=== PATIENT | female | born 1985 | race Caucasian/White ===

== ENCOUNTER 2023-07-17 12:28 | Outpatient (OUT) | payer OTHER, SELFPAY ==
--- NOTE | 2023-07-17 12:33 | US_ITS ---
The [address] [address] Patient Name: VISHAL NELSON MRN: [id number] date: 1985 Sex: F Assigned Patient Location: US Current Patient Location: Accession/Order Number: [id number] Exam Date: 07/17/2023 12:33 Report Date: 07/17/2023 15:57 At the request of: AMPARO CROWLEY Procedure: US OB transvaginal EXAMINATION: US OB transvaginal HISTORY: MISSED MENSES COMPARISON: No relevant comparison available. FINDINGS: GESTATIONAL SAC: Present and normal appearing. YOLK SAC: Present and normal appearing. POLE: Present and normal appearing. CARDIAC: Present. UTERUS: Normal size and appearance. OVARIES: Right: Normal. Left: Normal. CERVIX: 4.4 cm in length and closed. CUL-DE-SAC: Normal. OTHER: None. AGE BY LMP: 10 weeks 6 days KATEY BY LMP: 02/06/2024 AGE BY US CRL: 11 weeks 1 day KATEY BY US CRL: 02/04/2024 US/US OB transvaginal IMPRESSION: 1. Single live intrauterine . Electronically authenticated by: JARAD BISHOP Date: 07/17/2023 15:57
== END 2023-07-17 12:29 | disposition home or self-care (01) ==
LOC: US 12:29
PROVIDERS: Visit Provider Obstetrics & Gynecology
DX: Z34.91 Encounter for supervision of normal pregnancy, unspecified, first trimester (principal); N92.6 Irregular menstruation, unspecified
CPT/HCPCS: 76817

== ENCOUNTER 2023-07-22 11:26 | Outpatient (OUT) | payer OTHER, SELFPAY ==
[2023-07-22 12:13] LABS: Basophils Percent Auto 0.4 % (0.2-2.0); Eosinophils Absolute Auto 0.1 10^3/uL (0.0-0.7); Eosinophils Percent Auto 0.6 % (0.9-7.0); Hematocrit 36.3 % (36.0-48.0); Hemoglobin 12.2 g/dL (12.0-16.0); Immature Granulocytes Abs Auto 0.05 10^3/uL (0.00-0.03); Immature Granulocytes Pct Auto 0.5 % (0.0-0.5); Lymphocytes Absolute Auto 1.7 10^3/uL (1.2-3.8); Lymphocytes Percent Auto 15.9 % (20.5-60.0); Mean Corpuscular HGB Conc 33.6 g/dL (29.9-35.2); Mean Corpuscular Hemoglobin 30.9 pg (26.7-34.0); Mean Corpuscular Volume 91.9 fL (81.0-99.0); Monocytes Absolute Auto 0.5 10^3/uL (0.3-0.8); Monocytes Percent Auto 4.9 % (1.7-12.0); Neutrophils Percent Auto 77.7 % (43.0-75.0); Platelet Count 245 10^3/uL (150-450); Red Blood Count 3.95 10^6/uL (4.20-5.40); Red Cell Distribution Width 12.5 % (11.0-15.0); White Blood Count 10.4 10^3/uL (4.0-11.0)
[2023-07-22 12:14] LABS: Estimated Average Glucose 103 mg/dL; Glycohemoglobin A1C 5.2 % (4.5-6.2)
[2023-07-22 12:57] LABS: Thyroid Stimulating Hormone 1.005 uIU/mL (0.358-3.740)
[2023-07-23 06:09] LABS: HBsAg Screen Negative (Negative); HCV Ab Non Reactive (Non Reactive); HIV Ab/p24 Ag Screen Non Reactive (Non Reactive)
[2023-07-23 08:12] LABS: Rubella Antibodies, IgG 2.84 index (Immune >0.99)
[2023-07-23 12:09] LABS: Rapid Plasma Reagin, Quant Non Reactive titer (NonRea<1:1)
== END 2023-07-22 11:27 | disposition home or self-care (01) ==
PROVIDERS: Visit Provider Obstetrics & Gynecology
DX: Z34.80 Encounter for supervision of other normal pregnancy, unspecified trimester (principal); N92.6 Irregular menstruation, unspecified
CPT/HCPCS: 36415; 83036; 84443; 85025; 86592; 86762; 86803; 86850; 86900; 86901; 87086; 87340; 87389

== ENCOUNTER 2023-09-11 20:26 | Outpatient (REF) | payer OTHER, SELFPAY ==
[2023-09-17 11:09] LABS: Age Gdln ACOG Testing Note (.); HPV Aptima Negative (Negative); IGP, Aptima HPV, rfx 16/18,45 Note (.)
== END 2023-09-11 20:27 | disposition home or self-care (01) ==
LOC: LAB 20:26
PROVIDERS: Visit Provider Physician Assistant
DX: Z01.419 Encounter for gynecological examination (general) (routine) without abnormal findings (principal); R30.0 Dysuria
CPT/HCPCS: 87086; 87150; 87186; 87624; G0145

== ENCOUNTER 2023-11-17 07:47 | Outpatient (OUT) | payer OTHER, SELFPAY ==
--- OUTSIDE RECORDS SUMMARY | 2023-11-17 07:48 | XMS_ITS | CCD ---
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 Role Phone PHYSICIAN, DEFAULT Unavailable Unavailable PHYSICIAN, DEFAULT Unavailable Unavailable HOUSE, DR FLYNN Attending Unavailable HOUSE, DR FLYNN Consulting Unavailable HOUSE, DR FLYNN Admitting Unavailable REQUEST, DR GARCIA LISTED Primary Care Unavaila MAGDALENA Ruiz Attending Unavailable MAGDALENA WISDOM Attending Unavailable Allergies Allergy Classification Reported Allergen(s) Allergy Type Date of Onset Reaction(s) Facility (1 source) Nitrofurantoin Drug Allergy 7 [facility] Repository Results Test Name Value Interpretation Reference Range Facil ity CBC AUTO DIFFon 10-02-2022 BASO # 0.0 103/ul Normal 0.0-0.1 [facility] Comment on above: Performed By: #### C BC #### [facility] [address] [address] [address] Musa Chacon Basophils/100 WBC (Bld) 0.9 % Normal 0.2-2.0 [facility] Comment on above: Performed By: #### C BC #### [facility] [address] [address] [address] Musa Chacon EO # 0.1 103/ul Normal 0.0-0.7 [facility] Comment on above: Performed By: #### C BC #### [facility] [address] [address] [address] Musa Chacon Eosinophils/100 WBC (Bld) 1.8 % Normal 0.9-7.0 [facility] Comment on above: Performed By: #### C BC #### [facility] [address] [address] [address] Musa Chacon Erythrocyte distribution width (RBC) [Ratio] 12.8 % Normal 11.0-15.0 [facility] Comment on above: Performed By: #### C BC #### [facility] [address] [place] [address] Dr. Musa Chacon Hematocrit (Bld) [Volume fraction] 39.4 % Normal 36.0-48.0 [facility] Comment on above: Performed By: #### C BC #### [facility] [address] [place] [address] Dr. Musa Chacon Hemoglobin (Bld) [Mass/Vol] 13.5 g/dL Normal 12.0-16.0 [facility] Comment on above: Performed By: #### C BC #### [facility] [address] [place] [address] Dr. Musa Chacon IG # 0.01 10e3/ul Normal 0.00-0.03 [facility] Comment on above: Performed By: #### C BC #### [facility] [address] [place] [address] Dr. Musa Chacon IG % 0.2 % Normal 0.0-0.5 [facility] Comment on above: Performed By: #### C BC #### [facility] [address] [place] [address] Dr. Musa Chacon LYMPH # 1.4 103/ul Normal 1.2-3.8 [facility] Comment on above: Performed By: #### C BC #### [facility] [address] [place] [address] Dr. Musa Chacon Lymphocytes/100 WBC (Bld) 32.0 % Normal 20.5-60.0 [facility] Comment on above: Performed By: #### C BC #### [facility] [address] [place] [address] Dr. Musa Chacon MANUAL DIFF REQ NO Normal [facility] Comment on above: Performed By: #### C BC #### [facility] [address] [place] [address] Dr. Musa Chacon MCH (RBC) [Entitic mass] 30.1 pg Normal 26.7-34.0 [facility] Comment on above: Performed By: #### C BC #### [facility] [address] [address] [address] Musa Chacon MCHC (RBC) [Mass/Vol] 34.3 g/dL Normal 29.9-35.2 [facility] Comment on above: Performed By: #### C BC #### [facility] [address] [address] [address] Musa Chacon MCV (RBC) [Entitic vol] 87.8 fL Normal 81.0-99.0 [facility] Comment on above: Performed By: #### C BC #### [facility] [address] [address] [address] Musa Chacon MONO # 0.4 103/ul Normal 0.3-0.8 [facility] Comment on above: Performed By: #### C BC #### [facility] [address] [place] [address] Dr. Musa Chacon Monocytes/100 WBC (Bld) 8.0 % Normal 1.7-12.0 [facility] Comment on above: Performed By: #### C BC #### [facility] [address] [place] [address] Dr. Musa Chacon NEUT # 2.6 103/ul Normal 1.4-6.5 [facility] Comment on above: Performed By: #### C BC #### [facility] [address] [place] [address] Dr. Musa Chacon Neutrophils/100 WBC (Bld) 57.1 % Normal 43.0-75.0 [facility] Comment on above: Performed By: #### C BC #### [facility] [address] [place] [address] Dr. Musa Chacon Platelet mean volume (Bld) [Entitic vol] 10.2 fL Normal 9.5-13.5 [facility] Comment on above: Performed By: #### C BC #### [facility] [address] [place] [address] Dr. Musa Chacon PLT 223 103/ul Normal 150-450 [facility] Comment on above: Performed By: #### C BC #### [facility] [address] [place] [address] Dr. Musa Chacon RBC 4.49 106/ul Normal 4.20-5.40 [facility] Comment on above: Performed By: #### C BC #### [facility] [address] [place] [address] Dr. Musa Chacon WBC 4.5 103/ul Normal 4.0-11.0 [facility] Comment on above: Performed By: #### C BC #### [facility] [address] [place] [address] Dr. Musa Chacon PROF 14(COMP METB)on 022 Albumin [Mass/Vol] 4.1 g/dL Normal 3.4-5.0 [facility] Comment on above: Performed By: #### T 4, CMP, TSH #### [facility] [address] [place] [address] Dr. Musa Chacon Albumin/Globulin [Mass ratio] 1.5 {ratio} Normal [facility] Comment on above: Performed By: #### T 4, CMP, TSH #### [facility] [address] [place] [address] Dr. Musa Chacon ALP [Catalytic activity/Vol] 51 U/L Normal 46-116 [facility] Comment on above: Performed By: #### T 4, CMP, TSH #### [facility] [address] [place] [address] Dr. Musa Chacon ALT [Catalytic activity/Vol] 17 U/L Normal 14-59 [facility] Comment on above: Performed By: #### T 4, CMP, TSH #### [facility] [address] [place] [address] Dr. Musa Chacon Anion gap [Moles/Vol] 11.8 mmol/L Normal [facility] Comment on above: Performed By: #### T 4, CMP, TSH #### [facility] [address] [place] [address] Dr. Musa Chacon AST [Catalytic activity/Vol] 14 U/L Critically low 15-37 [facility] Comment on above: Performed By: #### T 4, CMP, TSH #### [facility] [address] [address] [address] Musa Chacon Bilirubin [Mass/Vol] 0.8 mg/dL Normal 0.2-1.0 [facility] Comment on above: Performed By: #### T 4, CMP, TSH #### [facility] [address] [address] [address] Musa Chacon Calcium [Mass/Vol] 8.9 mg/dL Normal 8.5-10.1 [facility] Comment on above: Performed By: #### T 4, CMP, TSH #### [facility] [address] [place] [address] Dr. Musa Chacon Chloride [Moles/Vol] 105 mmol/L Normal 98-107 [facility] Comment on above: Performed By: #### T 4, CMP, TSH #### [facility] [address] [place] [address] Dr. Musa Chacon CO2 [Moles/Vol] 27.4 mmol/L Normal 21.0-32.0 [facility] Comment on above: Performed By: #### T 4, CMP, TSH #### [facility] [address] [place] [address] Dr. Musa Chacon Creatinine [Mass/Vol] 0.78 mg/dL Normal 0.55-1.02 [facility] Comment on above: Performed By: #### T 4, CMP, TSH #### [facility] [address] [place] [address] Dr. Musa Chacon EGFR-AF MAURITIAN >60 Normal >=60 [facility] Comment on above: Performed By: #### T 4, CMP, TSH #### [facility] [address] [place] [address] Dr. Musa Chacon EGFR-NON AF MAURITIAN >60 Normal >=60 [facility] Comment on above: Performed By: #### T 4, CMP, TSH #### [facility] [address] [place] [address] Dr. Musa Chacon Globulin (S) [Mass/Vol] 2.8 g/dL Normal [facility] Comment on above: Performed By: #### T 4, CMP, TSH #### [facility] [address] [place] [address] Dr. Musa Chacon Glucose [Mass/Vol] 96 mg/dL Normal 74-106 [facility] Comment on above: Performed By: #### T 4, CMP, TSH #### [facility] [address] [place] [address] Dr. Musa Chacon Potassium [Moles/Vol] 4.2 mmol/L Normal 3.5-5.1 [facility] Comment on above: Performed By: #### T 4, CMP, TSH #### [facility] [address] [place] [address] Dr. Musa Chacon Protein [Mass/Vol] 6.9 g/dL Normal 6.4-8.2 [facility] Comment on above: Performed By: #### T 4, CMP, TSH #### [facility] [address] [place] [address] Dr. Musa Chacon Sodium [Moles/Vol] 140 mmol/L Normal 136-145 [facility] Comment on above: Performed By: #### T 4, CMP, TSH #### [facility] [address] [place] [address] Dr. Musa Chacon Urea nitrogen [Mass/Vol] 10.0 mg/dL Normal 7.0-18.0 [facility] Comment on above: Performed By: #### T 4, CMP, TSH #### [facility] [address] [place] [address] Dr. Musa Chacon Urea nitrogen/Creatinine [Mass ratio] 12.8 mg/mg Normal [facility] Comment on above: Performed By: #### T 4, CMP, TSH #### [facility] [address] [place] [address] Dr. Musa Chacon T4on 10-02-2022 T4 [Mass/Vol] 6.30 ug/dL Normal 4.80-13.90 [facility] Comment on above: Performed By: #### T 4, CMP, TSH #### [facility] [address] [place] [address] Dr. Musa Chacon TSHon 10-02-2022 TSH 1.653 uIU/mL Normal 0.358-3.[address] [facility] Comment on above: Performed By: #### T 4, CMP, TSH #### [facility] [id number] Musa Chacon Coding Summary.on 10-12-2020 Coding Summary. 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 However, the narrative phrase printed from the coding software may appear abbreviated, or result in slightly different terminology. Coded By: Christine Dash CphT Date Saved: 10/12/2020 10:12 am Normal [facility] SARS-CoV-2, NAAon 10-06-2020 SARS CORONAVIRUS 2 RNA:PRTHR:PT:RESPIR ATORY:ORD:PROBE.AMP .TAR Detected Abnormal Not Detected [facility] Comment on above: Result Comment: This nucleic acid amplification test was developed and its performance characteristics determined by [employer]. Nucleic acid amplification tests include PCR and TMA. This test has not been FDA cleared or approved. This test has been authorized by FDA under an Emergency Use Authorization (EUA). This test is only authorized for the duration of time the declaration that circumstances exist justifying the authorization of the emergency use of in vitro diagnostic tests for detection of SARS-CoV-2 virus and/or diagnosis of COVID-19 infection under section 564(b)(1) of the Act, 21 U.S.C. 360bbb-3(b) (1), unless the authorization is terminated or revoked sooner. When diagnostic testing is negative, the possibility of a false negative result should be considered in the context of a patient's recent exposures and the presence of clinical signs and symptoms consistent with COVID-19. An individual without symptoms of COVID-19 and who is not shedding SARS-CoV-2 virus would expect to have a negative (not detected) result in this assay. Performed at: [facility] [address] [facility], [place] [id number] [facility] Magda Clark Performed By: #### S ARS-CoV-2, LE #### [facility] [address] [place] [address] Physician Orderon 10-02-2020 Physician Order [id number] #[id number] Normal [facility] Encounters Encounter Date Encounter Type Care Provider Facility Start: 11-05-2023 End: 11-05-2023 ambulatory MAGDALENA ARTIS Not Available Start: 10-08-2023 End: 10-08-2023 ambulatory MAGDALENA WISDOM Not Available Start: 10-05-2022 Encounter for genera l adult medical examination without abnormal findings DR GEE HERNANDEZ [facility] Start: 10-02-2022 End: 10-03-[address] GEE HERNANDEZ Facility:[facility] Start: 10-02-2022 End: 10-03-2022 Encounter for general adult medical examination without abnormal findings DR GEE HERNANDEZ Facility:[facility] Start: 05-21-2017 End: 05-22-2017 Ambulatory DEFAULT PHYSICIAN Facility:[facility] Payers Date Payer Category Payer Unknown [id number] 1985 Unknown [id number] 1985 Unknown [id number] 1985 Unknown [id number] 1958 Unknown [id number] Unknown Summary Purpose Family History No Family History Records FoundNo Family History Records FoundNo Family History Records FoundNo Family History Records Found Advance Directives No Advanced Directives Records FoundNo Advanced Directives Records FoundNo Advanced Directives Records FoundNo Advanced Directives Records Found Additional Source Comments INFORMATION SOURCE (unrecogn ized section and content) DATE CREATED AUTHOR 04/29/2018 [facility] DATE CREATED AUTHOR AUTHOR'S ORGANIZ ATION 10/13/2020 [facility] DATE CREATED AUTHOR AUTHOR'S ORGANIZ ATION 10/05/2022 [facility] DATE CREATED AUTHOR AUTHOR'S ORGANIZ ATION 11/06/2023 [facility] FOR RECORDS PERTAINING TO PATIENTS WHO ARE OR HAVE BEEN ENROLLED IN A CHEMICAL DEPENDENCY/SUBSTANCEABUSE PROGRAM, SOME INFORMATION MAY BE OMITTED. This clinical summary was aggregated from multiple sources. Caution should be exercised in using it in the provision of clinical care. This summary normalizes information from multiple sources, and as a consequence, information in this document may materially change the coding, format and clinical context of patient data. In addition, data may be omitted in some cases. CLINICAL DECISIONS SHOULD BE BASED ON THE PRIMARY CLINICAL RECORDS. [facility] [employer] provides no warranty or guarantee of the accuracy or completeness of information in this document.
[2023-11-17 08:59] LABS: Basophils Absolute Auto 0.1 10^3/uL (0.0-0.1); Basophils Percent Auto 0.5 % (0.2-2.0); Eosinophils Absolute Auto 0.1 10^3/uL (0.0-0.7); Eosinophils Percent Auto 0.6 % (0.9-7.0); Hematocrit 30.6 % (36.0-48.0); Hemoglobin 10.4 g/dL (12.0-16.0); Immature Granulocytes Abs Auto 0.11 10^3/uL (0.00-0.03); Lymphocytes Absolute Auto 1.3 10^3/uL (1.2-3.8); Lymphocytes Percent Auto 11.5 % (20.5-60.0); Mean Corpuscular Hemoglobin 31.5 pg (26.7-34.0); Mean Corpuscular Volume 92.7 fL (81.0-99.0); Mean Platelet Volume 9.4 fL (9.5-13.5); Monocytes Absolute Auto 0.5 10^3/uL (0.3-0.8); Monocytes Percent Auto 4.8 % (1.7-12.0); Neutrophils Percent Auto 81.6 % (43.0-75.0); Platelet Count 266 10^3/uL (150-450); Red Cell Distribution Width 12.8 % (11.0-15.0); White Blood Count 11.1 10^3/uL (4.0-11.0)
[2023-11-17 09:06] LABS: Glucose 1 Hour 115 mg/dL
== END 2023-11-17 07:48 | disposition home or self-care (01) ==
LOC: LAB 07:47
PROVIDERS: Visit Provider Obstetrics & Gynecology
DX: Z34.92 Encounter for supervision of normal pregnancy, unspecified, second trimester (principal)
CPT/HCPCS: 36415; 82950; 85025

== ENCOUNTER 2023-11-25 13:47 | Outpatient (OUT) | payer OTHER, SELFPAY ==
--- NOTE | 2023-11-25 13:49 | US_ITS ---
[address] [address] Patient Name: VISHAL NELSON MRN: [id number] date: 1985 Sex: F Assigned Patient Location: US Current Patient Location: Accession/Order Number: [id number] Exam Date: 11/25/2023 13:50 Report Date: 11/25/2023 14:30 At the request of: AMPARO CROWLEY Procedure: US OB growth EXAMINATION: US OB growth HISTORY: ANTEPARTUM PLACENTA CIRCUMVALLATA COMPARISON: No relevant comparison available. FINDINGS: Heart Rate: 157.0 bpm Amniotic Fluid Volume: 11.0 cm Number: 1.0 Position: Cephalic presentation, longitudinal lie Amniotic fluid volume: 11 cm Maximum Vertical Pocket: 3.9 cm cm 3.0 cm cm 1.8 cm cm 2.3 cm cm BIOMETRY: BPD: 7.5 cm cm; 30 weeks 0 days; , 50% HC: 27.7 cmcm; 30 weeks 2 days , 35% AC: 26.4 cm cm; 30 weeks 4 days, 73% FL: 5.7 cm cm; 30 weeks 0 days; 46.9 % % EFW: 1545.4 grams, 3 lbs. 6 oz., 64% FL/AC: 21.7 FL/BPD: 76.6 HC/AC: 1.1 GESTATIONAL AGE: Age by EDC: 29 weeks 4 days KATEY by EDC: 02/06/2024 Age by US: 30 weeks 2 days KATEY by US: 02/01/2024 US/US OB growth IMPRESSION: Normal interval growth Electronically authenticated by: SOPHIA GONZALEZ Date: 11/25/2023 14:30
--- OUTSIDE RECORDS SUMMARY | 2023-11-25 13:54 | XMS_ITS | CCD ---
Author Name Unknown Address [address] [place] [address] Organization [facility] Care Team Providers Care Container Coordinator Name Role Phone PHYSICIAN, DEFAULT Unavailable Unavailable PHYSICIAN, DEFAULT Unavailable Unavailable HOUSE, DR FLYNN Attending Unavailable HOUSE, DR FLYNN Consulting Unavailable HOUSE, DR FLYNN Admitting Unavailable REQUEST, DR GARCIA LISTED Primary Care Unavaila MAGDALENA Ruiz Attending Unavailable MAGDALENA WISDOM Attending Unavailable Allergies Allergy Classification Reported Allergen(s) Allergy Type Date of Onset Reaction(s) Facility (1 source) Nitrofurantoin Drug Allergy 7 [facility] Repository Results Test Name Value Interpretation Reference Range Facil ity CBC AUTO DIFFon 10-02-2022 BASO # 0.0 103/ul Normal 0.0-0.1 [facility] Comment on above: Performed By: #### C BC #### [facility] [address] [address] [address] Musa Chacon Basophils/100 WBC (Bld) 0.9 % Normal 0.2-2.0 [facility] Comment on above: Performed By: #### C BC #### [facility] [address] [address] [address] Musa Chacon EO # 0.1 103/ul Normal 0.0-0.7 [facility] Comment on above: Performed By: #### C BC #### [facility] [address] [address] [address] Musa Chacon Eosinophils/100 WBC (Bld) 1.8 % Normal 0.9-7.0 [facility] Comment on above: Performed By: #### C BC #### [facility] [address] [address] [address] Musa Chacon Erythrocyte distribution width (RBC) [Ratio] 12.8 % Normal 11.0-15.0 [facility] Comment on above: Performed By: #### C BC #### [facility] [address] [place] [address] Dr. Musa Chacon Hematocrit (Bld) [Volume fraction] 39.4 % Normal 36.0-48.0 [facility] Comment on above: Performed By: #### C BC #### [facility] [address] [place] [address] Dr. Musa Chacon Hemoglobin (Bld) [Mass/Vol] 13.5 g/dL Normal 12.0-16.0 [facility] Comment on above: Performed By: #### C BC #### [facility] [address] [place] [address] Dr. Musa Chacon IG # 0.01 10e3/ul Normal 0.00-0.03 [facility] Comment on above: Performed By: #### C BC #### [facility] [address] [place] [address] Dr. Musa Chacon IG % 0.2 % Normal 0.0-0.5 [facility] Comment on above: Performed By: #### C BC #### [facility] [address] [place] [address] Dr. Musa Chacon LYMPH # 1.4 103/ul Normal 1.2-3.8 [facility] Comment on above: Performed By: #### C BC #### [facility] [address] [place] [address] Dr. Musa Chacon Lymphocytes/100 WBC (Bld) 32.0 % Normal 20.5-60.0 [facility] Comment on above: Performed By: #### C BC #### [facility] [address] [place] [address] Dr. Musa Chacon MANUAL DIFF REQ NO Normal [facility] Comment on above: Performed By: #### C BC #### [facility] [address] [place] [address] Dr. Musa Chacon MCH (RBC) [Entitic mass] 30.1 pg Normal 26.7-34.0 [facility] Comment on above: Performed By: #### C BC #### [facility] [address] [address] [address] Musa Chacon MCHC (RBC) [Mass/Vol] 34.3 g/dL Normal 29.9-35.2 [facility] Comment on above: Performed By: #### C BC #### [facility] [address] [address] [address] Musa Chacon MCV (RBC) [Entitic vol] 87.8 fL Normal 81.0-99.0 [facility] Comment on above: Performed By: #### C BC #### [facility] [address] [address] [address] Musa Chacon MONO # 0.4 103/ul Normal 0.3-0.8 [facility] Comment on above: Performed By: #### C BC #### [facility] [address] [place] [address] Dr. Musa Chacon Monocytes/100 WBC (Bld) 8.0 % Normal 1.7-12.0 [facility] Comment on above: Performed By: #### C BC #### [facility] [address] [place] [address] Dr. Musa Chacon NEUT # 2.6 103/ul Normal 1.4-6.5 [facility] Comment on above: Performed By: #### C BC #### [facility] [address] [place] [address] Dr. Musa Chacon Neutrophils/100 WBC (Bld) 57.1 % Normal 43.0-75.0 [facility] Comment on above: Performed By: #### C BC #### [facility] [address] [place] [address] Dr. Musa Chacon Platelet mean volume (Bld) [Entitic vol] 10.2 fL Normal 9.5-13.5 [facility] Comment on above: Performed By: #### C BC #### [facility] [address] [place] [address] Dr. Musa Chacon PLT 223 103/ul Normal 150-450 [facility] Comment on above: Performed By: #### C BC #### [facility] [address] [place] [address] Dr. Musa Chacon RBC 4.49 106/ul Normal 4.20-5.40 [facility] Comment on above: Performed By: #### C BC #### [facility] [address] [place] [address] Dr. Musa Chacon WBC 4.5 103/ul Normal 4.0-11.0 [facility] Comment on above: Performed By: #### C BC #### [facility] [address] [place] [address] Dr. Musa Chacon PROF 14(COMP METB)on 022 Albumin [Mass/Vol] 4.1 g/dL Normal 3.4-5.0 [facility] Comment on above: Performed By: #### T 4, CMP, TSH #### [facility] [address] [place] [address] Dr. Musa Chacon Albumin/Globulin [Mass ratio] 1.5 {ratio} Normal [facility] Comment on above: Performed By: #### T 4, CMP, TSH #### [facility] [address] [place] [address] Dr. Musa Chacon ALP [Catalytic activity/Vol] 51 U/L Normal 46-116 [facility] Comment on above: Performed By: #### T 4, CMP, TSH #### [facility] [address] [place] [address] Dr. Musa Chacon ALT [Catalytic activity/Vol] 17 U/L Normal 14-59 [facility] Comment on above: Performed By: #### T 4, CMP, TSH #### [facility] [address] [place] [address] Dr. Musa Chacon Anion gap [Moles/Vol] 11.8 mmol/L Normal [facility] Comment on above: Performed By: #### T 4, CMP, TSH #### [facility] [address] [place] [address] Dr. Musa Chacon AST [Catalytic activity/Vol] 14 U/L Critically low 15-37 [facility] Comment on above: Performed By: #### T 4, CMP, TSH #### [facility] [address] [address] [address] Musa Chacon Bilirubin [Mass/Vol] 0.8 mg/dL Normal 0.2-1.0 [facility] Comment on above: Performed By: #### T 4, CMP, TSH #### [facility] [address] [address] [address] Musa Chacon Calcium [Mass/Vol] 8.9 mg/dL Normal 8.5-10.1 [facility] Comment on above: Performed By: #### T 4, CMP, TSH #### [facility] [address] [place] [address] Dr. Musa Chacon Chloride [Moles/Vol] 105 mmol/L Normal 98-107 [facility] Comment on above: Performed By: #### T 4, CMP, TSH #### [facility] [address] [place] [address] Dr. Musa Chacon CO2 [Moles/Vol] 27.4 mmol/L Normal 21.0-32.0 [facility] Comment on above: Performed By: #### T 4, CMP, TSH #### [facility] [address] [place] [address] Dr. Musa Chacon Creatinine [Mass/Vol] 0.78 mg/dL Normal 0.55-1.02 [facility] Comment on above: Performed By: #### T 4, CMP, TSH #### [facility] [address] [place] [address] Dr. Musa Chacon EGFR-AF DUTCH >60 Normal >=60 [facility] Comment on above: Performed By: #### T 4, CMP, TSH #### [facility] [address] [place] [address] Dr. Musa Chacon EGFR-NON AF DUTCH >60 Normal >=60 [facility] Comment on above: Performed By: #### T 4, CMP, TSH #### [facility] [address] [place] [address] Dr. Musa Chacon Globulin (S) [Mass/Vol] 2.8 g/dL Normal [facility] Comment on above: Performed By: #### T 4, CMP, TSH #### [facility] [address] [place] [address] Dr. Musa Chacon Glucose [Mass/Vol] 96 mg/dL Normal 74-106 [facility] Comment on above: Performed By: #### T 4, CMP, TSH #### [facility] [address] [place] [address] Dr. Musa Chacon Potassium [Moles/Vol] 4.2 mmol/L Normal 3.5-5.1 [facility] Comment on above: Performed By: #### T 4, CMP, TSH #### [facility] [address] [place] [address] Dr. Musa Chacon Protein [Mass/Vol] 6.9 g/dL Normal 6.4-8.2 [facility] Comment on above: Performed By: #### T 4, CMP, TSH #### [facility] [address] [place] [address] Dr. Musa Chacon Sodium [Moles/Vol] 140 mmol/L Normal 136-145 [facility] Comment on above: Performed By: #### T 4, CMP, TSH #### [facility] [address] [place] [address] Dr. Musa Chacon Urea nitrogen [Mass/Vol] 10.0 mg/dL Normal 7.0-18.0 [facility] Comment on above: Performed By: #### T 4, CMP, TSH #### [facility] [address] [place] [address] Dr. Musa Chacon Urea nitrogen/Creatinine [Mass ratio] 12.8 mg/mg Normal [facility] Comment on above: Performed By: #### T 4, CMP, TSH #### [facility] [address] [place] [address] Dr. Musa Chacon T4on 10-02-2022 T4 [Mass/Vol] 6.30 ug/dL Normal 4.80-13.90 [facility] Comment on above: Performed By: #### T 4, CMP, TSH #### [facility] [address] [place] [address] Dr. Musa Chacon TSHon 10-02-2022 TSH 1.653 uIU/mL Normal 0.358-3.740 [facility] Comment on above: Performed By: #### T 4, CMP, TSH #### [facility] [id number] Musa Chacon Coding Summary.on 10-12-2020 Coding Summary. 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 Nucleic acid amplification tests include PCR and [...] this assay. Performed at: [facility] [address] [facility], [place] [id number] [facility] Magda Clark Performed By: #### S ARS-CoV-2, LE #### [facility] [address] [place] [address] Physician Orderon 10-02-2020 Physician Order [id number] Normal [facility] Encounters Encounter Date Encounter Type Care Provider Facility Start: 11-05-2023 End: 11-05-2023 ambulatory MAGDALENA ARTIS Not Available Start: 10-08-2023 End: 10-08-2023 ambulatory MAGDALENA WISDOM Not Available Start: 10-05-2022 Encounter for genera l adult medical examination without abnormal findings DR GEE HERNANDEZ [facility] Start: 10-02-2022 End: 10-03-[address] GEE HERNANDEZ Facility:[facility] Start: 10-02-2022 End: 10-03-2022 Encounter for general adult medical examination without abnormal findings DR GEE HERNANDEZ Facility:[facility] Start: 05-21-2017 End: 05-22-2017 Ambulatory DEFAULT PHYSICIAN Facility:[facility] Payers Date Payer Category Payer Unknown [id number] 1985 Unknown [id number] [id number] 1985 Unknown [id number] 1986 Unknown [id number] 1959 Unknown [id number] Unknown Summary Purpose Family History No Family History Records FoundNo Family History Records FoundNo Family History Records FoundNo Family History Records Found Advance Directives No Advanced Directives Records FoundNo Advanced Directives Records FoundNo Advanced Directives Records FoundNo Advanced Directives Records Found Additional Source Comments INFORMATION SOURCE (unrecogn ized section and content) DATE CREATED AUTHOR 04/29/2018 [facility] DATE CREATED AUTHOR AUTHOR'S ORGANIZ ATION 10/13/2020 [facility] DATE CREATED AUTHOR AUTHOR'S ORGANIZ ATION 10/05/2022 [facility] DATE CREATED AUTHOR AUTHOR'S ORGANIZ ATION 11/06/[address] [facility] FOR RECORDS PERTAINING TO PATIENTS WHO [...] BE BASED ON THE PRIMARY CLINICAL RECORDS. [facility] [employer] provides no warranty or guarantee of the accuracy or completeness of information in this document.
== END 2023-11-25 13:48 | disposition home or self-care (01) ==
LOC: US 13:47
PROVIDERS: Visit Provider Obstetrics & Gynecology
DX: O43.113 Circumvallate placenta, third trimester (principal); Z3A.29 29 weeks gestation of pregnancy
CPT/HCPCS: 76816

== ENCOUNTER 2023-12-24 07:48 | Outpatient (OUT) | payer OTHER, SELFPAY ==
--- OUTSIDE RECORDS SUMMARY | 2023-12-24 07:51 | XMS_ITS | CCD ---
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 Telephone Name Role Phone PHYSICIAN, DEFAULT Unavailable Unavailable PHYSICIAN, DEFAULT Unavailable Unavailable HOUSE, DR FLYNN Attending Unavailable HOUSE, DR FLYNN Consulting Unavailable HOUSE, DR FLYNN Admitting Unavailable REQUEST, DR GARCIA LISTED Primary Care Unavaila PATI Ruiz Attending Unavailable AMPARO CARBONE Attending Unavailable PATI WISDOM Attending Unavailable PATI WISDOM Attending Unavailable Unavailable Primary Care Provider Unavailabl e Allergies Allergy Classification Reported Allergen(s) Allergy Type Date of Onset Reaction(s) Facility (1 source) Nitrofurantoin Drug Allergy 7 [facility] (2 sources) Ciprofloxacin Drug Allergy 3 GI intolerance [facility] (2 sources) Nitrofurantoin Drug Allergy 3 GI intolerance [facility] Medications Current Medications Medication Drug Class(es) Dates Sig (Normalized) Sig (Original) polysaccharide iron complex 391 mg oral capsule (2 sources) Start: 11-19-2023 End: 06-16-2024 take 1 capsule by mouth in the morning iron polysaccharides (ProFe) 391.3 (180 Fe) MG capsule Indications: Low hemoglobin Take 1 capsule (391.3 mg) by mouth in the morning. 30 capsule 6 11/19/2023 06/16/2024 Active MV-Min-Fe Fum-FA-DHA ( 1 PO) (2 sources) MV-Min- Fe Fum-FA-DHA ( 1 PO) Take 1 each by mouth in the morning. 0 Active valACYclovir 500 mg oral tablet (2 sources) Herpesvirus Nucleoside Analog DNA Polymerase Inhibitor, Herpes Simplex Virus Nucleoside Analog DNA Polymerase Inhibitor, Herpes Zoster Virus Nucleoside Analog DNA Polymerase Inhibitor Start: 12-10-2023 End: 06-07-2024 take 1 tablet by mouth in the morning valACYclovir (Valtrex) 500 MG tablet Indications: Third trimester Take 1 tablet (500 mg) by mouth in the morning. 30 tablet 5 12/10/2023 06/07/2024 Active Problems Problem Classification Problem Date Documented Da te Episodic/Chronic Other complications of (2 sources) Multigravida of advanced maternal age; Translations: [Supervision of elderly multigravida, third trimester] 12-10-2023 Episodic Other and delivery including normal (2 sources) Third trimester ; Translations: [Encounter for supervision of normal , unspecified, third trimester] 12-05-2023 Episodic Results Test Name Value Interpretation Reference Range Facil ity Urinalysis macro (dipstick) panel (U)on 12-10-2023 Bilirubin, UA Negative Negative - 4(70) +++ mg/dL [facility] Blood, UA Positive Negative - 50 Andrea/mcL [facility] Clarity, UA Clear [facility] re Color, UA Yellow [facility] e Glucose, UA Negative Negative - 2000(110) ++++ mg/dL [facility] Interpretation and review of laboratory results Abnormal [facility] Ketones, UA Negative Negative - 160(16) ++++ mg/dL [facility] Leukocytes, UA Negative Negative - 500+++ Toan/mcL [facility] Nitrite, UA Negative Negative - Positive [facility] pH, UA 5.5 5 - [address] [facility] e Protein, UA Negative Negative - 2000(20) ++++ mg/dL [facility] Spec Grav, UA 1.020 1 - 1.03 [facility] Urobilinogen, UA 1.0 0.2 - 12 mg/[facility] CBC AUTO DIFFon 10-02-2022 BASO # 0.0 103/ul Normal 0.0-0.1 [facility] Comment on above: Performed By: #### C BC #### [facility] [address] [address] [address] Musa Chacon Basophils/100 WBC (Bld) 0.9 % Normal 0.2-2.0 [facility] Comment on above: Performed By: #### C BC #### [facility] [address] [address] [address] Musa Chacon EO # 0.1 103/ul Normal 0.0-0.7 [facility] Comment on above: Performed By: #### C BC #### [facility] [address] [place] [address] Dr. Musa Chacon Eosinophils/100 WBC (Bld) 1.8 % Normal 0.9-7.0 [facility] Comment on above: Performed By: #### C BC #### [facility] [address] [place] [address] Dr. Musa Chacon Erythrocyte distribution width (RBC) [Ratio] 12.8 % Normal 11.0-15.0 [facility] Comment on above: Performed By: #### C BC #### [facility] [address] [place] [address] Dr. Musa Chacon Hematocrit (Bld) [Volume fraction] 39.4 % Normal 36.0-48.0 [facility] Comment on above: Performed By: #### C BC #### [facility] [address] [place] [address] Dr. Musa Chacon Hemoglobin (Bld) [Mass/Vol] 13.5 g/dL Normal 12.0-16.0 [facility] Comment on above: Performed By: #### C BC #### [facility] [address] [place] [address] Dr. Musa Chacon IG # 0.01 10e3/ul Normal 0.00-0.03 [facility] Comment on above: Performed By: #### C BC #### [facility] [address] [place] [address] Dr. Musa Chacon IG % 0.2 % Normal 0.0-0.5 [facility] Comment on above: Performed By: #### C BC #### [facility] [address] [place] [address] Dr. Musa Chacon LYMPH # 1.4 103/ul Normal 1.2-3.8 [facility] Comment on above: Performed By: #### C BC #### [facility] [address] [place] [address] Dr. Musa Chacon Lymphocytes/100 WBC (Bld) 32.0 % Normal 20.5-60.0 [facility] Comment on above: Performed By: #### C BC #### [facility] [address] [place] [address] Dr. Musa Chacon MANUAL DIFF REQ NO Normal [facility] Comment on above: Performed By: #### C BC #### [facility] [address] [place] [address] Dr. Musa Chacon MCH (RBC) [Entitic mass] 30.1 pg Normal 26.7-34.0 [facility] Comment on above: Performed By: #### C BC #### [facility] [address] [place] [address] Dr. Musa Chacon MCHC (RBC) [Mass/Vol] 34.3 g/dL Normal 29.9-35.2 [facility] Comment on above: Performed By: #### C BC #### [facility] [address] [place] [address] Dr. Musa Chacon MCV (RBC) [Entitic vol] 87.8 fL Normal 81.0-99.0 [facility] Comment on above: Performed By: #### C BC #### [facility] [address] [place] [address] Dr. Musa Chacon MONO # 0.4 103/ul Normal 0.3-0.8 [facility] Comment on above: Performed By: #### C BC #### [facility] [address] [place] [address] Dr. Musa Chacon Monocytes/100 WBC (Bld) 8.0 % Normal 1.7-12.0 [facility] Comment on above: Performed By: #### C BC #### [facility] [address] [place] [address] Dr. Musa Chacon NEUT # 2.6 103/ul Normal 1.4-6.5 [facility] Comment on above: Performed By: #### C BC #### [facility] [address] [place] [address] Dr. Musa Chacon Neutrophils/100 WBC (Bld) 57.1 % Normal 43.0-75.0 [facility] Comment on above: Performed By: #### C BC #### [facility] [address] [address] [address] Musa Chacon Platelet mean volume (Bld) [Entitic vol] 10.2 fL Normal 9.5-13.5 [facility] Comment on above: Performed By: #### C BC #### [facility] [address] [address] [address] Musa Chacon PLT 223 103/ul Normal 150-450 [facility] Comment on above: Performed By: #### C BC #### [facility] [address] [place] [address] Dr. Musa Chacon RBC 4.49 106/ul Normal 4.20-5.40 [facility] Comment on above: Performed By: #### C BC #### [facility] [address] [place] [address] Dr. Musa Chacon WBC 4.5 103/ul Normal 4.0-11.0 [facility] Comment on above: Performed By: #### C BC #### [facility] [address] [place] [address] Dr. Musa Chacon PROF 14(COMP METB)on 022 Albumin [Mass/Vol] 4.1 g/dL Normal 3.4-5.0 [facility] Comment on above: Performed By: #### T 4, CMP, TSH #### [facility] [address] [place] [address] Dr. Musa Chacon Albumin/Globulin [Mass ratio] 1.5 {ratio} Normal [facility] Comment on above: Performed By: #### T 4, CMP, TSH #### [facility] [address] [place] [address] Dr. Musa Chacon ALP [Catalytic activity/Vol] 51 U/L Normal 46-116 [facility] Comment on above: Performed By: #### T 4, CMP, TSH #### [facility] [address] [place] [address] Dr. Musa Chacon ALT [Catalytic activity/Vol] 17 U/L Normal 14-59 [facility] Comment on above: Performed By: #### T 4, CMP, TSH #### [facility] [address] [address] [address] Musa Chacon Anion gap [Moles/Vol] 11.8 mmol/L Normal [facility] Comment on above: Performed By: #### T 4, CMP, TSH #### [facility] [address] [place] [address] Dr. Musa Chacon AST [Catalytic activity/Vol] 14 U/L Critically low 15-37 [facility] Comment on above: Performed By: #### T 4, CMP, TSH #### [facility] [address] [place] [address] Dr. Musa Chacon Bilirubin [Mass/Vol] 0.8 mg/dL Normal 0.2-1.0 [facility] Comment on above: Performed By: #### T 4, CMP, TSH #### [facility] [address] [place] [address] Dr. Musa Chacon Calcium [Mass/Vol] 8.9 mg/dL Normal 8.5-10.1 [facility] Comment on above: Performed By: #### T 4, CMP, TSH #### [facility] [address] [place] [address] Dr. Musa Chacon Chloride [Moles/Vol] 105 mmol/L Normal 98-107 [facility] Comment on above: Performed By: #### T 4, CMP, TSH #### [facility] [address] [place] [address] Dr. Musa Chacon CO2 [Moles/Vol] 27.4 mmol/L Normal 21.0-32.0 [facility] Comment on above: Performed By: #### T 4, CMP, TSH #### [facility] [address] [place] [address] Dr. Musa Chacon Creatinine [Mass/Vol] 0.78 mg/dL Normal 0.55-1.02 [facility] Comment on above: Performed By: #### T 4, CMP, TSH #### [facility] [address] [place] [address] Dr. Musa Chacon EGFR-AF WELSH >60 Normal >=60 [facility] Comment on above: Performed By: #### T 4, CMP, TSH #### [facility] [address] [place] [address] Dr. Musa Chacon EGFR-NON AF WELSH >60 Normal >=60 [facility] Comment on above: Performed By: #### T 4, CMP, TSH #### [facility] [address] [place] [address] Dr. Musa Chacon Globulin (S) [Mass/Vol] 2.8 g/dL Normal [facility] Comment on above: Performed By: #### T 4, CMP, TSH #### [facility] [address] [place] [address] Dr. Musa Chacon Glucose [Mass/Vol] 96 mg/dL Normal 74-106 [facility] Comment on above: Performed By: #### T 4, CMP, TSH #### [facility] [address] [place] [address] Dr. Musa Chacon Potassium [Moles/Vol] 4.2 mmol/L Normal 3.5-5.1 [facility] Comment on above: Performed By: #### T 4, CMP, TSH #### [facility] [address] [place] [address] Dr. Musa Chacon Protein [Mass/Vol] 6.9 g/dL Normal 6.4-8.2 [facility] Comment on above: Performed By: #### T 4, CMP, TSH #### [facility] [address] [place] [address] Dr. Musa Chacon Sodium [Moles/Vol] 140 mmol/L Normal 136-145 [facility] Comment on above: Performed By: #### T 4, CMP, TSH #### [facility] [address] [place] [address] Dr. Musa Chacon Urea nitrogen [Mass/Vol] 10.0 mg/dL Normal 7.0-18.0 [facility] Comment on above: Performed By: #### T 4, CMP, TSH #### [facility] [address] [place] [address] Dr. Musa Chacon Urea nitrogen/Creatinine [Mass ratio] 12.8 mg/mg Normal [facility] Comment on above: Performed By: #### T 4, CMP, TSH #### [facility] [address] [place] [address] Dr. Musa Chacon T4on 10-02-2022 T4 [Mass/Vol] 6.30 ug/dL Normal 4.80-13.90 [facility] Comment on above: Performed By: #### T 4, CMP, TSH #### [facility] [address] [place] [address] Dr. Musa Chacon TSHon 10-02-2022 TSH 1.653 uIU/mL Normal 0.358-3.740 [facility] Comment on above: Performed By: #### T 4, CMP, TSH #### [facility] [address] [place] [address] Dr. Musa Chacon Coding Summary.on 10-12-2020 Coding Summary. 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 Nucleic acid amplification tests include PCR and [...] detected) result in this assay. Performed at: [facility] [address] [facility], [place] [id number] [facility] Magda Clark Performed By: #### S ARS-CoV-2, LE #### [facility] [address] [place] [address] Physician Orderon 10-02-2020 Physician Order [id number] Normal [facility] Vital Signs Date Time Vital Sign Value Performing Clinician Faci lity 12-10-2023 16:18-0500 Body weight 70.31 kg Pati FRANCO Work Phone: [facility] 12-10-2023 16:18-0500 Diastolic blood pressure 64 mm[Hg] Pati FRANCO Work Phone: [facility] 12-10-2023 16:18-0500 Systolic blood pressure 108 mm[Hg] Pati FRANCO Work Phone: [facility] Healthcare Encounters Encounter Date Encounter Type Care Provider Facility Start: 12-10-2023 End: 12-10-2023 ambulatory PATI WISDOM Not Available Start: 12-10-2023 End: 12-10-2023 flow sheet Pati FRANCO Work Phone: [facility] Comment on above: Third trimester preg mandeep; Multigravida of advanced maternal age in third trimester Start: 11-25-2023 End: 11-25-2023 ambulatory AMPARO KEO Not Available Start: 11-05-2023 End: 11-05-2023 ambulatory PATI WISDOM Not Available Start: 10-08-2023 End: 10-08-2023 ambulatory PATI WISDOM Not Available Start: 10-05-2022 Encounter for genera l adult medical examination without abnormal findings DR GEE HERNANDEZ [facility] Start: 10-02-2022 End: 10-03-[address] GEE HERNANDEZ Facility:[facility] Start: 10-02-2022 End: 10-03-2022 Encounter for general adult medical examination without abnormal findings DR GEE HERNANDEZ Facility:[facility] Start: 05-21-2017 End: 05-22-2017 Ambulatory DEFAULT PHYSICIAN Facility:[facility] Procedures Date Procedure Procedure Detail Performing Clinician Start: 12-10-2023 Urnls dip stick/tabl et rgnt non-auto w/o micrscp Pati Wisdom PA Work Phone: Plan of Treatment Date Care Activity Detail Author Start: 12-24-2023 End: 12-24-2023 Patient encounter procedure 12/24/2023 1:40 PM EST Routine [facility] [address] [place] [place] [id number] Amparo Carbone, DO [address] [place], [place] [id number] [facility] Start: 12-24-2023 End: 12-24-2023 Professional / ancillary services management 12/24/2023 1:00 PM EST Ancillary Procedure [facility] [address] [place] [id number] [facility] Start: 12-10-2023 End: 12-10-2024 Nonstress test nonstress test Procedures Routine Multigravida of advanced maternal age in third trimester Expected: 12/10/2023 (Approximate), Expires: 12/10/2024 [facility] Work Phone: Comment on above: Expected: 12/10/2023 (Approximate), Expires: 12/10/2024 Start: 12-10-2023 End: 12-10-2024 US biophysical profile wo non stress testing US biophysical profile wo non stress testing Imaging Routine Multigravida of advanced maternal age in third trimester Expected: 12/10/2023 (Approximate), Expires: 12/10/2024 [facility] Comment on above: Expected: 12/10/2023 (Approximate), Expires: 12/10/2024 Payers Date Payer Category Payer Unknown 2022 Unknown [id number] 1985 Unknown [id number] [id number] [id number] 1985 Unknown [id number] [id number] [id number] 1985 Unknown [id number] [id number] [id number] 1985 Unknown [id number] 1985 Unknown [id number] 1959 Unknown [id number] Social History Date Type Detail Facility Tobacco smoking stat [facility] Tobacco smoking consumption unknown [facility] Start: 05-16-2023 [facility] Start: 1985 Sex Assigned At Female [facility] Start: 06-23-2023 Gender identity Identifies as female gender (finding) [facility] Start: 06-23-2023 Sexual orientation Heterosexual (fin ding) [facility] History of Present illness Narrative 12-10-2023 SALVADOR Fernandes - 12/10/2023 3:50 PM EST Note Date & Type Note Facility 12-10-2023 History of Presen t illness Narrative Reason for Appointment: Patient ID: Noni Nelson is a 38 y.o. female who presents for Routine Visit Patient presents today for Return OB appointment. Current Medications: has a current medication list which includes the following prescription(s): iron polysaccharides, mv-min-fe fum-fa-dha, and valacyclovir. Medical History: Active Ambulatory Problems Diagnosis Date Noted No Active Ambulatory Problems Resolved Ambulatory Problems Diagnosis Date Noted No Resolved Ambulatory Problems No Additional Past Medical History Family History Problem Relation Name Age of Onset Diabetes Mother Thyroid disease Mother Rheum arthritis Father Diabetes Sister Diabetes Mother's Sister Diabetes Maternal Grandmother Cancer Paternal Grandmother Cancer Paternal Grandfather Social History Tobacco Use Smoking status: Not on file Smokeless tobacco: Not on file Substance Use Topics Alcohol use: Not on file Drug use: Not on file Past Surgical History: Procedure Laterality Date DILATION AND CURETTAGE OF UTERUS 2004 OVARIAN CYST REMOVAL Allergies Allergen Reactions Ciprofloxacin GI intolerance Nitrofurantoin GI intolerance Other Reaction(s): Nausea & vomiting Review of Systems: Review of Systems Constitutional: Negative. HENT: Negative. Eyes: Negative. Respiratory: Negative. Cardiovascular: Negative. Gastrointestinal: Negative. Genitourinary: Negative. Musculoskeletal: Negative. Skin: Negative. Neurological: Negative. All other systems reviewed and are negative. Hematological: Negative. Endocrine: Negative. Allergic/Immunologic: Negative. Objective Physical Exam Constitutional: Appearance: Normal appearance. She is normal weight. HENT: Head: Normocephalic. Cardiovascular: Rate and Rhythm: Normal rate. Pulses: Normal pulses. Pulmonary: Effort: Pulmonary effort is normal. Breath sounds: Normal breath sounds. Abdominal: Palpations: Abdomen is soft. Musculoskeletal: General: Normal range of motion. Neurological: General: No focal deficit present. Mental Status: She is alert and oriented to person, place, and time. Psychiatric: Mood and Affect: Mood normal. Behavior: Behavior normal. Thought Content: Thought content normal. Judgment: Judgment normal. Vitals and nursing note reviewed. Vitals: There is no height or weight on file to calculate BMI. BP: 108/64 Patient's last menstrual period was 05/02/2023. Assessment/Plan Encounter Diagnoses Name Primary? Third trimester Multigravida of advanced maternal age in third trimester Patient presents today for a routine obstetrics appointment. Patient is currently 31w5d with a Estimated Date of Delivery: 02/06/24. Patient presents today for a routine obstetrics appointment. Patient is currently 31w5d . Patient states she is doing well but has complaints of being tired due to current . Patient has verbalizes frequent movement. labor precautions was discussed/given and patient was instructed to perform kick counts three times a day. Valtrex sent in to pharmacy to start preventative treatment Follow Up: Patient is to return to office in 2 week for routine OB appointment. Documented by SALVADOR Fernandes on behalf of: SALVADOR Fernandes documented in this encounter [facility] Evaluation note Note Date & Type Note Facility Evaluation note Diagnosis Third trimester state, incidental Multigravida of advanced maternal age in third trimester documented in this encounter [facility] Summary Purpose Family History No Family History Records FoundNo Family History Records FoundNo Family History Records FoundNo Family History Records Found Advance Directives No Advanced Directives Records FoundNo Advanced Directives Records FoundNo Advanced Directives Records FoundNo Advanced Directives Records Found Additional Source Comments INFORMATION SOURCE (unrecogn ized section and content) DATE CREATED AUTHOR 04/29/2018 [facility] DATE CREATED AUTHOR AUTHOR'S ORGANIZ ATION 10/13/2020 [facility] DATE CREATED AUTHOR AUTHOR'S ORGANIZ ATION 10/05/2022 [facility] DATE CREATED AUTHOR AUTHOR'S ORGANIZ ATION 12/11/2023 [facility] EPIC Reason for Visit (unrecogniz ed section and content) Reason Comments Routine Visit FOR RECORDS PERTAINING TO PATIENTS WHO ARE [...] BE BASED ON THE PRIMARY CLINICAL RECORDS. [employer] provides no warranty or guarantee of the accuracy or completeness of information in this document.
--- NOTE | 2023-12-24 19:09 | US_ITS ---
[address] [address] Patient Name: VISHAL NELSON MRN: [id number] date: 1985 Sex: F Assigned Patient Location: [facility] Current Patient Location: Accession/Order Number: [id number] Exam Date: 12/24/2023 19:16 Report Date: 12/25/2023 07:16 At the request of: AMPARO CROWLEY Procedure: US OB BPP w non-stress EXAMINATION: US OB BPP w non-stress HISTORY: MULTIGRAVIDA OF ADVANCED MATERNAL AGE O09.523 COMPARISON: Ultrasound OB growth 12/24/2023 TECHNIQUE: Ultrasound biophysical profile was performed in the radiology department. BREATHING MOVEMENTS: 2.0 GROSS BODY MOVEMENTS: 2.0 TONE: 2.0 QUALITATIVE AMNIOTIC FLUID VOLUME: 2.0 PRESENTATION: CEPHALIC HEART RATE: 139.9 bpm bpm. AMNIOTIC FLUID VOLUME: 13.4 cm GESTATIONAL AGE: 33 weeks 5 days CONCLUSION: Total biophysical profile score 8.0. Electronically authenticated by: JARAD BISHOP Date: 12/25/2023 07:16
[2023-12-24 19:40] VITALS: TEMP 35.8
[2023-12-24 19:41] VITALS: BP 101/64; PULSE 71
== END 2023-12-24 20:15 | disposition home or self-care (01) ==
LOC: US 12:48 → FBC 19:05
PROVIDERS: Visit Provider Obstetrics & Gynecology
DX: O43.113 Circumvallate placenta, third trimester (principal); Z3A.33 33 weeks gestation of pregnancy; O09.523 Supervision of elderly multigravida, third trimester
CPT/HCPCS: 76816; 76818

== ENCOUNTER 2023-12-24 13:03 | Outpatient (OUT) | payer OTHER, SELFPAY ==
--- NOTE | 2023-12-24 13:06 | US_ITS ---
[address] [address] Patient Name: VISHAL NELSON MRN: [id number] date: 1985 Sex: F Assigned Patient Location: [facility] Current Patient Location: [facility] Accession/Order Number: [id number] Exam Date: 12/24/2023 13:08 Report Date: 12/24/2023 14:30 At the request of: AMPARO CROWLEY Procedure: US OB growth EXAMINATION: US OB growth HISTORY: ANTEPARTUM PLACENTA CIRCUMVALLATA COMPARISON: Ultrasound OB growth 11/25/2023 FINDINGS: Heart Rate: 129.0 bpm Number: 1.0 Position: CEPHALIC Amniotic Fluid Volume: 13.0 cm Maximum Vertical Pocket: 5.0 cm BIOMETRY: BPD: 8.3 cm cm; 33 weeks 2 days; 33% HC: 30.0 cmcm; 33 weeks 2 days ; 9% AC: 28.3 cm cm; 32 weeks 3 days; 17% FL: 6.3 cm cm; 32 weeks 4 days; 14% EFW: 2007.7 grams; 15% FL/AC: 22.2 FL/BPD: 76.1 HC/AC: 1.1 GESTATIONAL AGE: Age by EDC: 33 weeks 5 days KATEY by EDC: 02/06/2024 Age by US: 32 weeks 6 days KATEY by US: 02/12/2024 US/US OB growth IMPRESSION: 1. Single live intrauterine with growth detailed above. Electronically authenticated by: JARAD BISHOP Date: 12/24/2023 14:30
--- OUTSIDE RECORDS SUMMARY | 2023-12-24 13:24 | XMS_ITS | CCD ---
Author Name Unknown Address [address] [place] [address] Organization [facility] Care Team Providers [employer] Material Name Role Phone PHYSICIAN, DEFAULT Unavailable Unavailable [...] (1 source) Nitrofurantoin Drug Allergy 7 [facility] (2 sources) Ciprofloxacin Drug Allergy [...] UA Negative Negative - 4(70) +++ mg/dL [facility] Blood, UA Positive Negative - 50 Andrea/mcL [facility] Clarity, UA Clear [facility] re Color, UA Yellow [facility] e Glucose, UA Negative Negative - 2000(110) ++++ mg/dL [facility] Interpretation and review of laboratory results Abnormal [facility] Ketones, UA Negative Negative - 160(16) ++++ mg/dL [facility] Leukocytes, UA Negative Negative - 500+++ Toan/mcL [facility] Nitrite, UA Negative Negative - Positive [facility] pH, UA 5.5 5 - 9 [facility] e Protein, UA Negative Negative - 2000(20) ++++ mg/dL [facility] Spec Grav, UA 1.020 1 - 1.03 [facility] Urobilinogen, UA 1.0 0.2 - 12 mg/dL [facility] CBC AUTO DIFFon 10-02-2022 BASO # 0.0 103/ul Normal 0.0-0.1 [facility] Comment on above: Performed By: #### C BC #### [facility] [address] [address] [address] Musa Chacon Basophils/100 WBC (Bld) 0.9 % Normal 0.2-2.0 [facility] Comment on above: Performed By: #### C BC #### [facility] [address] [address] [address] Musa Chacon EO # 0.1 103/ul Normal 0.0-0.7 [facility] Comment on above: Performed By: #### C BC #### [facility] [address] [place] [address] Dr. Musa Chacon Eosinophils/100 WBC (Bld) 1.8 % Normal 0.9-7.0 [facility] Comment on above: Performed By: #### C BC #### [facility] [address] [place] [address] Dr. Musa Chacon Erythrocyte distribution width (RBC) [Ratio] 12.8 % Normal 11.0-15.0 [facility] Comment on above: Performed By: #### C BC #### [facility] [address] [place] [address] Dr. Musa Chacon Hematocrit (Bld) [Volume fraction] 39.4 % Normal 36.0-48.0 [facility] Comment on above: Performed By: #### C BC #### [facility] [address] [place] [address] Dr. Musa Chacon Hemoglobin (Bld) [Mass/Vol] 13.5 g/dL Normal 12.0-16.0 [facility] Comment on above: Performed By: #### C BC #### [facility] [address] [place] [address] Dr. Musa Chacon IG # 0.01 10e3/ul Normal 0.00-0.03 [facility] Comment on above: Performed By: #### C BC #### [facility] [address] [place] [address] Dr. Musa Chacon IG % 0.2 % Normal 0.0-0.5 [facility] Comment on above: Performed By: #### C BC #### [facility] [address] [place] [address] Dr. Musa Chacon LYMPH # 1.4 103/ul Normal 1.2-3.8 [facility] Comment on above: Performed By: #### C BC #### [facility] [address] [place] [address] Dr. Musa Chacon Lymphocytes/100 WBC (Bld) 32.0 % Normal 20.5-60.0 [facility] Comment on above: Performed By: #### C BC #### [facility] [address] [place] [address] Dr. Musa Chacon MANUAL DIFF REQ NO Normal [facility] Comment on above: Performed By: #### C BC #### [facility] [address] [place] [address] Dr. Musa Chacon MCH (RBC) [Entitic mass] 30.1 pg Normal 26.7-34.0 [facility] Comment on above: Performed By: #### C BC #### [facility] [address] [place] [address] Dr. Musa Chacon MCHC (RBC) [Mass/Vol] 34.3 g/dL Normal 29.9-35.2 [facility] Comment on above: Performed By: #### C BC #### [facility] [address] [place] [address] Dr. Musa Chacon MCV (RBC) [Entitic vol] 87.8 fL Normal 81.0-99.0 [facility] Comment on above: Performed By: #### C BC #### [facility] [address] [place] [address] Dr. Musa Chacon MONO # 0.4 103/ul Normal 0.3-0.8 [facility] Comment on above: Performed By: #### C BC #### [facility] [address] [place] [address] Dr. Musa Chacon Monocytes/100 WBC (Bld) 8.0 % Normal 1.7-12.0 [facility] Comment on above: Performed By: #### C BC #### [facility] [address] [place] [address] Dr. Musa Chacon NEUT # 2.6 103/ul Normal 1.4-6.5 [facility] Comment on above: Performed By: #### C BC #### [facility] [address] [place] [address] Dr. Musa Chacon Neutrophils/100 WBC (Bld) 57.1 % Normal 43.0-75.0 [facility] Comment on above: Performed By: #### C BC #### [facility] [address] [address] [address] Musa Chacon Platelet mean volume (Bld) [Entitic vol] 10.2 fL Normal 9.5-13.5 [facility] Comment on above: Performed By: #### C BC #### [facility] [address] [address] [address] Musa Chacon PLT 223 103/ul Normal 150-450 [facility] Comment on above: Performed By: #### C BC #### [facility] [address] [place] [address] Dr. Musa Chacon RBC 4.49 106/ul Normal 4.20-5.40 [facility] Comment on above: Performed By: #### C BC #### [facility] [address] [place] [address] Dr. Musa Chacon WBC 4.5 103/ul Normal 4.0-11.0 [facility] Comment on above: Performed By: #### C BC #### [facility] [address] [place] [address] Dr. Musa Chacon PROF 14(COMP METB)on 022 Albumin [Mass/Vol] 4.1 g/dL Normal 3.4-5.0 [facility] Comment on above: Performed By: #### T 4, CMP, TSH #### [facility] [address] [place] [address] Dr. Musa Chacon Albumin/Globulin [Mass ratio] 1.5 {ratio} Normal [facility] Comment on above: Performed By: #### T 4, CMP, TSH #### [facility] [address] [place] [address] Dr. Musa Chacon ALP [Catalytic activity/Vol] 51 U/L Normal 46-116 [facility] Comment on above: Performed By: #### T 4, CMP, TSH #### [facility] [address] [place] [address] Dr. Musa Chacon ALT [Catalytic activity/Vol] 17 U/L Normal 14-59 [facility] Comment on above: Performed By: #### T 4, CMP, TSH #### [facility] [address] [address] [address] Musa Chacon Anion gap [Moles/Vol] 11.8 mmol/L Normal [facility] Comment on above: Performed By: #### T 4, CMP, TSH #### [facility] [address] [place] [address] Dr. Musa Chacon AST [Catalytic activity/Vol] 14 U/L Critically low 15-37 [facility] Comment on above: Performed By: #### T 4, CMP, TSH #### [facility] [address] [place] [address] Dr. Musa Chacon Bilirubin [Mass/Vol] 0.8 mg/dL Normal 0.2-1.0 [facility] Comment on above: Performed By: #### T 4, CMP, TSH #### [facility] [address] [place] [address] Dr. Musa Chacon Calcium [Mass/Vol] 8.9 mg/dL Normal 8.5-10.1 [facility] Comment on above: Performed By: #### T 4, CMP, TSH #### [facility] [address] [place] [address] Dr. Musa Chacon Chloride [Moles/Vol] 105 mmol/L Normal 98-107 [facility] Comment on above: Performed By: #### T 4, CMP, TSH #### [facility] [address] [place] [address] Dr. Musa Chacon CO2 [Moles/Vol] 27.4 mmol/L Normal 21.0-32.0 [facility] Comment on above: Performed By: #### T 4, CMP, TSH #### [facility] [address] [place] [address] Dr. Musa Chacon Creatinine [Mass/Vol] 0.78 mg/dL Normal 0.55-1.02 [facility] Comment on above: Performed By: #### T 4, CMP, TSH #### [facility] [address] [place] [address] Dr. Musa Chacon EGFR-AF [place] >60 Normal >=60 [facility] Comment on above: Performed By: #### T 4, CMP, TSH #### [facility] [address] [place] [address] Dr. Musa Chacon EGFR-NON AF [place] >60 Normal >=60 [facility] Comment on above: Performed By: #### T 4, CMP, TSH #### [facility] [address] [place] [address] Dr. Musa Chacon Globulin (S) [Mass/Vol] 2.8 g/dL Normal [facility] Comment on above: Performed By: #### T 4, CMP, TSH #### [facility] [address] [place] [address] Dr. Musa Chacon Glucose [Mass/Vol] 96 mg/dL Normal 74-106 [facility] Comment on above: Performed By: #### T 4, CMP, TSH #### [facility] [address] [place] [address] Dr. Musa Chacon Potassium [Moles/Vol] 4.2 mmol/L Normal 3.5-5.1 [facility] Comment on above: Performed By: #### T 4, CMP, TSH #### [facility] [address] [place] [address] Dr. Musa Chacon Protein [Mass/Vol] 6.9 g/dL Normal 6.4-8.2 [facility] Comment on above: Performed By: #### T 4, CMP, TSH #### [facility] [address] [place] [address] Dr. Musa Chacon Sodium [Moles/Vol] 140 mmol/L Normal 136-145 [facility] Comment on above: Performed By: #### T 4, CMP, TSH #### [facility] [address] [place] [address] Dr. Musa Chacon Urea nitrogen [Mass/Vol] 10.0 mg/dL Normal 7.0-18.0 [facility] Comment on above: Performed By: #### T 4, CMP, TSH #### [facility] [address] [place] [address] Dr. Musa Chacon Urea nitrogen/Creatinine [Mass ratio] 12.8 mg/mg Normal [facility] Comment on above: Performed By: #### T 4, CMP, TSH #### [facility] [address] [place] [address] Dr. Musa Chacon T4on 10-02-2022 T4 [Mass/Vol] 6.30 ug/dL Normal 4.80-13.90 [facility] Comment on above: Performed By: #### T 4, CMP, TSH #### [facility] [address] [place] [address] Dr. Musa Chacon TSHon 10-02-2022 TSH 1.653 uIU/mL Normal 0.358-3.740 [facility] Comment on above: Performed By: #### T 4, CMP, TSH #### [facility] [address] [place] [address] Dr. Musa Chacon Coding Summary.on 10-12-2020 Coding Summary. 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 Nucleic acid amplification tests include PCR and [...] detected) result in this assay. Performed at: [facility] [address] [facility], [place] [id number] [facility] Magda Clark Performed By: #### S ARS-CoV-2, LE #### [facility] [address] [place] [address] Physician Orderon 10-02-2020 Physician Order [id number]:127 Normal [facility] Vital Signs Date Time Vital Sign Value Performing Clinician Faci lity 12-10-2023 16:18-0500 Body weight 70.31 kg Pati FRANCO Work Phone: [facility] 12-10-2023 16:18-0500 Diastolic blood pressure 64 mm[Hg] Pati FRANCO Work Phone: [facility] 12-10-2023 16:18-0500 Systolic blood pressure 108 mm[Hg] Pati FRANCO Work Phone: [facility] Encounters Encounter Date Encounter Type Care Provider Facility Start: 12-10-2023 End: 12-10-2023 ambulatory PATI WISDOM Not Available Start: 12-10-2023 End: 12-10-2023 flow sheet Pati FRANCO Work Phone: [facility] Comment on above: Third trimester preg mandeep; Multigravida of advanced maternal age in third trimester Start: 11-25-2023 End: 11-25-2023 ambulatory AMPARO KEO Not Available Start: 11-05-2023 End: 11-05-2023 ambulatory PATI WISDOM Not Available Start: 10-08-2023 End: 10-08-2023 ambulatory PATI WISDOM Not Available Start: 10-05-2022 Encounter for genera l adult medical examination without abnormal findings DR GEE HERNANDEZ [facility] Start: 10-02-2022 End: 10-03-[address] GEE HERNANDEZ Facility:[facility] Start: 10-02-2022 End: 10-03-2022 Encounter for general adult medical examination without abnormal findings DR GEE HERNANDEZ Facility:[facility] Start: 05-21-2017 End: 05-22-2017 Ambulatory DEFAULT PHYSICIAN Facility:[facility] Procedures Date Procedure Procedure Detail Performing Clinician Start: 12-10-2023 Urnls dip stick/tabl et rgnt non-auto w/o micrscp Pati Wisdom PA Work Phone: Plan of Treatment Date Care Activity Detail Author Start: 12-24-2023 End: 12-24-2023 Patient encounter procedure 12/24/2023 1:40 PM EST Routine [facility] [address] [facility] [place] [id number] Amparo Carbone, DO [address] [place], [place] [id number] [facility] Start: 12-24-2023 End: 12-24-2023 Professional / ancillary services management 12/24/2023 1:00 PM EST Ancillary Procedure [facility] [address] [place] [phone] [facility] Start: 12-10-2023 End: 12-10-2024 [...] third trimester Expected: 12/10/2023 (Approximate), Expires: 12/10/2024 [facility] Comment on above: Expected: 12/10/2023 (Approximate), Expires: 12/10/2024 Payers Date Payer Category Payer Unknown 2022 Unknown [id number] 1985 Unknown [id number] [id number] [id number] 1985 Unknown [id number] [id number] [id number] 1985 Unknown [id number] 2.16.84 [id number] 1986 Unknown [id number] 1986 Unknown [id number] 1959 Unknown [id number] Social History Date Type Detail Facility Tobacco smoking stat [facility] Tobacco smoking consumption unknown [facility] Start: 05-16-2023 [facility] Start: 1985 Sex Assigned At Female [facility] Start: 06-23-2023 Gender identity Identifies as female gender (finding) [facility] Start: 06-23-2023 Sexual orientation Heterosexual (fin ding) [facility] History of Present illness Narrative 12-10-2023 [...] section and content) DATE CREATED AUTHOR 04/29/2018 [facility] DATE CREATED AUTHOR AUTHOR'S ORGANIZ ATION 10/13/2020 [facility] DATE CREATED AUTHOR AUTHOR'S ORGANIZ ATION 10/05/2022 [facility] DATE CREATED AUTHOR AUTHOR'S ORGANIZ ATION 12/11/2023 [facility] EPIC Reason for Visit (unrecogniz ed [...] BE BASED ON THE PRIMARY CLINICAL RECORDS. [employer] provides no warranty or guarantee of the accuracy or completeness of information in this document.
== END 2023-12-24 13:04 | disposition home or self-care (01) ==
LOC: NOMS 13:03
PROVIDERS: Visit Provider Obstetrics & Gynecology
DX: O43.113 Circumvallate placenta, third trimester (principal); Z3A.33 33 weeks gestation of pregnancy
CPT/HCPCS: 76816

== ENCOUNTER 2023-12-27 07:19 | Outpatient (OUT) | payer OTHER, SELFPAY ==
--- OUTSIDE RECORDS SUMMARY | 2023-12-27 07:22 | XMS_ITS | CCD ---
Author Name Unknown Address [address] [place] [address] Organization [facility] Care Team Providers Care Coal Washer Name Role Phone PHYSICIAN, DEFAULT Unavailable Unavailable PHYSICIAN, DEFAULT Unavailable Unavailable HOUSE, DR FLYNN Attending Unavailable HOUSE, DR FLYNN Consulting Unavailable HOUSE, DR FLYNN Admitting Unavailable REQUEST, DR GARCAI LISTED Primary Care Unavaila PATI Ruiz Attending Unavailable AMPARO CARBONE Attending Unavailable PATI WISDOM Attending Unavailable PATI WISDOM Attending Unavailable Unavailable Primary Care Provider Unavailabl e Allergies Allergy Classification Reported Allergen(s) Allergy Type Date of Onset Reaction(s) Facility (1 source) Nitrofurantoin Drug Allergy 7 [facility] Repository (2 sources) Ciprofloxacin Drug Allergy [...] UA Negative Negative - 4(70) +++ mg/dL [facility] Blood, UA Positive Negative - 50 Andrea/mcL [facility] Clarity, UA Clear [facility] re Color, UA Yellow [facility] Glucose, UA Negative Negative - 2000(110) ++++ mg/dL [facility] Interpretation and review of laboratory results Abnormal [facility] Ketones, UA Negative Negative - 160(16) ++++ mg/dL [facility] Leukocytes, UA Negative Negative - 500+++ Toan/mcL [facility] Nitrite, UA Negative Negative - Positive [facility] pH, UA 5.5 5 - 9 [facility] e Protein, UA Negative Negative - 2000(20) ++++ mg/dL [facility] Spec Grav, UA 1.020 1 - 1.03 [facility] Urobilinogen, UA 1.0 0.2 - 12 mg/[facility] CBC AUTO DIFFon 10-02-2022 BASO # 0.0 103/ul Normal 0.0-0.1 [facility] Comment on above: Performed By: #### C BC #### [facility] [address] [address] [address] Musa Chacon Basophils/100 WBC (Bld) 0.9 % Normal 0.2-2.0 [facility] Comment on above: Performed By: #### C BC #### [facility] [address] [address] [address] Musa Chacon EO # 0.1 103/ul Normal 0.0-0.7 [facility] Comment on above: Performed By: #### C BC #### [facility] [address] [place] [address] Dr. Musa Chacon Eosinophils/100 WBC (Bld) 1.8 % Normal 0.9-7.0 [facility] Comment on above: Performed By: #### C BC #### [facility] [address] [place] [address] Dr. Musa Chacon Erythrocyte distribution width (RBC) [Ratio] 12.8 % Normal 11.0-15.0 [facility] Comment on above: Performed By: #### C BC #### [facility] [address] [place] [address] Dr. Musa Chacon Hematocrit (Bld) [Volume fraction] 39.4 % Normal 36.0-48.0 [facility] Comment on above: Performed By: #### C BC #### [facility] [address] [place] [address] Dr. Musa Chacon Hemoglobin (Bld) [Mass/Vol] 13.5 g/dL Normal 12.0-16.0 [facility] Comment on above: Performed By: #### C BC #### [facility] [address] [place] [address] Dr. Musa Chacon IG # 0.01 10e3/ul Normal 0.00-0.03 [facility] Comment on above: Performed By: #### C BC #### [facility] [address] [place] [address] Dr. Musa Chacon IG % 0.2 % Normal 0.0-0.5 [facility] Comment on above: Performed By: #### C BC #### [facility] [address] [place] [address] Dr. Musa Chacon LYMPH # 1.4 103/ul Normal 1.2-3.8 [facility] Comment on above: Performed By: #### C BC #### [facility] [address] [place] [address] Dr. Musa Chacon Lymphocytes/100 WBC (Bld) 32.0 % Normal 20.5-60.0 [facility] Comment on above: Performed By: #### C BC #### [facility] [address] [place] [address] Dr. Musa Chacon MANUAL DIFF REQ NO Normal [facility] Comment on above: Performed By: #### C BC #### [facility] [address] [place] [address] Dr. Musa Chacon MCH (RBC) [Entitic mass] 30.1 pg Normal 26.7-34.0 [facility] Comment on above: Performed By: #### C BC #### [facility] [address] [place] [address] Dr. Musa Chacon MCHC (RBC) [Mass/Vol] 34.3 g/dL Normal 29.9-35.2 [facility] Comment on above: Performed By: #### C BC #### [facility] [address] [place] [address] Dr. Musa Chacon MCV (RBC) [Entitic vol] 87.8 fL Normal 81.0-99.0 [facility] Comment on above: Performed By: #### C BC #### [facility] [address] [place] [address] Dr. Musa Chacon MONO # 0.4 103/ul Normal 0.3-0.8 [facility] Comment on above: Performed By: #### C BC #### [facility] [address] [place] [address] Dr. Musa Chacon Monocytes/100 WBC (Bld) 8.0 % Normal 1.7-12.0 [facility] Comment on above: Performed By: #### C BC #### [facility] [address] [place] [address] Dr. Musa Chacon NEUT # 2.6 103/ul Normal 1.4-6.5 [facility] Comment on above: Performed By: #### C BC #### [facility] [address] [place] [address] Dr. Musa Chacon Neutrophils/100 WBC (Bld) 57.1 % Normal 43.0-75.0 [facility] Comment on above: Performed By: #### C BC #### [facility] [address] [address] [address] Musa Chacon Platelet mean volume (Bld) [Entitic vol] 10.2 fL Normal 9.5-13.5 [facility] Comment on above: Performed By: #### C BC #### [facility] [address] [address] [address] Musa Chacon PLT 223 103/ul Normal 150-450 [facility] Comment on above: Performed By: #### C BC #### [facility] [address] [place] [address] Dr. Musa Chacon RBC 4.49 106/ul Normal 4.20-5.40 [facility] Comment on above: Performed By: #### C BC #### [facility] [address] [place] [address] Dr. Musa Chacon WBC 4.5 103/ul Normal 4.0-11.0 [facility] Comment on above: Performed By: #### C BC #### [facility] [address] [place] [address] Dr. Musa Chacon PROF 14(COMP METB)on 022 Albumin [Mass/Vol] 4.1 g/dL Normal 3.4-5.0 [facility] Comment on above: Performed By: #### T 4, CMP, TSH #### [facility] [address] [place] [address] Dr. Musa Chacon Albumin/Globulin [Mass ratio] 1.5 {ratio} Normal [facility] Comment on above: Performed By: #### T 4, CMP, TSH #### [facility] [address] [place] [address] Dr. Musa Chacon ALP [Catalytic activity/Vol] 51 U/L Normal 46-116 [facility] Comment on above: Performed By: #### T 4, CMP, TSH #### [facility] [address] [place] [address] Dr. Musa Chacon ALT [Catalytic activity/Vol] 17 U/L Normal 14-59 [facility] Comment on above: Performed By: #### T 4, CMP, TSH #### [facility] [address] [address] [address] Musa Chacon Anion gap [Moles/Vol] 11.8 mmol/L Normal [facility] Comment on above: Performed By: #### T 4, CMP, TSH #### [facility] [address] [place] [address] Dr. Musa Chacon AST [Catalytic activity/Vol] 14 U/L Critically low 15-37 [facility] Comment on above: Performed By: #### T 4, CMP, TSH #### [facility] [address] [place] [address] Dr. Musa Chacon Bilirubin [Mass/Vol] 0.8 mg/dL Normal 0.2-1.0 [facility] Comment on above: Performed By: #### T 4, CMP, TSH #### [facility] [address] [place] [address] Dr. Musa Chacon Calcium [Mass/Vol] 8.9 mg/dL Normal 8.5-10.1 [facility] Comment on above: Performed By: #### T 4, CMP, TSH #### [facility] [address] [place] [address] Dr. Musa Chacon Chloride [Moles/Vol] 105 mmol/L Normal 98-107 [facility] Comment on above: Performed By: #### T 4, CMP, TSH #### [facility] [address] [place] [address] Dr. Musa Chacon CO2 [Moles/Vol] 27.4 mmol/L Normal 21.0-32.0 [facility] Comment on above: Performed By: #### T 4, CMP, TSH #### [facility] [address] [place] [address] Dr. Musa Chacon Creatinine [Mass/Vol] 0.78 mg/dL Normal 0.55-1.02 [facility] Comment on above: Performed By: #### T 4, CMP, TSH #### [facility] [address] [place] [address] Dr. Musa Chacon EGFR-AF IRISH >60 Normal >=[address] [facility] Comment on above: Performed By: #### T 4, CMP, TSH #### [facility] [address] [place] [address] Dr. Musa Chacon EGFR-NON AF IRISH >60 Normal >=60 [facility] Comment on above: Performed By: #### T 4, CMP, TSH #### [facility] [address] [place] [address] Dr. Musa Chacon Globulin (S) [Mass/Vol] 2.8 g/dL Normal [facility] Comment on above: Performed By: #### T 4, CMP, TSH #### [facility] [address] [place] [address] Dr. Musa Chacon Glucose [Mass/Vol] 96 mg/dL Normal 74-106 [facility] Comment on above: Performed By: #### T 4, CMP, TSH #### [facility] [address] [place] [address] Dr. Musa Chacon Potassium [Moles/Vol] 4.2 mmol/L Normal 3.5-5.1 [facility] Comment on above: Performed By: #### T 4, CMP, TSH #### [facility] [address] [place] [address] Dr. Musa Chacon Protein [Mass/Vol] 6.9 g/dL Normal 6.4-8.2 [facility] Comment on above: Performed By: #### T 4, CMP, TSH #### [facility] [address] [place] [address] Dr. Musa Chacon Sodium [Moles/Vol] 140 mmol/L Normal 136-145 [facility] Comment on above: Performed By: #### T 4, CMP, TSH #### [facility] [address] [place] [address] Dr. Musa Chacon Urea nitrogen [Mass/Vol] 10.0 mg/dL Normal 7.0-18.0 [facility] Comment on above: Performed By: #### T 4, CMP, TSH #### [facility] [address] [place] [address] Dr. Musa Chacon Urea nitrogen/Creatinine [Mass ratio] 12.8 mg/mg Normal [facility] Comment on above: Performed By: #### T 4, CMP, TSH #### [facility] [address] [place] [address] Dr. Musa Chacon T4on 10-02-2022 T4 [Mass/Vol] 6.30 ug/dL Normal 4.80-13.[address] [facility] Comment on above: Performed By: #### T 4, CMP, TSH #### [facility] [address] [place] [address] Dr. Musa Chacon TSHon 10-02-2022 TSH 1.653 uIU/mL Normal 0.358-3.[address] [facility] Comment on above: Performed By: #### T 4, CMP, TSH #### [facility] [address] [place] [address] Dr. Musa Chacon Coding Summary.on 10-12-2020 Coding Summary. 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 Nucleic acid amplification tests include PCR and [...] detected) result in this assay. Performed at: [employer] [facility] [address] [facility] [place], [place] [id number] [facility] Magda Clark Performed By: #### S ARS-CoV-2, LE #### [facility] [address] [place] [address] Physician Orderon 10-02-2020 Physician Order [id number]:[id number] Normal [facility] Vital Signs Date Time Vital Sign Value Performing Clinician Faci lity 12-10-2023 16:18-0500 Body weight 70.31 kg Pati FRANCO Work Phone: [facility] 12-10-2023 16:18-0500 Diastolic blood pressure 64 mm[Hg] Pati FRANCO Work Phone: [facility] 12-10-2023 16:18-0500 Systolic blood pressure 108 mm[Hg] Pati FRANCO Work Phone: [facility] Encounters Encounter Date Encounter Type Care Provider Facility Start: 12-10-2023 End: 12-10-2023 ambulatory PATI WISDOM Not Available Start: 12-10-2023 End: 12-10-2023 flow sheet Pati FRANCO Work Phone: [facility] Comment on above: Third trimester preg mandeep; Multigravida of advanced maternal age in third trimester Start: 11-25-2023 End: 11-25-2023 ambulatory AMPARO KEO Not Available Start: 11-05-2023 End: 11-05-2023 ambulatory PATI WISDOM Not Available Start: 10-08-2023 End: 10-08-2023 ambulatory PATI WISDOM Not Available Start: 10-05-2022 Encounter for genera l adult medical examination without abnormal findings DR GEE HERNANDEZ [facility] Start: 10-02-2022 End: 10-03-[address] GEE HERNANDEZ Facility:[facility] Start: 10-02-2022 End: 10-03-2022 Encounter for general adult medical examination without abnormal findings DR GEE HERNANDEZ Facility:[facility] Start: 05-21-2017 End: 05-22-2017 Ambulatory DEFAULT PHYSICIAN Facility:[facility] Procedures Date Procedure Procedure Detail Performing Clinician Start: 12-10-2023 Urnls dip stick/tabl et rgnt non-auto w/o micrscp Pati Wisdom PA Work Phone: Plan of Treatment Date Care Activity Detail Author Start: 12-24-2023 End: 12-24-2023 Patient encounter procedure 12/24/2023 1:40 PM EST Routine [facility] [address] [facility] [place] [id number] Amparo Carbone, DO [address] [place], [place] [id number] [facility] Start: 12-24-2023 End: 12-24-2023 Professional / ancillary services management 12/24/2023 1:00 PM EST Ancillary Procedure [facility] [address] [place] [id number] [facility] Start: 12-10-2023 End: 12-10-2024 [...] third trimester Expected: 12/10/2023 (Approximate), Expires: 12/10/2024 [facility] Comment on above: Expected: 12/10/2023 (Approximate), Expires: 12/10/2024 Payers Date Payer Category Payer Unknown 2022 Unknown [id number] 1985 Unknown [id number] [id number] 1985 Unknown [id number] [id number] [id number] 1986 Unknown [id number] [id number] [id number] 1986 Unknown [id number] 1986 Unknown [id number] 1959 Unknown [id number] Social History Date Type Detail Facility Tobacco smoking stat [facility] Tobacco smoking consumption unknown [facility] Start: 05-16-2023 [facility] Start: 1985 Sex Assigned At Female [facility] Start: 06-23-2023 Gender identity Identifies as female gender (finding) [facility] Start: 06-23-2023 Sexual orientation Heterosexual (fin ding) [facility] History of Present illness Narrative [...] section and content) DATE CREATED AUTHOR 04/29/2018 [facility] DATE CREATED AUTHOR AUTHOR'S ORGANIZ ATION 10/13/2020 [facility] DATE CREATED AUTHOR AUTHOR'S ORGANIZ ATION 10/05/2022 [facility] DATE CREATED AUTHOR AUTHOR'S ORGANIZ ATION 12/11/2023 [facility] EPIC Reason for Visit (unrecogniz ed [...] BE BASED ON THE PRIMARY CLINICAL RECORDS. [employer] provides no warranty or guarantee of the accuracy or completeness of information in this document.
[2023-12-27 14:02] VITALS: BP 97/58; PULSE 82
== END 2023-12-27 14:40 | disposition home or self-care (01) ==
LOC: FBCO 13:51 → FBC 13:58
PROVIDERS: Visit Provider Obstetrics & Gynecology
DX: O43.119 Circumvallate placenta, unspecified trimester (principal)
CPT/HCPCS: 59025

== ENCOUNTER 2023-12-31 07:20 | Outpatient (OUT) | payer OTHER, SELFPAY ==
--- OUTSIDE RECORDS SUMMARY | 2023-12-31 07:25 | XMS_ITS | CCD ---
Author Name Unknown Address [address] [place] [address] Organization [facility] Care Team Providers Care Branch Retail Executive Name Role Phone PHYSICIAN, DEFAULT Unavailable Unavailable PHYSICIAN, DEFAULT Unavailable Unavailable HOUSE, DR FLYNN Attending Unavailable HOUSE, DR FLYNN Consulting Unavailable HOUSE, DR FLYNN Admitting Unavailable REQUEST, DR GARCIA LISTED Primary Care Unavaila PATI Ruiz Attending Unavailable AMPARO CARBONE Attending Unavailable PATI WISDOM Attending Unavailable PAIT WISDOM Attending Unavailable Unavailable Primary Care Provider Unavailabl e Allergies Allergy Classification Reported Allergen(s) Allergy Type Date of Onset Reaction(s) Facility (1 source) Nitrofurantoin Drug Allergy 7 [facility] Repository (2 sources) Ciprofloxacin Drug Allergy 3 [...] UA Negative Negative - 4(70) +++ mg/dL [facility] Blood, UA Positive Negative - 50 Andrea/mcL [facility] Clarity, UA Clear [facility] re Color, UA Yellow [facility] e Glucose, UA Negative Negative - 2000(110) ++++ mg/dL [facility] Interpretation and review of laboratory results Abnormal [facility] Ketones, UA Negative Negative - 160(16) ++++ mg/dL [facility] Leukocytes, UA Negative Negative - 500+++ Toan/mcL [facility] Nitrite, UA Negative Negative - Positive [facility] pH, UA 5.5 5 - 9 [facility] e Protein, UA Negative Negative - 2000(20) ++++ mg/dL [facility] Spec Grav, UA 1.020 1 - 1.03 [facility] Urobilinogen, UA 1.0 0.2 - 12 mg/dL [facility] CBC AUTO DIFFon 10-02-2022 BASO # 0.0 103/ul Normal 0.0-0.1 [facility] Comment on above: Performed By: #### C BC #### [facility] [address] [address] [address] Musa Chacon Basophils/100 WBC (Bld) 0.9 % Normal 0.2-2.0 [facility] Comment on above: Performed By: #### C BC #### [facility] [address] [address] [address] Musa Chacon EO # 0.1 103/ul Normal 0.0-0.7 [facility] Comment on above: Performed By: #### C BC #### [facility] [address] [place] [address] Dr. Musa hCacon Eosinophils/100 WBC (Bld) 1.8 % Normal 0.9-7.0 [facility] Comment on above: Performed By: #### C BC #### [facility] [address] [place] [address] Dr. Musa Chacon Erythrocyte distribution width (RBC) [Ratio] 12.8 % Normal 11.0-15.0 [facility] Comment on above: Performed By: #### C BC #### [facility] [address] [place] [address] Dr. Musa Chacon Hematocrit (Bld) [Volume fraction] 39.4 % Normal 36.0-48.0 [facility] Comment on above: Performed By: #### C BC #### [facility] [address] [place] [address] Dr. Musa Chacon Hemoglobin (Bld) [Mass/Vol] 13.5 g/dL Normal 12.0-16.0 [facility] Comment on above: Performed By: #### C BC #### [facility] [address] [place] [address] Dr. Musa Chacon IG # 0.01 10e3/ul Normal 0.00-0.03 [facility] Comment on above: Performed By: #### C BC #### [facility] [address] [place] [address] Dr. Musa Chacon IG % 0.2 % Normal 0.0-0.5 [facility] Comment on above: Performed By: #### C BC #### [facility] [address] [place] [address] Dr. Musa Chacon LYMPH # 1.4 103/ul Normal 1.2-3.8 [facility] Comment on above: Performed By: #### C BC #### [facility] [address] [place] [address] Dr. Musa Chacon Lymphocytes/100 WBC (Bld) 32.0 % Normal 20.5-60.0 [facility] Comment on above: Performed By: #### C BC #### [facility] [address] [place] [address] Dr. Musa Chacon MANUAL DIFF REQ NO Normal [facility] Comment on above: Performed By: #### C BC #### [facility] [address] [place] [address] Dr. Musa Chacon MCH (RBC) [Entitic mass] 30.1 pg Normal 26.7-34.0 [facility] Comment on above: Performed By: #### C BC #### [facility] [address] [place] [address] Dr. Musa Chacon MCHC (RBC) [Mass/Vol] 34.3 g/dL Normal 29.9-35.2 [facility] Comment on above: Performed By: #### C BC #### [facility] [address] [place] [address] Dr. Musa Chacon MCV (RBC) [Entitic vol] 87.8 fL Normal 81.0-99.0 [facility] Comment on above: Performed By: #### C BC #### [facility] [address] [place] [address] Dr. Musa Chacon MONO # 0.4 103/ul Normal 0.3-0.8 [facility] Comment on above: Performed By: #### C BC #### [facility] [address] [place] [address] Dr. Musa Chacon Monocytes/100 WBC (Bld) 8.0 % Normal 1.7-12.0 [facility] Comment on above: Performed By: #### C BC #### [facility] [address] [place] [address] Dr. Musa Chacon NEUT # 2.6 103/ul Normal 1.4-6.5 [facility] Comment on above: Performed By: #### C BC #### [facility] [address] [place] [address] Dr. Musa Chacon Neutrophils/100 WBC (Bld) 57.1 % Normal 43.0-75.0 [facility] Comment on above: Performed By: #### C BC #### [facility] [address] [address] [address] Musa Chacon Platelet mean volume (Bld) [Entitic vol] 10.2 fL Normal 9.5-13.5 [facility] Comment on above: Performed By: #### C BC #### [facility] [address] [address] [address] Musa Chacon PLT 223 103/ul Normal 150-450 [facility] Comment on above: Performed By: #### C BC #### [facility] [address] [place] [address] Dr. Musa Chacon RBC 4.49 106/ul Normal 4.20-5.40 [facility] Comment on above: Performed By: #### C BC #### [facility] [address] [place] [address] Dr. Musa Chacon WBC 4.5 103/ul Normal 4.0-11.0 [facility] Comment on above: Performed By: #### C BC #### [facility] [address] [place] [address] Dr. Musa Chacon PROF 14(COMP METB)on 022 Albumin [Mass/Vol] 4.1 g/dL Normal 3.4-5.0 [facility] Comment on above: Performed By: #### T 4, CMP, TSH #### [facility] [address] [place] [address] Dr. Musa Chacon Albumin/Globulin [Mass ratio] 1.5 {ratio} Normal [facility] Comment on above: Performed By: #### T 4, CMP, TSH #### [facility] [address] [place] [address] Dr. Musa Chacon ALP [Catalytic activity/Vol] 51 U/L Normal 46-116 [facility] Comment on above: Performed By: #### T 4, CMP, TSH #### [facility] [address] [place] [address] Dr. Musa Chacon ALT [Catalytic activity/Vol] 17 U/L Normal 14-59 [facility] Comment on above: Performed By: #### T 4, CMP, TSH #### [facility] [address] [address] [address] Musa Chacon Anion gap [Moles/Vol] 11.8 mmol/L Normal [facility] Comment on above: Performed By: #### T 4, CMP, TSH #### [facility] [address] [place] [address] Dr. Musa Chacon AST [Catalytic activity/Vol] 14 U/L Critically low 15-37 [facility] Comment on above: Performed By: #### T 4, CMP, TSH #### [facility] [address] [place] [address] Dr. Musa Chacon Bilirubin [Mass/Vol] 0.8 mg/dL Normal 0.2-1.0 [facility] Comment on above: Performed By: #### T 4, CMP, TSH #### [facility] [address] [place] [address] Dr. Musa Chacon Calcium [Mass/Vol] 8.9 mg/dL Normal 8.5-10.1 [facility] Comment on above: Performed By: #### T 4, CMP, TSH #### [facility] [address] [place] [address] Dr. Musa Chacon Chloride [Moles/Vol] 105 mmol/L Normal 98-107 [facility] Comment on above: Performed By: #### T 4, CMP, TSH #### [facility] [address] [place] [address] Dr. Musa Chacon CO2 [Moles/Vol] 27.4 mmol/L Normal 21.0-32.0 [facility] Comment on above: Performed By: #### T 4, CMP, TSH #### [facility] [address] [place] [address] Dr. Musa Chacon Creatinine [Mass/Vol] 0.78 mg/dL Normal 0.55-1.02 [facility] Comment on above: Performed By: #### T 4, CMP, TSH #### [facility] [address] [place] [address] Dr. Musa Chacon EGFR-AF LIBYAN >60 Normal >=60 [facility] Comment on above: Performed By: #### T 4, CMP, TSH #### [facility] [address] [place] [address] Dr. Musa Chacon EGFR-NON AF LIBYAN >60 Normal >=60 [facility] Comment on above: Performed By: #### T 4, CMP, TSH #### [facility] [address] [place] [address] Dr. Musa Chacon Globulin (S) [Mass/Vol] 2.8 g/dL Normal [facility] Comment on above: Performed By: #### T 4, CMP, TSH #### [facility] [address] [place] [address] Dr. Musa Chacon Glucose [Mass/Vol] 96 mg/dL Normal 74-106 [facility] Comment on above: Performed By: #### T 4, CMP, TSH #### [facility] [address] [place] [address] Dr. Musa Chacon Potassium [Moles/Vol] 4.2 mmol/L Normal 3.5-5.1 [facility] Comment on above: Performed By: #### T 4, CMP, TSH #### [facility] [address] [place] [address] Dr. Musa Chacon Protein [Mass/Vol] 6.9 g/dL Normal 6.4-8.2 [facility] Comment on above: Performed By: #### T 4, CMP, TSH #### [facility] [address] [place] [address] Dr. Musa Chacon Sodium [Moles/Vol] 140 mmol/L Normal 136-145 [facility] Comment on above: Performed By: #### T 4, CMP, TSH #### [facility] [address] [place] [address] Dr. Musa Chacon Urea nitrogen [Mass/Vol] 10.0 mg/dL Normal 7.0-18.0 [facility] Comment on above: Performed By: #### T 4, CMP, TSH #### [facility] [address] [place] [address] Dr. Musa Chacon Urea nitrogen/Creatinine [Mass ratio] 12.8 mg/mg Normal [facility] Comment on above: Performed By: #### T 4, CMP, TSH #### [facility] [address] [place] [address] Dr. Musa Chacon T4on 10-02-2022 T4 [Mass/Vol] 6.30 ug/dL Normal 4.80-13.90 [facility] Comment on above: Performed By: #### T 4, CMP, TSH #### [facility] [address] [place] [address] Dr. Musa Chacon TSHon 10-02-2022 TSH 1.653 uIU/mL Normal 0.358-3.740 [facility] Comment on above: Performed By: #### T 4, CMP, TSH #### [facility] [address] [place] [address] Dr. Musa Chacon Coding Summary.on 10-12-2020 Coding Summary. CODING DATE: 10/12/2020 FINAL [facility] STATUS: Home (Routine DC) PAYOR: Commercial [...] CphT Date Saved: 10/12/2020 10:12 am Normal [facility] SARS-CoV-2, NAAon 10-06-2020 SARS CORONAVIRUS 2 RNA:PRTHR:PT:RESPIRA TORY:ORD:PROBE.AMP.T AR Detected Abnormal Not Detected [facility] Comment on above: Result Comment: This nucleic acid amplification test was developed and its performance characteristics determined by [employer]. Nucleic acid amplification tests include PCR and [...] detected) result in this assay. Performed at: [facility] [address] [facility], [place] [id number] [facility] Magda Clark Performed By: #### S ARS-CoV-2, LE #### [facility] [address] [place] [address] Physician Orderon 10-02-2020 Physician Order [id number] Normal [facility] Vital Signs Date Time Vital Sign Value Performing Clinician Faci lity 12-10-2023 16:18-0500 Body weight 70.31 kg Pati FRANCO Work Phone: [facility] 12-10-2023 16:18-0500 Diastolic blood pressure 64 mm[Hg] Pati FRANCO Work Phone: [facility] 12-10-2023 16:18-0500 Systolic blood pressure 108 mm[Hg] Pati FRANCO Work Phone: [facility] Healthcare Encounters Encounter Date Encounter Type Care Provider Facility Start: 12-10-2023 End: 12-10-2023 ambulatory PATI WISDOM Not Available Start: 12-10-2023 End: 12-10-2023 flow sheet Pati FRANCO Work Phone: [facility] Comment on above: Third trimester preg mandeep; Multigravida of advanced maternal age in third trimester Start: 11-25-2023 End: 11-25-2023 ambulatory AMPARO KEO Not Available Start: 11-05-2023 End: 11-05-2023 ambulatory PATI WISDOM Not Available Start: 10-08-2023 End: 10-08-2023 ambulatory PATI WISDOM Not Available Start: 10-05-2022 Encounter for genera l adult medical examination without abnormal findings DR GEE HERNANDEZ [facility] Start: 10-02-2022 End: 10-03-[address] GEE HERNANDEZ Facility:[facility] Start: 10-02-2022 End: 10-03-2022 Encounter for general adult medical examination without abnormal findings DR GEE HERNANDEZ Facility:[facility] Start: 05-21-2017 End: 05-22-2017 Ambulatory DEFAULT PHYSICIAN Facility:[facility] Procedures Date Procedure Procedure Detail Performing Clinician Start: 12-10-2023 Urnls dip stick/tabl et rgnt non-auto w/o micrscp Pati Wisdom PA Work Phone: Plan of Treatment Date Care Activity Detail Author Start: 12-24-2023 End: 12-24-2023 Patient encounter procedure 12/24/2023 1:40 PM EST Routine [facility] [address] [facility] [place] [id number] Amparo Carbone, DO [address] [place], [place] [id number] [facility] Start: 12-24-2023 End: 12-24-2023 Professional / ancillary services management 12/24/2023 1:00 PM EST Ancillary Procedure [facility] [address] [place] [id number] [facility] Start: 12-10-2023 End: 12-10-2024 [...] third trimester Expected: 12/10/2023 (Approximate), Expires: 12/10/2024 [facility] Comment on above: Expected: 12/10/2023 (Approximate), Expires: 12/10/2024 Payers Date Payer Category Payer Unknown 2022 Unknown [id number] 1985 Unknown [id number] 1985 Unknown [id number] 1985 Unknown [id number] [id number] [id number] 1986 Unknown [id number] 1986 Unknown [id number] 1959 Unknown [id number] Social History Date Type Detail Facility Tobacco smoking stat [facility] Tobacco smoking consumption unknown [facility] Start: 05-16-2023 [facility] Start: 1985 Sex Assigned At Female [facility] Start: 06-23-2023 Gender identity Identifies as female gender (finding) [facility] Start: 06-23-2023 Sexual orientation Heterosexual (fin ding) [facility] History of Present illness [...] section and content) DATE CREATED AUTHOR 04/29/2018 [facility] DATE CREATED AUTHOR AUTHOR'S ORGANIZ ATION 10/13/2020 [facility] DATE CREATED AUTHOR AUTHOR'S ORGANIZ ATION 10/05/[address] [facility] DATE CREATED AUTHOR AUTHOR'S ORGANIZ ATION 12/11/2023 [facility] EPIC Reason for Visit (unrecogniz [...] BE BASED ON THE PRIMARY CLINICAL RECORDS. [employer] provides no warranty or guarantee of the accuracy or completeness of information in this document.
--- NOTE | 2023-12-31 18:54 | US_ITS ---
[address] [address] Patient Name: VISHAL NELSON MRN: [id number] date: 1985 Sex: F Assigned Patient Location: [facility] Current Patient Location: Accession/Order Number: [id number] Exam Date: 12/31/2023 19:00 Report Date: 01/01/2024 07:12 At the request of: AMPARO CROWLEY Procedure: US OB BPP w non-stress EXAMINATION: US OB BPP w non-stress HISTORY: MULTIGRAVIDA OF ADVANCED MATERNAL AGE O09.523 COMPARISON: No relevant comparison available. TECHNIQUE: Ultrasound biophysical profile was performed in the radiology department. non-reactive stress testing was performed by nursing staff in the birthing center. FINDINGS: BREATHING MOVEMENTS: 2.0 GROSS BODY MOVEMENTS: 2.0 TONE: 2.0 QUALITATIVE AMNIOTIC FLUID VOLUME: 2.0 PRESENTATION: CEPHALIC HEART RATE: 131.1 bpm H.B./min AMNIOTIC FLUID VOLUME: 10.3 cm cm GESTATIONAL AGE: 34 weeks 5 days CONCLUSION: Total biophysical profile score: 8.0 Electronically authenticated by: SOPHIA GONZALEZ Date: 01/01/2024 07:12
[2023-12-31 19:29] VITALS: BP 110/65; PULSE 74
== END 2023-12-31 20:06 | disposition home or self-care (01) ==
LOC: US 07:22 → FBC 18:48
PROVIDERS: Visit Provider Obstetrics & Gynecology
DX: O09.523 Supervision of elderly multigravida, third trimester (principal); Z3A.34 34 weeks gestation of pregnancy
CPT/HCPCS: 76818

== ENCOUNTER 2024-01-03 07:08 | Outpatient (OUT) | payer OTHER, SELFPAY ==
--- OUTSIDE RECORDS SUMMARY | 2024-01-03 07:11 | XMS_ITS | CCD ---
Author Name Unknown Address [address] [place] [address] Organization [facility] Care Team Providers Care Java Portal Developer Name Role Phone PHYSICIAN, DEFAULT Unavailable Unavailable PHYSICIAN, DEFAULT Unavailable Unavailable HOUSE, DR FLYNN Attending Unavailable HOUSE, DR FLYNN Consulting Unavailable HOUSE, DR FLYNN Admitting Unavailable REQUEST, DR GARCIA LISTED Primary Care Unavaila ble Unavailable Primary Care Provider UnavailPATI Mercado Attending Unavailable AMPARO CARBONE Attending Unavailable PATI WISDOM Attending Unavailable AMPARO CARBONE Attending Unavailable PATI WISDOM Attending Unavailable Allergies Allergy Classification Reported Allergen(s) Allergy Type Date of Onset Reaction(s) Facility (1 source) Nitrofurantoin Drug Allergy 7 [facility] (2 sources) Ciprofloxacin Drug Allergy [...] Analog DNA Polymerase Inhibitor Start: 12-10-2023 End: 08-05-2024 take 1 tablet by mouth in the [...] UA Negative Negative - 4(70) +++ mg/dL [facility] Blood, UA Positive Negative - 50 Andrea/mcL [facility] Clarity, UA Clear [facility] re Color, UA Yellow [facility] e Glucose, UA Negative Negative - 1999(110) ++++ mg/dL [facility] Interpretation and review of laboratory results Abnormal [facility] Ketones, UA Negative Negative - 160(16) ++++ mg/dL [facility] Leukocytes, UA Negative Negative - 500+++ Toan/mcL [facility] Nitrite, UA Negative Negative - Positive [facility] pH, UA 5.5 5 - 9 [facility] e Protein, UA Negative Negative - 1999(20) ++++ mg/dL [facility] Spec Grav, UA 1.020 1 - 1.03 [facility] Urobilinogen, UA 1.0 0.2 - 12 mg/dL [facility] CBC AUTO DIFFon 10-02-2022 BASO # 0.0 103/ul Normal 0.0-0.1 [facility] Comment on above: Performed By: #### C BC #### [facility] [address] [place] [address] Dr. Musa Chacon Basophils/100 WBC (Bld) 0.9 % Normal 0.2-2.0 [facility] Comment on above: Performed By: #### C BC #### [facility] [address] [address] [address] Msua Chacon EO # 0.1 103/ul Normal 0.0-0.7 [facility] Comment on above: Performed By: #### C BC #### [facility] [address] [place] [address] Dr. Musa Chacon Eosinophils/100 WBC (Bld) 1.8 % Normal 0.9-7.0 [facility] Comment on above: Performed By: #### C BC #### [facility] [address] [place] [address] Dr. Musa Chacon Erythrocyte distribution width (RBC) [Ratio] 12.8 % Normal 11.0-15.0 [facility] Comment on above: Performed By: #### C BC #### [facility] [address] [place] [address] Dr. Musa Chacon Hematocrit (Bld) [Volume fraction] 39.4 % Normal 36.0-48.0 [facility] Comment on above: Performed By: #### C BC #### [facility] [address] [place] [address] Dr. Musa Chacon Hemoglobin (Bld) [Mass/Vol] 13.5 g/dL Normal 12.0-16.0 [facility] Comment on above: Performed By: #### C BC #### [facility] [address] [place] [address] Dr. Musa Chacon IG # 0.01 10e3/ul Normal 0.00-0.03 [facility] Comment on above: Performed By: #### C BC #### [facility] [address] [place] [address] Dr. Musa Chacon IG % 0.2 % Normal 0.0-0.5 [facility] Comment on above: Performed By: #### C BC #### [facility] [address] [place] [address] Dr. Musa Chacon LYMPH # 1.4 103/ul Normal 1.2-3.8 [facility] Comment on above: Performed By: #### C BC #### [facility] [address] [place] [address] Dr. Musa Chacon Lymphocytes/100 WBC (Bld) 32.0 % Normal 20.5-60.0 [facility] Comment on above: Performed By: #### C BC #### [facility] [address] [place] [address] Dr. Musa Chacon MANUAL DIFF REQ NO Normal [facility] Comment on above: Performed By: #### C BC #### [facility] [address] [place] [address] Dr. Musa Chacon MCH (RBC) [Entitic mass] 30.1 pg Normal 26.7-34.0 [facility] Comment on above: Performed By: #### C BC #### [facility] [address] [place] [address] Dr. Musa Chacon MCHC (RBC) [Mass/Vol] 34.3 g/dL Normal 29.9-35.2 [facility] Comment on above: Performed By: #### C BC #### [facility] [address] [place] [address] Dr. Musa Chacon MCV (RBC) [Entitic vol] 87.8 fL Normal 81.0-99.0 [facility] Comment on above: Performed By: #### C BC #### [facility] [address] [place] [address] Dr. Musa Chacon MONO # 0.4 103/ul Normal 0.3-0.8 [facility] Comment on above: Performed By: #### C BC #### [facility] [address] [place] [address] Dr. Musa Chacon Monocytes/100 WBC (Bld) 8.0 % Normal 1.7-12.0 [facility] Comment on above: Performed By: #### C BC #### [facility] [address] [place] [address] Dr. Musa Chacon NEUT # 2.6 103/ul Normal 1.4-6.5 [facility] Comment on above: Performed By: #### C BC #### [facility] [address] [place] [address] Dr. Musa Chacon Neutrophils/100 WBC (Bld) 57.1 % Normal 43.0-75.0 [facility] Comment on above: Performed By: #### C BC #### [facility] [address] [place] [address] Dr. Musa Chacon Platelet mean volume (Bld) [Entitic vol] 10.2 fL Normal 9.5-13.5 [facility] Comment on above: Performed By: #### C BC #### [facility] [address] [place] [address] Dr. Musa Chacon PLT 223 103/ul Normal 150-450 [facility] Comment on above: Performed By: #### C BC #### [facility] [address] [place] [address] Dr. Musa Chacon RBC 4.49 106/ul Normal 4.20-5.40 [facility] Comment on above: Performed By: #### C BC #### [facility] [address] [place] [address] Dr. Musa Chacon WBC 4.5 103/ul Normal 4.0-11.0 [facility] Comment on above: Performed By: #### C BC #### [facility] [address] [place] [address] Dr. Musa Chacon PROF 14(COMP METB)on 022 Albumin [Mass/Vol] 4.1 g/dL Normal 3.4-5.0 [facility] Comment on above: Performed By: #### T 4, CMP, TSH #### [facility] [address] [place] [address] Dr. Musa Chacon Albumin/Globulin [Mass ratio] 1.5 {ratio} Normal [facility] Comment on above: Performed By: #### T 4, CMP, TSH #### [facility] [address] [place] [address] Dr. Musa Chacon ALP [Catalytic activity/Vol] 51 U/L Normal 46-116 [facility] Comment on above: Performed By: #### T 4, CMP, TSH #### [facility] [address] [place] [address] Dr. Musa Chacon ALT [Catalytic activity/Vol] 17 U/L Normal 14-59 [facility] Comment on above: Performed By: #### T 4, CMP, TSH #### [facility] [address] [address] [address] Musa Chacon Anion gap [Moles/Vol] 11.8 mmol/L Normal [facility] Comment on above: Performed By: #### T 4, CMP, TSH #### [facility] [address] [address] [address] Musa Chacon AST [Catalytic activity/Vol] 14 U/L Critically low 15-37 [facility] Comment on above: Performed By: #### T 4, CMP, TSH #### [facility] [address] [place] [address] Dr. Musa Chacon Bilirubin [Mass/Vol] 0.8 mg/dL Normal 0.2-1.0 [facility] Comment on above: Performed By: #### T 4, CMP, TSH #### [facility] [address] [place] [address] Dr. Musa Chacon Calcium [Mass/Vol] 8.9 mg/dL Normal 8.5-10.1 [facility] Comment on above: Performed By: #### T 4, CMP, TSH #### [facility] [address] [place] [address] Dr. Musa Chacon Chloride [Moles/Vol] 105 mmol/L Normal 98-107 [facility] Comment on above: Performed By: #### T 4, CMP, TSH #### [facility] [address] [place] [address] Dr. Musa Chacon CO2 [Moles/Vol] 27.4 mmol/L Normal 21.0-32.0 [facility] Comment on above: Performed By: #### T 4, CMP, TSH #### [facility] [address] [place] [address] Dr. Musa Chacon Creatinine [Mass/Vol] 0.78 mg/dL Normal 0.55-1.02 [facility] Comment on above: Performed By: #### T 4, CMP, TSH #### [facility] [address] [place] [address] Dr. Musa Chacon EGFR-AF [place] >60 Normal >=60 [facility] Comment on above: Performed By: #### T 4, CMP, TSH #### [facility] [address] [place] [address] Dr. Musa Chacno EGFR-NON AF [place]ER >60 Normal >=60 [facility] Comment on above: Performed By: #### T 4, CMP, TSH #### [facility] [address] [place] [address] Dr. Musa Chacon Globulin (S) [Mass/Vol] 2.8 g/dL Normal [facility] Comment on above: Performed By: #### T 4, CMP, TSH #### [facility] [address] [place] [address] Dr. Musa Chacon Glucose [Mass/Vol] 96 mg/dL Normal 74-106 [facility] Comment on above: Performed By: #### T 4, CMP, TSH #### [facility] [address] [place] [address] Dr. Musa Chacon Potassium [Moles/Vol] 4.2 mmol/L Normal 3.5-5.1 [facility] Comment on above: Performed By: #### T 4, CMP, TSH #### [facility] [address] [place] [address] Dr. Musa Chacon Protein [Mass/Vol] 6.9 g/dL Normal 6.4-8.2 [facility] Comment on above: Performed By: #### T 4, CMP, TSH #### [facility] [address] [place] [address] Dr. Musa Chacon Sodium [Moles/Vol] 140 mmol/L Normal 136-145 [facility] Comment on above: Performed By: #### T 4, CMP, TSH #### [facility] [address] [place] [address] Dr. Musa Chacon Urea nitrogen [Mass/Vol] 10.0 mg/dL Normal 7.0-18.0 [facility] Comment on above: Performed By: #### T 4, CMP, TSH #### [facility] [address] [address] [address] Musa Chacon Urea nitrogen/Creatinine [Mass ratio] 12.8 mg/mg Normal [facility] Comment on above: Performed By: #### T 4, CMP, TSH #### [facility] [address] [place] [address] Dr. Musa Chacon T4on 10-02-2022 T4 [Mass/Vol] 6.30 ug/dL Normal 4.80-13.90 [facility] Comment on above: Performed By: #### T 4, CMP, TSH #### [facility] [address] [address] [address] Musa Chacon TSHon 10-02-2022 TSH 1.653 uIU/mL Normal 0.358-3.740 [facility] Comment on above: Performed By: #### T 4, CMP, TSH #### [facility] [address] [place] [address] Dr. Musa Chacon Coding Summary.on 10-12-2020 Coding Summary. CODING DATE: 10/12/2020 FINAL [facility] STATUS: Home (Routine DC) PAYOR: Commercial [...] CphT Date Saved: 10/12/2020 10:12 am Normal [facility] SARS-CoV-2, NAAon 10-06-2020 SARS CORONAVIRUS 2 RNA:PRTHR:PT:RESPIRA TORY:ORD:PROBE.AMP.T AR Detected Abnormal Not Detected [facility] Comment on above: Result Comment: This nucleic acid amplification test was developed and its performance characteristics determined by [employer]. Nucleic acid amplification tests include PCR and [...] detected) result in this assay. Performed at: [facility] [address] [place], [place] [id number] [facility] Magda Clark Performed By: #### S ARS-CoV-2, LE #### [facility] [address] [place] [address] Physician Orderon 10-02-2020 Physician Order [id number] Normal [facility] Vital Signs Date Time Vital Sign Value Performing Clinician Faci lity 12-10-2023 16:18-0500 Body weight 70.31 kg Pati FRANCO Work Phone: [facility] 12-10-2023 16:18-0500 Diastolic blood pressure 64 mm[Hg] Pati FRANCO Work Phone: [facility] 12-10-2023 16:18-0500 Systolic blood pressure 108 mm[Hg] Pati FRANCO Work Phone: [facility] Healthcare Encounters Encounter Date Encounter Type Care Provider Facility Start: 12-24-2023 End: 12-24-2023 ambulatory AMPARO CARBONE Not Available Start: 12-10-2023 End: 12-10-2023 ambulatory PATI WISDOM Not Available Start: 12-10-2023 End: 12-10-2023 flow sheet Pati FRANCO Work Phone: [facility] Comment on above: Third trimester preg mandeep; Multigravida of advanced maternal age in third trimester Start: 11-25-2023 End: 11-25-2023 ambulatory AMPARO CARBONE Not Available Start: 11-05-2023 End: 11-05-2023 ambulatory PATI WISDOM Not Available Start: 10-08-2023 End: 10-08-2023 ambulatory PATI WISDOM Not Available Start: 10-05-2022 Encounter for genera l adult medical examination without abnormal findings DR GEE HERNANDEZ [facility] Start: 10-02-2022 End: 10-03-[address] GEE HERNANDEZ Facility:[facility] Start: 10-02-2022 End: 10-03-2022 Encounter for general adult medical examination without abnormal findings DR GEE HERNANDEZ Facility:[facility] Start: 05-21-2017 End: 05-22-2017 Ambulatory DEFAULT PHYSICIAN Facility:[facility] Procedures Date Procedure Procedure Detail Performing Clinician Start: 12-10-2023 Urnls dip stick/tabl et rgnt non-auto w/o micrscp Pati Wisdom PA Work Phone: Plan of Treatment Date Care Activity Detail Author Start: 12-24-2023 End: 12-24-2023 Patient encounter procedure 12/24/2023 1:40 PM EST Routine [facility] [address] [place] [id number] Amparo Carbone, DO [address] [place] [address] [facility] Start: 12-24-2023 End: 12-24-2023 Professional / ancillary services management 12/24/2023 1:00 PM EST Ancillary Procedure [facility] [address] [facility] [place] [id number] [facility] Start: 12-10-2023 End: 12-10-2024 [...] third trimester Expected: 12/10/2023 (Approximate), Expires: 12/10/2024 [facility] Comment on above: Expected: 12/10/2023 (Approximate), Expires: 12/10/2024 Payers Date Payer Category Payer Unknown 2022 Unknown [id number] 1985 Unknown [id number] 2.16.84 [id number] 1986 Unknown [id number] 2.16.84 [id number] 1986 Unknown [id number] 2.16.84 [id number] 1986 Unknown [id number] 2.16.84 [id number] 1986 Unknown [id number] 1986 Unknown [id number] 1959 Unknown [id number] Social History Date Type Detail Facility Tobacco smoking stat [facility] Tobacco smoking consumption unknown [facility] Start: 05-16-2023 [facility] Start: 1985 Sex Assigned At Female [facility] Start: 06-23-2023 Gender identity Identifies as female gender (finding) [facility] Start: 06-23-2023 Sexual orientation Heterosexual (fin ding) [facility] History of Present illness Narrative 12-10-2023 SALVADOR [...] section and content) DATE CREATED AUTHOR 04/29/2018 [facility] DATE CREATED AUTHOR AUTHOR'S ORGANIZ ATION 10/13/2020 [facility] DATE CREATED AUTHOR AUTHOR'S ORGANIZ ATION 10/05/2022 [facility] DATE CREATED AUTHOR AUTHOR'S ORGANIZ ATION 01/01/2024 [facility] EPIC Reason for Visit (unrecogniz ed [...] BE BASED ON THE PRIMARY CLINICAL RECORDS. [employer] provides no warranty or guarantee of the accuracy or completeness of information in this document.
[2024-01-03 14:11] VITALS: BP 108/58; PULSE 74
== END 2024-01-03 14:56 | disposition home or self-care (01) ==
LOC: FBCO 07:09 → FBC 14:03
PROVIDERS: Visit Provider Obstetrics & Gynecology
DX: O43.119 Circumvallate placenta, unspecified trimester (principal)
CPT/HCPCS: 59025

== ENCOUNTER 2024-01-07 07:20 | Outpatient (OUT) | payer OTHER, SELFPAY ==
--- OUTSIDE RECORDS SUMMARY | 2024-01-07 07:25 | XMS_ITS | CCD ---
Author Name Unknown Address [address] [place] [address] Organization [facility] Care Team Providers Care Circulation Manager Name Role Phone PHYSICIAN, DEFAULT Unavailable Unavailable [...] (1 source) Nitrofurantoin Drug Allergy 7 [facility] Repository (2 sources) Ciprofloxacin Drug Allergy [...] UA Negative Negative - 4(70) +++ mg/dL [facility] Blood, UA Positive Negative - 50 Andrea/mcL [facility] Clarity, UA Clear [facility] re Color, UA Yellow [facility] e Glucose, UA Negative Negative - 1999(110) ++++ mg/dL [facility] Interpretation and review of laboratory results Abnormal [facility] Ketones, UA Negative Negative - 160(16) ++++ mg/dL [facility] Leukocytes, UA Negative Negative - 500+++ Toan/mcL [facility] Nitrite, UA Negative Negative - Positive [facility] pH, UA 5.5 5 - 9 [facility] Protein, UA Negative Negative - 1999(20) ++++ mg/dL [facility] Spec Grav, UA 1.020 1 - 1.03 [facility] Urobilinogen, UA 1.0 0.2 - 12 mg/dL [facility] CBC AUTO DIFFon 10-02-2022 BASO # 0.0 103/ul Normal 0.0-0.1 [facility] Comment on above: Performed By: #### C BC #### [facility] [address] [place] [address] Dr. Musa Chacon Basophils/100 WBC (Bld) 0.9 % Normal 0.2-2.0 [facility] Comment on above: Performed By: #### C BC #### [facility] [address] [address] [address] Musa Chacon EO # 0.1 103/ul Normal 0.0-0.7 [facility] Comment on above: Performed By: #### C BC #### [facility] [address] [place] [address] Dr. Musa Chacon Eosinophils/100 WBC (Bld) 1.8 % Normal 0.9-7.0 [facility] Comment on above: Performed By: #### C BC #### [facility] [address] [place] [address] Dr. Musa Chacon Erythrocyte distribution width (RBC) [Ratio] 12.8 % Normal 11.0-15.0 [facility] Comment on above: Performed By: #### C BC #### [facility] [address] [place] [address] Dr. Musa Chacon Hematocrit (Bld) [Volume fraction] 39.4 % Normal 36.0-48.0 [facility] Comment on above: Performed By: #### C BC #### [facility] [address] [place] [address] Dr. Musa Chacon Hemoglobin (Bld) [Mass/Vol] 13.5 g/dL Normal 12.0-16.0 [facility] Comment on above: Performed By: #### C BC #### [facility] [address] [place] [address] Dr. Musa Chacon IG # 0.01 10e3/ul Normal 0.00-0.03 [facility] Comment on above: Performed By: #### C BC #### [facility] [address] [place] [address] Dr. Musa Chacon IG % 0.2 % Normal 0.0-0.5 [facility] Comment on above: Performed By: #### C BC #### [facility] [address] [place] [address] Dr. Musa Chacon LYMPH # 1.4 103/ul Normal 1.2-3.8 [facility] Comment on above: Performed By: #### C BC #### [facility] [address] [place] [address] Dr. Musa Chacon Lymphocytes/100 WBC (Bld) 32.0 % Normal 20.5-60.0 [facility] Comment on above: Performed By: #### C BC #### [facility] [address] [place] [address] Dr. Musa Chacon MANUAL DIFF REQ NO Normal [facility] Comment on above: Performed By: #### C BC #### [facility] [address] [place] [address] Dr. Musa Chacon MCH (RBC) [Entitic mass] 30.1 pg Normal 26.7-34.0 [facility] Comment on above: Performed By: #### C BC #### [facility] [address] [place] [address] Dr. Musa Chacon MCHC (RBC) [Mass/Vol] 34.3 g/dL Normal 29.9-35.2 [facility] Comment on above: Performed By: #### C BC #### [facility] [address] [place] [address] Dr. Musa Chacon MCV (RBC) [Entitic vol] 87.8 fL Normal 81.0-99.0 [facility] Comment on above: Performed By: #### C BC #### [facility] [address] [place] [address] Dr. Musa Chacon MONO # 0.4 103/ul Normal 0.3-0.8 [facility] Comment on above: Performed By: #### C BC #### [facility] [address] [place] [address] Dr. Musa Chacon Monocytes/100 WBC (Bld) 8.0 % Normal 1.7-12.0 [facility] Comment on above: Performed By: #### C BC #### [facility] [address] [place] [address] Dr. Musa Chacon NEUT # 2.6 103/ul Normal 1.4-6.5 [facility] Comment on above: Performed By: #### C BC #### [facility] [address] [place] [address] Dr. Musa Chacon Neutrophils/100 WBC (Bld) 57.1 % Normal 43.0-75.0 [facility] Comment on above: Performed By: #### C BC #### [facility] [address] [place] [address] Dr. Musa Chacon Platelet mean volume (Bld) [Entitic vol] 10.2 fL Normal 9.5-13.5 [facility] Comment on above: Performed By: #### C BC #### [facility] [address] [place] [address] Dr. Musa Chacon PLT 223 103/ul Normal 150-450 [facility] Comment on above: Performed By: #### C BC #### [facility] [address] [place] [address] Dr. Musa Chacon RBC 4.49 106/ul Normal 4.20-5.40 [facility] Comment on above: Performed By: #### C BC #### [facility] [address] [place] [address] Dr. Musa Chacon WBC 4.5 103/ul Normal 4.0-11.0 [facility] Comment on above: Performed By: #### C BC #### [facility] [address] [place] [address] Dr. Musa Chacon PROF 14(COMP METB)on 022 Albumin [Mass/Vol] 4.1 g/dL Normal 3.4-5.0 [facility] Comment on above: Performed By: #### T 4, CMP, TSH #### [facility] [address] [place] [address] Dr. Musa Chacon Albumin/Globulin [Mass ratio] 1.5 {ratio} Normal [facility] Comment on above: Performed By: #### T 4, CMP, TSH #### [facility] [address] [place] [address] Dr. Musa Chacon ALP [Catalytic activity/Vol] 51 U/L Normal 46-116 [facility] Comment on above: Performed By: #### T 4, CMP, TSH #### [facility] [address] [place] [address] Dr. Musa hCacon ALT [Catalytic activity/Vol] 17 U/L Normal 14-59 [facility] Comment on above: Performed By: #### T 4, CMP, TSH #### [facility] [address] [address] [address] Musa Chacon Anion gap [Moles/Vol] 11.8 mmol/L Normal [facility] Comment on above: Performed By: #### T 4, CMP, TSH #### [facility] [address] [address] [address] Musa Chacon AST [Catalytic activity/Vol] 14 U/L Critically low 15-37 [facility] Comment on above: Performed By: #### T 4, CMP, TSH #### [facility] [address] [place] [address] Dr. Musa Chacon Bilirubin [Mass/Vol] 0.8 mg/dL Normal 0.2-1.0 [facility] Comment on above: Performed By: #### T 4, CMP, TSH #### [facility] [address] [place] [address] Dr. Musa Chacon Calcium [Mass/Vol] 8.9 mg/dL Normal 8.5-10.1 [facility] Comment on above: Performed By: #### T 4, CMP, TSH #### [facility] [address] [place] [address] Dr. Musa Chacon Chloride [Moles/Vol] 105 mmol/L Normal 98-107 [facility] Comment on above: Performed By: #### T 4, CMP, TSH #### [facility] [address] [place] [address] Dr. Musa Chacon CO2 [Moles/Vol] 27.4 mmol/L Normal 21.0-32.0 [facility] Comment on above: Performed By: #### T 4, CMP, TSH #### [facility] [address] [place] [address] Dr. Musa Chacon Creatinine [Mass/Vol] 0.78 mg/dL Normal 0.55-1.02 [facility] Comment on above: Performed By: #### T 4, CMP, TSH #### [facility] [address] [place] [address] Dr. Musa Chacon EGFR-AF TAIWANESE >60 Normal >=60 [facility] Comment on above: Performed By: #### T 4, CMP, TSH #### [facility] [address] [place] [address] Dr. Musa Chacon EGFR-NON AF TAIWANESE >60 Normal >=60 [facility] Comment on above: Performed By: #### T 4, CMP, TSH #### [facility] [address] [place] [address] Dr. Musa Chacon Globulin (S) [Mass/Vol] 2.8 g/dL Normal [facility] Comment on above: Performed By: #### T 4, CMP, TSH #### [facility] [address] [place] [address] Dr. Musa Chacon Glucose [Mass/Vol] 96 mg/dL Normal 74-106 [facility] Comment on above: Performed By: #### T 4, CMP, TSH #### [facility] [address] [place] [address] Dr. Musa Chacon Potassium [Moles/Vol] 4.2 mmol/L Normal 3.5-5.1 [facility] Comment on above: Performed By: #### T 4, CMP, TSH #### [facility] [address] [place] [address] Dr. Musa Chacon Protein [Mass/Vol] 6.9 g/dL Normal 6.4-8.2 [facility] Comment on above: Performed By: #### T 4, CMP, TSH #### [facility] [address] [place] [address] Dr. Musa Chacon Sodium [Moles/Vol] 140 mmol/L Normal 136-145 [facility] Comment on above: Performed By: #### T 4, CMP, TSH #### [facility] [address] [place] [address] Dr. Musa Chacon Urea nitrogen [Mass/Vol] 10.0 mg/dL Normal 7.0-18.0 [facility] Comment on above: Performed By: #### T 4, CMP, TSH #### [facility] [address] [address] [address] Musa Chacon Urea nitrogen/Creatinine [Mass ratio] 12.8 mg/mg Normal [facility] Comment on above: Performed By: #### T 4, CMP, TSH #### [facility] [address] [place] [address] Dr. Musa Chacon T4on 10-02-2022 T4 [Mass/Vol] 6.30 ug/dL Normal 4.80-13.90 [facility] Comment on above: Performed By: #### T 4, CMP, TSH #### [facility] [address] [address] [address] Musa Chacon TSHon 10-02-2022 TSH 1.653 uIU/mL Normal 0.358-3.740 [facility] Comment on above: Performed By: #### T 4, CMP, TSH #### [facility] [address] [place] [address] Dr. Musa Chacon Coding Summary.on 10-12-2020 Coding Summary. CODING DATE: 10/12/2020 FINAL [facility] STATUS: Home (Routine DC) PAYOR: Commercial [...] CphT Date Saved: 10/12/2020 10:12 am Normal [facility] SARS-CoV-2, NAAon 10-06-2020 SARS CORONAVIRUS 2 RNA:PRTHR:PT:RESPIRA TORY:ORD:PROBE.AMP.T AR Detected Abnormal Not Detected [facility] Comment on above: Result Comment: This nucleic acid amplification test was developed and its performance characteristics determined by [employer]. Nucleic acid amplification tests include PCR and [...] detected) result in this assay. Performed at: [facility] [address], [place] [id number] [facility] Magda Clark Performed By: #### S ARS-CoV-2, LE #### [facility] [address] [place] [address] Physician Orderon 10-02-2020 Physician Order [id number]:127 Normal [facility] Vital Signs Date Time Vital Sign Value Performing Clinician Faci lity 12-10-2023 16:18-0500 Body weight 70.31 kg Pati FRANCO Work Phone: [facility] 12-10-2023 16:18-0500 Diastolic blood pressure 64 mm[Hg] Pati FRANCO Work Phone: [facility] 12-10-2023 16:18-0500 Systolic blood pressure 108 mm[Hg] Pati FRANCO Work Phone: [facility] Healthcare Encounters Encounter Date Encounter Type Care Provider Facility Start: 12-24-2023 End: 12-24-2023 ambulatory AMPARO CARBONE Not Available Start: 12-10-2023 End: 12-10-2023 ambulatory PATI WISDOM Not Available Start: 12-10-2023 End: 12-10-2023 flow sheet Pati FRANCO Work Phone: [facility] Comment on above: Third trimester preg mandeep; Multigravida of advanced maternal age in third trimester Start: 11-25-2023 End: 11-25-2023 ambulatory AMPARO CARBONE Not Available Start: 11-05-2023 End: 11-05-2023 ambulatory PATI WISDOM Not Available Start: 10-08-2023 End: 10-08-2023 ambulatory PATI WISDOM Not Available Start: 10-05-2022 Encounter for genera l adult medical examination without abnormal findings DR GEE HERNANDEZ [facility] Start: 10-02-2022 End: 10-03-[address] GEE HERNANDEZ Facility:[facility] Start: 10-02-2022 End: 10-03-2022 Encounter for general adult medical examination without abnormal findings DR GEE HERNANDEZ Facility:[facility] Start: 05-21-2017 End: 05-22-2017 Ambulatory DEFAULT PHYSICIAN Facility:[facility] Procedures Date Procedure Procedure Detail Performing Clinician Start: 12-10-2023 Urnls dip stick/tabl et rgnt non-auto w/o micrscp Pati Wisdom PA Work Phone: Plan of Treatment Date Care Activity Detail Author Start: 12-24-2023 End: 12-24-2023 Patient encounter procedure 12/24/2023 1:40 PM EST Routine [facility] [address] [place] [id number] Amparo Carbone, DO [address] [place] [address] [facility] Start: 12-24-2023 End: 12-24-2023 Professional / ancillary services management 12/24/2023 1:00 PM EST Ancillary Procedure [facility] [address] [place] [id number] [facility] Start: 12-10-2023 End: 12-10-2024 [...] third trimester Expected: 12/10/2023 (Approximate), Expires: 12/10/2024 [facility] Comment on above: Expected: 12/10/2023 (Approximate), Expires: 12/10/2024 Payers Date Payer Category Payer Unknown 2022 Unknown [id number] 1985 Unknown [id number] [id number] [id number] 1985 Unknown [id number] [id number] [id number] 1986 Unknown [id number] 2.16.84 [id number] 1986 Unknown [id number] 2.16.84 [id number] 1986 Unknown [id number] 1986 Unknown [id number] 1959 Unknown [id number] Social History Date Type Detail Facility Tobacco smoking stat [facility] Tobacco smoking consumption unknown [facility] Start: 05-16-2023 [facility] Start: 1985 Sex Assigned At Female [facility] Start: 06-23-2023 Gender identity Identifies as female gender (finding) [facility] Start: 06-23-2023 Sexual orientation Heterosexual (fin ding) [facility] History of Present illness Narrative 12-10-2023 SALVADOR [...] section and content) DATE CREATED AUTHOR 04/29/2018 [facility] DATE CREATED AUTHOR AUTHOR'S ORGANIZ ATION 10/13/2020 [facility] DATE CREATED AUTHOR AUTHOR'S ORGANIZ ATION 10/05/2022 [facility] DATE CREATED AUTHOR AUTHOR'S ORGANIZ ATION 01/01/2024 [facility] EPIC Reason for Visit (unrecogniz ed [...] BE BASED ON THE PRIMARY CLINICAL RECORDS. [employer] provides no warranty or guarantee of the accuracy or completeness of information in this document.
--- NOTE | 2024-01-07 18:57 | US_ITS ---
[address] [id number] Patient Name: VISHAL NELSON MRN: [id number] date: 1985 Sex: F Assigned Patient Location: [facility] Current Patient Location: Accession/Order Number: [id number] Exam Date: 01/07/2024 19:04 Report Date: 01/08/2024 07:17 At the request of: AMPARO CROWLEY Procedure: US OB BPP w non-stress EXAMINATION: US OB BPP w non-stress HISTORY: MULTIGRAVIDA OF ADVANCED MATERNAL AGE O09.523 COMPARISON: No relevant comparison available. TECHNIQUE: Ultrasound biophysical profile was performed in the radiology department. BREATHING MOVEMENTS: 2.0 GROSS BODY MOVEMENTS: 2.0 TONE: 2.0 QUALITATIVE AMNIOTIC FLUID VOLUME: 2.0 PRESENTATION: CEPHALIC HEART RATE: 131.7 bpm bpm. AMNIOTIC FLUID VOLUME: 12.7 cm GESTATIONAL AGE: 35 weeks 5 days CONCLUSION: Total biophysical profile score 8.0. Electronically authenticated by: JARAD BISHOP Date: 01/08/2024 07:17
[2024-01-07 19:22] VITALS: BP 97/54; PULSE 66
[2024-01-07 19:23] VITALS: RESP 16
[2024-01-07 19:24] VITALS: TEMP 36.1
== END 2024-01-07 20:00 | disposition home or self-care (01) ==
LOC: US 07:22 → FBC 18:57
PROVIDERS: Visit Provider Obstetrics & Gynecology
DX: O43.119 Circumvallate placenta, unspecified trimester (principal); Z3A.35 35 weeks gestation of pregnancy
CPT/HCPCS: 76818

== ENCOUNTER 2024-01-08 19:52 | Outpatient (REF) | payer OTHER, SELFPAY ==
--- OUTSIDE RECORDS SUMMARY | 2024-01-08 19:56 | XMS_ITS | CCD ---
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 e Glucose, UA Negative Negative - 1999(110) ++++ mg/dL [facility] Interpretation and review of laboratory results Abnormal [facility] Ketones, UA Negative Negative - 160(16) ++++ mg/dL [facility] Leukocytes, UA Negative Negative - 500+++ Toan/mcL [facility] Nitrite, UA Negative Negative - Positive [facility] pH, UA 5.5 5 - 9 [facility] Protein, UA Negative Negative - 1999(20) ++++ mg/dL [facility] Spec Grav, UA 1.020 1 - 1.03 [facility] Urobilinogen, UA 1.0 0.2 - 12 mg/dL [facility] CBC AUTO DIFFon 10-02-2022 BASO # 0.0 103/ul Normal 0.0-0.1 [facility] Comment on above: Performed By: #### C BC #### [facility] [address] [place] [address] Dr. Musa Chacon Basophils/100 WBC (Bld) 0.9 % Normal 0.2-2.0 [facility] Comment on above: Performed By: #### C BC #### [facility] [address] [address] [address] Musa Chacon EO # 0.1 103/ul Normal 0.0-0.7 [facility] Comment on above: Performed By: #### C BC #### [facility] [address] [place] [address] Dr. Musa Chacon Eosinophils/100 WBC (Bld) 1.8 % Normal 0.9-7.0 [facility] Comment on above: Performed By: #### C BC #### [facility] [address] [place] [address] Dr. Musa Chacon Erythrocyte distribution width (RBC) [Ratio] 12.8 % Normal 11.0-15.0 [facility] Comment on above: Performed By: #### C BC #### [facility] [address] [place] [address] Dr. Musa Chacon Hematocrit (Bld) [Volume fraction] 39.4 % Normal 36.0-48.0 [facility] Comment on above: Performed By: #### C BC #### [facility] [address] [place] [address] Dr. Musa Chacon Hemoglobin (Bld) [Mass/Vol] 13.5 g/dL Normal 12.0-16.0 [facility] Comment on above: Performed By: #### C BC #### [facility] [address] [place] [address] Dr. Musa Chacon IG # 0.01 10e3/ul Normal 0.00-0.03 [facility] Comment on above: Performed By: #### C BC #### [facility] [address] [place] [address] Dr. Musa Chacon IG % 0.2 % Normal 0.0-0.5 [facility] Comment on above: Performed By: #### C BC #### [facility] [address] [place] [address] Dr. Musa Chacon LYMPH # 1.4 103/ul Normal 1.2-3.8 [facility] Comment on above: Performed By: #### C BC #### [facility] [address] [place] [address] Dr. Musa Chacon Lymphocytes/100 WBC (Bld) 32.0 % Normal 20.5-60.0 [facility] Comment on above: Performed By: #### C BC #### [facility] [address] [place] [address] Dr. Musa Chacon MANUAL DIFF REQ NO Normal [facility] Comment on above: Performed By: #### C BC #### [facility] [address] [place] [address] Dr. Musa Chacon MCH (RBC) [Entitic mass] 30.1 pg Normal 26.7-34.0 [facility] Comment on above: Performed By: #### C BC #### [facility] [address] [place] [address] Dr. Musa Chacon MCHC (RBC) [Mass/Vol] 34.3 g/dL Normal 29.9-35.2 [facility] Comment on above: Performed By: #### C BC #### [facility] [address] [place] [address] Dr. Musa Chacon MCV (RBC) [Entitic vol] 87.8 fL Normal 81.0-99.0 [facility] Comment on above: Performed By: #### C BC #### [facility] [address] [place] [address] Dr. Musa Chacon MONO # 0.4 103/ul Normal 0.3-0.8 [facility] Comment on above: Performed By: #### C BC #### [facility] [address] [place] [address] Dr. Musa Chacon Monocytes/100 WBC (Bld) 8.0 % Normal 1.7-12.0 [facility] Comment on above: Performed By: #### C BC #### [facility] [address] [place] [address] Dr. Musa Chacon NEUT # 2.6 103/ul Normal 1.4-6.5 [facility] Comment on above: Performed By: #### C BC #### [facility] [address] [place] [address] Dr. Musa Chacon Neutrophils/100 WBC (Bld) 57.1 % Normal 43.0-75.0 [facility] Comment on above: Performed By: #### C BC #### [facility] [address] [place] [address] Dr. Musa Chacon Platelet mean volume (Bld) [Entitic vol] 10.2 fL Normal 9.5-13.5 [facility] Comment on above: Performed By: #### C BC #### [facility] [address] [place] [address] Dr. Musa Chacon PLT 223 103/ul Normal 150-450 [facility] Comment on above: Performed By: #### C BC #### [facility] [address] [place] [address] Dr. Musa Chacon RBC 4.49 106/ul Normal 4.20-5.40 [facility] Comment on above: Performed By: #### C BC #### [facility] [address] [place] [address] Dr. Musa Chacon WBC 4.5 103/ul Normal 4.0-11.0 [facility] Comment on above: Performed By: #### C BC #### [facility] [address] [place] [address] Dr. Musa Chacon PROF 14(COMP METB)on 022 Albumin [Mass/Vol] 4.1 g/dL Normal 3.4-5.0 [facility] Comment on above: Performed By: #### T 4, CMP, TSH #### [facility] [address] [place] [address] Dr. Musa Chacon Albumin/Globulin [Mass ratio] 1.5 {ratio} Normal [facility] Comment on above: Performed By: #### T 4, CMP, TSH #### [facility] [address] [place] [address] Dr. Musa Chacon ALP [Catalytic activity/Vol] 51 U/L Normal 46-116 [facility] Comment on above: Performed By: #### T 4, CMP, TSH #### [facility] [address] [place] [address] Dr. Musa Chacon ALT [Catalytic activity/Vol] 17 U/L Normal 14-59 [facility] Comment on above: Performed By: #### T 4, CMP, TSH #### [facility] [address] [address] [address] Musa Chacon Anion gap [Moles/Vol] 11.8 mmol/L Normal [facility] Comment on above: Performed By: #### T 4, CMP, TSH #### [facility] [address] [address] [address] Musa Chacon AST [Catalytic activity/Vol] 14 U/L Critically low 15-37 [facility] Comment on above: Performed By: #### T 4, CMP, TSH #### [facility] [address] [place] [address] Dr. Musa Chacon Bilirubin [Mass/Vol] 0.8 mg/dL Normal 0.2-1.0 [facility] Comment on above: Performed By: #### T 4, CMP, TSH #### [facility] [address] [place] [address] Dr. Musa Chacon Calcium [Mass/Vol] 8.9 mg/dL Normal 8.5-10.1 [facility] Comment on above: Performed By: #### T 4, CMP, TSH #### [facility] [address] [place] [address] Dr. Musa Chacon Chloride [Moles/Vol] 105 mmol/L Normal 98-107 [facility] Comment on above: Performed By: #### T 4, CMP, TSH #### [facility] [address] [place] [address] Dr. Musa Chacon CO2 [Moles/Vol] 27.4 mmol/L Normal 21.0-32.0 [facility] Comment on above: Performed By: #### T 4, CMP, TSH #### [facility] [address] [place] [address] Dr. Musa Chacon Creatinine [Mass/Vol] 0.78 mg/dL Normal 0.55-1.02 [facility] Comment on above: Performed By: #### T 4, CMP, TSH #### [facility] [address] [place] [address] Dr. Musa Chacon EGFR-AF IRAQI >60 Normal >=60 [facility] Comment on above: Performed By: #### T 4, CMP, TSH #### [facility] [address] [place] [address] Dr. Musa Chacon EGFR-NON AF IRAQI >60 Normal >=60 [facility] Comment on above: Performed By: #### T 4, CMP, TSH #### [facility] [address] [place] [address] Dr. Musa Chacon Globulin (S) [Mass/Vol] 2.8 g/dL Normal [facility] Comment on above: Performed By: #### T 4, CMP, TSH #### [facility] [address] [place] [address] Dr. Musa Chacon Glucose [Mass/Vol] 96 mg/dL Normal 74-106 [facility] Comment on above: Performed By: #### T 4, CMP, TSH #### [facility] [address] [place] [address] Dr. Musa Chacon Potassium [Moles/Vol] 4.2 mmol/L Normal 3.5-5.1 [facility] Comment on above: Performed By: #### T 4, CMP, TSH #### [facility] [address] [place] [address] Dr. Musa Chacon Protein [Mass/Vol] 6.9 g/dL Normal 6.4-8.2 [facility] Comment on above: Performed By: #### T 4, CMP, TSH #### [facility] [address] [place] [address] Dr. Musa Chacon Sodium [Moles/Vol] 140 mmol/L Normal 136-145 [facility] Comment on above: Performed By: #### T 4, CMP, TSH #### [facility] [address] [place] [address] Dr. Musa Chacon Urea nitrogen [Mass/Vol] 10.0 mg/dL Normal 7.0-18.0 [facility] Comment on above: Performed By: #### T 4, CMP, TSH #### [facility] [address] [address] [address] Musa Chacon Urea nitrogen/Creatinine [Mass ratio] 12.8 mg/mg Normal [facility] Comment on above: Performed By: #### T 4, CMP, TSH #### [facility] [address] [place] [address] Dr. Musa Chacon T4on 10-02-2022 T4 [Mass/Vol] 6.30 ug/dL Normal 4.80-13.90 [facility] Comment on above: Performed By: #### T 4, CMP, TSH #### [facility] [address] [address] [address] Musa Chacon TSHon 10-02-2022 TSH 1.653 uIU/mL Normal 0.358-3.740 [facility] Comment on above: Performed By: #### T 4, CMP, TSH #### [facility] [address] [place] [address] Dr. Musa Chacon Coding Summary.on 10-12-2020 Coding Summary. CODING DATE: 10/12/2020 FINAL [facility] STATUS: Home (Routine DC) PAYOR: [...] CphT Date Saved: 10/12/2020 10:12 am Normal [facility] SARS-CoV-2, NAAon 10-06-2020 SARS CORONAVIRUS 2 RNA:PRTHR:PT:RESPIRA TORY:ORD:PROBE.AMP.T AR Detected Abnormal Not Detected [facility] Comment on above: Result Comment: This nucleic acid amplification test was developed and its performance characteristics determined by [employer]. Nucleic acid amplification tests include PCR and [...] detected) result in this assay. Performed at: [facility] [address] [place], [place] [id number] [facility] Magda Clark Performed By: #### S ARS-CoV-2, LE #### [facility] [address] [place] [address] Physician Orderon 10-02-2020 Physician Order [id number] Normal [facility] Vital Signs Date Time Vital Sign Value Performing Clinician Faci lity 12-10-2023 16:18-0500 Body weight 70.31 kg Pati FRANCO Work Phone: [facility] 12-10-2023 16:18-0500 Diastolic blood pressure 64 mm[Hg] Pati FRANCO Work Phone: [facility] 12-10-2023 16:18-0500 Systolic blood pressure 108 mm[Hg] Pati FRANCO Work Phone: [facility] Healthcare Encounters Encounter Date Encounter Type Care Provider Facility Start: 12-24-2023 End: 12-24-2023 ambulatory AMPARO CARBONE Not Available Start: 12-10-2023 End: 12-10-2023 ambulatory PATI WISDOM Not Available Start: 12-10-2023 End: 12-10-2023 flow sheet Pati FRANCO Work Phone: [facility] Comment on above: Third trimester preg mandeep; Multigravida of advanced maternal age in third trimester Start: 11-25-2023 End: 11-25-2023 ambulatory AMPARO CARBONE Not Available Start: 11-05-2023 End: 11-05-2023 ambulatory PATI WISDOM Not Available Start: 10-08-2023 End: 10-08-2023 ambulatory PATI WISDOM Not Available Start: 10-05-2022 Encounter for genera l adult medical examination without abnormal findings DR GEE HERNANDEZ [facility] Start: 10-02-2022 End: 10-03-[address] GEE HERNANDEZ Facility:[facility] Start: 10-02-2022 End: 10-03-2022 Encounter for general adult medical examination without abnormal findings DR GEE HERNANDEZ Facility:[facility] Start: 05-21-2017 End: 05-22-2017 Ambulatory DEFAULT PHYSICIAN Facility:[facility] Procedures Date Procedure Procedure Detail Performing Clinician Start: 12-10-2023 Urnls dip stick/tabl et rgnt non-auto w/o micrscp Pati Wisdom PA Work Phone: Plan of Treatment Date Care Activity Detail Author Start: 12-24-2023 End: 12-24-2023 Patient encounter procedure 12/24/2023 1:40 PM EST Routine [facility] [address] [place] [id number] Amparo Carbone, DO [address] [place] [address] [facility] Start: 12-24-2023 End: 12-24-2023 Professional / ancillary services management 12/24/2023 1:00 PM EST Ancillary Procedure [facility] [address] [place] [id number] [facility] Start: 12-10-2023 End: 12-10-2024 [...] third trimester Expected: 12/10/2023 (Approximate), Expires: 12/10/2024 [facility] Comment on above: Expected: 12/10/2023 (Approximate), Expires: 12/10/2024 Payers Date Payer Category Payer Unknown 2022 Unknown [id number] 1985 Unknown [id number] 2.16.84 [id number] 1985 Unknown [id number] 2.16.84 [id number] 1986 Unknown [id number] 2.16.84 [id number] 1986 Unknown [id number] 2.16.84 [id number] 1986 Unknown [id number] 1986 Unknown [id number] 1959 Unknown [id number] Social History Date Type Detail Facility Tobacco smoking stat [facility] Tobacco smoking consumption unknown [facility]: [facility]2023 [facility] Start: 1985 Sex Ass[facility] At Female [facility] Start: 06-23-2023 Gender identity Identifies as female gender (finding) [facility] Start: 06-23-2023 Sexual orientation Heterosexual (fin ding) [facility] History of Present illness Narrative 12-10-2023 [...] and content) DATE CREATED AUTHOR 04/29/2018 [facility] DATE CREATED AUTHOR AUTHOR'S ORGANIZ ATION 10/13/2020 [facility] DATE CREATED AUTHOR AUTHOR'S ORGANIZ ATION 10/05/2022 [facility] DATE CREATED AUTHOR AUTHOR'S ORGANIZ ATION 01/01/2024 [facility] EPIC Reason for Visit (unrecogniz ed [...] BE BASED ON THE PRIMARY CLINICAL RECORDS. [employer] provides no warranty or guarantee of the accuracy or completeness of information in this document.
== END 2024-01-08 19:53 | disposition home or self-care (01) ==
LOC: LAB 19:52
PROVIDERS: Visit Provider Physician Assistant
DX: Z34.93 Encounter for supervision of normal pregnancy, unspecified, third trimester (principal)
CPT/HCPCS: 87081

== ENCOUNTER 2024-01-09 12:51 | Outpatient (OUT) | payer OTHER, SELFPAY ==
--- OUTSIDE RECORDS SUMMARY | 2024-01-09 12:55 | XMS_ITS | CCD ---
Author Name Unknown Address [address] [place] [address] Organization [facility] Care Team Providers Care Merchandise Supervisor Name Role Phone PHYSICIAN, DEFAULT Unavailable Unavailable [...] (1 source) Nitrofurantoin Drug Allergy 7 [facility] Repository (2 sources) Ciprofloxacin Drug Allergy [...] Negative Negative - 4(70) +++ mg/dL [facility] Blood, UA Positive Negative - 50 Andrea/mcL [facility] Clarity, UA Clear [facility] re Color, UA Yellow [facility] e Glucose, UA Negative Negative - 1999(110) ++++ mg/dL [facility] Interpretation and review of laboratory results Abnormal [facility] Ketones, UA Negative Negative - 160(16) ++++ mg/dL [facility] Leukocytes, UA Negative Negative - 500+++ Toan/mcL [facility] Nitrite, UA Negative Negative - Positive [facility] pH, UA 5.5 5 - 9 [facility] e Protein, UA Negative Negative - 1999(20) ++++ mg/dL [facility] Spec Grav, UA 1.020 1 - 1.03 [facility] Urobilinogen, UA 1.0 0.2 - 12 mg/dL [facility] CBC AUTO DIFFon 10-02-2022 BASO # 0.0 103/ul Normal 0.0-0.1 [facility] Comment on above: Performed By: #### C BC #### [facility] [address] [place] [address] Dr. Musa Chacon Basophils/100 WBC (Bld) 0.9 % Normal 0.2-2.0 [facility] Comment on above: Performed By: #### C BC #### [facility] [address] [address] [address] Musa Chacon EO # 0.1 103/ul Normal 0.0-0.7 [facility] Comment on above: Performed By: #### C BC #### [facility] [address] [place] [address] Dr. Musa Chacon Eosinophils/100 WBC (Bld) 1.8 % Normal 0.9-7.0 [facility] Comment on above: Performed By: #### C BC #### [facility] [address] [place] [address] Dr. Musa Chacon Erythrocyte distribution width (RBC) [Ratio] 12.8 % Normal 11.0-15.0 [facility] Comment on above: Performed By: #### C BC #### [facility] [address] [place] [address] Dr. Musa Chacon Hematocrit (Bld) [Volume fraction] 39.4 % Normal 36.0-48.0 [facility] Comment on above: Performed By: #### C BC #### [facility] [address] [place] [address] Dr. Musa Chacon Hemoglobin (Bld) [Mass/Vol] 13.5 g/dL Normal 12.0-16.0 [facility] Comment on above: Performed By: #### C BC #### [facility] [address] [place] [address] Dr. Musa Chacon IG # 0.01 10e3/ul Normal 0.00-0.03 [facility] Comment on above: Performed By: #### C BC #### [facility] [address] [place] [address] Dr. Musa Chacon IG % 0.2 % Normal 0.0-0.5 [facility] Comment on above: Performed By: #### C BC #### [facility] [address] [place] [address] Dr. Musa Chacon LYMPH # 1.4 103/ul Normal 1.2-3.8 [facility] Comment on above: Performed By: #### C BC #### [facility] [address] [place] [address] Dr. Musa Chacon Lymphocytes/100 WBC (Bld) 32.0 % Normal 20.5-60.0 [facility] Comment on above: Performed By: #### C BC #### [facility] [address] [place] [address] Dr. Musa Chacon MANUAL DIFF REQ NO Normal [facility] Comment on above: Performed By: #### C BC #### [facility] [address] [place] [address] Dr. Musa Chacon MCH (RBC) [Entitic mass] 30.1 pg Normal 26.7-34.0 [facility] Comment on above: Performed By: #### C BC #### [facility] [address] [place] [address] Dr. Musa Chacon MCHC (RBC) [Mass/Vol] 34.3 g/dL Normal 29.9-35.2 [facility] Comment on above: Performed By: #### C BC #### [facility] [address] [place] [address] Dr. Musa Chacon MCV (RBC) [Entitic vol] 87.8 fL Normal 81.0-99.0 [facility] Comment on above: Performed By: #### C BC #### [facility] [address] [place] [address] Dr. Musa Chacon MONO # 0.4 103/ul Normal 0.3-0.8 [facility] Comment on above: Performed By: #### C BC #### [facility] [address] [place] [address] Dr. Musa Chacon Monocytes/100 WBC (Bld) 8.0 % Normal 1.7-12.0 [facility] Comment on above: Performed By: #### C BC #### [facility] [address] [place] [address] Dr. Musa Chacon NEUT # 2.6 103/ul Normal 1.4-6.5 [facility] Comment on above: Performed By: #### C BC #### [facility] [address] [place] [address] Dr. Musa Chacon Neutrophils/100 WBC (Bld) 57.1 % Normal 43.0-75.0 [facility] Comment on above: Performed By: #### C BC #### [facility] [address] [place] [address] Dr. Musa Chacon Platelet mean volume (Bld) [Entitic vol] 10.2 fL Normal 9.5-13.5 [facility] Comment on above: Performed By: #### C BC #### [facility] [address] [place] [address] Dr. Musa Chacon PLT 223 103/ul Normal 150-450 [facility] Comment on above: Performed By: #### C BC #### [facility] [address] [place] [address] Dr. Musa Chacon RBC 4.49 106/ul Normal 4.20-5.40 [facility] Comment on above: Performed By: #### C BC #### [facility] [address] [place] [address] Dr. Musa Chacon WBC 4.5 103/ul Normal 4.0-11.0 [facility] Comment on above: Performed By: #### C BC #### [facility] [address] [place] [address] Dr. Musa Chacon PROF 14(COMP METB)on 022 Albumin [Mass/Vol] 4.1 g/dL Normal 3.4-5.0 [facility] Comment on above: Performed By: #### T 4, CMP, TSH #### [facility] [address] [place] [address] Dr. Musa Chacon Albumin/Globulin [Mass ratio] 1.5 {ratio} Normal [facility] Comment on above: Performed By: #### T 4, CMP, TSH #### [facility] [address] [place] [address] Dr. Musa Chacon ALP [Catalytic activity/Vol] 51 U/L Normal 46-116 [facility] Comment on above: Performed By: #### T 4, CMP, TSH #### [facility] [address] [place] [address] Dr. Musa Chacon ALT [Catalytic activity/Vol] 17 U/L Normal 14-59 [facility] Comment on above: Performed By: #### T 4, CMP, TSH #### [facility] [address] [address] [address] Musa Chacon Anion gap [Moles/Vol] 11.8 mmol/L Normal [facility] Comment on above: Performed By: #### T 4, CMP, TSH #### [facility] [address] [address] [address] Musa Chacon AST [Catalytic activity/Vol] 14 U/L Critically low 15-37 [facility] Comment on above: Performed By: #### T 4, CMP, TSH #### [facility] [address] [place] [address] Dr. Musa Chacon Bilirubin [Mass/Vol] 0.8 mg/dL Normal 0.2-1.0 [facility] Comment on above: Performed By: #### T 4, CMP, TSH #### [facility] [address] [place] [address] Dr. Musa Chacon Calcium [Mass/Vol] 8.9 mg/dL Normal 8.5-10.1 [facility] Comment on above: Performed By: #### T 4, CMP, TSH #### [facility] [address] [place] [address] Dr. Musa Chacon Chloride [Moles/Vol] 105 mmol/L Normal 98-107 [facility] Comment on above: Performed By: #### T 4, CMP, TSH #### [facility] [address] [place] [address] Dr. Musa Chacon CO2 [Moles/Vol] 27.4 mmol/L Normal 21.0-32.0 [facility] Comment on above: Performed By: #### T 4, CMP, TSH #### [facility] [address] [place] [address] Dr. Musa Chacon Creatinine [Mass/Vol] 0.78 mg/dL Normal 0.55-1.02 [facility] Comment on above: Performed By: #### T 4, CMP, TSH #### [facility] [address] [place] [address] Dr. Musa Chacon EGFR-AF IRAQI >60 Normal >=60 [facility] Comment on above: Performed By: #### T 4, CMP, TSH #### [facility] [address] [place] [address] Dr. Musa Chacon EGFR-NON AF IRAQI >60 Normal >=60 [facility] Comment on above: Performed By: #### T 4, CMP, TSH #### [facility] [address] [place] [address] Dr. Musa Chacon Globulin (S) [Mass/Vol] 2.8 g/dL Normal [facility] Comment on above: Performed By: #### T 4, CMP, TSH #### [facility] [address] [place] [address] Dr. Musa Chacon Glucose [Mass/Vol] 96 mg/dL Normal 74-106 [facility] Comment on above: Performed By: #### T 4, CMP, TSH #### [facility] [address] [place] [address] Dr. Musa Chacon Potassium [Moles/Vol] 4.2 mmol/L Normal 3.5-5.1 [facility] Comment on above: Performed By: #### T 4, CMP, TSH #### [facility] [address] [place] [address] Dr. Musa Chacon Protein [Mass/Vol] 6.9 g/dL Normal 6.4-8.2 [facility] Comment on above: Performed By: #### T 4, CMP, TSH #### [facility] [address] [place] [address] Dr. Musa Chacon Sodium [Moles/Vol] 140 mmol/L Normal 136-145 [facility] Comment on above: Performed By: #### T 4, CMP, TSH #### [facility] [address] [place] [address] Dr. Musa Chacon Urea nitrogen [Mass/Vol] 10.0 mg/dL Normal 7.0-18.0 [facility] Comment on above: Performed By: #### T 4, CMP, TSH #### [facility] [address] [address] [address] Musa Chacon Urea nitrogen/Creatinine [Mass ratio] 12.8 mg/mg Normal [facility] Comment on above: Performed By: #### T 4, CMP, TSH #### [facility] [address] [place] [address] Dr. Musa Chacon T4on 10-02-2022 T4 [Mass/Vol] 6.30 ug/dL Normal 4.80-13.90 [facility] Comment on above: Performed By: #### T 4, CMP, TSH #### [facility] [address] [address] [address] Musa Chacon TSHon 10-02-2022 TSH 1.653 uIU/mL Normal 0.358-3.740 [facility] Comment on above: Performed By: #### T 4, CMP, TSH #### [facility] [address] [place] [address] Dr. Musa Chacon Coding Summary.on 10-12-2020 Coding Summary. CODING DATE: 10/12/[address] [facility] STATUS: Home (Routine DC) PAYOR: Commercial [...] RNA:PRTHR:PT:RESPIRA TORY:ORD:PROBE.AMP.T AR Detected Abnormal Not Detected [facility] Comment on above: Result Comment: This nucleic acid amplification test was developed and its performance characteristics determined by [employer]. Nucleic acid amplification tests include PCR and [...] detected) result in this assay. Performed at: [email or web address] [address] [place], [place] [id number] [facility] Magda Clark Performed By: #### S ARS-CoV-2, LE #### [facility] [address] [place] [address] Physician Orderon 10-02-2020 Physician Order [id number]:127 Normal [facility] Vital Signs Date Time Vital Sign Value Performing Clinician Faci lity 12-10-2023 16:18-0500 Body weight 70.31 kg Pati FRANCO Work Phone: [facility] 12-10-2023 16:18-0500 Diastolic blood pressure 64 mm[Hg] Pati FRANCO Work Phone: [facility] 12-10-2023 16:18-0500 Systolic blood pressure 108 mm[Hg] Pati FRANCO Work Phone: [facility] Healthcare Encounters Encounter Date Encounter Type Care Provider Facility Start: 12-24-2023 End: 12-24-2023 ambulatory AMPARO CARBONE Not Available Start: 12-10-2023 End: 12-10-2023 ambulatory PATI WISDOM Not Available Start: 12-10-2023 End: 12-10-2023 flow sheet Pati FRANCO Work Phone: [facility] Comment on above: Third trimester preg mandeep; Multigravida of advanced maternal age in third trimester Start: 11-25-2023 End: 11-25-2023 ambulatory AMPARO CARBONE Not Available Start: 11-05-2023 End: 11-05-2023 ambulatory PATI WISDOM Not Available Start: 10-08-2023 End: 10-08-2023 ambulatory PATI WISDOM Not Available Start: 10-05-2022 Encounter for genera l adult medical examination without abnormal findings DR GEE HERNANDEZ [facility] Start: 10-02-2022 End: 10-03-[address] [...] PM EST Routine [facility] [address] [place] [id number] Amparo Carbone, DO [address] [place] [address] [facility] Start: 12-24-2023 End: 12-24-2023 Professional / ancillary services management 12/24/2023 1:00 PM EST Ancillary Procedure [facility] [address] [facility] [place] [id number] [facility] Start: 12-10-2023 End: 12-10-2024 [...] third trimester Expected: 12/10/2023 (Approximate), Expires: 12/10/2024 [facility] Comment on above: Expected: 12/10/2023 (Approximate), Expires: 12/10/2024 Payers Date Payer Category Payer Unknown 2022 Unknown [id number] 1985 Unknown [id number] 2.16.84 [id number] 1985 Unknown [id number] 2.16.84 [id number] 1986 Unknown [id number] 2.16.84 [id number] 1986 Unknown [id number] 2.16.84 [id number] 1986 Unknown [id number] 1986 Unknown [id number] 1959 Unknown [id number] Social History Date Type Detail Facility Tobacco smoking stat [facility] Tobacco smoking consumption unknown [facility]: [facility]16[facility]2023 [facility] Start: 1985 Sex Assigned At Female [facility] Start: 06-23-2023 Gender identity Identifies as female gender (finding) [facility] Start: 06-23-2023 Sexual orientation Heterosexual (fin ding) [facility] History of Present illness Narrative 12-10-2023 SALVADOR [...] section and content) DATE CREATED AUTHOR 04/29/2018 [facility] DATE CREATED AUTHOR AUTHOR'S ORGANIZ ATION 10/13/2020 [facility] DATE CREATED AUTHOR AUTHOR'S ORGANIZ ATION 10/05/2022 [facility] [place] DATE CREATED AUTHOR AUTHOR'S ORGANIZ ATION 01/01/2024 [facility] EPIC Reason for Visit (unrecogniz [...] BE BASED ON THE PRIMARY CLINICAL RECORDS. [employer] provides no warranty or guarantee of the accuracy or completeness of information in this document.
[2024-01-09 13:42] LABS: Alanine Aminotransferase 17 U/L (14-59); Aspartate Amino Transferase 13 U/L (15-37)
[2024-01-10 22:06] LABS: Bile Acids 5.7 umol/L (0.0-10.0)
== END 2024-01-09 12:52 | disposition home or self-care (01) ==
LOC: LAB 12:52
PROVIDERS: Visit Provider Obstetrics & Gynecology
DX: K81.9 Cholecystitis, unspecified (principal)
CPT/HCPCS: 36415; 82239; 84450; 84460

== ENCOUNTER 2024-01-10 07:39 | Outpatient (OUT) | payer OTHER, SELFPAY ==
--- OUTSIDE RECORDS SUMMARY | 2024-01-10 07:44 | XMS_ITS | CCD ---
Author Name Unknown Address [address] [place] [address] Organization [facility] Care Team Providers Care Learning Officer Name Role Phone PHYSICIAN, DEFAULT Unavailable Unavailable PHYSICIAN, DEFAULT Unavailable Unavailable HOUSE, DR FLYNN Attending Unavailable HOUSE, DR FLYNN Consulting Unavailable HOUSE, DR FLYNN Admitting Unavailable REQUEST, DR GARCIA LISTED Primary Care Unavaila ble Unavailable Primary Care Provider UnavailPATI Mercado Attending Unavailable AMPARO CARBONE Attending Unavailable PATI WISDOM Attending Unavailable PATI WISDOM Attending Unavailable AMPARO CARBONE Attending Unavailable PATI WISDOM Attending Unavailable Allergies Allergy Classification Reported Allergen(s) Allergy Type Date of Onset Reaction(s) Facility (1 source) Nitrofurantoin Drug Allergy 7 [facility] Repository (2 sources) Ciprofloxacin Drug Allergy [...] UA Negative Negative - 4(70) +++ mg/dL [facility] Blood, UA Positive Negative - 50 Andrea/mcL [facility] Clarity, UA Clear [facility] re Color, UA Yellow [facility] e Glucose, UA Negative Negative - 1999(110) ++++ mg/dL [facility] Interpretation and review of laboratory results Abnormal [facility] Ketones, UA Negative Negative - 160(16) ++++ mg/dL [facility] Leukocytes, UA Negative Negative - 500+++ Toan/mcL [facility] Nitrite, UA Negative Negative - Positive [facility] pH, UA 5.5 5 - 9 [facility] e Protein, UA Negative Negative - 1999(20) ++++ mg/dL [facility] Spec Grav, UA 1.020 1 - 1.03 [facility] Urobilinogen, UA 1.0 0.2 - 12 mg/dL [facility] CBC AUTO DIFFon 10-02-2022 BASO # 0.0 103/ul Normal 0.0-0.1 [facility] Comment on above: Performed By: #### C BC #### [facility] [address] [address] [address] Musa Chacon Basophils/100 WBC (Bld) 0.9 % Normal 0.2-2.0 [facility] Comment on above: Performed By: #### C BC #### [facility] [address] [address] [address] Musa Chacon EO # 0.1 103/ul Normal 0.0-0.7 [facility] Comment on above: Performed By: #### C BC #### [facility] [address] [place] [address] Dr. Musa Chacon Eosinophils/100 WBC (Bld) 1.8 % Normal 0.9-7.0 [facility] Comment on above: Performed By: #### C BC #### [facility] [address] [place] [address] Dr. Musa Chacon Erythrocyte distribution width (RBC) [Ratio] 12.8 % Normal 11.0-15.0 [facility] Comment on above: Performed By: #### C BC #### [facility] [address] [place] [address] Dr. Musa Chacon Hematocrit (Bld) [Volume fraction] 39.4 % Normal 36.0-48.0 [facility] Comment on above: Performed By: #### C BC #### [facility] [address] [place] [address] Dr. Musa Chacon Hemoglobin (Bld) [Mass/Vol] 13.5 g/dL Normal 12.0-16.0 [facility] Comment on above: Performed By: #### C BC #### [facility] [address] [place] [address] Dr. Musa Chacon IG # 0.01 10e3/ul Normal 0.00-0.03 [facility] Comment on above: Performed By: #### C BC #### [facility] [address] [place] [address] Dr. Musa Chacon IG % 0.2 % Normal 0.0-0.5 [facility] Comment on above: Performed By: #### C BC #### [facility] [address] [place] [address] Dr. Musa Chacon LYMPH # 1.4 103/ul Normal 1.2-3.8 [facility] Comment on above: Performed By: #### C BC #### [facility] [address] [place] [address] Dr. Musa Chacon Lymphocytes/100 WBC (Bld) 32.0 % Normal 20.5-60.0 [facility] Comment on above: Performed By: #### C BC #### [facility] [address] [place] [address] Dr. Musa Chacon MANUAL DIFF REQ NO Normal [facility] Comment on above: Performed By: #### C BC #### [facility] [address] [place] [address] Dr. Musa Chacon MCH (RBC) [Entitic mass] 30.1 pg Normal 26.7-34.0 [facility] Comment on above: Performed By: #### C BC #### [facility] [address] [place] [address] Dr. Musa Chacon MCHC (RBC) [Mass/Vol] 34.3 g/dL Normal 29.9-35.2 [facility] Comment on above: Performed By: #### C BC #### [facility] [address] [place] [address] Dr. Musa Chacon MCV (RBC) [Entitic vol] 87.8 fL Normal 81.0-99.0 [facility] Comment on above: Performed By: #### C BC #### [facility] [address] [place] [address] Dr. Musa Chacon MONO # 0.4 103/ul Normal 0.3-0.8 [facility] Comment on above: Performed By: #### C BC #### [facility] [address] [place] [address] Dr. Musa Chacon Monocytes/100 WBC (Bld) 8.0 % Normal 1.7-12.0 [facility] Comment on above: Performed By: #### C BC #### [facility] [address] [place] [address] Dr. Musa Chacon NEUT # 2.6 103/ul Normal 1.4-6.5 [facility] Comment on above: Performed By: #### C BC #### [facility] [address] [place] [address] Dr. Musa Chacon Neutrophils/100 WBC (Bld) 57.1 % Normal 43.0-75.0 [facility] Comment on above: Performed By: #### C BC #### [facility] [address] [place] [address] Dr. Musa Chacon Platelet mean volume (Bld) [Entitic vol] 10.2 fL Normal 9.5-13.5 [facility] Comment on above: Performed By: #### C BC #### [facility] [address] [place] [address] Dr. Musa Chacon PLT 223 103/ul Normal 150-450 [facility] Comment on above: Performed By: #### C BC #### [facility] [address] [place] [address] Dr. Musa Chacon RBC 4.49 106/ul Normal 4.20-5.40 [facility] Comment on above: Performed By: #### C BC #### [facility] [address] [place] [address] Dr. Musa Chacon WBC 4.5 103/ul Normal 4.0-11.0 [facility] Comment on above: Performed By: #### C BC #### [facility] [address] [place] [address] Dr. Musa Chacon PROF 14(COMP METB)on 022 Albumin [Mass/Vol] 4.1 g/dL Normal 3.4-5.[address] [facility] Comment on above: Performed By: #### T 4, CMP, TSH #### [facility] [address] [place] [address] Dr. Musa Chacon Albumin/Globulin [Mass ratio] 1.5 {ratio} Normal [facility] Comment on above: Performed By: #### T 4, CMP, TSH #### [facility] [address] [place] [address] Dr. Musa Chacon ALP [Catalytic activity/Vol] 51 U/L Normal 46-116 [facility] Comment on above: Performed By: #### T 4, CMP, TSH #### [facility] [address] [place] [address] Dr. Musa Chacon ALT [Catalytic activity/Vol] 17 U/L Normal 14-59 [facility] Comment on above: Performed By: #### T 4, CMP, TSH #### [facility] [address] [place] [address] Dr. Musa Chacon Anion gap [Moles/Vol] 11.8 mmol/L Normal [facility] Comment on above: Performed By: #### T 4, CMP, TSH #### [facility] [address] [place] [address] Dr. Musa Chacon AST [Catalytic activity/Vol] 14 U/L Critically low 15-37 [facility] Comment on above: Performed By: #### T 4, CMP, TSH #### [facility] [address] [place] [address] Dr. Musa Chacon Bilirubin [Mass/Vol] 0.8 mg/dL Normal 0.2-1.0 [facility] Comment on above: Performed By: #### T 4, CMP, TSH #### [facility] [address] [place] [address] Dr. Musa Chacon Calcium [Mass/Vol] 8.9 mg/dL Normal 8.5-10.[address] [facility] Comment on above: Performed By: #### T 4, CMP, TSH #### [facility] [address] [place] [address] Dr. Musa Chacon Chloride [Moles/Vol] 105 mmol/L Normal 98-107 [facility] Comment on above: Performed By: #### T 4, CMP, TSH #### [facility] [address] [place] [address] Dr. Musa Chacon CO2 [Moles/Vol] 27.4 mmol/L Normal 21.0-32.0 [facility] Comment on above: Performed By: #### T 4, CMP, TSH #### [facility] [address] [place] [address] Dr. Musa Chacon Creatinine [Mass/Vol] 0.78 mg/dL Normal 0.55-1.02 [facility] Comment on above: Performed By: #### T 4, CMP, TSH #### [facility] [address] [address] [address] Musa Chacon EGFR-AF BAHRAINI >60 Normal >=60 [facility] Comment on above: Performed By: #### T 4, CMP, TSH #### [facility] [address] [place] [address] Dr. Musa Chacon EGFR-NON AF BAHRAINI >60 Normal >=60 [facility] Comment on above: Performed By: #### T 4, CMP, TSH #### [facility] [address] [place] [address] Dr. Musa Chacon Globulin (S) [Mass/Vol] 2.8 g/dL Normal [facility] Comment on above: Performed By: #### T 4, CMP, TSH #### [facility] [address] [place] [address] Dr. Musa Chacon Glucose [Mass/Vol] 96 mg/dL Normal 74-106 [facility] Comment on above: Performed By: #### T 4, CMP, TSH #### [facility] [address] [place] [address] Dr. Musa Chacon Potassium [Moles/Vol] 4.2 mmol/L Normal 3.5-5.1 [facility] Comment on above: Performed By: #### T 4, CMP, TSH #### [facility] [address] [place] [address] Dr. Musa Chacon Protein [Mass/Vol] 6.9 g/dL Normal 6.4-8.2 [facility] Comment on above: Performed By: #### T 4, CMP, TSH #### [facility] [address] [place] [address] Dr. Musa Chacon Sodium [Moles/Vol] 140 mmol/L Normal 136-145 [facility] Comment on above: Performed By: #### T 4, CMP, TSH #### [facility] [address] [place] [address] Dr. Musa Chacon Urea nitrogen [Mass/Vol] 10.0 mg/dL Normal 7.0-18.0 [facility] Comment on above: Performed By: #### T 4, CMP, TSH #### [facility] [address] [address] [address] Musa Chacon Urea nitrogen/Creatinine [Mass ratio] 12.8 mg/mg Normal [facility] Comment on above: Performed By: #### T 4, CMP, TSH #### [facility] [address] [address] [address] Musa Chacon T4on 10-02-2022 T4 [Mass/Vol] 6.30 ug/dL Normal 4.80-13.90 [facility] Comment on above: Performed By: #### T 4, CMP, TSH #### [facility] [address] [address] [address] Musa Chacon TSHon 10-02-2022 TSH 1.653 uIU/mL Normal 0.358-3.740 [facility] Comment on above: Performed By: #### T 4, CMP, TSH #### [facility] [address] [place] [address] Dr. Musa Chacon Coding Summary.on 10-12-2020 Coding Summary. CODING DATE: 10/12/2020 FINAL [facility] STATUS: Home (Routine DC) PAYOR: [...] CphT Date Saved: 10/12/2020 10:12 am Normal [facility] SARS-CoV-2, NAAon 10-06-2020 SARS CORONAVIRUS 2 RNA:PRTHR:PT:RESPIRA TORY:ORD:PROBE.AMP.T AR Detected Abnormal Not Detected [facility] Comment on above: Result Comment: This nucleic acid amplification test was developed and its performance characteristics determined by [employer]. Nucleic acid amplification tests include PCR and [...] detected) result in this assay. Performed at: [facility] [address] [place], [place] [id number] [facility] Magda Clark Performed By: #### S ARS-CoV-2, LE #### [facility] [address] [place] [address] Physician Orderon 10-02-2020 Physician Order [id number]:[id number] Normal [facility] Vital Signs Date Time Vital Sign Value Performing Clinician Mani sotomayor 12-10-2023 16:18-0500 Body weight 70.31 kg Pati FRANCO Work Phone: [facility] 12-10-2023 16:18-0500 Diastolic blood pressure 64 mm[Hg] Pati FRANCO Work Phone: [facility] 12-10-2023 16:18-0500 Systolic blood pressure 108 mm[Hg] Pati FRANCO Work Phone: [facility] Healthcare Encounters Encounter Date Encounter Type Care Provider Facility Start: 01-08-2024 End: 01-08-2024 ambulatory PATI WISDOM Not Available Start: 12-24-2023 End: 12-24-2023 ambulatory AMPARO CARBONE Not Available Start: 12-10-2023 End: 12-10-2023 ambulatory PATI WISDOM Not Available Start: 12-10-2023 End: 12-10-2023 flow sheet Pati FRANCO Work Phone: [facility] Comment on above: Third trimester preg mandeep; Multigravida of advanced maternal age in third trimester Start: 11-25-2023 End: 11-25-2023 ambulatory AMPARO CARBONE Not Available Start: 11-05-2023 End: 11-05-2023 ambulatory PATI WISDOM Not Available Start: 10-08-2023 End: 10-08-2023 ambulatory PATI WISDOM Not Available Start: 10-05-2022 Encounter for genera l adult medical examination without abnormal findings DR GEE HERNANDEZ [facility] Start: 10-02-2022 End: 10-03-[address] GEE HERNANDEZ Facility:[facility] Start: 10-02-2022 End: 10-03-2022 Encounter for general adult medical examination without abnormal findings DR GEE HERNANDEZ Facility:[facility] Start: 05-21-2017 End: 05-22-2017 Ambulatory DEFAULT PHYSICIAN Facility:[facility] Procedures Date Procedure Procedure Detail Performing Clinician Start: 12-10-2023 Urnls dip stick/tabl et rgnt non-auto w/o micrscp Pati FRANCO Work Phone: Plan of Treatment Date Care Activity Detail Author Start: 12-24-2023 End: 12-24-2023 Patient encounter procedure 12/24/2023 1:40 PM EST Routine [facility] [address] [place] [address] Amparo Carbone, DO [address], [place] [id number] [facility] Start: 12-24-2023 End: 12-24-2023 Professional / ancillary services management 12/24/2023 1:00 PM EST Ancillary Procedure [facility] [address] [place] [address] [facility] Start: 12-10-2023 End: 12-10-2024 [...] Expected: 12/10/2023 (Approximate), Expires: 12/10/2024 [facility] Comment on above: Expected: 12/10/2023 (Approximate), Expires: 12/10/2024 Payers Date Payer Category Payer Unknown 2022 Unknown [id number] 1985 Unknown [id number] 2.16.84 [id number] 1985 Unknown [id number] 2.16.84 [id number] 1986 Unknown [id number] 2.16.84 [id number] 1986 Unknown [id number] 2.16.84 [id number] 1986 Unknown [id number] 2.16.84 [id number] 1986 Unknown [id number] 1986 Unknown [id number] 1959 Unknown [id number] Social History Date Type Detail Facility Tobacco smoking stat [facility] Tobacco smoking consumption unknown [facility] Start: 05-16-2023 [facility] Start: 1985 Sex Assigned At Female [facility] Start: 06-23-2023 Gender identity Identifies as female gender (finding) [facility] Start: 06-23-2023 Sexual orientation Heterosexual (fin ding) [facility] History of Present illness Narrative 12-10-2023 [...] section and content) DATE CREATED AUTHOR 04/29/2018 [facility] DATE CREATED AUTHOR AUTHOR'S ORGANIZ ATION 10/13/2020 [facility] DATE CREATED AUTHOR AUTHOR'S ORGANIZ ATION 10/05/2022 [facility] DATE CREATED AUTHOR AUTHOR'S ORGANIZ ATION 01/09/2024 [facility] EPIC Reason for Visit (unrecogniz ed [...] BE BASED ON THE PRIMARY CLINICAL RECORDS. [employer] provides no warranty or guarantee of the accuracy or completeness of information in this document.
== END 2024-01-10 14:34 | disposition home or self-care (01) ==
LOC: FBCO 07:40 → FBC 14:01
PROVIDERS: Visit Provider Obstetrics & Gynecology
DX: O43.119 Circumvallate placenta, unspecified trimester (principal); O43.899 Other placental disorders, unspecified trimester
CPT/HCPCS: 59025

== ENCOUNTER 2024-01-14 07:50 | Outpatient (OUT) | payer OTHER, SELFPAY ==
--- OUTSIDE RECORDS SUMMARY | 2024-01-14 08:12 | XMS_ITS | CCD ---
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 Name Role Phone PHYSICIAN, DEFAULT Unavailable Unavailable [...] (1 source) Nitrofurantoin Drug Allergy 7 [facility] Repository (2 sources) Ciprofloxacin Drug Allergy [...] UA Negative Negative - 4(70) +++ mg/dL [facility] Blood, UA Positive Negative - 50 Andrea/mcL [facility] Clarity, UA Clear [facility] re Color, UA Yellow [facility] e Glucose, UA Negative Negative - 1999(110) ++++ mg/dL [facility] Interpretation and review of laboratory results Abnormal [facility] Ketones, UA Negative Negative - 160(16) ++++ mg/dL [facility] Leukocytes, UA Negative Negative - 500+++ Toan/mcL [facility] Nitrite, UA Negative Negative - Positive [facility] pH, UA 5.5 5 - 9 [facility] e Protein, UA Negative Negative - 1999(20) ++++ mg/dL [facility] Spec Grav, UA 1.020 1 - 1.03 [facility] Urobilinogen, UA 1.0 0.2 - 12 mg/dL [facility] CBC AUTO DIFFon 10-02-2022 BASO # 0.0 103/ul Normal 0.0-0.1 [facility] Comment on above: Performed By: #### C BC #### [facility] [address] [address] [address] Musa Chacon Basophils/100 WBC (Bld) 0.9 % Normal 0.2-2.0 [facility] Comment on above: Performed By: #### C BC #### [facility] [address] [address] [address] Musa Chacon EO # 0.1 103/ul Normal 0.0-0.7 [facility] Comment on above: Performed By: #### C BC #### [facility] [address] [place] [address] Dr. Musa Chacon Eosinophils/100 WBC (Bld) 1.8 % Normal 0.9-7.0 [facility] Comment on above: Performed By: #### C BC #### [facility] [address] [place] [address] Dr. Musa Chacon Erythrocyte distribution width (RBC) [Ratio] 12.8 % Normal 11.0-15.0 [facility] Comment on above: Performed By: #### C BC #### [facility] [address] [place] [address] Dr. Musa Chacon Hematocrit (Bld) [Volume fraction] 39.4 % Normal 36.0-48.0 [facility] Comment on above: Performed By: #### C BC #### [facility] [address] [place] [address] Dr. Musa Chacon Hemoglobin (Bld) [Mass/Vol] 13.5 g/dL Normal 12.0-16.0 [facility] Comment on above: Performed By: #### C BC #### [facility] [address] [place] [address] Dr. Musa Chacon IG # 0.01 10e3/ul Normal 0.00-0.03 [facility] Comment on above: Performed By: #### C BC #### [facility] [address] [place] [address] Dr. Musa Chacon IG % 0.2 % Normal 0.0-0.5 [facility] Comment on above: Performed By: #### C BC #### [facility] [address] [place] [address] Dr. Musa Chacon LYMPH # 1.4 103/ul Normal 1.2-3.8 [facility] Comment on above: Performed By: #### C BC #### [facility] [address] [place] [address] Dr. Musa Chacon Lymphocytes/100 WBC (Bld) 32.0 % Normal 20.5-60.0 [facility] Comment on above: Performed By: #### C BC #### [facility] [address] [place] [address] Dr. Musa Chacon MANUAL DIFF REQ NO Normal [facility] Comment on above: Performed By: #### C BC #### [facility] [address] [place] [address] Dr. Musa Chacon MCH (RBC) [Entitic mass] 30.1 pg Normal 26.7-34.0 [facility] Comment on above: Performed By: #### C BC #### [facility] [address] [place] [address] Dr. Musa Chacon MCHC (RBC) [Mass/Vol] 34.3 g/dL Normal 29.9-35.2 [facility] Comment on above: Performed By: #### C BC #### [facility] [address] [place] [address] Dr. Musa Chacon MCV (RBC) [Entitic vol] 87.8 fL Normal 81.0-99.0 [facility] Comment on above: Performed By: #### C BC #### [facility] [address] [place] [address] Dr. Musa Chacon MONO # 0.4 103/ul Normal 0.3-0.8 [facility] Comment on above: Performed By: #### C BC #### [facility] [address] [place] [address] Dr. Musa Chacon Monocytes/100 WBC (Bld) 8.0 % Normal 1.7-12.0 [facility] Comment on above: Performed By: #### C BC #### [facility] [address] [place] [address] Dr. Musa Chacon NEUT # 2.6 103/ul Normal 1.4-6.5 [facility] Comment on above: Performed By: #### C BC #### [facility] [address] [place] [address] Dr. Musa Chacon Neutrophils/100 WBC (Bld) 57.1 % Normal 43.0-75.0 [facility] Comment on above: Performed By: #### C BC #### [facility] [address] [place] [address] Dr. Musa Chacon Platelet mean volume (Bld) [Entitic vol] 10.2 fL Normal 9.5-13.5 [facility] Comment on above: Performed By: #### C BC #### [facility] [address] [place] [address] Dr. Musa Chacon PLT 223 103/ul Normal 150-450 [facility] Comment on above: Performed By: #### C BC #### [facility] [address] [place] [address] Dr. Musa Chacon RBC 4.49 106/ul Normal 4.20-5.40 [facility] Comment on above: Performed By: #### C BC #### [facility] [address] [place] [address] Dr. Musa Chacon WBC 4.5 103/ul Normal 4.0-11.0 [facility] Comment on above: Performed By: #### C BC #### [facility] [address] [place] [address] Dr. Musa Chacon PROF 14(COMP METB)on 022 Albumin [Mass/Vol] 4.1 g/dL Normal 3.4-5.0 [facility] Comment on above: Performed By: #### T 4, CMP, TSH #### [facility] [address] [place] [address] Dr. Musa Chacon Albumin/Globulin [Mass ratio] 1.5 {ratio} Normal [facility] Comment on above: Performed By: #### T 4, CMP, TSH #### [facility] [address] [place] [address] Dr. Musa Chacon ALP [Catalytic activity/Vol] 51 U/L Normal 46-116 [facility] Comment on above: Performed By: #### T 4, CMP, TSH #### [facility] [address] [place] [address] Dr. Musa Chacon ALT [Catalytic activity/Vol] 17 U/L Normal 14-59 [facility] Comment on above: Performed By: #### T 4, CMP, TSH #### [facility] [address] [place] [address] Dr. Musa Chacon Anion gap [Moles/Vol] 11.8 mmol/L Normal [facility] Comment on above: Performed By: #### T 4, CMP, TSH #### [facility] [address] [place] [address] Dr. Musa Chacon AST [Catalytic activity/Vol] 14 U/L Critically low 15-37 [facility] Comment on above: Performed By: #### T 4, CMP, TSH #### [facility] [address] [place] [address] Dr. Musa Chacon Bilirubin [Mass/Vol] 0.8 mg/dL Normal 0.2-1.0 [facility] Comment on above: Performed By: #### T 4, CMP, TSH #### [facility] [address] [place] [address] Dr. Musa Chacon Calcium [Mass/Vol] 8.9 mg/dL Normal 8.5-10.1 [facility] Comment on above: Performed By: #### T 4, CMP, TSH #### [facility] [address] [place] [address] Dr. Musa Chacon Chloride [Moles/Vol] 105 mmol/L Normal 98-107 [facility] Comment on above: Performed By: #### T 4, CMP, TSH #### [facility] [address] [place] [address] Dr. Musa Chacon CO2 [Moles/Vol] 27.4 mmol/L Normal 21.0-32.0 [facility] Comment on above: Performed By: #### T 4, CMP, TSH #### [facility] [address] [place] [address] Dr. Musa Chacon Creatinine [Mass/Vol] 0.78 mg/dL Normal 0.55-1.02 [facility] Comment on above: Performed By: #### T 4, CMP, TSH #### [facility] [address] [address] [address] Musa Chacon EGFR-AF TUVALUAN >60 Normal >=60 [facility] Comment on above: Performed By: #### T 4, CMP, TSH #### [facility] [address] [place] [address] Dr. Musa Chacon EGFR-NON AF TUVALUAN >60 Normal >=60 [facility] Comment on above: Performed By: #### T 4, CMP, TSH #### [facility] [address] [place] [address] Dr. Musa Chacon Globulin (S) [Mass/Vol] 2.8 g/dL Normal [facility] Comment on above: Performed By: #### T 4, CMP, TSH #### [facility] [address] [place] [address] Dr. Musa Chacon Glucose [Mass/Vol] 96 mg/dL Normal 74-106 [facility] Comment on above: Performed By: #### T 4, CMP, TSH #### [facility] [address] [place] [address] Dr. Musa Chacon Potassium [Moles/Vol] 4.2 mmol/L Normal 3.5-5.1 [facility] Comment on above: Performed By: #### T 4, CMP, TSH #### [facility] [address] [place] [address] Dr. Musa Chacon Protein [Mass/Vol] 6.9 g/dL Normal 6.4-8.2 [facility] Comment on above: Performed By: #### T 4, CMP, TSH #### [facility] [address] [place] [address] Dr. Musa Chacon Sodium [Moles/Vol] 140 mmol/L Normal 136-145 [facility] Comment on above: Performed By: #### T 4, CMP, TSH #### [facility] [address] [place] [address] Dr. Musa Chacon Urea nitrogen [Mass/Vol] 10.0 mg/dL Normal 7.0-18.0 [facility] Comment on above: Performed By: #### T 4, CMP, TSH #### [facility] [address] [address] [address] Musa Chacon Urea nitrogen/Creatinine [Mass ratio] 12.8 mg/mg Normal [facility] Comment on above: Performed By: #### T 4, CMP, TSH #### [facility] [address] [address] [address] Musa Chacon T4on 10-02-2022 T4 [Mass/Vol] 6.30 ug/dL Normal 4.80-13.90 [facility] Comment on above: Performed By: #### T 4, CMP, TSH #### [facility] [address] [address] [address] Musa Chacon TSHon 10-02-2022 TSH 1.653 uIU/mL Normal 0.358-3.740 [facility] Comment on above: Performed By: #### T 4, CMP, TSH #### [facility] [address] [place] [address] Dr. Musa Chacon Coding Summary.on 10-12-2020 Coding Summary. CODING DATE: 10/12/2020 FINAL [facility] STATUS: Home (Routine DC) PAYOR: Commercial [...] CphT Date Saved: 10/12/2020 10:12 am Normal [facility] SARS-CoV-2, NAAon 10-06-2020 SARS CORONAVIRUS 2 RNA:PRTHR:PT:RESPIRA TORY:ORD:PROBE.AMP.T AR Detected Abnormal Not Detected [facility] Comment on above: Result Comment: This nucleic acid amplification test was developed and its performance characteristics determined by [employer]. Nucleic acid amplification tests include PCR and [...] detected) result in this assay. Performed at: [facility] [address] [place], [place] [id number] [facility] Magda Clark Performed By: #### S ARS-CoV-2, LE #### [facility] [address] [place] [address] Physician Orderon 10-02-2020 Physician Order [id number]:127 Normal [facility] Vital Signs Date Time Vital Sign Value Performing Clinician Mani sotomayor 12-10-2023 16:18-0500 Body weight 70.31 kg Pati FRANCO Work Phone: [facility] 12-10-2023 16:18-0500 Diastolic blood pressure 64 mm[Hg] Pati FRANCO Work Phone: [facility] 12-10-2023 16:18-0500 Systolic blood pressure 108 mm[Hg] Pati FRANCO Work Phone: [facility] Healthcare Encounters Encounter Date Encounter Type Care Provider Facility Start: 01-08-2024 End: 01-08-2024 ambulatory APTI WISDOM Not Available Start: 12-24-2023 End: 12-24-2023 [...] examination without abnormal findings DR GEE HERNANDEZ [facility] Start: 10-02-2022 End: 10-03-[address] GEE HERNANDEZ Facility:[facility] Start: 10-02-2022 End: 10-03-2022 Encounter for general adult medical examination without abnormal findings DR EGE HERNANDEZ Facility:[facility] Start: 05-21-2017 End: 05-22-2017 Ambulatory DEFAULT PHYSICIAN Facility:[facility] Procedures Date Procedure Procedure Detail Performing Clinician Start: 12-10-2023 Urnls dip stick/tabl et rgnt non-auto w/o micrscp Pati FRANCO Work Phone: Plan of Treatment Date Care Activity Detail Author Start: 12-24-2023 End: 12-24-2023 Patient encounter procedure 12/24/2023 1:40 PM EST Routine [facility] [address] [place] [address] Amparo Carbone, DO [address], [place] [id number] [facility] Start: 12-24-2023 End: 12-24-2023 Professional / ancillary services management 12/24/2023 1:00 PM EST Ancillary Procedure [facility] [address] [place] [address] [facility] Start: 12-10-2023 End: [...] Date Payer Category Payer Unknown 2022 Unknown [id number] 1985 Unknown [id number] 2.16.84 [id number] 1985 Unknown [id number] 2.16.84 [id number] 1986 Unknown [id number] 2.16.84 [id number] 1986 Unknown [id number] 2.16.84 [id number] 1986 Unknown [id number] 2.16.84 [id number] 1986 Unknown [id number] 1986 Unknown [id number] 1959 Unknown [id number] Social History Date Type Detail Facility Tobacco smoking stat [facility] Tobacco smoking consumption unknown [facility] Start: [...] section and content) DATE CREATED AUTHOR 04/29/2018 [facility] DATE CREATED AUTHOR AUTHOR'S ORGANIZ ATION 10/13/2020 [facility] DATE CREATED AUTHOR AUTHOR'S ORGANIZ ATION 10/05/2022 [facility] DATE CREATED AUTHOR AUTHOR'S ORGANIZ ATION 01/09/2024 [facility] EPIC Reason for Visit (unrecogniz ed [...] BE BASED ON THE PRIMARY CLINICAL RECORDS. [employer] provides no warranty or guarantee of the accuracy or completeness of information in this document.
--- NOTE | 2024-01-14 18:59 | US_ITS ---
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 BREATHING MOVEMENTS: 2.0 GROSS BODY MOVEMENTS: 2.0 TONE: 2.0 QUALITATIVE AMNIOTIC FLUID VOLUME: 2.0 PRESENTATION: CEPHALIC HEART RATE: 148.4 bpm bpm. AMNIOTIC FLUID VOLUME: 12.1 cm GESTATIONAL AGE: 36 weeks 5 days CONCLUSION: Total biophysical profile score 8.0. Electronically authenticated by: JARAD BISHOP Date: 01/15/2024 07:18
--- NOTE | 2024-01-14 19:00 | US_ITS ---
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 Single live intrauterine with growth detailed above. Electronically authenticated by: JARAD BISHOP Date: 01/15/2024 07:24
[2024-01-14 19:55] VITALS: BP 113/63; PULSE 78
== END 2024-01-14 20:24 | disposition home or self-care (01) ==
LOC: US 08:09 → FBC 19:00
PROVIDERS: Visit Provider Obstetrics & Gynecology
DX: O43.119 Circumvallate placenta, unspecified trimester (principal); O09.523 Supervision of elderly multigravida, third trimester; Z3A.36 36 weeks gestation of pregnancy
CPT/HCPCS: 76816; 76818

== ENCOUNTER 2024-01-17 07:27 | Outpatient (OUT) | payer OTHER, SELFPAY ==
--- OUTSIDE RECORDS SUMMARY | 2024-01-17 07:29 | XMS_ITS | CCD ---
Author Name Unknown Address [address] [place] [address] Organization [facility] Care Team Providers Care Consulting Utility Forester Name Role Phone PHYSICIAN, DEFAULT Unavailable Unavailable [...] (1 source) Nitrofurantoin Drug Allergy 7 [facility] Repository (2 sources) Ciprofloxacin Drug [...] UA Negative Negative - 4(70) +++ mg/dL [facility] Blood, UA Positive Negative - 50 Andrea/mcL [facility] Clarity, UA Clear [facility] re Color, UA Yellow [facility] Glucose, UA Negative Negative - 1999(110) ++++ mg/dL [facility] Interpretation and review of laboratory results Abnormal [facility] Ketones, UA Negative Negative - 160(16) ++++ mg/dL [facility] Leukocytes, UA Negative Negative - 500+++ Toan/mcL [facility] Nitrite, UA Negative Negative - Positive [facility] pH, UA 5.5 5 - 9 [facility] e Protein, UA Negative Negative - 2000(20) ++++ mg/dL [facility] Spec Grav, UA 1.020 1 - 1.03 [facility] Urobilinogen, UA 1.0 0.2 - 12 mg/dL [facility] CBC AUTO DIFFon 10-02-2022 BASO # 0.0 103/ul Normal 0.0-0.1 [facility] Comment on above: Performed By: #### C BC #### [facility] [address] [place], [place] [address] Dr. Musa Chacon Basophils/100 WBC (Bld) 0.9 % Normal 0.2-2.0 [facility] Comment on above: Performed By: #### C BC #### [facility] [address] [place] [address] Dr. Musa Chacon EO # 0.1 103/ul Normal 0.0-0.7 [facility] Comment on above: Performed By: #### C BC #### [facility] [address] [place] [address] Dr. Musa Chacon Eosinophils/100 WBC (Bld) 1.8 % Normal 0.9-7.0 [facility] Comment on above: Performed By: #### C BC #### [facility] [address] [place] [address] Dr. Musa Chacon Erythrocyte distribution width (RBC) [Ratio] 12.8 % Normal 11.0-15.0 [facility] Comment on above: Performed By: #### C BC #### [facility] [address] [place] [address] Dr. Musa Chacon Hematocrit (Bld) [Volume fraction] 39.4 % Normal 36.0-48.0 [facility] Comment on above: Performed By: #### C BC #### [facility] [address] [place] [address] Dr. Musa Chacon Hemoglobin (Bld) [Mass/Vol] 13.5 g/dL Normal 12.0-16.0 [facility] Comment on above: Performed By: #### C BC #### [facility] [address] [place] [address] Dr. Musa Chacon IG # 0.01 10e3/ul Normal 0.00-0.03 [facility] Comment on above: Performed By: #### C BC #### [facility] [address] [place] [address] Dr. Musa Chacon IG % 0.2 % Normal 0.0-0.5 [facility] Comment on above: Performed By: #### C BC #### [facility] [address] [place] [address] Dr. Musa Chacon LYMPH # 1.4 103/ul Normal 1.2-3.8 [facility] Comment on above: Performed By: #### C BC #### [facility] [address] [place] [address] Dr. Musa Chacon Lymphocytes/100 WBC (Bld) 32.0 % Normal 20.5-60.0 [facility] Comment on above: Performed By: #### C BC #### [facility] [address] [place] [address] Dr. Musa Chacon MANUAL DIFF REQ NO Normal [facility] Comment on above: Performed By: #### C BC #### [facility] [address] [place] [address] Dr. Musa Chacon MCH (RBC) [Entitic mass] 30.1 pg Normal 26.7-34.0 [facility] Comment on above: Performed By: #### C BC #### [facility] [address] [place] [address] Dr. Musa Chacon MCHC (RBC) [Mass/Vol] 34.3 g/dL Normal 29.9-35.2 [facility] Comment on above: Performed By: #### C BC #### [facility] [address] [place] [address] Dr. Musa Chacon MCV (RBC) [Entitic vol] 87.8 fL Normal 81.0-99.0 [facility] Comment on above: Performed By: #### C BC #### [facility] [address] [place] [address] Dr. Musa Chacon MONO # 0.4 103/ul Normal 0.3-0.8 [facility] Comment on above: Performed By: #### C BC #### [facility] [address] [place] [address] Dr. Musa Chacon Monocytes/100 WBC (Bld) 8.0 % Normal 1.7-12.0 [facility] Comment on above: Performed By: #### C BC #### [facility] [address] [place] [address] Dr. Musa Chacon NEUT # 2.6 103/ul Normal 1.4-6.5 [facility] Comment on above: Performed By: #### C BC #### [facility] [address] [place] [address] Dr. Musa Chacon Neutrophils/100 WBC (Bld) 57.1 % Normal 43.0-75.0 [facility] Comment on above: Performed By: #### C BC #### [facility] [address] [place] [address] Dr. Musa Chacon Platelet mean volume (Bld) [Entitic vol] 10.2 fL Normal 9.5-13.5 [facility] Comment on above: Performed By: #### C BC #### [facility] [address] [place] [address] Dr. Musa Chacon PLT 223 103/ul Normal 150-450 [facility] Comment on above: Performed By: #### C BC #### [facility] [address] [place] [address] Dr. Musa Chacon RBC 4.49 106/ul Normal 4.20-5.40 [facility] Comment on above: Performed By: #### C BC #### [facility] [address] [place] [address] Dr. Musa Chacon WBC 4.5 103/ul Normal 4.0-11.0 [facility] Comment on above: Performed By: #### C BC #### [facility] [address] [place] [address] Dr. Musa Chacon PROF 14(COMP METB)on 022 Albumin [Mass/Vol] 4.1 g/dL Normal 3.4-5.0 [facility] Comment on above: Performed By: #### T 4, CMP, TSH #### [facility] [address] [place] [address] Dr. Musa Chacon Albumin/Globulin [Mass ratio] 1.5 {ratio} Normal [facility] Comment on above: Performed By: #### T 4, CMP, TSH #### [facility] [address] [place] [address] Dr. Musa Chacon ALP [Catalytic activity/Vol] 51 U/L Normal 46-116 [facility] Comment on above: Performed By: #### T 4, CMP, TSH #### [facility] [address] [place] [address] Dr. Musa Chacon ALT [Catalytic activity/Vol] 17 U/L Normal 14-59 [facility] Comment on above: Performed By: #### T 4, CMP, TSH #### [facility] [address] [place] [address] Dr. Musa Chacon Anion gap [Moles/Vol] 11.8 mmol/L Normal [facility] Comment on above: Performed By: #### T 4, CMP, TSH #### [facility] [address] [place] [address] Dr. Musa Chacon AST [Catalytic activity/Vol] 14 U/L Critically low 15-37 [facility] Comment on above: Performed By: #### T 4, CMP, TSH #### [facility] [address] [place] [address] Dr. Musa Chacon Bilirubin [Mass/Vol] 0.8 mg/dL Normal 0.2-1.0 [facility] Comment on above: Performed By: #### T 4, CMP, TSH #### [facility] [address] [place] [address] Dr. Musa Chacon Calcium [Mass/Vol] 8.9 mg/dL Normal 8.5-10.1 [facility] Comment on above: Performed By: #### T 4, CMP, TSH #### [facility] [address] [place] [address] Dr. Musa Chacon Chloride [Moles/Vol] 105 mmol/L Normal 98-107 [facility] Comment on above: Performed By: #### T 4, CMP, TSH #### [facility] [address] [place] [address] Dr. Musa Chacon CO2 [Moles/Vol] 27.4 mmol/L Normal 21.0-32.0 [facility] Comment on above: Performed By: #### T 4, CMP, TSH #### [facility] [address] [place] [address] Dr. Musa Chacon Creatinine [Mass/Vol] 0.78 mg/dL Normal 0.55-1.02 [facility] Comment on above: Performed By: #### T 4, CMP, TSH #### [facility] [address] [place] [address] [address] Musa Chacon EGFR-AF BARBADIAN >60 Normal >=60 [facility] Comment on above: Performed By: #### T 4, CMP, TSH #### [facility] [address] [place] [address] Dr. Musa Chacon EGFR-NON AF BARBADIAN >60 Normal >=60 [facility] Comment on above: Performed By: #### T 4, CMP, TSH #### [facility] [address] [address] [address] Musa Chacon Globulin (S) [Mass/Vol] 2.8 g/dL Normal [facility] Comment on above: Performed By: #### T 4, CMP, TSH #### [facility] [address] [place] [address] Dr. Musa Chacon Glucose [Mass/Vol] 96 mg/dL Normal 74-106 [facility] Comment on above: Performed By: #### T 4, CMP, TSH #### [facility] [address] [place] [address] Dr. Musa Chacon Potassium [Moles/Vol] 4.2 mmol/L Normal 3.5-5.1 [facility] Comment on above: Performed By: #### T 4, CMP, TSH #### [facility] [address] [place] [address] Dr. Musa Chacon Protein [Mass/Vol] 6.9 g/dL Normal 6.4-8.2 [facility] Comment on above: Performed By: #### T 4, CMP, TSH #### [facility] [address] [place] [address] Dr. Musa Chacon Sodium [Moles/Vol] 140 mmol/L Normal 136-145 [facility] Comment on above: Performed By: #### T 4, CMP, TSH #### [facility] [address] [place] [address] Dr. Musa Chacon Urea nitrogen [Mass/Vol] 10.0 mg/dL Normal 7.0-18.0 [facility] Comment on above: Performed By: #### T 4, CMP, TSH #### [facility] [address] [place] [address] [address] Musa Chacon Urea nitrogen/Creatinine [Mass ratio] 12.8 mg/mg Normal [facility] Comment on above: Performed By: #### T 4, CMP, TSH #### [facility] [address] [address] [address] Musa Chacon T4on 10-02-2022 T4 [Mass/Vol] 6.30 ug/dL Normal 4.80-13.90 [facility] Comment on above: Performed By: #### T 4, CMP, TSH #### [facility] [address] [place] [address] Dr. Musa Chacon TSHon 10-02-2022 TSH 1.653 uIU/mL Normal 0.358-3.740 [facility] Comment on above: Performed By: #### T 4, CMP, TSH #### [facility] [address] [place] [address] Dr. Musa Chacon Coding Summary.on 10-12-2020 Coding Summary. CODING DATE: 10/12/2020 FINAL [facility] STATUS: Home (Routine DC) PAYOR: [...] CphT Date Saved: 10/12/2020 10:12 am Normal [facility] SARS-CoV-2, NAAon 10-06-2020 SARS CORONAVIRUS 2 RNA:PRTHR:PT:RESPIRA TORY:ORD:PROBE.AMP.T AR Detected Abnormal Not Detected [facility] Comment on above: Result Comment: This nucleic acid amplification test was developed and its performance characteristics determined by [facility]. Nucleic acid amplification tests include PCR and [...] this assay. Performed at: [facility] [address] [place], [place] [id number] [facility] Magda Clark Performed By: #### S ARS-CoV-2, LE #### [facility] [address] [place] [address] Physician Orderon 10-02-2020 Physician Order [id number]:127 Normal [facility] Vital Signs Date Time Vital Sign Value Performing Clinician Mani sotomayor 12-10-2023 16:18-0500 Body weight 70.31 kg Pati FRANCO Work Phone: [facility] 12-10-2023 16:18-0500 Diastolic blood pressure 64 mm[Hg] Pati FRANCO Work Phone: [facility] 12-10-2023 16:18-0500 Systolic blood pressure 108 mm[Hg] Pati FRANCO Work Phone: [facility] Healthcare Encounters Encounter Date Encounter Type Care Provider Facility Start: 01-14-2024 End: 01-14-2024 ambulatory AMPARO KEO Not Available Start: 01-08-2024 End: 01-08-2024 ambulatory PATI WISDOM Not Available Start: 12-24-2023 End: 12-24-2023 ambulatory AMPARO KEO Not Available Start: 12-10-2023 End: 12-10-2023 ambulatory [...] without abnormal findings DR GEE HERNANDEZ [facility] Start: 10-02-2022 End: 10-03-[address] GEE HERNANDEZ Facility:[facility] Start: 10-02-2022 End: 10-03-2022 Encounter for general adult medical examination without abnormal findings DR GEE HERNANDEZ Facility:[facility] Start: 05-21-2017 End: 05-22-2017 Ambulatory DEFAULT PHYSICIAN Facility:[facility] Procedures Date Procedure Procedure Detail Performing Clinician Start: 12-10-2023 Urnls dip stick/tabl et rgnt non-auto w/o micrscp Pati FRANCO Work Phone: Plan of Treatment Date Care Activity Detail Author Start: 12-24-2023 End: 12-24-2023 Patient encounter procedure 12/24/2023 1:40 PM EST Routine [facility] [address] [place] [address] Amparo Carbone, DO [address] [place] [address] [facility] Start: 12-24-2023 End: 12-24-2023 Professional / ancillary services management 12/24/2023 1:00 PM EST Ancillary Procedure [facility] [address] [place] [id number] [facility] Start: 12-10-2023 End: 12-10-2024 Nonstress test nonstress test Procedures Routine Multigravida of advanced maternal age in third trimester Expected: 12/10/2023 (Approximate), Expires: 12/10/2024 [facility] Healthcare Work Phone: Comment on above: Expected: 12/10/2023 (Approximate), Expires: 12/10/2024 Start: 12-10-2023 End: 12-10-2024 US biophysical profile wo non stress testing US biophysical profile wo non stress testing Imaging Routine Multigravida of advanced maternal age in third trimester Expected: 12/10/2023 (Approximate), Expires: 12/10/2024 [facility] Healthcare Comment on above: Expected: 12/10/2023 (Approximate), Expires: 12/10/2024 Payers Date Payer Category Payer Unknown 2022 Unknown [id number] 1985 Unknown [id number] 2.16.84 [id number] 1985 Unknown [id number] 2.16.84 [id number] 1986 Unknown [id number] 2.16.84 [id number] 1986 Unknown [id number] 2.16.84 [id number] 1986 Unknown [id number] 2.16.84 [id number] 1986 Unknown [id number] 2.16.84 [id number] 1986 Unknown [id number] [id number] .[id number] 1986 Unknown [id number] [id number] 1959 Unknown [id number] Social History Date Type Detail Facility Tobacco smoking stat [facility] Tobacco smoking consumption unknown [facility] Healthcare Start: 05-16-2023 [facility] Start: 1985 Sex Ass[facility] Start: 06-23-2023 Gender identity Identifies as female gender (finding) [facility] Start: 06-23-2023 Sexual orientation Heterosexual (fin ding) [facility] History of Present illness Narrative 12-10-2023 [...] DATE CREATED AUTHOR 04/29/2018 [facility] DATE CREATED AUTHOR AUTHOR'S ORGANIZ ATION 10/13/2020 [facility] DATE CREATED AUTHOR AUTHOR'S ORGANIZ ATION 10/05/2022 [facility] DATE CREATED AUTHOR AUTHOR'S ORGANIZ ATION 01/16/[address] [facility] EPIC Reason for Visit (unrecogniz ed [...] BE BASED ON THE PRIMARY CLINICAL RECORDS. [facility] [employer] [facility]. provides no warranty or guarantee of the accuracy or completeness of information in this document.
[2024-01-17 14:05] VITALS: BP 108/63; PULSE 80
== END 2024-01-17 14:31 | disposition home or self-care (01) ==
LOC: FBCO 07:27 → FBC 14:01
PROVIDERS: Visit Provider Obstetrics & Gynecology
DX: O36.5930 Maternal care for other known or suspected poor fetal growth, third trimester, not applicable or unspecified (principal)
CPT/HCPCS: 59025

== ENCOUNTER 2024-01-21 11:00 | Observation (INO) | payer OTHER, SELFPAY ==
--- OUTSIDE RECORDS SUMMARY | 2024-01-21 09:00 | XMS_ITS | CCD ---
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 Role Phone PHYSICIAN, DEFAULT Unavailable Unavailable PHYSICIAN, DEFAULT Unavailable Unavailable HOUSE, DR FLYNN Attending Unavailable HOUSE, DR FLYNN Consulting Unavailable HOUSE, DR FLYNN Admitting Unavailable REQUEST, DR JOSE LISTED Primary Care Unavaila ble Unavailable Primary Care Provider UnavailPATI Mercado Attending Unavailable KEO, AMPARO Attending Unavailable ARTIS, PATI Attending Unavailable KEO, AMPARO Attending Unavailable ARTIS, PATI Attending Unavailable KEO, AMPARO Attending Unavailable ARTIS, PATI Attending Unavailable Allergies Allergy Classification Reported Allergen(s) Allergy Type Date of Onset Reaction(s) Facility (1 source) Nitrofurantoin Drug Allergy 7 [facility] Repository (2 sources) Ciprofloxacin Drug Allergy [...] [facility] Clarity, UA Clear [facility] re Color, UA Yellow [facility] e Glucose, UA Negative Negative - 2000(110) ++++ mg/dL [facility] Interpretation and review of laboratory results Abnormal [facility] Ketones, UA Negative Negative - 160(16) ++++ mg/dL [facility] Leukocytes, UA Negative Negative - 500+++ Toan/mcL [facility] Nitrite, UA Negative Negative - Positive [facility] pH, UA 5.5 5 - 9 [facility] e Protein, UA Negative Negative - 2000(20) ++++ mg/dL [facility] Spec Grav, UA 1.020 1 - 1.03 [facility] Urobilinogen, UA 1.0 0.2 - 12 mg/dL [facility] CBC AUTO DIFFon 10-02-2022 BASO # 0.0 103/ul Normal 0.0-0.1 [facility] Comment on above: Performed By: #### C BC #### [facility] [address] [address] [address] Musa Chacon Basophils/100 WBC (Bld) 0.9 % Normal 0.2-2.0 [facility] Comment on above: Performed By: #### C BC #### [facility] [address] [address] [address] Musa Chacon EO # 0.1 103/ul Normal 0.0-0.7 [facility] Comment on above: Performed By: #### C BC #### [facility] [address] [place] [address] Dr. Musa Chaocn Eosinophils/100 WBC (Bld) 1.8 % Normal 0.9-7.0 [facility] Comment on above: Performed By: #### C BC #### [facility] [address] [place] [address] Dr. Musa Chacon Erythrocyte distribution width (RBC) [Ratio] 12.8 % Normal 11.0-15.0 [facility] Comment on above: Performed By: #### C BC #### [facility] [address] [place] [address] Dr. Musa Chacon Hematocrit (Bld) [Volume fraction] 39.4 % Normal 36.0-48.0 [facility] Comment on above: Performed By: #### C BC #### [facility] [address] [place] [address] Dr. Musa Chacon Hemoglobin (Bld) [Mass/Vol] 13.5 g/dL Normal 12.0-16.0 [facility] Comment on above: Performed By: #### C BC #### [facility] [address] [place] [address] Dr. Musa Chacon IG # 0.01 10e3/ul Normal 0.00-0.03 [facility] Comment on above: Performed By: #### C BC #### [facility] [address] [place] [address] Dr. Musa Chacon IG % 0.2 % Normal 0.0-0.5 [facility] Comment on above: Performed By: #### C BC #### [facility] [address] [place] [address] Dr. Musa Chacon LYMPH # 1.4 103/ul Normal 1.2-3.8 [facility] Comment on above: Performed By: #### C BC #### [facility] [address] [place] [address] Dr. Musa Chacon Lymphocytes/100 WBC (Bld) 32.0 % Normal 20.5-60.0 [facility] Comment on above: Performed By: #### C BC #### [facility] [address] [place] [address] Dr. Musa Chacon MANUAL DIFF REQ NO Normal [facility] Comment on above: Performed By: #### C BC #### [facility] [address] [place] [address] Dr. Musa Chacon MCH (RBC) [Entitic mass] 30.1 pg Normal 26.7-34.0 [facility] Comment on above: Performed By: #### C BC #### [facility] [address] [place] [address] Dr. Musa Chacon MCHC (RBC) [Mass/Vol] 34.3 g/dL Normal 29.9-35.2 [facility] Comment on above: Performed By: #### C BC #### [facility] [address] [place] [address] Dr. Musa Chacon MCV (RBC) [Entitic vol] 87.8 fL Normal 81.0-99.0 [facility] Comment on above: Performed By: #### C BC #### [facility] [address] [place] [address] Dr. Musa Chacon MONO # 0.4 103/ul Normal 0.3-0.8 [facility] Comment on above: Performed By: #### C BC #### [facility] [address] [place] [address] Dr. Musa Chacon Monocytes/100 WBC (Bld) 8.0 % Normal 1.7-12.0 [facility] Comment on above: Performed By: #### C BC #### [facility] [address] [place] [address] Dr. Musa Chacon NEUT # 2.6 103/ul Normal 1.4-6.5 [facility] Comment on above: Performed By: #### C BC #### [facility] [address] [place] [address] Dr. Musa Chacon Neutrophils/100 WBC (Bld) 57.1 % Normal 43.0-75.0 [facility] Comment on above: Performed By: #### C BC #### [facility] [address] [address] [address] Musa Chacon Platelet mean volume (Bld) [Entitic vol] 10.2 fL Normal 9.5-13.5 [facility] Comment on above: Performed By: #### C BC #### [facility] [address] [address] [address] Musa Chacon PLT 223 103/ul Normal 150-450 [facility] Comment on above: Performed By: #### C BC #### [facility] [address] [place] [address] Dr. Musa Chacon RBC 4.49 106/ul Normal 4.20-5.40 [facility] Comment on above: Performed By: #### C BC #### [facility] [address] [place] [address] Dr. Musa Chacon WBC 4.5 103/ul Normal 4.0-11.0 [facility] Comment on above: Performed By: #### C BC #### [facility] [address] [place] [address] Dr. Musa Chacon PROF 14(COMP METB)on 022 Albumin [Mass/Vol] 4.1 g/dL Normal 3.4-5.0 [facility] Comment on above: Performed By: #### T 4, CMP, TSH #### [facility] [address] [place] [address] Dr. Musa Chacon Albumin/Globulin [Mass ratio] 1.5 {ratio} Normal [facility] Comment on above: Performed By: #### T 4, CMP, TSH #### [facility] [address] [place] [address] Dr. Musa Chacon ALP [Catalytic activity/Vol] 51 U/L Normal 46-116 [facility] Comment on above: Performed By: #### T 4, CMP, TSH #### [facility] [address] [place] [address] Dr. Musa Chacon ALT [Catalytic activity/Vol] 17 U/L Normal 14-59 [facility] Comment on above: Performed By: #### T 4, CMP, TSH #### [facility] [address] [address] [address] Musa Chacon Anion gap [Moles/Vol] 11.8 mmol/L Normal [facility] Comment on above: Performed By: #### T 4, CMP, TSH #### [facility] [address] [place] [address] Dr. Musa Chacon AST [Catalytic activity/Vol] 14 U/L Critically low 15-37 [facility] Comment on above: Performed By: #### T 4, CMP, TSH #### [facility] [address] [place] [address] Dr. Musa Chacon Bilirubin [Mass/Vol] 0.8 mg/dL Normal 0.2-1.0 [facility] Comment on above: Performed By: #### T 4, CMP, TSH #### [facility] [address] [place] [address] Dr. Musa Chacon Calcium [Mass/Vol] 8.9 mg/dL Normal 8.5-10.1 [facility] Comment on above: Performed By: #### T 4, CMP, TSH #### [facility] [address] [place] [address] Dr. Musa Chacon Chloride [Moles/Vol] 105 mmol/L Normal 98-107 [facility] Comment on above: Performed By: #### T 4, CMP, TSH #### [facility] [address] [address] [address] Musa Chacon CO2 [Moles/Vol] 27.4 mmol/L Normal 21.0-32.0 [facility] Comment on above: Performed By: #### T 4, CMP, TSH #### [facility] [address] [place] [address] Dr. Musa Chacon Creatinine [Mass/Vol] 0.78 mg/dL Normal 0.55-1.02 [facility] Comment on above: Performed By: #### T 4, CMP, TSH #### [facility] [address] [place] [address] Dr. Musa Chacon EGFR-AF [place]ORE[place] >60 Normal >=60 [facility] Comment on above: Performed By: #### T 4, CMP, TSH #### [facility] [address] [place] [address] Dr. Musa Chacon EGFR-NON AF [place] >60 Normal >=60 [facility] Comment on above: Performed By: #### T 4, CMP, TSH #### [facility] [address] [place] [address] Dr. Musa Chacon Globulin (S) [Mass/Vol] 2.8 g/dL Normal [facility] Comment on above: Performed By: #### T 4, CMP, TSH #### [facility] [address] [place] [address] Dr. Musa Chacon Glucose [Mass/Vol] 96 mg/dL Normal 74-106 [facility] Comment on above: Performed By: #### T 4, CMP, TSH #### [facility] [address] [place] [address] Dr. Musa Chacon Potassium [Moles/Vol] 4.2 mmol/L Normal 3.5-5.1 [facility] Comment on above: Performed By: #### T 4, CMP, TSH #### [facility] [address] [place] [address] Dr. Musa Chacon Protein [Mass/Vol] 6.9 g/dL Normal 6.4-8.2 [facility] Comment on above: Performed By: #### T 4, CMP, TSH #### [facility] [address] [place] [address] Dr. Musa Chacon Sodium [Moles/Vol] 140 mmol/L Normal 136-145 [facility] Comment on above: Performed By: #### T 4, CMP, TSH #### [facility] [address] [place] [address] Dr. Musa Chacon Urea nitrogen [Mass/Vol] 10.0 mg/dL Normal 7.0-18.0 [facility] Comment on above: Performed By: #### T 4, CMP, TSH #### [facility] [address] [place] [address] Dr. Musa Chacon Urea nitrogen/Creatinine [Mass ratio] 12.8 mg/mg Normal [facility] Comment on above: Performed By: #### T 4, CMP, TSH #### [facility] [address] [address] [address] Musa Chacon T4on 10-02-2022 T4 [Mass/Vol] 6.30 ug/dL Normal 4.80-13.90 [facility] Comment on above: Performed By: #### T 4, CMP, TSH #### [facility] [address] [address] [address] Musa Chacon TSHon 10-02-2022 TSH 1.653 uIU/mL Normal 0.358-3.740 [facility] Comment on above: Performed By: #### T 4, CMP, TSH #### [facility] [address] [place] [address] Dr. Musa Chacon Coding Summary.on 10-12-2020 Coding Summary. CODING DATE: 10/12/2020 FINAL [facility] STATUS: Home (Routine DC) PAYOR: [...] CphT Date Saved: 10/12/2020 10:12 am Normal [facility] SARS-CoV-2, NAAon 10-06-2020 SARS CORONAVIRUS 2 RNA:PRTHR:PT:RESPIRA TORY:ORD:PROBE.AMP.T AR Detected Abnormal Not Detected [facility] Comment on above: Result Comment: This nucleic acid amplification test was developed and its performance characteristics determined by [facility]. Nucleic acid amplification tests include PCR and [...] Performed at: [facility] [address] [facility], [place] [id number] [facility] Magda Clark Performed By: #### S ARS-CoV-2, LE #### [facility] [address] [place] [address] Physician Orderon 10-02-2020 Physician Order [id number]:127 Normal [facility] Vital Signs Date Time Vital Sign Value Performing Clinician Faci lity 12-10-2023 16:18-0500 Body weight 70.31 kg Pati FRANCO Work Phone: [facility] 12-10-2023 16:18-0500 Diastolic blood pressure 64 mm[Hg] Pati FRANCO Work Phone: [facility] 12-10-2023 16:18-0500 Systolic blood pressure 108 mm[Hg] Pati FRANCO Work Phone: [facility] Healthcare Encounters Encounter Date Encounter [...] examination without abnormal findings DR GEE HERNANDEZ [facility] Start: 10-02-2022 End: 10-03-[address] GEE HERNANDEZ Facility:[facility] Start: 10-02-2022 End: 10-03-2022 Encounter for general adult medical examination without abnormal findings DR GEE HERNANDEZ Facility:[facility] Start: 05-21-2017 End: 05-22-2017 Ambulatory DEFAULT PHYSICIAN Facility:[facility] [[email or web address] Procedures Date Procedure Procedure Detail Performing Clinician Start: 12-10-2023 Urnls dip stick/tabl et rgnt non-auto w/o micrscp Pati FRANCO Work Phone: Plan of Treatment Date Care Activity Detail Author Start: 12-24-2023 End: 12-24-2023 Patient encounter procedure 12/24/2023 1:40 PM EST Routine [facility] [address] [place] [id number] Amparo Carbone, DO [address] [place] [address] [facility] Start: 12-24-2023 End: 12-24-2023 Professional / ancillary services management 12/24/2023 1:00 PM EST Ancillary Procedure [facility] [address] [place] [id number] [facility] Start: 12-10-2023 End: 12-10-2024 [...] third trimester Expected: 12/10/2023 (Approximate), Expires: 12/10/2024 [facility] Comment on above: Expected: 12/10/2023 (Approximate), Expires: 12/10/2024 Payers Date Payer Category Payer Unknown 2022 Unknown [id number] 1985 Unknown [id number] 2.16.84 [id number] 1985 Unknown [id number] 2.16.84 [id number] 1986 Unknown [id number] 2.16.84 [id number] 1986 Unknown [id number] 2.16.84 [id number] 1986 Unknown [id number] 2.16.84 [id number] 1986 Unknown [id number] 2.16.84 [id number] 1986 Unknown [id number] 1986 Unknown [id number] [id number] 1959 Unknown [id number] Social History Date Type Detail Facility Tobacco smoking stat [facility] Tobacco smoking consumption unknown [facility] Healthcare Start: 05-16-2023 [facility] Start: 1985 Sex Assigned At Female [facility] Start: 06-23-2023 Gender identity Identifies as female gender (finding) [facility] Start: 06-23-2023 Sexual orientation Heterosexual (fin [...] section and content) DATE CREATED AUTHOR 04/29/2018 [facility] DATE CREATED AUTHOR AUTHOR'S ORGANIZ ATION 10/13/2020 [facility] DATE CREATED AUTHOR AUTHOR'S ORGANIZ ATION 10/05/2022 [facility] DATE CREATED AUTHOR AUTHOR'S ORGANIZ ATION 01/16/2024 [facility] EPIC Reason for Visit [...] BE BASED ON THE PRIMARY CLINICAL RECORDS. [facility]. provides no warranty or guarantee of the accuracy or completeness of information in this document.
[2024-01-21 11:11] VITALS: BP 123/67; PULSE 77
--- OUTSIDE RECORDS SUMMARY | 2024-01-21 11:19 | XMS_ITS | CCD ---
Author Organization [facility] Care Team Providers Care [employer]er Name Role Phone PHYSICIAN, DEFAULT Unavailable Unavailable [...] (1 source) Nitrofurantoin Drug Allergy 7 [facility] Repository (2 sources) Ciprofloxacin Drug Allergy [...] UA Negative Negative - 4(70) +++ mg/dL [facility] Blood, UA Positive Negative - 50 Andrea/mcL [facility] Clarity, UA Clear [facility] re Color, UA Yellow [facility] e Glucose, UA Negative Negative - 2000(110) ++++ mg/dL [facility] Interpretation and review of laboratory results Abnormal [facility] Ketones, UA Negative Negative - 160(16) ++++ mg/dL [facility] Leukocytes, UA Negative Negative - 500+++ Toan/mcL [facility] Nitrite, UA Negative Negative - Positive [facility] pH, UA 5.5 5 - 9 [facility] e Protein, UA Negative Negative - 2000(20) ++++ mg/dL [facility] Spec Grav, UA 1.020 1 - 1.03 [facility] Urobilinogen, UA 1.0 0.2 - 12 mg/dL [facility] CBC AUTO DIFFon 10-02-2022 BASO # 0.0 103/ul Normal 0.0-0.1 [facility] Comment on above: Performed By: #### C BC #### [facility] [address] [address] [address] Musa Chacon Basophils/100 WBC (Bld) 0.9 % Normal 0.2-2.0 [facility] Comment on above: Performed By: #### C BC #### [facility] [address] [address] [address] Musa Chacon EO # 0.1 103/ul Normal 0.0-0.7 [facility] Comment on above: Performed By: #### C BC #### [facility] [address] [place] [address] Dr. Musa Chacon Eosinophils/100 WBC (Bld) 1.8 % Normal 0.9-7.0 [facility] Comment on above: Performed By: #### C BC #### [facility] [address] [place] [address] Dr. Musa Chacon Erythrocyte distribution width (RBC) [Ratio] 12.8 % Normal 11.0-15.0 [facility] Comment on above: Performed By: #### C BC #### [facility] [address] [place] [address] Dr. Musa Chacon Hematocrit (Bld) [Volume fraction] 39.4 % Normal 36.0-48.0 [facility] Comment on above: Performed By: #### C BC #### [facility] [address] [place] [address] Dr. Musa Chacon Hemoglobin (Bld) [Mass/Vol] 13.5 g/dL Normal 12.0-16.0 [facility] Comment on above: Performed By: #### C BC #### [facility] [address] [place] [address] Dr. Musa Chacon IG # 0.01 10e3/ul Normal 0.00-0.03 [facility] Comment on above: Performed By: #### C BC #### [facility] [address] [place] [address] Dr. Musa Chacon IG % 0.2 % Normal 0.0-0.5 [facility] Comment on above: Performed By: #### C BC #### [facility] [address] [place] [address] Dr. Musa Chacon LYMPH # 1.4 103/ul Normal 1.2-3.8 [facility] Comment on above: Performed By: #### C BC #### [facility] [address] [place] [address] Dr. Musa Chacon Lymphocytes/100 WBC (Bld) 32.0 % Normal 20.5-60.0 [facility] Comment on above: Performed By: #### C BC #### [facility] [address] [place] [address] Dr. Musa Chacon MANUAL DIFF REQ NO Normal [facility] Comment on above: Performed By: #### C BC #### [facility] [address] [place] [address] Dr. Musa Chacon MCH (RBC) [Entitic mass] 30.1 pg Normal 26.7-34.0 [facility] Comment on above: Performed By: #### C BC #### [facility] [address] [place] [address] Dr. Musa Chacon MCHC (RBC) [Mass/Vol] 34.3 g/dL Normal 29.9-35.2 [facility] Comment on above: Performed By: #### C BC #### [facility] [address] [place] [address] Dr. Musa Chacon MCV (RBC) [Entitic vol] 87.8 fL Normal 81.0-99.0 [facility] Comment on above: Performed By: #### C BC #### [facility] [address] [place] [address] Dr. Musa Chacon MONO # 0.4 103/ul Normal 0.3-0.8 [facility] Comment on above: Performed By: #### C BC #### [facility] [address] [place] [address] Dr. Musa Chacon Monocytes/100 WBC (Bld) 8.0 % Normal 1.7-12.0 [facility] Comment on above: Performed By: #### C BC #### [facility] [address] [place] [address] Dr. Musa Chacon NEUT # 2.6 103/ul Normal 1.4-6.5 [facility] Comment on above: Performed By: #### C BC #### [facility] [address] [place] [address] Dr. Muas Chacon Neutrophils/100 WBC (Bld) 57.1 % Normal 43.0-75.0 [facility] Comment on above: Performed By: #### C BC #### [facility] [address] [address] [address] Musa Chacon Platelet mean volume (Bld) [Entitic vol] 10.2 fL Normal 9.5-13.5 [facility] Comment on above: Performed By: #### C BC #### [facility] [address] [address] [address] Musa Chacon PLT 223 103/ul Normal 150-450 [facility] Comment on above: Performed By: #### C BC #### [facility] [address] [place] [address] Dr. Musa Chacon RBC 4.49 106/ul Normal 4.20-5.40 [facility] Comment on above: Performed By: #### C BC #### [facility] [address] [place] [address] Dr. Musa Chacon WBC 4.5 103/ul Normal 4.0-11.0 [facility] Comment on above: Performed By: #### C BC #### [facility] [address] [place] [address] Dr. Musa Chacon PROF 14(COMP METB)on 022 Albumin [Mass/Vol] 4.1 g/dL Normal 3.4-5.0 [facility] Comment on above: Performed By: #### T 4, CMP, TSH #### [facility] [address] [place] [address] Dr. Musa Chacon Albumin/Globulin [Mass ratio] 1.5 {ratio} Normal [facility] Comment on above: Performed By: #### T 4, CMP, TSH #### [facility] [address] [place] [address] Dr. Musa Chacon ALP [Catalytic activity/Vol] 51 U/L Normal 46-116 [facility] Comment on above: Performed By: #### T 4, CMP, TSH #### [facility] [address] [place] [address] Dr. Musa Chacon ALT [Catalytic activity/Vol] 17 U/L Normal 14-59 [facility] Comment on above: Performed By: #### T 4, CMP, TSH #### [facility] [address] [address] [address] Musa Chacon Anion gap [Moles/Vol] 11.8 mmol/L Normal [facility] Comment on above: Performed By: #### T 4, CMP, TSH #### [facility] [address] [place] [address] Dr. Musa Chacon AST [Catalytic activity/Vol] 14 U/L Critically low 15-37 [facility] Comment on above: Performed By: #### T 4, CMP, TSH #### [facility] [address] [place] [address] Dr. Musa Chacon Bilirubin [Mass/Vol] 0.8 mg/dL Normal 0.2-1.0 [facility] Comment on above: Performed By: #### T 4, CMP, TSH #### [facility] [address] [place] [address] Dr. Musa Chacon Calcium [Mass/Vol] 8.9 mg/dL Normal 8.5-10.1 [facility] Comment on above: Performed By: #### T 4, CMP, TSH #### [facility] [address] [place] [address] Dr. Musa Chacon Chloride [Moles/Vol] 105 mmol/L Normal 98-107 [facility] Comment on above: Performed By: #### T 4, CMP, TSH #### [facility] [address] [address] [address] Musa Chacon CO2 [Moles/Vol] 27.4 mmol/L Normal 21.0-32.0 [facility] Comment on above: Performed By: #### T 4, CMP, TSH #### [facility] [address] [place] [address] Dr. Musa Chacon Creatinine [Mass/Vol] 0.78 mg/dL Normal 0.55-1.02 [facility] Comment on above: Performed By: #### T 4, CMP, TSH #### [facility] [address] [place] [address] Dr. Musa Chacon EGFR-AF BAHAMIAN >60 Normal >=60 [facility] Comment on above: Performed By: #### T 4, CMP, TSH #### [facility] [address] [place] [address] Dr. Musa Chacon EGFR-NON AF BAHAMIAN >60 Normal >=60 [facility] Comment on above: Performed By: #### T 4, CMP, TSH #### [facility] [address] [place] [address] Dr. Musa Chacon Globulin (S) [Mass/Vol] 2.8 g/dL Normal [facility] Comment on above: Performed By: #### T 4, CMP, TSH #### [facility] [address] [place] [address] Dr. Musa Chacon Glucose [Mass/Vol] 96 mg/dL Normal 74-106 [facility] Comment on above: Performed By: #### T 4, CMP, TSH #### [facility] [address] [place] [address] Dr. Musa Chacon Potassium [Moles/Vol] 4.2 mmol/L Normal 3.5-5.1 [facility] Comment on above: Performed By: #### T 4, CMP, TSH #### [facility] [address] [place] [address] Dr. Musa Chacon Protein [Mass/Vol] 6.9 g/dL Normal 6.4-8.2 [facility] Comment on above: Performed By: #### T 4, CMP, TSH #### [facility] [address] [place] [address] Dr. Musa Chacon Sodium [Moles/Vol] 140 mmol/L Normal 136-145 [facility] Comment on above: Performed By: #### T 4, CMP, TSH #### [facility] [address] [place] [address] Dr. Musa Chacon Urea nitrogen [Mass/Vol] 10.0 mg/dL Normal 7.0-18.0 [facility] Comment on above: Performed By: #### T 4, CMP, TSH #### [facility] [address] [place] [address] Dr. Musa Chacon Urea nitrogen/Creatinine [Mass ratio] 12.8 mg/mg Normal [facility] Comment on above: Performed By: #### T 4, CMP, TSH #### [facility] [address] [address] [address] Musa Chacon T4on 10-02-2022 T4 [Mass/Vol] 6.30 ug/dL Normal 4.80-13.90 [facility] Comment on above: Performed By: #### T 4, CMP, TSH #### [facility] [address] [address] [address] Musa Chacon TSHon 10-02-2022 TSH 1.653 uIU/mL Normal 0.358-3.740 [facility] Comment on above: Performed By: #### T 4, CMP, TSH #### [facility] [address] [place] [address] Dr. Musa Chacon Coding Summary.on 10-12-2020 Coding Summary. CODING DATE: 10/12/2020 FINAL [facility] STATUS: Home (Routine DC) PAYOR: Commercial [...] Date Saved: 10/12/2020 10:12 am Normal [facility] SARS-CoV-2, NAAon 10-06-2020 SARS CORONAVIRUS 2 RNA:PRTHR:PT:RESPIRA TORY:ORD:PROBE.AMP.T AR Detected Abnormal Not Detected [facility] Comment on above: Result Comment: This nucleic acid amplification test was developed and its performance characteristics determined by [employer]. Nucleic acid amplification tests include PCR and [...] Performed at: [facility] [address] [facility], [place] [id number] [facility] Magda Clark Performed By: #### S ARS-CoV-2, LE #### [facility] [address] [place] [address] Physician Orderon 10-02-2020 Physician Order [id number] Normal [facility] Vital Signs Date Time Vital Sign Value Performing Clinician Faci lity 12-10-2023 16:18-0500 Body weight 70.31 kg Pati FRANCO Work Phone: [facility] 12-10-2023 16:18-0500 Diastolic blood pressure 64 mm[Hg] Pati FRANCO Work Phone: [facility] 12-10-2023 16:18-0500 Systolic blood pressure 108 mm[Hg] Pati FRANCO Work Phone: [facility] Healthcare Encounters Encounter Date [...] examination without abnormal findings DR GEE HERNANDEZ [facility] Start: 10-02-2022 End: 10-03-[address] GEE HERNANDEZ Facility:[facility] Start: 10-02-2022 End: 10-03-2022 Encounter for general adult medical examination without abnormal findings DR GEE HERNANDEZ Facility:[facility] Start: 05-21-2017 End: 05-22-2017 Ambulatory DEFAULT PHYSICIAN Facility:[facility] Procedures Date Procedure Procedure Detail Performing Clinician Start: 12-10-2023 Urnls dip stick/tabl et rgnt non-auto w/o micrscp Pati FRANCO Work Phone: Plan of Treatment Date Care Activity Detail Author Start: 12-24-2023 End: 12-24-2023 Patient encounter procedure 12/24/2023 1:40 PM EST Routine [facility] [address] [place] [id number] Amparo Carbone, DO [address] [place] [address] [facility] Start: 12-24-2023 End: 12-24-2023 Professional / ancillary services management 12/24/2023 1:00 PM EST Ancillary Procedure [facility] [address] [place] [id number] [facility] Start: 12-10-2023 End: 12-10-2024 [...] third trimester Expected: 12/10/2023 (Approximate), Expires: 12/10/2024 [facility] Comment on above: Expected: 12/10/2023 (Approximate), Expires: 12/10/2024 Payers Date Payer Category Payer Unknown 2022 Unknown [id number] 1985 Unknown [id number] 2.16.84 [id number] 1985 Unknown [id number] 2.16.84 [id number] 1985 Unknown [id number] 2.16.84 [id number] 1986 Unknown [id number] 2.16.84 [id number] 1986 Unknown [id number] 2.16.84 [id number] 1986 Unknown [id number] 2.16.84 [id number] 1986 Unknown [id number] [id number] 1986 Unknown [id number] [id number] 1959 Unknown [id number] Social History Date Type Detail Facility Tobacco smoking stat [facility] Tobacco smoking consumption unknown [facility] Healthcare Start: 05-16-2023 [facility] Start: 1985 Sex Assigned At Female [facility] Start: 06-23-2023 Gender identity Identifies as female gender (finding) [facility] Start: 06-23-2023 Sexual orientation [...] section and content) DATE CREATED AUTHOR 04/29/2018 [facility] DATE CREATED AUTHOR AUTHOR'S ORGANIZ ATION 10/13/2020 [facility] DATE CREATED AUTHOR AUTHOR'S ORGANIZ ATION 10/05/2022 [facility] DATE CREATED AUTHOR AUTHOR'S ORGANIZ ATION 01/16/2024 [facility] EPIC Reason for Visit (unrecogniz [...] BE BASED ON THE PRIMARY CLINICAL RECORDS. [facility] provides no warranty or guarantee of the accuracy or completeness of information in this document.
[2024-01-21 11:26] VITALS: TEMP 36.7
[2024-01-21 11:42] LABS: Bilirubin Urine NEGATIVE (NEGATIVE); Blood Urine MODERATE (NEGATIVE); Clarity Urine CLEAR (CLEAR); Color Urine LT. YELLOW (YELLOW); Glucose Urine UA NEGATIVE (NEGATIVE); Ketones Urine NEGATIVE (NEGATIVE); Leukocyte Esterase Urine MODERATE (NEGATIVE); Nitrite Urine NEGATIVE (NEGATIVE); Protein Urine NEGATIVE (NEG/TRACE); Urine Microscopic Indicated YES; Urobilinogen Urine 0.2 EU/dL (0.2-1.0)
[2024-01-21 12:01] LABS: Bacteria Urine NONE SEEN #/HPF (NONE SEEN); Cast Seen? NONE SEEN #/LPF (NONE SEEN); Crystals Seen? None Seen #/HPF (None Seen); Mucus Urine NONE SEEN (NONE SEEN); RBC Urine 0-2 #/HPF (0-2); Squamous Epithelial Cell Urine RARE #/LPF (NONE/RARE)
[2024-01-21 13:09] VITALS: BP 109/66; PULSE 81
--- NOTE | 2024-01-21 13:16 | US_ITS ---
[address] [address] Patient Name: VISHAL NELSON MRN: [id number] date: 1985 Sex: F Assigned Patient Location: [facility] Current Patient Location: [facility] Accession/Order Number: [id number] Exam Date: 01/21/2024 13:18 Report Date: 01/21/2024 13:45 At the request of: AMPARO CROWLEY Procedure: US OB BPP w non-stress EXAMINATION: US OB BPP w non-stress HISTORY: circumvallate placenta COMPARISON: No relevant comparison available. TECHNIQUE: Ultrasound biophysical profile was performed in the radiology department. FINDINGS: BREATHING MOVEMENTS: 2.0 GROSS BODY MOVEMENTS: 2.0 TONE: 2.0 QUALITATIVE AMNIOTIC FLUID VOLUME: 2.0 PRESENTATION: CEPALIC HEART RATE: 140.6 bpm H.B./min AMNIOTIC FLUID VOLUME: 10.9 cm cm GESTATIONAL AGE: 37 weeks 5 days CONCLUSION: Total biophysical profile score: 8.0 Electronically authenticated by: SOPHIA GONZALEZ Date: 01/21/2024 13:45
== END 2024-01-21 13:45 | disposition home or self-care (01) ==
LOC: FBC 11:06
PROVIDERS: Admitting Provider Obstetrics & Gynecology; Visit Provider Obstetrics & Gynecology
DX: O47.1 False labor at or after 37 completed weeks of gestation (principal); Z3A.37 37 weeks gestation of pregnancy
CPT/HCPCS: 76818; 81001; G0378; G0379

== ENCOUNTER 2024-01-24 10:44 | Outpatient (OUT) | payer OTHER, SELFPAY ==
--- OUTSIDE RECORDS SUMMARY | 2024-01-24 10:47 | XMS_ITS | CCD ---
Author Organization [facility] Care Team Providers Care Neurosurgery Physician Name Role Phone PHYSICIAN, DEFAULT Unavailable Unavailable PHYSICIAN, DEFAULT Unavailable Unavailable HOUSE, DR FLYNN Attending Unavailable HOUSE, DR FLYNN Consulting Unavailable HOUSE, DR FLYNN Admitting Unavailable REQUEST, DR JOSE LISTED Primary Care Unavaila ble Unavailable Primary Care Provider Unavailabl e ARTIS, PATI Attending Unavailable KEO, AMPARO Attending Unavailable ARTIS, PATI Attending Unavailable KEO, AMPARO Attending Unavailable ARTIS, PATI Attending Unavailable KEO, AMPARO Attending Unavailable ARTIS, PATI Attending Unavailable KEO, AMPARO Attending Unavailable Allergies Allergy Classification Reported Allergen(s) Allergy Type Date of Onset Reaction(s) Facility (1 source) Nitrofurantoin Drug Allergy 7 [facility] (2 sources) Ciprofloxacin Drug Allergy [...] UA Negative Negative - 4(70) +++ mg/dL [facility] Blood, UA Positive Negative - 50 Andrea/mcL [facility] Clarity, UA Clear [facility] re Color, UA Yellow [facility] e Glucose, UA Negative Negative - 1999(110) ++++ mg/dL [facility] Interpretation and review of laboratory results Abnormal [facility] Ketones, UA Negative Negative - 160(16) ++++ mg/dL [facility] Leukocytes, UA Negative Negative - 500+++ Toan/mcL [facility] Nitrite, UA Negative Negative - Positive [facility] pH, UA 5.5 5 - 9 [facility] Protein, UA Negative Negative - 1999(20) ++++ mg/dL [facility] Spec Grav, UA 1.020 1 - 1.03 [facility] Urobilinogen, UA 1.0 0.2 - 12 mg/dL [facility] CBC AUTO DIFFon 10-02-2022 BASO # 0.0 103/ul Normal 0.0-0.1 [facility] Comment on above: Performed By: #### C BC #### [facility] [address] [place] [address] Dr. Musa Chacon Basophils/100 WBC (Bld) 0.9 % Normal 0.2-2.0 [facility] Comment on above: Performed By: #### C BC #### [facility] [address] [address] [address] Musa Chacon EO # 0.1 103/ul Normal 0.0-0.7 [facility] Comment on above: Performed By: #### C BC #### [facility] [address] [place] [address] Dr. Musa Chacon Eosinophils/100 WBC (Bld) 1.8 % Normal 0.9-7.0 [facility] Comment on above: Performed By: #### C BC #### [facility] [address] [place] [address] Dr. Musa Chacon Erythrocyte distribution width (RBC) [Ratio] 12.8 % Normal 11.0-15.0 [facility] Comment on above: Performed By: #### C BC #### [facility] [address] [place] [address] Dr. Musa Chacon Hematocrit (Bld) [Volume fraction] 39.4 % Normal 36.0-48.0 [facility] Comment on above: Performed By: #### C BC #### [facility] [address] [place] [address] Dr. Musa Chacon Hemoglobin (Bld) [Mass/Vol] 13.5 g/dL Normal 12.0-16.0 [facility] Comment on above: Performed By: #### C BC #### [facility] [address] [place] [address] Dr. Musa Chacon IG # 0.01 10e3/ul Normal 0.00-0.03 [facility] Comment on above: Performed By: #### C BC #### [facility] [address] [place] [address] Dr. Musa Chacon IG % 0.2 % Normal 0.0-0.5 [facility] Comment on above: Performed By: #### C BC #### [facility] [address] [place] [address] Dr. Musa Chacon LYMPH # 1.4 103/ul Normal 1.2-3.8 [facility] Comment on above: Performed By: #### C BC #### [facility] [address] [place] [address] Dr. Musa Chacon Lymphocytes/100 WBC (Bld) 32.0 % Normal 20.5-60.0 [facility] Comment on above: Performed By: #### C BC #### [facility] [address] [place] [address] Dr. Musa Chacon MANUAL DIFF REQ NO Normal [facility] Comment on above: Performed By: #### C BC #### [facility] [address] [place] [address] Dr. Musa Chacon MCH (RBC) [Entitic mass] 30.1 pg Normal 26.7-34.0 [facility] Comment on above: Performed By: #### C BC #### [facility] [address] [place] [address] Dr. Musa Chacon MCHC (RBC) [Mass/Vol] 34.3 g/dL Normal 29.9-35.2 [facility] Comment on above: Performed By: #### C BC #### [facility] [address] [place] [address] Dr. Musa Chacon MCV (RBC) [Entitic vol] 87.8 fL Normal 81.0-99.0 [facility] Comment on above: Performed By: #### C BC #### [facility] [address] [place] [address] Dr. Musa Chacon MONO # 0.4 103/ul Normal 0.3-0.8 [facility] Comment on above: Performed By: #### C BC #### [facility] [address] [place] [address] Dr. Musa Chacon Monocytes/100 WBC (Bld) 8.0 % Normal 1.7-12.0 [facility] Comment on above: Performed By: #### C BC #### [facility] [address] [place] [address] Dr. Musa Chacon NEUT # 2.6 103/ul Normal 1.4-6.5 [facility] Comment on above: Performed By: #### C BC #### [facility] [address] [place] [address] Dr. Musa Chacon Neutrophils/100 WBC (Bld) 57.1 % Normal 43.0-75.0 [facility] Comment on above: Performed By: #### C BC #### [facility] [address] [address] [address] Musa Chacon Platelet mean volume (Bld) [Entitic vol] 10.2 fL Normal 9.5-13.5 [facility] Comment on above: Performed By: #### C BC #### [facility] [address] [place] [address] Dr. Musa Chacon PLT 223 103/ul Normal 150-450 [facility] Comment on above: Performed By: #### C BC #### [facility] [address] [place] [address] Dr. Musa Chacon RBC 4.49 106/ul Normal 4.20-5.40 [facility] Comment on above: Performed By: #### C BC #### [facility] [address] [place] [address] Dr. Musa Chacon WBC 4.5 103/ul Normal 4.0-11.0 [facility] Comment on above: Performed By: #### C BC #### [facility] [address] [place] [address] Dr. Musa Chacon PROF 14(COMP METB)on 022 Albumin [Mass/Vol] 4.1 g/dL Normal 3.4-5.0 [facility] Comment on above: Performed By: #### T 4, CMP, TSH #### [facility] [address] [place] [address] Dr. Musa Chacon Albumin/Globulin [Mass ratio] 1.5 {ratio} Normal [facility] Comment on above: Performed By: #### T 4, CMP, TSH #### [facility] [address] [place] [address] Dr. Musa Chacon ALP [Catalytic activity/Vol] 51 U/L Normal 46-116 [facility] Comment on above: Performed By: #### T 4, CMP, TSH #### [facility] [address] [place] [address] Dr. Musa Chacon ALT [Catalytic activity/Vol] 17 U/L Normal 14-59 [facility] Comment on above: Performed By: #### T 4, CMP, TSH #### [facility] [address] [address] [address] Musa Chacon Anion gap [Moles/Vol] 11.8 mmol/L Normal [facility] Comment on above: Performed By: #### T 4, CMP, TSH #### [facility] [address] [place] [address] Dr. Musa Chacon AST [Catalytic activity/Vol] 14 U/L Critically low 15-37 [facility] Comment on above: Performed By: #### T 4, CMP, TSH #### [facility] [address] [place] [address] Dr. Musa Chacon Bilirubin [Mass/Vol] 0.8 mg/dL Normal 0.2-1.0 [facility] Comment on above: Performed By: #### T 4, CMP, TSH #### [facility] [address] [place] [address] Dr. Musa Chacon Calcium [Mass/Vol] 8.9 mg/dL Normal 8.5-10.1 [facility] Comment on above: Performed By: #### T 4, CMP, TSH #### [facility] [address] [place] [address] Dr. Musa Chacon Chloride [Moles/Vol] 105 mmol/L Normal 98-107 [facility] Comment on above: Performed By: #### T 4, CMP, TSH #### [facility] [address] [place] [address] Dr. Musa Chacon CO2 [Moles/Vol] 27.4 mmol/L Normal 21.0-32.0 [facility] Comment on above: Performed By: #### T 4, CMP, TSH #### [facility] [address] [place] [address] Dr. Musa Chacon Creatinine [Mass/Vol] 0.78 mg/dL Normal 0.55-1.02 [facility] Comment on above: Performed By: #### T 4, CMP, TSH #### [facility] [address] [place] [address] Dr. Musa Chacon EGFR-AF CENTRAL AFRICAN >60 Normal >=60 [facility] Comment on above: Performed By: #### T 4, CMP, TSH #### [facility] [address] [place] [address] Dr. Musa Chacon EGFR-NON AF CENTRAL AFRICAN >60 Normal >=60 [facility] Comment on above: Performed By: #### T 4, CMP, TSH #### [facility] [address] [place] [address] Dr. Musa Chacon Globulin (S) [Mass/Vol] 2.8 g/dL Normal [facility] Comment on above: Performed By: #### T 4, CMP, TSH #### [facility] [address] [place] [address] Dr. Musa Chacon Glucose [Mass/Vol] 96 mg/dL Normal 74-106 [facility] Comment on above: Performed By: #### T 4, CMP, TSH #### [facility] [address] [place] [address] Dr. Musa Chacon Potassium [Moles/Vol] 4.2 mmol/L Normal 3.5-5.1 [facility] Comment on above: Performed By: #### T 4, CMP, TSH #### [facility] [address] [place] [address] Dr. Musa Chacon Protein [Mass/Vol] 6.9 g/dL Normal 6.4-8.2 [facility] Comment on above: Performed By: #### T 4, CMP, TSH #### [facility] [address] [place] [address] Dr. Musa Chacon Sodium [Moles/Vol] 140 mmol/L Normal 136-145 [facility] Comment on above: Performed By: #### T 4, CMP, TSH #### [facility] [address] [place] [address] Dr. Musa Chacon Urea nitrogen [Mass/Vol] 10.0 mg/dL Normal 7.0-18.0 [facility] Comment on above: Performed By: #### T 4, CMP, TSH #### [facility] [address] [place], [place] [id number] Dr. Musa Chacon Urea nitrogen/Creatinine [Mass ratio] 12.8 mg/mg Normal [facility] Comment on above: Performed By: #### T 4, CMP, TSH #### [facility] [address] [place] [address] Dr. Musa Chacon T4on 10-02-2022 T4 [Mass/Vol] 6.30 ug/dL Normal 4.80-13.[address] [facility] Comment on above: Performed By: #### T 4, CMP, TSH #### [facility] [address] [address] [address] Musa Chacon TSHon 10-02-2022 TSH 1.653 uIU/mL Normal 0.358-3.740 [facility] Comment on above: Performed By: #### T 4, CMP, TSH #### [facility] [address] [place] [address] Dr. Musa Chacon Coding Summary.on 10-12-2020 Coding Summary. CODING DATE: 10/12/2020 FINAL [facility] STATUS: Home (Routine DC) PAYOR: Commercial [...] CphT Date Saved: 10/12/2020 10:12 am Normal [facility] SARS-CoV-2, NAAon 10-06-2020 SARS CORONAVIRUS 2 RNA:PRTHR:PT:RESPIRA TORY:ORD:PROBE.AMP.T AR Detected Abnormal Not Detected [facility] Comment on above: Result Comment: This nucleic acid amplification test was developed and its performance characteristics determined by [employer]. Nucleic acid amplification tests include PCR and [...] detected) result in this assay. Performed at: [facility] [address] [place], [place] [id number] [facility] Magda Clark Performed By: #### S ARS-CoV-2, LE #### [facility] [address] [place] [address] Physician Orderon 10-02-2020 Physician Order [id number]:127 Normal [facility] Vital Signs Date Time Vital Sign Value Performing Clinician Mani sotomayor 12-10-2023 16:18-0500 Body weight 70.31 kg Pati FRANCO Work Phone: [facility] 12-10-2023 16:18-0500 Diastolic blood pressure 64 mm[Hg] Pati FRANCO Work Phone: [facility] 12-10-2023 16:18-0500 Systolic blood pressure 108 mm[Hg] Pati FRANCO Work Phone: [facility] Healthcare Encounters Encounter Date Encounter Type Care Provider Facility Start: 01-21-2024 End: 01-21-2024 ambulatory AMPARO KEO Not Available Start: 01-14-2024 End: 01-14-2024 ambulatory AMPARO KEO [...] examination without abnormal findings DR GEE HERNANDEZ [facility] Start: 10-02-2022 End: 10-03-[address] GEE HERNANDEZ Facility:[facility] Start: 10-02-2022 End: 10-03-2022 Encounter for general adult medical examination without abnormal findings DR GEE HERNANDEZ Facility:[facility] Start: 05-21-2017 End: 05-22-2017 Ambulatory DEFAULT PHYSICIAN Facility:[facility] Procedures Date Procedure Procedure Detail Performing Clinician Start: 12-10-2023 Urnls dip stick/tabl et rgnt non-auto w/o micrscp Pati FRANCO Work Phone: Plan of Treatment Date Care Activity Detail Author Start: 12-24-2023 End: 12-24-2023 Patient encounter procedure 12/24/2023 1:40 PM EST Routine [facility] [address] [place] [address] Amparo Cabrone, DO [address] [place] [address] [facility] Start: 12-24-2023 End: 12-24-2023 Professional / ancillary services management 12/24/2023 1:00 PM EST Ancillary Procedure [facility] [address] [place] [id number] [facility] Start: 12-10-2023 End: 12-10-2024 Nonstress test nonstress test Procedures Routine Multigravida of advanced maternal age in third trimester Expected: 12/10/2023 (Approximate), Expires: 12/10/2024 [facility] Healthcare Work Phone: Comment on above: Expected: 12/10/2023 (Approximate), Expires: 12/10/2024 Start: 12-10-2023 End: 12-10-2024 US biophysical profile wo non stress testing US biophysical profile wo non stress testing Imaging Routine Multigravida of advanced maternal age in third trimester Expected: 12/10/2023 (Approximate), Expires: 12/10/2024 [facility] Comment on above: Expected: 12/10/2023 (Approximate), Expires: 12/10/2024 Payers Date Payer Category Payer Unknown 2022 Unknown [id number] 1985 Unknown [id number] 2.16.84 [id number] 1986 Unknown [id number] 2.16.84 [id number] 1986 Unknown [id number] 2.16.84 [id number] 1986 Unknown [id number] 2.16.84 [id number] 1986 Unknown [id number] 2.16.84 [id number] 1986 Unknown [id number] 2.16.84 [id number] 1986 Unknown [id number] 2.16.84 [id number] 1986 Unknown [id number] 2.16.840 .[id number] 1986 Unknown [id number] 2.16.840 [id number] 1959 Unknown [id number] Social History Date Type Detail Facility Tobacco smoking stat [facility] Tobacco smoking consumption unknown [facility] Start: 05-16-2023 [facility] Start: 1985 Sex Assigned At Female [facility] Start: 06-23-2023 Gender identity Identifies as female gender (finding) [facility] Start: 06-23-2023 Sexual orientation Heterosexual (kiya zimmer) [facility] Healthcare History of Present illness Narrative 12-10-2023 [...] section and content) DATE CREATED AUTHOR 04/29/2018 [facility] DATE CREATED AUTHOR AUTHOR'S ORGANIZ ATION 10/13/2020 [facility] DATE CREATED AUTHOR AUTHOR'S ORGANIZ ATION 10/05/2022 [facility] DATE CREATED AUTHOR AUTHOR'S ORGANIZ ATION 01/22/2024 [facility] EPIC Reason for Visit (unrecogniz [...] BE BASED ON THE PRIMARY CLINICAL RECORDS. [facility] [facility]. provides no warranty or guarantee of the accuracy or completeness of information in this document.
[2024-01-24 14:01] VITALS: BP 112/65; PULSE 73
== END 2024-01-24 14:49 | disposition home or self-care (01) ==
LOC: FBCO 10:45 → FBC 13:58
PROVIDERS: Visit Provider Obstetrics & Gynecology
DX: O09.523 Supervision of elderly multigravida, third trimester (principal)
CPT/HCPCS: 59025

== ENCOUNTER 2024-01-26 21:50 | Inpatient (IN) | payer OTHER, SELFPAY ==
--- OUTSIDE RECORDS SUMMARY | 2024-01-26 21:54 | XMS_ITS | CCD ---
Author Organization [facility] Care Team Providers Care Coordinator Volunteer Services Name Role Phone PHYSICIAN, DEFAULT Unavailable Unavailable [...] (1 source) Nitrofurantoin Drug Allergy 7 [facility] Repository (2 sources) Ciprofloxacin Drug [...] Negative Negative - 4(70) +++ mg/dL [facility] Blood, UA Positive Negative - 50 Andrea/mcL [facility] Clarity, UA Clear [facility] re Color, UA Yellow [facility] e Glucose, UA Negative Negative - 1999(110) ++++ mg/dL [facility] Interpretation and review of laboratory results Abnormal [facility] Ketones, UA Negative Negative - 160(16) ++++ mg/dL [facility] Leukocytes, UA Negative Negative - 500+++ Toan/mcL [facility] Nitrite, UA Negative Negative - Positive [facility] pH, UA 5.5 5 - 9 [facility] Protein, UA Negative Negative - 1999(20) ++++ mg/dL [facility] Spec Grav, UA 1.020 1 - 1.03 [facility] Urobilinogen, UA 1.0 0.2 - 12 mg/dL [facility] CBC AUTO DIFFon 10-02-2022 BASO # 0.0 103/ul Normal 0.0-0.1 [facility] Comment on above: Performed By: #### C BC #### [facility] [address] [place] [address] Dr. Musa Chacon Basophils/100 WBC (Bld) 0.9 % Normal 0.2-2.0 [facility] Comment on above: Performed By: #### C BC #### [facility] [address] [address] [address] Musa Chacon EO # 0.1 103/ul Normal 0.0-0.7 [facility] Comment on above: Performed By: #### C BC #### [facility] [address] [place] [address] Dr. Musa Chacon Eosinophils/100 WBC (Bld) 1.8 % Normal 0.9-7.0 [facility] Comment on above: Performed By: #### C BC #### [facility] [address] [place] [address] Dr. Musa Chacon Erythrocyte distribution width (RBC) [Ratio] 12.8 % Normal 11.0-15.0 [facility] Comment on above: Performed By: #### C BC #### [facility] [address] [place] [address] Dr. Musa Chacon Hematocrit (Bld) [Volume fraction] 39.4 % Normal 36.0-48.0 [facility] Comment on above: Performed By: #### C BC #### [facility] [address] [place] [address] Dr. Musa Chacon Hemoglobin (Bld) [Mass/Vol] 13.5 g/dL Normal 12.0-16.0 [facility] Comment on above: Performed By: #### C BC #### [facility] [address] [place] [address] Dr. Musa Chacon IG # 0.01 10e3/ul Normal 0.00-0.03 [facility] Comment on above: Performed By: #### C BC #### [facility] [address] [place] [address] Dr. Musa Chacon IG % 0.2 % Normal 0.0-0.5 [facility] Comment on above: Performed By: #### C BC #### [facility] [address] [place] [address] Dr. Musa Chacon LYMPH # 1.4 103/ul Normal 1.2-3.8 [facility] Comment on above: Performed By: #### C BC #### [facility] [address] [place] [address] Dr. Musa Chacon Lymphocytes/100 WBC (Bld) 32.0 % Normal 20.5-60.0 [facility] Comment on above: Performed By: #### C BC #### [facility] [address] [place] [address] Dr. Musa Chacon MANUAL DIFF REQ NO Normal [facility] Comment on above: Performed By: #### C BC #### [facility] [address] [place] [address] Dr. Musa Chacon MCH (RBC) [Entitic mass] 30.1 pg Normal 26.7-34.0 [facility] Comment on above: Performed By: #### C BC #### [facility] [address] [place] [address] Dr. Musa Chacon MCHC (RBC) [Mass/Vol] 34.3 g/dL Normal 29.9-35.2 [facility] Comment on above: Performed By: #### C BC #### [facility] [address] [place] [address] Dr. Musa Chacon MCV (RBC) [Entitic vol] 87.8 fL Normal 81.0-99.0 [facility] Comment on above: Performed By: #### C BC #### [facility] [address] [place] [address] Dr. Musa Chacon MONO # 0.4 103/ul Normal 0.3-0.8 [facility] Comment on above: Performed By: #### C BC #### [facility] [address] [place] [address] Dr. Musa Chacon Monocytes/100 WBC (Bld) 8.0 % Normal 1.7-12.0 [facility] Comment on above: Performed By: #### C BC #### [facility] [address] [place] [address] Dr. Musa Chacon NEUT # 2.6 103/ul Normal 1.4-6.5 [facility] Comment on above: Performed By: #### C BC #### [facility] [address] [place] [address] Dr. Musa Chacon Neutrophils/100 WBC (Bld) 57.1 % Normal 43.0-75.0 [facility] Comment on above: Performed By: #### C BC #### [facility] [address] [address] [address] Musa Chacon Platelet mean volume (Bld) [Entitic vol] 10.2 fL Normal 9.5-13.5 [facility] Comment on above: Performed By: #### C BC #### [facility] [address] [place] [address] Dr. Musa Chacon PLT 223 103/ul Normal 150-450 [facility] Comment on above: Performed By: #### C BC #### [facility] [address] [place] [address] Dr. Musa Chacon RBC 4.49 106/ul Normal 4.20-5.40 [facility] Comment on above: Performed By: #### C BC #### [facility] [address] [place] [address] Dr. Musa Chacon WBC 4.5 103/ul Normal 4.0-11.0 [facility] Comment on above: Performed By: #### C BC #### [facility] [address] [place] [address] Dr. Musa Chacon PROF 14(COMP METB)on 022 Albumin [Mass/Vol] 4.1 g/dL Normal 3.4-5.0 [facility] Comment on above: Performed By: #### T 4, CMP, TSH #### [facility] [address] [place] [address] Dr. Musa Chacon Albumin/Globulin [Mass ratio] 1.5 {ratio} Normal [facility] Comment on above: Performed By: #### T 4, CMP, TSH #### [facility] [address] [place] [address] Dr. Musa Chacon ALP [Catalytic activity/Vol] 51 U/L Normal 46-116 [facility] Comment on above: Performed By: #### T 4, CMP, TSH #### [facility] [address] [place] [address] Dr. Musa Chacon ALT [Catalytic activity/Vol] 17 U/L Normal 14-59 [facility] Comment on above: Performed By: #### T 4, CMP, TSH #### [facility] [address] [address] [address] Musa Chacon Anion gap [Moles/Vol] 11.8 mmol/L Normal [facility] Comment on above: Performed By: #### T 4, CMP, TSH #### [facility] [address] [place] [address] Dr. Musa Chacon AST [Catalytic activity/Vol] 14 U/L Critically low 15-37 [facility] Comment on above: Performed By: #### T 4, CMP, TSH #### [facility] [address] [place] [address] Dr. Musa Chacon Bilirubin [Mass/Vol] 0.8 mg/dL Normal 0.2-1.0 [facility] Comment on above: Performed By: #### T 4, CMP, TSH #### [facility] [address] [place] [address] Dr. Musa Chacon Calcium [Mass/Vol] 8.9 mg/dL Normal 8.5-10.1 [facility] Comment on above: Performed By: #### T 4, CMP, TSH #### [facility] [address] [place] [address] Dr. Musa Chacon Chloride [Moles/Vol] 105 mmol/L Normal 98-107 [facility] Comment on above: Performed By: #### T 4, CMP, TSH #### [facility] [address] [place] [address] Dr. Musa Chacon CO2 [Moles/Vol] 27.4 mmol/L Normal 21.0-32.0 [facility] Comment on above: Performed By: #### T 4, CMP, TSH #### [facility] [address] [place] [address] Dr. Musa Chacon Creatinine [Mass/Vol] 0.78 mg/dL Normal 0.55-1.02 [facility] Comment on above: Performed By: #### T 4, CMP, TSH #### [facility] [address] [place] [address] Dr. Musa Chacon EGFR-AF TURKS AND CAICOS ISLANDER >60 Normal >=60 [facility] Comment on above: Performed By: #### T 4, CMP, TSH #### [facility] [address] [place] [address] Dr. Musa Chacon EGFR-NON AF TURKS AND CAICOS ISLANDER >60 Normal >=60 [facility] Comment on above: Performed By: #### T 4, CMP, TSH #### [facility] [address] [place] [address] Dr. Musa Chacon Globulin (S) [Mass/Vol] 2.8 g/dL Normal [facility] Comment on above: Performed By: #### T 4, CMP, TSH #### [facility] [address] [place] [address] Dr. Musa Chacon Glucose [Mass/Vol] 96 mg/dL Normal 74-106 [facility] Comment on above: Performed By: #### T 4, CMP, TSH #### [facility] [address] [place] [address] Dr. Musa Chacon Potassium [Moles/Vol] 4.2 mmol/L Normal 3.5-5.1 [facility] Comment on above: Performed By: #### T 4, CMP, TSH #### [facility] [address] [place] [address] Dr. Musa Chacon Protein [Mass/Vol] 6.9 g/dL Normal 6.4-8.2 [facility] Comment on above: Performed By: #### T 4, CMP, TSH #### [facility] [address] [place] [address] Dr. Musa Chacon Sodium [Moles/Vol] 140 mmol/L Normal 136-145 [facility] Comment on above: Performed By: #### T 4, CMP, TSH #### [facility] [address] [place] [address] Dr. Musa Chacon Urea nitrogen [Mass/Vol] 10.0 mg/dL Normal 7.0-18.0 [facility] Comment on above: Performed By: #### T 4, CMP, TSH #### [facility] [address] [place], [place] [id number] Dr. Musa Chacon Urea nitrogen/Creatinine [Mass ratio] 12.8 mg/mg Normal [facility] Comment on above: Performed By: #### T 4, CMP, TSH #### [facility] [address] [place] [address] Dr. Musa Chacon T4on 10-02-2022 T4 [Mass/Vol] 6.30 ug/dL Normal 4.80-13.90 [facility] Comment on above: Performed By: #### T 4, CMP, TSH #### [facility] [address] [address] [address] Musa Chacon TSHon 10-02-2022 TSH 1.653 uIU/mL Normal 0.358-3.740 [facility] Comment on above: Performed By: #### T 4, CMP, TSH #### [facility] [address] [place] [address] Dr. Musa Chacon Coding Summary.on 10-12-2020 Coding Summary. 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 Nucleic acid amplification tests include PCR and [...] detected) result in this assay. Performed at: [facility] [address] [place], [place] [id number] [facility] Magda Clark Performed By: #### S ARS-CoV-2, LE #### [facility] [address] [place] [address] Physician Orderon 10-02-2020 Physician Order [id number] Normal [facility] Vital Signs Date Time Vital Sign Value Performing Clinician Mani sotomayor 12-10-2023 16:18-0500 Body weight 70.31 kg Pati FRANCO Work Phone: [facility] 12-10-2023 16:18-0500 Diastolic blood pressure 64 mm[Hg] Pati FRANCO Work Phone: [facility] 12-10-2023 16:18-0500 Systolic blood pressure 108 mm[Hg] [...] examination without abnormal findings DR GEE HERNANDEZ [facility] Start: 10-02-2022 End: 10-03-[address] GEE HERNANDEZ Facility:[facility] Start: 10-02-2022 End: 10-03-2022 Encounter for general adult medical examination without abnormal findings DR GEE HERNANDEZ Facility:[facility] Start: 05-21-2017 End: 05-22-2017 Ambulatory DEFAULT PHYSICIAN Facility:[facility] Procedures Date Procedure Procedure Detail Performing Clinician Start: 12-10-2023 Urnls dip stick/tabl et rgnt non-auto w/o micrscp Pati FRANCO Work Phone: Plan of Treatment Date Care Activity Detail Author Start: 12-24-2023 End: 12-24-2023 Patient encounter procedure 12/24/2023 1:40 PM EST Routine [facility] [address] [place] [address] Amparo Carbone, DO [address] [place] [address] [facility] Start: 12-24-2023 End: 12-24-2023 Professional / ancillary services management 12/24/2023 1:00 PM EST Ancillary Procedure [facility] [address] [place] [id number] [facility] Start: 12-10-2023 End: 12-10-2024 Nonstress test nonstress test Procedures Routine Multigravida of advanced maternal age in third trimester Expected: 12/10/2023 (Approximate), Expires: 12/10/2024 [facility] Work Phone: Comment on above: Expected: 12/10/2023 (Approximate), Expires: 12/10/2024 Start: 12-10-2023 End: 12-10-2024 US biophysical profile wo non stress testing US biophysical profile wo non stress testing Imaging Routine Multigravida of advanced maternal age in third trimester Expected: 12/10/2023 (Approximate), Expires: 12/10/2024 [facility] Comment on above: Expected: 12/10/2023 (Approximate), Expires: 12/10/2024 Payers Date Payer Category Payer Unknown 2022 Unknown [id number] 1985 Unknown [id number] 2.16.84 [id number] 1985 Unknown [id number] 2.16.84 [id number] 1986 Unknown [id number] 2.16.84 [id number] 1986 Unknown [id number] 2.16.84 [id number] 1986 Unknown [id number] 2.16.84 [id number] 1986 Unknown [id number] 2.16.84 [id number] 1986 Unknown [id number] 2.16.84 [id number] 1986 Unknown [id number] [id number] 1986 Unknown [id number] 1959 Unknown [id number] Social History Date Type Detail Facility Tobacco smoking stat [facility] Tobacco smoking consumption unknown [facility] Start: 05-16-2023 [facility] Start: 1985 Sex Assigned At Female [facility] Start: 06-23-2023 Gender identity Identifies as female gender (finding) [facility] Start: 06-23-2023 Sexual orientation Heterosexual (kiya zimmer) [facility] History of Present illness Narrative [...] section and content) DATE CREATED AUTHOR 04/29/2018 [facility] DATE CREATED AUTHOR AUTHOR'S ORGANIZ ATION 10/13/2020 [facility] DATE CREATED AUTHOR AUTHOR'S ORGANIZ ATION 10/05/2022 [facility] DATE CREATED AUTHOR AUTHOR'S ORGANIZ ATION 01/22/2024 [facility] EPIC Reason for Visit (unrecogniz [...] BE BASED ON THE PRIMARY CLINICAL RECORDS. [facility]. provides no warranty or guarantee of the accuracy or completeness of information in this document.
[2024-01-26 22:09] VITALS: BP 117/70; PULSE 70; TEMP 36.3
[2024-01-26 23:33] LABS: Amphetamine Screen Urine NEGATIVE (NEGATIVE); Barbiturates Screen Urine NEGATIVE (NEGATIVE); Benzodiazepines Screen Urine NEGATIVE (NEGATIVE); Buprenorphine Screen Urine NEGATIVE (NEGATIVE); Cannabinoid Screen Urine NEGATIVE (NEGATIVE); Cocaine Screen Urine NEGATIVE (NEGATIVE); Methadone Screen Urine NEGATIVE (NEGATIVE); Methamphetamines Screen Urine NEGATIVE (NEGATIVE); Opiate Screen Urine NEGATIVE (NEGATIVE); Oxycodone Screen Urine NEGATIVE (NEGATIVE); Phencyclidine Screen Urine NEGATIVE (NEGATIVE); Tricyclic Antidepressant Urine NEGATIVE (NEGATIVE)
[2024-01-27] VITALS (28 sets, daily range): BP systolic 91–121; BP diastolic 51–72; PULSE 50–77; RESP 16–42; TEMP 37.2
[2024-01-27] MEDS: 0.9 % SODIUM CHLORIDE 1,000 ML 125 ML IV (00:10)
[2024-01-27 00:17] LABS: Hematocrit 31.7 % (36.0-48.0); Hemoglobin 10.9 g/dL (12.0-16.0); Mean Corpuscular HGB Conc 34.4 g/dL (29.9-35.2); Mean Corpuscular Hemoglobin 31.6 pg (26.7-34.0); Mean Corpuscular Volume 91.9 fL (81.0-99.0); Mean Platelet Volume 9.6 fL (9.5-13.5); Platelet Count 257 10^3/uL (150-450); Red Blood Count 3.45 10^6/uL (4.20-5.40); Red Cell Distribution Width 13.8 % (11.0-15.0); White Blood Count 16.7 10^3/uL (4.0-11.0)
[2024-01-27 03:09] LABS: Bilirubin Urine NEGATIVE (NEGATIVE); Blood Urine LARGE (NEGATIVE); Clarity Urine CLEAR (CLEAR); Color Urine LT. YELLOW (YELLOW); Glucose Urine UA NEGATIVE (NEGATIVE); Ketones Urine NEGATIVE (NEGATIVE); Leukocyte Esterase Urine MODERATE (NEGATIVE); Nitrite Urine NEGATIVE (NEGATIVE); Protein Urine 100 mg/dL (NEG/TRACE); Urobilinogen Urine 0.2 EU/dL (0.2-1.0); pH Urine 6.5 (5.0-9.0)
[2024-01-27] MEDS: 0.9 % SODIUM CHLORIDE 1,000 ML 1000 ML IV (07:32)
[2024-01-27] MEDS: ROPIVACAINE HCL/PF 400 MG/200 ML PREMIX 6 MG EPIDURAL (09:28)
[2024-01-27] MEDS: OXYTOCIN/0.9 % SODIUM CHLORIDE 10 UNITS/500 ML PLAST..BAG 6 UNIT IV (10:10)
[2024-01-27] MEDS: OXYTOCIN/0.9 % SODIUM CHLORIDE 20 UNITS/1,000 ML PLAST..BAG 125 UNIT IV (12:15)
--- NOTE | 2024-01-27 12:17 | PM.OBPRCVD ---
Procedure Intrapartal events: None Delivery augmentation: rupture of membranes Delivery monitor: external FHT and external uterine Route of delivery: Episiotomy Description: none L&D Laceration Description: none Estimated blood loss (mL): 200 Anesthesia type: Epidural Disposition: floor Infant Delivery date: 01/27/24 Gender: female presentation: vertex Placental delivery description: Spontaneous cord description: 3 Vessels
--- NOTE | 2024-01-27 15:25 | PC.NURSE ---
1455: EPIDURAL CATHETER REMOVED WITH TIP INTACT- SECURED WITH BANDAID
[2024-01-27] MEDS: BENZOCAINE/MENTHOL 85 GRAM SPRAY BOTTLE 1 APPLIC TOPICAL (21:06)
[2024-01-28] VITALS: RESP 18; TEMP 36.9
[2024-01-28] MEDS: IBUPROFEN 600 MG TABLET PO (00:31)
[2024-01-28 06:27] LABS: Basophils Absolute Auto 0.1 10^3/uL (0.0-0.1); Basophils Percent Auto 0.5 % (0.2-2.0); Eosinophils Absolute Auto 0.1 10^3/uL (0.0-0.7); Eosinophils Percent Auto 0.5 % (0.9-7.0); Hematocrit 28.2 % (36.0-48.0); Hemoglobin 9.5 g/dL (12.0-16.0); Immature Granulocytes Pct Auto 0.7 % (0.0-0.5); Lymphocytes Absolute Auto 2.2 10^3/uL (1.2-3.8); Lymphocytes Percent Auto 14.6 % (20.5-60.0); Mean Corpuscular HGB Conc 33.7 g/dL (29.9-35.2); Mean Corpuscular Hemoglobin 31.4 pg (26.7-34.0); Mean Corpuscular Volume 93.1 fL (81.0-99.0); Mean Platelet Volume 10.2 fL (9.5-13.5); Monocytes Absolute Auto 0.8 10^3/uL (0.3-0.8); Monocytes Percent Auto 5.2 % (1.7-12.0); Neutrophils Absolute Auto 12.1 10^3/uL (1.4-6.5); Neutrophils Percent Auto 78.5 % (43.0-75.0); Platelet Count 223 10^3/uL (150-450); Red Blood Count 3.03 10^6/uL (4.20-5.40); White Blood Count 15.3 10^3/uL (4.0-11.0)
--- NOTE | 2024-01-28 07:37 | PM.OBPN ---
OB - PN: Subj Subjective Patient comments: no complaints and pain well controlled [place] status: doing well Exam Constitutional Vital Signs, click to edit/add: Last Vital Signs Temp 98.4 F 01/28/24 00:00 Pulse 50 L 01/27/24 14:10 Resp 18 01/28/24 00:00 BP 99/55 01/27/24 14:10 O2 Del Method Room Air 01/28/24 00:00 Documenting provider has reviewed patient's vital signs: yes Common normals: no apparent distress Respiratory Common normals: clear to auscultation bilaterally Cardio Common normals: regular rate and regular rhythm GI Common normals: Normal to inspection, nondistended, normoactive bowel sounds present Extremity Common normals: no clubbing, cyanosis or edema and no calf tenderness Results Labs Labs: Short CBC 01/28/24 Range/Units 06:00 WBC 15.3 H (4.0-11.0) 10^3/uL Hgb 9.5 L (12.0-16.0) g/dL Hct 28.2 L (36.0-48.0) % Plt Count 223 (150-450) 10^3/uL OB - PN: A/P Plan - Vaginal Delivery day: 1 Plan: routine care, discharge home and follow up 6 weeks Time Spent with Patient Time: Total time spent is greater than 50% in coordination of care (as documented) at patient's floor/unit and/or counseling patient: Total time spent with greater than 50% in coordination of care (as documented) at patient's floor/unit and/or counseling patient: less than 15 minutes
[2024-01-28 07:39] VITALS: BP 122/78; PULSE 75; RESP 16; TEMP 36.4
== END 2024-01-28 18:05 | disposition home or self-care (01) | DRG 807 ==
PROVIDERS: Admitting Provider Obstetrics & Gynecology; Visit Provider Obstetrics & Gynecology
DX: O80 Encounter for full-term uncomplicated delivery (principal); Z37.0 Single live birth; Z3A.38 38 weeks gestation of pregnancy
CPT/HCPCS: 36415; 59025; 59050; 59410; 80307; 81003; 85025; 85027; 86850; 86900; 86901; 96365; 96366

== ENCOUNTER 2024-02-04 08:27 | Outpatient (OUT) | payer OTHER, SELFPAY ==
--- OUTSIDE RECORDS SUMMARY | 2024-02-04 08:31 | XMS_ITS | CCD ---
Author Organization [facility] Care Team Providers Care Bed Control Specialist Name Role Phone PHYSICIAN, DEFAULT Unavailable Unavailable [...] (1 source) Nitrofurantoin Drug Allergy 7 [facility] Repository (2 sources) Ciprofloxacin Drug [...] Andrea/mcL [facility] Clarity, UA Clear [facility] re Color, UA Yellow [facility] e Glucose, UA Negative Negative - 1999(110) ++++ mg/dL [facility] Interpretation and review of laboratory results Abnormal [facility] Ketones, UA Negative Negative - 160(16) ++++ mg/dL [facility] Leukocytes, UA Negative Negative - 500+++ Toan/mcL [facility] Nitrite, UA Negative Negative - Positive [facility] pH, UA 5.5 5 - 9 [facility] Protein, UA Negative Negative - 1999(20) ++++ mg/dL [facility] Spec Grav, UA 1.020 1 - 1.03 [facility] Urobilinogen, UA 1.0 0.2 - 12 mg/dL [facility] CBC AUTO DIFFon 10-02-2022 BASO # 0.0 103/ul Normal 0.0-0.1 [facility] Comment on above: Performed By: #### C BC #### [facility] [address] [place] [address] Dr. Musa Chacon Basophils/100 WBC (Bld) 0.9 % Normal 0.2-2.0 [facility] Comment on above: Performed By: #### C BC #### [facility] [address] [address] [address] Musa Chacon EO # 0.1 103/ul Normal 0.0-0.7 [facility] Comment on above: Performed By: #### C BC #### [facility] [address] [place] [address] Dr. Musa Chacon Eosinophils/100 WBC (Bld) 1.8 % Normal 0.9-7.0 [facility] Comment on above: Performed By: #### C BC #### [facility] [address] [place] [address] Dr. Musa Chacon Erythrocyte distribution width (RBC) [Ratio] 12.8 % Normal 11.0-15.0 [facility] Comment on above: Performed By: #### C BC #### [facility] [address] [place] [address] Dr. Musa Chacon Hematocrit (Bld) [Volume fraction] 39.4 % Normal 36.0-48.0 [facility] Comment on above: Performed By: #### C BC #### [facility] [address] [place] [address] Dr. Musa Chacon Hemoglobin (Bld) [Mass/Vol] 13.5 g/dL Normal 12.0-16.0 [facility] Comment on above: Performed By: #### C BC #### [facility] [address] [place] [address] Dr. Musa Chacon IG # 0.01 10e3/ul Normal 0.00-0.03 [facility] Comment on above: Performed By: #### C BC #### [facility] [address] [place] [address] Dr. Musa Chacon IG % 0.2 % Normal 0.0-0.5 [facility] Comment on above: Performed By: #### C BC #### [facility] [address] [place] [address] Dr. Musa Chacon LYMPH # 1.4 103/ul Normal 1.2-3.8 [facility] Comment on above: Performed By: #### C BC #### [facility] [address] [place] [address] Dr. Musa Chacon Lymphocytes/100 WBC (Bld) 32.0 % Normal 20.5-60.0 [facility] Comment on above: Performed By: #### C BC #### [facility] [address] [place] [address] Dr. Musa Chacon MANUAL DIFF REQ NO Normal [facility] Comment on above: Performed By: #### C BC #### [facility] [address] [place] [address] Dr. Musa Chacon MCH (RBC) [Entitic mass] 30.1 pg Normal 26.7-34.0 [facility] Comment on above: Performed By: #### C BC #### [facility] [address] [place] [address] Dr. Musa Chacon MCHC (RBC) [Mass/Vol] 34.3 g/dL Normal 29.9-35.2 [facility] Comment on above: Performed By: #### C BC #### [facility] [address] [place] [address] Dr. Musa Chacon MCV (RBC) [Entitic vol] 87.8 fL Normal 81.0-99.0 [facility] Comment on above: Performed By: #### C BC #### [facility] [address] [place] [address] Dr. Musa Chacon MONO # 0.4 103/ul Normal 0.3-0.8 [facility] Comment on above: Performed By: #### C BC #### [facility] [address] [place] [address] Dr. Musa Chacon Monocytes/100 WBC (Bld) 8.0 % Normal 1.7-12.0 [facility] Comment on above: Performed By: #### C BC #### [facility] [address] [place] [address] Dr. Musa Chacon NEUT # 2.6 103/ul Normal 1.4-6.5 [facility] Comment on above: Performed By: #### C BC #### [facility] [address] [place] [address] Dr. Musa Chacon Neutrophils/100 WBC (Bld) 57.1 % Normal 43.0-75.0 [facility] Comment on above: Performed By: #### C BC #### [facility] [address] [address] [address] Musa Chacon Platelet mean volume (Bld) [Entitic vol] 10.2 fL Normal 9.5-13.5 [facility] Comment on above: Performed By: #### C BC #### [facility] [address] [place] [address] Dr. Musa Chacon PLT 223 103/ul Normal 150-450 [facility] Comment on above: Performed By: #### C BC #### [facility] [address] [place] [address] Dr. Musa Chacon RBC 4.49 106/ul Normal 4.20-5.40 [facility] Comment on above: Performed By: #### C BC #### [facility] [address] [place] [address] Dr. Musa Chacon WBC 4.5 103/ul Normal 4.0-11.0 [facility] Comment on above: Performed By: #### C BC #### [facility] [address] [place] [address] Dr. Musa Chacon PROF 14(COMP METB)on 022 Albumin [Mass/Vol] 4.1 g/dL Normal 3.4-5.0 [facility] Comment on above: Performed By: #### T 4, CMP, TSH #### [facility] [address] [place] [address] Dr. Musa Chacon Albumin/Globulin [Mass ratio] 1.5 {ratio} Normal [facility] Comment on above: Performed By: #### T 4, CMP, TSH #### [facility] [address] [place] [address] Dr. Musa Chacon ALP [Catalytic activity/Vol] 51 U/L Normal 46-116 [facility] Comment on above: Performed By: #### T 4, CMP, TSH #### [facility] [address] [place] [address] Dr. Musa Chacon ALT [Catalytic activity/Vol] 17 U/L Normal 14-59 [facility] Comment on above: Performed By: #### T 4, CMP, TSH #### [facility] [address] [address] [address] Musa Chacon Anion gap [Moles/Vol] 11.8 mmol/L Normal [facility] Comment on above: Performed By: #### T 4, CMP, TSH #### [facility] [address] [place] [address] Dr. Musa Chacon AST [Catalytic activity/Vol] 14 U/L Critically low 15-37 [facility] Comment on above: Performed By: #### T 4, CMP, TSH #### [facility] [address] [place] [address] Dr. Musa Chacon Bilirubin [Mass/Vol] 0.8 mg/dL Normal 0.2-1.0 [facility] Comment on above: Performed By: #### T 4, CMP, TSH #### [facility] [address] [place] [address] Dr. Musa Chacon Calcium [Mass/Vol] 8.9 mg/dL Normal 8.5-10.1 [facility] Comment on above: Performed By: #### T 4, CMP, TSH #### [facility] [address] [place] [address] Dr. Musa Chacon Chloride [Moles/Vol] 105 mmol/L Normal 98-107 [facility] Comment on above: Performed By: #### T 4, CMP, TSH #### [facility] [address] [place] [address] Dr. Musa Chacon CO2 [Moles/Vol] 27.4 mmol/L Normal 21.0-32.0 [facility] Comment on above: Performed By: #### T 4, CMP, TSH #### [facility] [address] [place] [address] Dr. Musa Chacon Creatinine [Mass/Vol] 0.78 mg/dL Normal 0.55-1.02 [facility] Comment on above: Performed By: #### T 4, CMP, TSH #### [facility] [address] [place] [address] Dr. Musa Chacon EGFR-AF SURINAMESE >60 Normal >=60 [facility] Comment on above: Performed By: #### T 4, CMP, TSH #### [facility] [address] [place] [address] Dr. Musa Chacon EGFR-NON AF SURINAMESE >60 Normal >=60 [facility] Comment on above: Performed By: #### T 4, CMP, TSH #### [facility] [address] [place] [address] Dr. Musa Chacno Globulin (S) [Mass/Vol] 2.8 g/dL Normal [facility] Comment on above: Performed By: #### T 4, CMP, TSH #### [facility] [address] [place] [address] Dr. Musa Chacon Glucose [Mass/Vol] 96 mg/dL Normal 74-106 [facility] Comment on above: Performed By: #### T 4, CMP, TSH #### [facility] [address] [place] [address] Dr. Musa Chacon Potassium [Moles/Vol] 4.2 mmol/L Normal 3.5-5.1 [facility] Comment on above: Performed By: #### T 4, CMP, TSH #### [facility] [address] [place] [address] Dr. Musa Chacon Protein [Mass/Vol] 6.9 g/dL Normal 6.4-8.2 [facility] Comment on above: Performed By: #### T 4, CMP, TSH #### [facility] [address] [place] [address] Dr. Musa Chacon Sodium [Moles/Vol] 140 mmol/L Normal 136-145 [facility] Comment on above: Performed By: #### T 4, CMP, TSH #### [facility] [address] [place] [address] Dr. Musa Chacon Urea nitrogen [Mass/Vol] 10.0 mg/dL Normal 7.0-18.0 [facility] Comment on above: Performed By: #### T 4, CMP, TSH #### [facility] [address] [place], [place] [id number] Dr. Musa Chacon Urea nitrogen/Creatinine [Mass ratio] 12.8 mg/mg Normal [facility] Comment on above: Performed By: #### T 4, CMP, TSH #### [facility] [address] [place] [address] Dr. Musa Chacon T4on 10-02-2022 T4 [Mass/Vol] 6.30 ug/dL Normal 4.80-13.90 [facility] Comment on above: Performed By: #### T 4, CMP, TSH #### [facility] [address] [address] [address] Musa Chacon TSHon 10-02-2022 TSH 1.653 uIU/mL Normal 0.358-3.740 [facility] Comment on above: Performed By: #### T 4, CMP, TSH #### [facility] [address] [place] [address] Dr. Musa Chacon Coding Summary.on 10-12-2020 Coding Summary. CODING DATE: 10/12/2020 FINAL [facility] STATUS: Home (Routine DC) PAYOR: [...] CphT Date Saved: 10/12/2020 10:12 am Normal [facility] SARS-CoV-2, NAAon 10-06-2020 SARS CORONAVIRUS 2 RNA:PRTHR:PT:RESPIRA TORY:ORD:PROBE.AMP.T AR Detected Abnormal Not Detected [facility] Comment on above: Result Comment: This nucleic acid amplification test was developed and its performance characteristics determined by [employer]. Nucleic acid amplification tests include PCR and [...] detected) result in this assay. Performed at: [facility] [address] [place], [place] [id number] [facility] Magda Clark Performed By: #### S ARS-CoV-2, LE #### [facility] [address] [place] [address] Physician Orderon 10-02-2020 Physician Order [id number] [id number]:127 Normal [facility] Vital Signs Date Time Vital Sign Value Performing Clinician Mani sotomayor 12-10-2023 16:18-0500 Body weight 70.31 kg Pati FRANCO Work Phone: [facility] 12-10-2023 16:18-0500 Diastolic blood pressure 64 mm[Hg] Pati FRANCO Work Phone: [facility] 12-10-2023 16:18-0500 Systolic blood pressure 108 mm[Hg] Pati FRANCO Work Phone: [facility] Healthcare Encounters Encounter Date Encounter [...] examination without abnormal findings DR GEE HERNANDEZ [facility] Start: 10-02-2022 End: 10-03-[address] GEE HERNANDEZ Facility:[facility] Start: 10-02-2022 End: 10-03-2022 Encounter for general adult medical examination without abnormal findings DR GEE HERNANDEZ Facility:[facility] Start: 05-21-2017 End: 05-22-2017 Ambulatory DEFAULT PHYSICIAN Facility:[facility] Procedures Date Procedure Procedure Detail Performing Clinician Start: 12-10-2023 Urnls dip stick/tabl et rgnt non-auto w/o micrscp Pati FRANCO Work Phone: Plan of Treatment Date Care Activity Detail Author Start: 12-24-2023 End: 12-24-2023 Patient encounter procedure 12/24/2023 1:40 PM EST Routine [facility] [address] [place] [id number] Amparo Carbone, DO [address] [place] [address] [facility] Start: 12-24-2023 End: 12-24-2023 Professional / ancillary services management 12/24/2023 1:00 PM EST Ancillary Procedure [facility] [address] [place] [id number] [facility] Start: 12-10-2023 End: 12-10-2024 Nonstress test nonstress test Procedures Routine Multigravida of advanced maternal age in third trimester Expected: 12/10/2023 (Approximate), Expires: 12/10/2024 [facility] Healthcare Work Phone: Comment on above: Expected: 12/10/2023 (Approximate), Expires: 12/10/2024 Start: 12-10-2023 End: 12-10-2024 US biophysical profile wo non stress testing US biophysical profile wo non stress testing Imaging Routine Multigravida of advanced maternal age in third trimester Expected: 12/10/2023 (Approximate), Expires: 12/10/2024 [facility] Comment on above: Expected: 12/10/2023 (Approximate), Expires: 12/10/2024 Payers Date Payer Category Payer Unknown 2022 Unknown [id number] 1985 Unknown [id number] 2.16.84 [id number] 1985 Unknown [id number] 2.16.84 [id number] 1985 Unknown [id number] 2.16.84 [id number] 1985 Unknown [id number] 2.16.84 [id number] 1986 Unknown [id number] 2.16.84 [id number] 1986 Unknown [id number] 2.16.84 [id number] 1986 Unknown [id number] 2.16.84 [id number] 1986 Unknown [id number] 2.16.840 .[id number] 1986 Unknown [id number] 2.16.840 [id number] 1959 Unknown [id number] Social History Date Type Detail Facility Tobacco smoking stat [facility] Tobacco smoking consumption unknown [facility] Start: 05-16-2023 [facility] Start: 1985 Sex Assigned At Female [facility] Start: 06-23-2023 Gender identity Identifies as female gender (finding) [facility] Start: 06-23-2023 Sexual orientation Heterosexual (kiya zimmer) [facility] Healthcare History of Present illness [...] and content) DATE CREATED AUTHOR 04/29/2018 [facility] DATE CREATED AUTHOR AUTHOR'S ORGANIZ ATION 10/13/2020 [facility] DATE CREATED AUTHOR AUTHOR'S ORGANIZ ATION 10/05/2022 [facility] DATE CREATED AUTHOR AUTHOR'S ORGANIZ ATION 01/22/2024 [facility] EPIC Reason for Visit [...] BE BASED ON THE PRIMARY CLINICAL RECORDS. [facility] [facility]. provides no warranty or guarantee of the accuracy or completeness of information in this document.
--- NOTE | 2024-02-04 14:55 | PC.NURSE ---
Noni and Saul, 8 days old arrive for follow up. Noni reports everything is going well States baby is allowing a 3 hour stretch of sleep at night between feeds, so is coping well with new infant in the house. 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 Baby eating 8-10 times in 24 hours. 8-10 wets and 8-9 yellow stools. Noni, VSS and assessment WNL. No concerns for self voiced. Discussed pumping and when to pump for storage for going back to work. Answers given and handouts previously given for reference. Saul with VSS and assessment WNL. No concerns noted. Baby to breast independently feeds well and Noni pleased with herself and . Aware of [facility] group and to call for concerns or problems. Pump request faxed to [facility] request. States she will follow up if has not been contacted within 48 hours. Leaves ambulatory with .
[2024-02-04 14:56] VITALS: BP 110/65; PULSE 47; TEMP 36.4; O2SAT 96
== END 2024-02-04 15:01 | disposition home or self-care (01) ==
LOC: FBCO 08:28
PROVIDERS: Visit Provider Obstetrics & Gynecology
DX: Z39.2 Encounter for routine postpartum follow-up (principal)

== ENCOUNTER 2024-09-13 10:57 | Emergency (ER) | payer OTHER, SELFPAY ==
[2024-09-13 11:05] VITALS: BP 125/77; PULSE 98; TEMP 37.5; O2SAT 96; BMI 26.3
--- NOTE | 2024-09-13 11:13 | XR_ITS ---
The [address] [address] Patient Name: VISHAL NELSON MRN: [id number] date: 1985 Sex: F Assigned Patient Location: ER Current Patient Location: ER Accession/Order Number: [id number] Exam Date: 09/13/2024 11:37 Report Date: 09/13/2024 12:02 At the request of: MICHELINE ALMANZA Procedure: XR chest 2V EXAMINATION: XR chest 2V HISTORY: pain with deep breathing COMPARISON: No relevant comparison available. TECHNIQUE: PA and lateral FINDINGS: LUNGS: No significant pulmonary parenchymal abnormalities. VASCULATURE: No increased pulmonary vasculature. PLEURA: No pneumothorax, effusion, or pleural thickening. CARDIAC: No cardiomegaly or cardiac silhouette abnormality. MEDIASTINUM: No visible mass or adenopathy. BONES: No fracture or visible bone lesion. OTHER: Negative. XR/XR chest 2V IMPRESSION: No acute cardiopulmonary process Electronically authenticated by: SOPHIA GONZALEZ Date: 09/13/2024 12:02
[2024-09-13 11:31] VITALS: BP 108/73; PULSE 88; O2SAT 95
--- NOTE | 2024-09-13 11:33 | PC.NURSE ---
Reports intermittent right lower quadrant pain.
[2024-09-13 11:41] LABS: Bilirubin Urine NEGATIVE (NEGATIVE); Blood Urine LARGE (NEGATIVE); Clarity Urine SL CLOUDY (CLEAR); Color Urine LT. YELLOW (YELLOW); Glucose Urine UA NEGATIVE (NEGATIVE); Ketones Urine NEGATIVE (NEGATIVE); Leukocyte Esterase Urine LARGE (NEGATIVE); Nitrite Urine POSITIVE (NEGATIVE); Protein Urine 100 mg/dL (NEG/TRACE); Specific Gravity Urine 1.015 (1.005-1.025); Urobilinogen Urine 0.2 EU/dL (0.2-1.0); pH Urine 6.5 (5.0-9.0)
[2024-09-13 11:54] LABS: Urine Microscopic Indicated YES; WBC Urine 20-50 #/HPF (NONE SEEN)
[2024-09-13 11:55] LABS: Bacteria Urine LARGE #/HPF (NONE SEEN); Cast Seen? NONE SEEN #/LPF (NONE SEEN); Crystals Seen? None Seen #/HPF (None Seen); Mucus Urine SMALL (NONE SEEN); Squamous Epithelial Cell Urine FEW #/LPF (NONE/RARE); Transitional Epi Cells Urine RARE #/LPF (NONE SEEN); Urine Culture Indicated YES
--- OUTSIDE RECORDS SUMMARY | 2024-09-13 12:42 | XMS_ITS | CCD ---
Author Organization [facility] Care Team Providers Care Assembler Wire Mesh Gate Name Role Phone PHYSICIAN, DEFAULT Unavailable Unavailable [...] PATI Attending Unavailable KEO, AMPARO Attending Unavailable KEO, AMPARO Attending Unavailable Allergies Allergy Classification Reported Allergen(s) Allergy Type Date of Onset Reaction(s) Facility (2 sources) Nitrofurantoin Drug Allergy 7 Vomiting [facility] Repository (3 sources) Ciprofloxacin Drug Allergy 3 GI intolerance [...] Results Test Name Value Interpretation Reference Range Facility No Panel InformationOrdered By: Pastora Hopper on 06-28-2024 COVID Antigen (POC) [facility] Quick Strep (POC) [facility] Urinalysis macro (dipstick) panel (U)on 12-10-2023 Bilirubin, UA Negative Negative - 4(70) +++ mg/dL [facility] Blood, UA Positive Negative - 50 Andrea/mcL [facility] Clarity, UA Clear [facility] re Color, UA Yellow [facility] Glucose, UA Negative Negative - 1999(110) ++++ mg/dL [facility] Interpretation and review of laboratory results Abnormal [facility] Ketones, UA Negative Negative - 160(16) ++++ mg/dL [facility] Leukocytes, UA Negative Negative - 500+++ Toan/mcL [facility] Nitrite, UA Negative Negative - Positive [facility] pH, UA 5.5 5 - 9 [facility] Protein, UA Negative Negative - 1999(20) ++++ mg/dL [facility] Spec Grav, UA 1.020 1 - 1.03 [facility] Urobilinogen, UA 1.0 0.2 - 12 mg/dL [facility] CBC AUTO DIFFon 10-02-2022 BASO # 0.0 103/ul Normal 0.0-0.1 [facility] Comment on above: Performed By: #### C BC #### [facility] Laboratory [address] [address] [address] Musa Chacon Basophils/100 WBC (Bld) 0.9 % Normal 0.2-2.0 [facility] Comment on above: Performed By: #### C BC #### [facility] [address] [place] [address] Dr. Musa Chacon EO # 0.1 103/ul Normal 0.0-0.7 [facility] Comment on above: Performed By: #### C BC #### [facility] [address] [place] [address] Dr. Musa Chacon Eosinophils/100 WBC (Bld) 1.8 % Normal 0.9-7.0 [facility] Comment on above: Performed By: #### C BC #### [facility] [address] [place] [address] Dr. Musa Chacon Erythrocyte distribution width (RBC) [Ratio] 12.8 % Normal 11.0-15.0 [facility] Comment on above: Performed By: #### C BC #### [facility] [address] [place] [address] Dr. Musa Chacon Hematocrit (Bld) [Volume fraction] 39.4 % Normal 36.0-48.0 [facility] Comment on above: Performed By: #### C BC #### [facility] [address] [place] [address] Dr. Musa Chacon Hemoglobin (Bld) [Mass/Vol] 13.5 g/dL Normal 12.0-16.0 [facility] Comment on above: Performed By: #### C BC #### [facility] [address] [place] [address] Dr. Musa Chacon IG # 0.01 10e3/ul Normal 0.00-0.03 [facility] Comment on above: Performed By: #### C BC #### [facility] [address] [place] [address] Dr. Musa Chacon IG % 0.2 % Normal 0.0-0.5 [facility] Comment on above: Performed By: #### C BC #### [facility] [address] [place] [address] Dr. Musa Chacon LYMPH # 1.4 103/ul Normal 1.2-3.8 [facility] Comment on above: Performed By: #### C BC #### [facility] [address] [place] [address] Dr. Musa Chacon Lymphocytes/100 WBC (Bld) 32.0 % Normal 20.5-60.0 [facility] Comment on above: Performed By: #### C BC #### [facility] [address] [place] [address] Dr. Musa Chacon MANUAL DIFF REQ NO Normal [facility] Comment on above: Performed By: #### C BC #### [facility] [address] [place] [address] Dr. Musa Chacon MCH (RBC) [Entitic mass] 30.1 pg Normal 26.7-34.0 [facility] Comment on above: Performed By: #### C BC #### [facility] [address] [place] [address] Dr. Musa Chacon MCHC (RBC) [Mass/Vol] 34.3 g/dL Normal 29.9-35.2 [facility] Comment on above: Performed By: #### C BC #### [facility] [address] [place] [address] Dr. Musa Chacon MCV (RBC) [Entitic vol] 87.8 fL Normal 81.0-99.0 [facility] Comment on above: Performed By: #### C BC #### [facility] [address] [place] [address] Dr. Musa Chacon MONO # 0.4 103/ul Normal 0.3-0.8 [facility] Comment on above: Performed By: #### C BC #### [facility] [address] [place] [address] Dr. Musa Chacon Monocytes/100 WBC (Bld) 8.0 % Normal 1.7-12.0 [facility] Comment on above: Performed By: #### C BC #### [facility] [address] [place] [address] Dr. Musa Chacon NEUT # 2.6 103/ul Normal 1.4-6.5 [facility] Comment on above: Performed By: #### C BC #### [facility] [address] [address] [address] Musa Chacon Neutrophils/100 WBC (Bld) 57.1 % Normal 43.0-75.0 [facility] Comment on above: Performed By: #### C BC #### [facility] [address] [place] [address] Dr. Musa Chacon Platelet mean volume (Bld) [Entitic vol] 10.2 fL Normal 9.5-13.5 [facility] Comment on above: Performed By: #### C BC #### [facility] [address] [place] [address] Dr. Musa Chacon PLT 223 103/ul Normal 150-450 [facility] Comment on above: Performed By: #### C BC #### [facility] [address] [place] [address] Dr. Musa Chacon RBC 4.49 106/ul Normal 4.20-5.40 [facility] Comment on above: Performed By: #### C BC #### [facility] [address] [place] [address] Dr. Musa Chacon WBC 4.5 103/ul Normal 4.0-11.0 [facility] Comment on above: Performed By: #### C BC #### [facility] [address] [place] [address] Dr. Musa Chacon PROF 14(COMP METB)on 022 Albumin [Mass/Vol] 4.1 g/dL Normal 3.4-5.0 [facility] Comment on above: Performed By: #### T 4, CMP, TSH #### [facility] [address] [place] [address] Dr. Musa Chacon Albumin/Globulin [Mass ratio] 1.5 {ratio} Normal [facility] Comment on above: Performed By: #### T 4, CMP, TSH #### [facility] [address] [place] [address] Dr. Musa Chacon ALP [Catalytic activity/Vol] 51 U/L Normal 46-116 [facility] Comment on above: Performed By: #### T 4, CMP, TSH #### [facility] [address] [address] [address] Musa Chacon ALT [Catalytic activity/Vol] 17 U/L Normal 14-59 [facility] Comment on above: Performed By: #### T 4, CMP, TSH #### [facility] [address] [address] [address] Musa Chacon Anion gap [Moles/Vol] 11.8 mmol/L Normal [facility] Comment on above: Performed By: #### T 4, CMP, TSH #### [facility] [address] [address] [address] Musa Chacon AST [Catalytic activity/Vol] 14 U/L Critically low 15-37 [facility] Comment on above: Performed By: #### T 4, CMP, TSH #### [facility] [address] [place] [address] Dr. Musa Chacon Bilirubin [Mass/Vol] 0.8 mg/dL Normal 0.2-1.0 [facility] Comment on above: Performed By: #### T 4, CMP, TSH #### [facility] [address] [address] [address] Musa Chacon Calcium [Mass/Vol] 8.9 mg/dL Normal 8.5-10.1 [facility] Comment on above: Performed By: #### T 4, CMP, TSH #### [facility] [address] [address] [address] Musa Chacon Chloride [Moles/Vol] 105 mmol/L Normal 98-107 [facility] Comment on above: Performed By: #### T 4, CMP, TSH #### [facility] [address] [address] [address] Musa Chacon CO2 [Moles/Vol] 27.4 mmol/L Normal 21.0-32.0 [facility] Comment on above: Performed By: #### T 4, CMP, TSH #### [facility] [address] [address] [address] Musa Chacon Creatinine [Mass/Vol] 0.78 mg/dL Normal 0.55-1.02 [facility] Comment on above: Performed By: #### T 4, CMP, TSH #### [facility] [address] [place] [address] Dr. Musa Chacon EGFR-AF YEMENI >60 Normal >=60 [facility] Comment on above: Performed By: #### T 4, CMP, TSH #### [facility] [address] [place] [address] Dr. Musa Chacon EGFR-NON AF YEMENI >60 Normal >=60 [facility] Comment on above: Performed By: #### T 4, CMP, TSH #### [facility] [address] [place] [address] Dr. Musa Chacon Globulin (S) [Mass/Vol] 2.8 g/dL Normal [facility] Comment on above: Performed By: #### T 4, CMP, TSH #### [facility] [address] [place] [address] Dr. Musa Chacon Glucose [Mass/Vol] 96 mg/dL Normal 74-106 [facility] Comment on above: Performed By: #### T 4, CMP, TSH #### [facility] [address] [place] [address] Dr. Musa Chacon Potassium [Moles/Vol] 4.2 mmol/L Normal 3.5-5.1 [facility] Comment on above: Performed By: #### T 4, CMP, TSH #### [facility] [address] [place] [address] Dr. Musa Chacon Protein [Mass/Vol] 6.9 g/dL Normal 6.4-8.2 [facility] Comment on above: Performed By: #### T 4, CMP, TSH #### [facility] [address] [place] [address] Dr. Musa Chacon Sodium [Moles/Vol] 140 mmol/L Normal 136-145 [facility] Comment on above: Performed By: #### T 4, CMP, TSH #### [facility] [address] [place] [address] Dr. Musa Chacon Urea nitrogen [Mass/Vol] 10.0 mg/dL Normal 7.0-18.0 [facility] Comment on above: Performed By: #### T 4, CMP, TSH #### [facility] [address] [address] [address] Musa Chacon Urea nitrogen/Creatinine [Mass ratio] 12.8 mg/mg Normal [facility] Comment on above: Performed By: #### T 4, CMP, TSH #### [facility] [address] [address] [address] Musa Chacon T4on 10-02-2022 T4 [Mass/Vol] 6.30 ug/dL Normal 4.80-13.90 [facility] Comment on above: Performed By: #### T 4, CMP, TSH #### [facility] [address] [place] [address] Dr. Musa Chacon TSHon 10-02-2022 TSH 1.653 uIU/mL Normal 0.358-3.740 [facility] Comment on above: Performed By: #### T 4, CMP, TSH #### [facility] [address] [place] [address] Dr. Musa Chacon Coding Summary.on 10-12-2020 Coding Summary. 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 Nucleic acid amplification tests include PCR and [...] detected) result in this assay. Performed at: [facility] [address] [place], [place] [id number] [facility] Magda Clark Performed By: #### S ARS-CoV-2, LE #### [facility] [address] [place] [address] Physician Orderon 10-02-2020 Physician Order [id number]:[id number] Normal [facility] Vital Signs Date Time Vital Sign Value Performing Clinician Facility 06-28-2024 09:58-0400 Body height 167.64 cm [facility] 06-28-2024 09:58-0400 Body mass index (BMI) [Ratio] 24.7 kg/m2 [facility] 06-28-2024 09:58-0400 Body temperature 98.1 [degF] [facility] 06-28-2024 09:58-0400 Body weight 69.39 kg [facility] 06-28-2024 09:58-0400 Diastolic blood pressure 60 mm[Hg] [facility] 06-28-2024 09:58-0400 Heart rate 80 /min [facility] 06-28-2024 09:58-0400 Respiratory rate 18 /min [facility] 06-28-2024 09:58-0400 SaO2% (BldA) [Mass fraction] 97 % [facility] 06-28-2024 09:58-0400 Systolic blood pressure 97 mm[Hg] [facility] 12-10-2023 16:18-0500 Body weight 70.31 kg Pati FRANCO Work Phone: [facility] 12-10-2023 16:18-0500 Diastolic blood pressure 64 mm[Hg] Pati FRANCO Work Phone: [facility] 12-10-2023 16:18-0500 Systolic blood pressure 108 mm[Hg] Pati FRANCO Work Phone: [facility] Healthcare Encounters Encounter Date Encounter Type Care Provider Facility Start: 06-28-2024 End: 06-28-2024 ambulatory [facility] Work Phone: Start: 06-28-2024 End: 06-28-2024 Patient encounter procedure Replaced By [facility] Work Phone: Start: 03-08-2024 End: 03-08-2024 ambulatory AMPARO KEO Not Available Start: 01-21-2024 End: 01-21-2024 ambulatory AMPARO KEO Not Available Start: 01-14-2024 End: 01-14-2024 ambulatory AMPARO KEO Not Available Start: 01-08-2024 End: 01-08-2024 ambulatory PATI ARTIS Not Available Start: 12-24-2023 End: 12-24-2023 ambulatory AMPARO KEO Not Available Start: 12-10-2023 End: 12-10-2023 ambulatory PATI ARTIS Not Available Start: 12-10-2023 End: 12-10-2023 flow sheet Pati FRANCO Work Phone: [facility] Comment on above: Third trimester preg mandeep; Multigravida of advanced maternal age in third trimester Start: 11-25-2023 End: 11-25-2023 ambulatory AMPARO KEO Not Available Start: 11-05-2023 End: 11-05-2023 ambulatory PATI ARTIS Not Available Start: 10-08-2023 End: 10-08-2023 ambulatory PATI WISDOM Not Available Start: 10-05-2022 Encounter for genera l adult medical examination without abnormal findings DR GEE HERNANDEZ [facility] Start: 10-02-2022 End: 10-03-[address] GEE HERNANDEZ Facility:[facility] Start: 10-02-2022 End: 10-03-2022 Encounter for general adult medical examination without abnormal findings DR GEE HERNANDEZ Facility:[facility] Start: 05-21-2017 End: 05-22-2017 Ambulatory DEFAULT PHYSICIAN Facility:[facility] Procedures Date Procedure Procedure Detail Performing Clinician Start: 06-28-2024 COVID Antigen (POC) Start: 06-28-2024 Quick Strep (POC) Start: 12-10-2023 Urnls dip stick/tabl et rgnt non-auto w/o micrscp Pati Wisdom PA Work Phone: Plan of Treatment Date Care Activity Detail Author Start: 12-24-2023 End: 12-24-2023 Patient encounter procedure 12/24/2023 1:40 PM EST Routine [facility] [address] [place] [id number] Amparo Carbone, DO [address] [place], [place] [id number] [facility] Start: 12-24-2023 End: 12-24-2023 Professional / ancillary services management 12/24/2023 1:00 PM EST Ancillary Procedure [facility] [address] [facility] [place] [id number] [facility] Start: 12-10-2023 End: 12-10-2024 Nonstress test nonstress test Procedures Routine Multigravida of advanced maternal age in third trimester Expected: 12/10/2023 (Approximate), Expires: 12/10/2024 [facility] Work Phone: Comment on above: Expected: 12/10/2023 (Approximate), Expires: 12/10/2024 Start: 12-10-2023 End: 02-07-2025 US biophysical profile wo non stress testing US biophysical profile wo non stress testing Imaging Routine Multigravida of advanced maternal age in third trimester Expected: 12/10/2023 (Approximate), Expires: 12/10/2024 [facility] Comment on above: Expected: 12/10/2023 (Approximate), Expires: 12/10/2024 Payers Date Payer Category Payer Unknown 2022 Unknown [id number] 1985 Unknown [id number] 2.16.84 [id number] 1986 Unknown [id number] 2.16.84 [id number] 1986 Unknown [id number] 2.16.84 [id number] 1986 Unknown [id number] 2.16.84 [id number] 1986 Unknown [id number] 2.16.84 [id number] 1986 Unknown [id number] 2.16.84 [id number] 1986 Unknown [id number] 2.16.84 [id number] 1986 Unknown [id number] 2.16.84 [id number] 1986 Unknown [id number] [id number] 1986 Unknown [id number] [id number] 1959 Unknown [id number] Social History Date Type Detail Facility Tobacco smoking stat [facility] Tobacco smoking consumption unknown [facility] Healthcare Start: 05-16-2023 [facility] Healthcare Start: 1985 Sex Assigned At Female [facility] Start: 06-23-2023 Gender identity Identifies as female gender (finding) [facility] Start: 08-21-2023 Sexual orientation Heterosexual (finding) [facility] Start: 06-28-2024 Tobacco smoking status NHIS Never smoked tobacco (finding) [facility] History of Present illness Narrative 12-10-2023 SALVADOR Fernandes - 12/10/2023 3:50 PM EST Note Date & Type Note Facility 12-10-2023 History of Presen t illness Narrative Reason for Appointment: Patient ID: Noni Velasco is a 38 y.o. female who presents [...] trimester documented in this encounter [facility] Evaluation note Note Date & Type Note Facility Evaluation note No assessment information availa [facility] Work Phone: Summary Purpose Family History Relationship Condition Age at Onset Recorded Date/T saadia mother Hypertension Unknown Diabetes mellitus Unknown Hypothyroidism Unknown Advance Directives Advance Directive Response Recorded Date/ Time Advance Directives No June 28, 2024 9:54am Chief Complaint and Reason for Visit Chief Complaint Sore throat, ear ach e Additional Source Comments INFORMATION SOURCE (unrecogn ized section and content) DATE CREATED AUTHOR 04/29/2018 [facility] DATE CREATED AUTHOR AUTHOR'S ORGANIZ ATION 10/13/2020 [facility] DATE CREATED AUTHOR AUTHOR'S ORGANIZ ATION 10/05/2022 [facility] DATE CREATED AUTHOR AUTHOR'S ORGANIZ ATION 03/09/2024 [facility] EPIC Reason for Visit (unrecogniz ed section and content) Reason Comments Routine Visit Care Teams (unrecognized sec tion and content) Team Status: Active Member Role Status Dates PHYSICIAN NO FAMILY Primary Care Provider Active Team Status: Inactive Member Role Status Dates Pastora Hopper APRN Attending Provider Active Start: June 28, 2024 End: June 28, 2024 PHYSICIAN JOVANY FAMILY Primary Care Provider Active Start: June 28, 2024 End: June 28, 2024 Goals (unrecognized section and content) Goals may be documented in a n alternate section FOR RECORDS PERTAINING TO PATIENTS WHO ARE [...] BE BASED ON THE PRIMARY CLINICAL RECORDS. [facility] [employer] provides no warranty or guarantee of the accuracy or completeness of information in this document.
--- NOTE | 2024-09-13 13:26 | ED_ITS ---
HPI HPI - General Adult General Chief complaint: Abdominal Pain Stated complaint: ABDOMINAL PAIN, FEVER, TROUBLE BREATHING Time Seen by Provider: 09/13/24 12:48 Source: patient Mode of arrival: walk-in History of Present Illness HPI narrative: Patient is a 39-year-old female who is presenting to the ER today with chief complaint not feeling well since Friday. Patient is have right-sided lower abdominal pain, and now she is having more suprapubic tenderness to palpation. Patient's had a fever. Mild nausea with no vomiting nausea. No other abdominal pain. Minimal left-sided flank pain, no bilateral lower back pain. She has no headache or neck pain. No chest pain or shortness of breath. Patient currently has lower suprapubic abdominal cramping and pain. She is having urinary dysuria frequency urgency. Patient stated that she carried a urinary tract infection her entire earlier this year, until January. Patient was told she needs a follow-up with Dr. Gee to have urethral stretching. Patient never followed up. They did not do this when patient was , she is due to follow-up after her , baby was delivered in January, she never did. Patient has no other acute complaints at this time. Patient says that she did not have any urinary tract infection before , but was told she needed urethral stretching by Dr. Gee who she seen previously in the office. No other sick contacts, patient does not need a work note, states that her work does not take a work note for today All systems are negative except as noted/marked. All systems reviewed and otherwise negative. Nurses note and vital signs reviewed and patient is not hypoxic. General: The patient appears nondistressed to looking uncomfortable, sitting in bed with her knees flexed bilateral, holding onto her lower abdomen.. Patient is resting uncomfortably on cart. Patient is not toxic, lethargic, or listless Skin: Warm, dry, no pallor noted. There is no rash noted. No petechiae, purpura. Head: Normocephalic, atraumatic Eye: Normal conjunctiva, no drainage, EOMI. PERRL Ears, Nose, Mouth, and Throat: oral mucosa is moist. Nares patent. Mouth without vesicles. Cardiovascular: Regular Rate and Rhythm, no murmur, gallop, rub Respiratory: Patient is in no distress, no accessory muscle use, lungs are clear to auscultation, no wheezing, rales or rhonchi Back: non-tender, no CVA tenderness bilaterally to percussion. No CT LS midline pain GI: Patient has moderate tenderness palpation to the suprapubic area, she has no right or left lower quadrant abdominal tenderness to palpation, no flank pain bilateral, no rigidity, no peritoneal signs, no flank pain bilateral, no true CVA tenderness bilateral. No tenderness to palpation, no masses appreciated. No rebound, guarding, or rigidity noted. No distention Musculoskeletal: Patient has full range of motion of all of the extremities, no motor, sensory, or focal neurological deficits Neurological: A&O x4, normal speech Psychiatric: Cooperative Related Data Home Medications ?Medication ?Instructions ?Recorded ?Confirmed cephalexin 500 mg capsule 500 mg PO QDAY 12/31/23 09/13/24 valacyclovir 500 mg tablet 500 mg PO DAILY 12/31/23 09/13/24 (Valtrex) Previous Rx's ?Medication ?Instructions ?Recorded phenazopyridine 200 mg tablet 200 mg PO Q8H 2 days #6 tabs 09/13/24 (Pyridium) sulfamethoxazole 800 1 tab PO BID 7 days #14 tabs 09/13/24 mg-trimethoprim 160 mg tablet (Bactrim DS) Allergies Allergy/AdvReac Type Severity Reaction Status Date / Time ciprofloxacin Allergy Intermediate nightmares Verified 01/07/24 20:42 nitrofurantoin (From Allergy Intermediate Vomiting Verified 01/07/24 20:42 Macrobid) Opioid HPI Opioid Management Most Recent Opioid Data: Last Pain Scale 6 01/28/24 00:31 01/28/24 Ur Phencyclidine Scrn Negative (NEGATIVE) 01/26/24 22:10 01/02 03/26 PFS PFS Medical History (Updated 09/13/24 @ 13:22 by Fabio Kenny MD) Ovarian cyst ?N83.209 - Unspecified ovarian cyst, unspecified side (ICD-10) Chronic UTI ?N39.0 - Urinary tract infection, site not specified (ICD-10) Anemia ?D64.9 - Anemia, unspecified (ICD-10) HSV (herpes simplex virus) infection ?B00.9 - Herpesviral infection, unspecified (ICD-10) Surgical History (Updated 01/27/24 @ 01:28 by Sarwat Wisdom) H/O dilation and curettage ?Z98.890 - Other specified postprocedural states (ICD-10) Exam Constitutional Vital Signs, click to edit/add: Last Vital Signs Temp 99.5 F 09/13/24 11:05 Pulse 88 09/13/24 11:31 Resp 18 09/13/24 11:31 BP 108/73 09/13/24 11:31 Pulse Ox 95 09/13/24 11:31 O2 Del Method Room Air 09/13/24 11:31 Course Vital Signs Vital signs: Vital Signs Temperature 99.5 F 09/13/24 11:05 Pulse Rate 98 H 09/13/24 11:05 Respiratory Rate 18 09/13/24 11:05 Blood Pressure 125/77 09/13/24 11:05 Pulse Oximetry 96 09/13/24 11:05 Oxygen Delivery Method Room Air 09/13/24 11:05 Temperature 99.5 F 09/13/24 11:05 Pulse Rate 88 09/13/24 11:31 Respiratory Rate 18 09/13/24 11:31 Blood Pressure 108/73 09/13/24 11:31 Pulse Oximetry 95 09/13/24 11:31 Oxygen Delivery Method Room Air 09/13/24 11:31 Medical Decision Making MDM Narrative Medical decision making narrative: Patient has significant urinary tract infection, urine and creatinine are normal. Patient's had urinary tract infection throughout her . Patient lab work otherwise shows no acute abnormalities, chest x-ray negative. Patient has several allergies. Patient was given Bactrim and Pyridium in the ER and discharge prescription as well. Patient was encouraged to follow-up with Dr. Gee like she should have made appointment when she was done with her back in January. Patient was told she might need urethral stretching. Patient understands this, no question at discharge. Lab Data Labs: Lab Results 09/13/24 Range/Units 11:14 Urine Color Lt. yellow (YELLOW) Urine Clarity Sl cloudy (CLEAR) Urine pH 6.5 (5.0-9.0) Ur Specific [place] 1.015 (1.005-1.025) Urine Protein 100 A (NEG/TRACE) mg/dL Urine Glucose (UA) Negative (NEGATIVE) mg/dL Urine Ketones Negative (NEGATIVE) mg/dL Urine Occult Blood Large A (NEGATIVE) Urine Nitrite Positive A (NEGATIVE) Urine Bilirubin Negative (NEGATIVE) Urine Urobilinogen 0.2 (0.2-1.0) EU/dL Ur Leukocyte Esterase Large A (NEGATIVE) Urine RBC 2-5 A (0-2) #/HPF Urine WBC 20-50 A (NONE SEEN) #/HPF Ur Squamous Epith Cells Few A (NONE/RARE) #/LPF Ur Transition Epith Cell Rare A (NONE SEEN) #/LPF Urine Crystals None seen (None Seen) #/HPF Urine Bacteria Large A (NONE SEEN) #/HPF Urine Casts None seen (NONE SEEN) #/LPF Urine Mucus Small A (NONE SEEN) Ur Culture Indicated? Yes Discharge Plan Discharge Chief Complaint: Abdominal Pain Clinical Impression: UTI (urinary tract infection) Patient Disposition: Home, Self-Care Time of Disposition Decision: 13:20 Condition: Fair Prescriptions / Home Meds: New phenazopyridine [Pyridium] 200 mg tablet 200 mg PO Q8H 2 Days Qty: 6 0RF sulfamethoxazole-trimethoprim [Bactrim DS] 800-160 mg tablet 1 tab PO BID 7 Days Qty: 14 0RF No Action cephalexin 500 mg capsule 500 mg PO QDAY valacyclovir [Valtrex] 500 mg tablet 500 mg PO DAILY Print Language: Italian Instructions: Urinary Tract Infection in Women (ED) Additional Instructions: Finish taking your Pyridium prescription, finish all the antibiotics of your Bactrim as well. Call Dr. Gee office today, make a follow-up appointment as discussed for urethral stretching as you have discussed with him in the past Urine cultures pending Referrals: Physician,Non-Staff, [Primary Care Provider] - 1 week Marcus Gee MD [Physician] - 1 week
[2024-09-13] MEDS: PHENAZOPYRIDINE 100 MG TABLET PO (13:30)
[2024-09-13] MEDS: SULFAMETHOXAZOLE/TRIMETHOPRIM 800-160 MG TABLET 1 TAB PO (13:30)
== END 2024-09-13 13:34 | disposition home or self-care (01) ==
PROVIDERS: Emergency Provider Emergency Medicine
DX: N39.0 Urinary tract infection, site not specified (principal)
CPT/HCPCS: 71046; 81001; 87086; 87150; 87186; 99284

== ENCOUNTER 2024-09-27 20:18 | Outpatient (REF) | payer OTHER, SELFPAY ==
--- OUTSIDE RECORDS SUMMARY | 2024-09-27 20:22 | XMS_ITS | CCD ---
Author Organization [facility] Care Team Providers Care Letterpress Setter Name Role Phone PHYSICIAN, DEFAULT Unavailable Unavailable [...] sources) Nitrofurantoin Drug Allergy 7 Vomiting [facility] (3 sources) Ciprofloxacin Drug Allergy 3 [...] Pastora Hopper on 06-28-2024 COVID Antigen (POC) [facility] Quick Strep (POC) [facility] Urinalysis macro (dipstick) panel (U)on 12-10-2023 Bilirubin, UA Negative Negative - 4(70) +++ mg/dL [facility] Blood, UA Positive Negative - 50 Andrea/mcL [facility] Clarity, UA Clear [facility] Healthfl re Color, UA Yellow [facility] Healthcar e Glucose, UA Negative Negative - 1999(110) ++++ mg/dL [facility] Interpretation and review of laboratory results Abnormal [facility] Ketones, UA Negative Negative - 160(16) ++++ mg/dL [facility] Leukocytes, UA Negative Negative - 500+++ Toan/mcL [facility] Nitrite, UA Negative Negative - Positive [facility] pH, UA 5.5 5 - 9 [facility] Healthcar e Protein, UA Negative Negative - 1999(20) ++++ mg/dL [facility] Spec Grav, UA 1.020 1 - 1.03 [facility] care Urobilinogen, UA 1.0 0.2 - 12 mg/dL [facility] CBC AUTO DIFFon 10-02-2022 BASO # 0.0 103/ul Normal 0.0-0.1 [facility] Comment on above: Performed By: #### C BC #### [facility] [address] [address] [address] Musa Chacon Basophils/100 WBC (Bld) 0.9 % Normal 0.2-2.0 [facility] Comment on above: Performed By: #### C BC #### [facility] [address] [place] [address] Dr. Musa Chacon EO # 0.1 103/ul Normal 0.0-0.7 [facility] Comment on above: Performed By: #### C BC #### [facility] [address] [place] [address] Dr. Musa Chacon Eosinophils/100 WBC (Bld) 1.8 % Normal 0.9-7.0 [facility] Comment on above: Performed By: #### C BC #### [facility] [address] [place] [address] Dr. Musa Chacon Erythrocyte distribution width (RBC) [Ratio] 12.8 % Normal 11.0-15.0 [facility] Comment on above: Performed By: #### C BC #### [facility] [address] [place] [address] Dr. Musa Chacon Hematocrit (Bld) [Volume fraction] 39.4 % Normal 36.0-48.0 [facility] Comment on above: Performed By: #### C BC #### [facility] [address] [place] [address] Dr. Musa Chacon Hemoglobin (Bld) [Mass/Vol] 13.5 g/dL Normal 12.0-16.0 [facility] Comment on above: Performed By: #### C BC #### [facility] [address] [place] [address] Dr. Musa Chacon IG # 0.01 10e3/ul Normal 0.00-0.03 [facility] Comment on above: Performed By: #### C BC #### [facility] [address] [place] [address] Dr. Musa Chacon IG % 0.2 % Normal 0.0-0.5 [facility] Comment on above: Performed By: #### C BC #### [facility] [address] [place] [address] Dr. Musa Chacon LYMPH # 1.4 103/ul Normal 1.2-3.8 [facility] Comment on above: Performed By: #### C BC #### [facility] [address] [place] [address] Dr. Musa Chacon Lymphocytes/100 WBC (Bld) 32.0 % Normal 20.5-60.0 [facility] Comment on above: Performed By: #### C BC #### [facility] [address] [place] [address] Dr. Musa Chacon MANUAL DIFF REQ NO Normal [facility] Comment on above: Performed By: #### C BC #### [facility] [address] [place] [address] Dr. Musa Chacon MCH (RBC) [Entitic mass] 30.1 pg Normal 26.7-34.0 [facility] Comment on above: Performed By: #### C BC #### [facility] [address] [place] [address] Dr. Musa Chacon MCHC (RBC) [Mass/Vol] 34.3 g/dL Normal 29.9-35.2 [facility] Comment on above: Performed By: #### C BC #### [facility] [address] [place] [address] Dr. Musa Chacon MCV (RBC) [Entitic vol] 87.8 fL Normal 81.0-99.0 [facility] Comment on above: Performed By: #### C BC #### [facility] [address] [place] [address] Dr. Musa Chacon MONO # 0.4 103/ul Normal 0.3-0.8 [facility] Comment on above: Performed By: #### C BC #### [facility] [address] [place] [address] Dr. Musa Chacon Monocytes/100 WBC (Bld) 8.0 % Normal 1.7-12.0 [facility] Comment on above: Performed By: #### C BC #### [facility] [address] [place] [address] Dr. Musa Chacon NEUT # 2.6 103/ul Normal 1.4-6.5 [facility] Comment on above: Performed By: #### C BC #### [facility] [address] [address] [address] Musa Chacon Neutrophils/100 WBC (Bld) 57.1 % Normal 43.0-75.0 [facility] Comment on above: Performed By: #### C BC #### [facility] [address] [place] [address] Dr. Musa Chacon Platelet mean volume (Bld) [Entitic vol] 10.2 fL Normal 9.5-13.5 [facility] Comment on above: Performed By: #### C BC #### [facility] [address] [place] [address] Dr. Musa Chacon PLT 223 103/ul Normal 150-450 [facility] Comment on above: Performed By: #### C BC #### [facility] [address] [place] [address] Dr. Musa Chacon RBC 4.49 106/ul Normal 4.20-5.40 [facility] Comment on above: Performed By: #### C BC #### [facility] [address] [place] [address] Dr. Musa Chacon WBC 4.5 103/ul Normal 4.0-11.0 [facility] Comment on above: Performed By: #### C BC #### [facility] [address] [place] [address] Dr. Musa Chacon PROF 14(COMP METB)on 022 Albumin [Mass/Vol] 4.1 g/dL Normal 3.4-5.0 [facility] Comment on above: Performed By: #### T 4, CMP, TSH #### [facility] [address] [place] [address] Dr. Musa Chacon Albumin/Globulin [Mass ratio] 1.5 {ratio} Normal [facility] Comment on above: Performed By: #### T 4, CMP, TSH #### [facility] [address] [place] [address] Dr. Musa Chacon ALP [Catalytic activity/Vol] 51 U/L Normal 46-116 [facility] Comment on above: Performed By: #### T 4, CMP, TSH #### [facility] [address] [address] [address] Musa Chacon ALT [Catalytic activity/Vol] 17 U/L Normal 14-59 [facility] Comment on above: Performed By: #### T 4, CMP, TSH #### [facility] [address] [address] [address] Musa Chacon Anion gap [Moles/Vol] 11.8 mmol/L Normal Th [facility] Comment on above: Performed By: #### T 4, CMP, TSH #### [facility] [address] [address] [address] Musa Chacon AST [Catalytic activity/Vol] 14 U/L Critically low 15-37 [facility] Comment on above: Performed By: #### T 4, CMP, TSH #### [facility] [address] [place] [address] Dr. Musa Chacon Bilirubin [Mass/Vol] 0.8 mg/dL Normal 0.2-1.0 [facility] Comment on above: Performed By: #### T 4, CMP, TSH #### [facility] [address] [address] [address] Musa Chacon Calcium [Mass/Vol] 8.9 mg/dL Normal 8.5-10.1 [facility] Comment on above: Performed By: #### T 4, CMP, TSH #### [facility] [address] [address] [address] Musa Chacon Chloride [Moles/Vol] 105 mmol/L Normal 98-107 [facility] Comment on above: Performed By: #### T 4, CMP, TSH #### [facility] [address] [address] [address] Musa Chacon CO2 [Moles/Vol] 27.4 mmol/L Normal 21.0-32.0 [facility] Comment on above: Performed By: #### T 4, CMP, TSH #### [facility] [address] [address] [address] Musa Chacon Creatinine [Mass/Vol] 0.78 mg/dL Normal 0.55-1.02 [facility] Comment on above: Performed By: #### T 4, CMP, TSH #### [facility] [address] [place] [address] Dr. Musa Chacon EGFR-AF NICARAGUAN >60 Normal >=60 [facility] Comment on above: Performed By: #### T 4, CMP, TSH #### [facility] [address] [place] [address] Dr. Musa Chacon EGFR-NON AF NICARAGUAN >60 Normal >=60 [facility] Comment on above: Performed By: #### T 4, CMP, TSH #### [facility] [address] [place] [address] Dr. Musa Chacon Globulin (S) [Mass/Vol] 2.8 g/dL Normal [facility] Comment on above: Performed By: #### T 4, CMP, TSH #### [facility] [address] [place] [address] Dr. Musa Chacon Glucose [Mass/Vol] 96 mg/dL Normal 74-106 [facility] Comment on above: Performed By: #### T 4, CMP, TSH #### [facility] [address] [place] [address] Dr. Musa Chacon Potassium [Moles/Vol] 4.2 mmol/L Normal 3.5-5.1 [facility] Comment on above: Performed By: #### T 4, CMP, TSH #### [facility] [address] [place] [address] Dr. Musa Chacon Protein [Mass/Vol] 6.9 g/dL Normal 6.4-8.2 [facility] Comment on above: Performed By: #### T 4, CMP, TSH #### [facility] [address] [place] [address] Dr. Musa Chcaon Sodium [Moles/Vol] 140 mmol/L Normal 136-145 [facility] Comment on above: Performed By: #### T 4, CMP, TSH #### [facility] [address] [place] [address] Dr. Musa Chacon Urea nitrogen [Mass/Vol] 10.0 mg/dL Normal 7.0-18.0 [facility] Comment on above: Performed By: #### T 4, CMP, TSH #### [facility] [address] [address] [address] Musa Chacon Urea nitrogen/Creatinine [Mass ratio] 12.8 mg/mg Normal [facility] Comment on above: Performed By: #### T 4, CMP, TSH #### [facility] [address] [address] [address] Musa Chacon T4on 10-02-2022 T4 [Mass/Vol] 6.30 ug/dL Normal 4.80-13.90 [facility] Comment on above: Performed By: #### T 4, CMP, TSH #### [facility] [address] [place] [address] Dr. Musa Chacon TSHon 10-02-2022 TSH 1.653 uIU/mL Normal 0.358-3.740 [facility] Comment on above: Performed By: #### T 4, CMP, TSH #### [facility] [address] [place] [address] Dr. Musa Chacon Coding Summary.on 10-12-2020 Coding Summary. CODING DATE: 10/12/2020 FINAL [facility] STATUS: Home (Routine DC) PAYOR: Commercial [...] CphT Date Saved: 10/12/2020 10:12 am Normal [facility] SARS-CoV-2, NAAon 10-06-2020 SARS CORONAVIRUS 2 RNA:PRTHR:PT:RESPIRATOR Y:ORD:PROBE.AMP.TAR Detected Abnormal Not Detected [facility] Comment on above: Result Comment: This nucleic [...] this assay. Performed at: [facility] [address] [place], [place] [id number] [facility] Magda Clark Performed By: #### S ARS-CoV-2, LE #### [facility] [address] [place] [address] Physician Orderon 10-02-2020 Physician Order [id number] Normal [facility] Vital Signs Date Time Vital Sign Value Performing Clinician Facility 06-28-2024 09:58-0400 Body height 167.64 cm [facility] 06-28-2024 09:58-0400 Body mass index (BMI) [Ratio] 24.7 kg/m2 [facility] 06-28-2024 09:58-0400 Body temperature 98.1 [degF] [facility] 06-28-2024 09:58-0400 Body weight 69.39 kg [facility] 06-28-2024 09:58-0400 Diastolic blood pressure 60 mm[Hg] [facility] 06-28-2024 09:58-0400 Heart rate 80 /min [facility] 06-28-2024 09:58-0400 Respiratory rate 18 /min [facility] 06-28-2024 09:58-0400 SaO2% (BldA) [Mass fraction] 97 % [facility] 06-28-2024 09:58-0400 Systolic blood pressure 97 mm[Hg] [facility] 12-10-2023 16:18-0500 Body weight 70.31 kg Pati FRANCO Work Phone: [facility] 12-10-2023 16:18-0500 Diastolic blood pressure 64 mm[Hg] Pati FRANCO Work Phone: [facility] 12-10-2023 16:18-0500 Systolic blood pressure 108 mm[Hg] Pati FRANCO Work Phone: [facility] Healthcare Encounters Encounter Date Encounter Type Care Provider Facility Start: 06-28-2024 End: 06-28-2024 ambulatory [facility] Work Phone: Start: 06-28-2024 End: 06-28-2024 Patient encounter procedure [facility] Work Phone: Start: 03-08-2024 End: 03-08-2024 ambulatory AMPARO KEO Not Available Start: 01-21-2024 End: 01-21-2024 ambulatory AMPARO EKO Not Available Start: 01-14-2024 End: 01-14-2024 ambulatory AMPARO KEO Not Available Start: 01-08-2024 End: 01-08-2024 ambulatory PATI ARTIS Not Available Start: 12-24-2023 End: 12-24-2023 ambulatory AMPARO KEO Not Available Start: 12-10-2023 End: 12-10-2023 ambulatory PATI ARTIS Not Available Start: 12-10-2023 End: 12-10-2023 flow sheet Pati FRANCO Work Phone: [facility] Comment on above: Third trimester preg mandeep; Multigravida of advanced maternal age in third trimester Start: 11-25-2023 End: 11-25-2023 ambulatory AMPARO KEO Not Available Start: 11-05-2023 End: 11-05-2023 ambulatory PATI ARTIS Not Available Start: 10-08-2023 End: 10-08-2023 ambulatory PATI WISDOM Not Available Start: 10-05-2022 Encounter for genera l adult medical examination without abnormal findings DR GEE HERNANDEZ [facility] Start: 10-02-2022 End: 10-03-[address] GEE HERNANDEZ Facility:[facility] Start: 10-02-2022 End: 10-03-2022 Encounter for general adult medical examination without abnormal findings DR GEE HERNANDEZ Facility:[facility] Start: 05-21-2017 End: 05-22-2017 Ambulatory DEFAULT PHYSICIAN Facility:[facility] Procedures Date Procedure Procedure Detail Performing Clinician Start: 06-28-2024 COVID Antigen (POC) Start: 06-28-2024 Quick Strep (POC) Start: 12-10-2023 Urnls dip stick/tabl et rgnt non-auto w/o micrscp Pati Wisdom PA Work Phone: Plan of Treatment Date Care Activity Detail Author Start: 12-24-2023 End: 12-24-2023 Patient encounter procedure 12/24/2023 1:40 PM EST Routine [facility] [address] [place] [id number] Amparo Carbone, DO [address] [place], [place] [id number] [facility] Start: 12-24-2023 End: 12-24-2023 Professional / ancillary services management 12/24/2023 1:00 PM EST Ancillary Procedure [facility] [address] [phone] [facility] Start: 12-10-2023 End: 12-10-2024 [...] third trimester Expected: 12/10/2023 (Approximate), Expires: 12/10/2024 [facility] Comment on above: Expected: 12/10/2023 (Approximate), Expires: 12/10/2024 Payers Date Payer Category Payer Unknown 2022 Unknown [id number] 1985 Unknown [id number] 2.16.84 [id number] 1986 Unknown [id number] 2.16.84 [id number] 1986 Unknown [id number] 2.16.84 [id number] 1986 Unknown [id number] 2.16.84 [id number] 1986 Unknown [id number] 2.16.84 [id number] 1986 Unknown [id number] 2.16.84 [id number] 1986 Unknown [id number] 2.16.84 [id number] 1986 Unknown [id number] 2.16.84 [id number] 1986 Unknown [id number] [id number] .[id number] 1986 Unknown [id number] [id number] .[id number] 1959 Unknown [id number] Social History Date Type Detail Facility Tobacco smoking stat [facility] Tobacco smoking consumption unknown [facility] Healthcare Start: 05-16-2023 [facility] Healthcare Start: 1985 Sex Assigned At Female [facility] Start: 06-23-2023 Gender identity Identifies as female gender (finding) [facility] Start: 08-21-2023 Sexual orientation Heterosexual (finding) [facility] Start: 06-28-2024 Tobacco smoking status NHIS Never smoked tobacco (finding) [facility] History of Present illness Narrative 12-10-2023 [...] Facility Evaluation note No assessment information availa [facility] Work Phone: Summary Purpose Family History [...] section and content) DATE CREATED AUTHOR 04/29/2018 [facility] DATE CREATED AUTHOR AUTHOR'S ORGANIZ ATION 10/13/2020 [facility] DATE CREATED AUTHOR AUTHOR'S ORGANIZ ATION 10/05/2022 [facility] DATE CREATED AUTHOR AUTHOR'S ORGANIZ ATION 03/09/2024 [facility] EPIC Reason for Visit [...] BE BASED ON THE PRIMARY CLINICAL RECORDS. [facility] [employer] provides no warranty or guarantee of the accuracy or completeness of information in this document.
== END 2024-09-27 20:19 | disposition home or self-care (01) ==
LOC: LAB 20:18
PROVIDERS: Visit Provider Obstetrics & Gynecology
DX: Z01.419 Encounter for gynecological examination (general) (routine) without abnormal findings (principal)
CPT/HCPCS: 87624; 88175

== ENCOUNTER 2025-10-05 19:36 | Outpatient (REF) | payer OTHER, SELFPAY ==
--- OUTSIDE RECORDS SUMMARY | 2025-10-05 16:00 | XMS_ITS | Encounter Summary ---
Author Organization [facility] Address [address] [place] [address] Care Team Providers Care News Intern Name Role Phone Unavailable Primary Care Provider Unavailabl e Reason for Visit * ReasonCommentsGynecologic Exam Encounter Details DateTypeDepartmentCare Team (Latest Contact Info)Omibzlvthci81/03/2025 4:00 PM ESTOffice Visit [facility] [address] [place] [phone] Matthieu Carbone DO [address] [place] [address] Well woman exam with routine gynecological exam; Urinary tract infection without hematuria, site unspecified Social History Tobacco UseTypesPacks/DayYears UsedDateSmoking Tobacco: Never Assessed CommentsNoSex and Gender InformationValueDate RecordedSex Assigned at Grdslv6506/23/2023 8:20 PM EDTLegal TjaTgbpju42/15/2023 11:47 PM EDTGender UconbqrdRimjsg01/21/2023 8:20 PM EDTSexual VfcfuyytomcKexlrtya18/21/2023 8:20 PM EDTdocumented as of this encounter Last Filed Vital Signs Vital SignReadingTime TakenCommentsBlood Lpiwobgo847/7010/05/2025 4:02 PM EST Pulse--Temperature--Respiratory Rate--Oxygen Saturation--Inhaled Oxygen Concentration--Toguio03.9 kg (143 lb)10/05/2025 4:02 PM ESTHeight--Body Mass Index--documented in this encounter Progress Notes * Zamzam Parekh MA - 10/05/2025 4:00 PM EST Reason for Appointment: Patient ID: Noni Velasco is a 40 y.o. female who presents for Gynecologic Exam Patient presents today for Annual Exam. MEDICATIONS Current Outpatient Medications Medication Instructions doxycycline (VIBRAMYCIN) 100 mg, Oral, 2 times daily, Take with at least 8 ounces (large glass) of water, do not lie down for 30 minutes after valACYclovir (VALTREX) 500 mg, Every morning ALLERGIES Allergies Allergen Reactions Ciprofloxacin GI intolerance Other Reaction(s): Nightmare Nitrofurantoin GI intolerance Other Reaction(s): Nausea & vomiting Other Reaction(s): Vomiting PROBLEMS Active Ambulatory Problems Diagnosis Date Noted No Active Ambulatory Problems Resolved Ambulatory Problems Diagnosis Date Noted No Resolved Ambulatory Problems No Additional Past Medical History HISTORY PAST MEDICAL HISTORY SOCIAL HISTORY No past medical history on file. Social History Tobacco Use Smoking status: Not on file Smokeless tobacco: Not on file Substance Use Topics Alcohol use: Not on file Drug use: Not on file FAMILY HISTORY Family History Problem Relation Name Age of Onset Diabetes Mother Thyroid disease Mother Rheum arthritis Father Diabetes Sister Diabetes Mother's Sister Diabetes Maternal Grandmother Cancer Paternal Grandmother Cancer Paternal Grandfather SURGICAL HISTORY Past Surgical History: Procedure Laterality Date DILATION AND CURETTAGE OF UTERUS 2005 OVARIAN CYST REMOVAL REVIEW OF SYSTEMS Review of Systems: Review of Systems OBJECTIVE Objective: OBGyn Exam Vitals: There is no height or weight on file to calculate BMI. BP: 116/70 Patient's last menstrual period was 09/19/2025 (exact date). Assessment/Plan ICD-10-CM 1. Well woman exam with routine gynecological exam Z01.419 Pap Smear HPV DNA probe, amplified 2. Urinary tract infection without hematuria, site unspecified N39.0 POCT urinalysis dipstick manually resulted doxycycline (Vibramycin) 100 MG capsule Urine culture Assessment/Plan Annual Exam: Patient presents today for an annual exam. Patient states she is doing well and has complaints of frequent urination issues and unable to empty bladder. Doxycycline was sent in for patient and urine was sent out for cx. Pap was obtained without difficulty. Orders Placed This Encounter Procedures HPV DNA probe, amplified Urine culture POCT urinalysis dipstick manually resulted Follow Up: Patient is to return in one year for annual unless needed otherwise. Documented by Zamzam Parekh MA on behalf of: DO Linnette Rushally signed by Zamzam Parekh MA at 10/05/2025 4:45 PM EST documented in this encounter Plan of Treatment NameTypePriorityAssociated DiagnosesOrder SchedulePap SmearPathology and CytologyRoutine Well woman exam with routine gynecological exam Ordered: 10/05/2025HPV DNA probe, amplifiedMicrobiologyRoutine Well woman exam with routine gynecological exam Ordered: 10/05/2025Urine cultureMicrobiologyRoutine Urinary tract infection without hematuria, site unspecified Ordered: 10/05/2025documented as of this encounter Procedures Procedure NamePriorityDate/TimeAssociated DiagnosisCommentsPOCT URINALYSIS LSKJAZEQHpwizoh66/03/2025 4:08 PM EST Urinary tract infection without hematuria, site unspecified documented in this encounter Results * (ABNORMAL) POCT urinalysis dipstick manually resulted (10/05/2025 4:08 PM EST) ComponentValueRef RangeTest MethodAnalysis TimePerformed AtPathologist SignatureColor, UAYellowClarity, UAClearGlucose, UANegativeNegative - 2000(110) ++++ mg/dLBilirubin, UANegativeNegative - 4(70) +++ mg/dLKetones, UA NegativeNegative - 160(16) ++++ mg/dLSpec Grav, UA1.0101 - 1.03Blood, UA PositiveNegative - 50 Andrea/mcLpH, UA6.55 - 9Protein, UANegativeNegative - 2000(20) ++++ mg/dLUrobilinogen, UA1.00.2 - 12 mg/dLLeukocytes, UA2+Negative - 500+++ Toan/mcLNitrite, UANegativeNegative - PositiveSpecimen (Source) Anatomical Location / LateralityCollection Method / VolumeCollection Time Received BfvdYwjpn18/03/2025 4:08 PM EST Narrative Authorizing ProviderResult TypeResult StatusCorekerri Carbone DOPOINT OF CARE TEST ENTER/EDIT ORDERABLESFinal Result documented in this encounter Visit Diagnoses Diagnosis Well woman exam with routine gynecological exam Routine gynecological examination Urinary tract infection without hematuria, site unspecified documented in this encounter
--- OUTSIDE RECORDS SUMMARY | 2025-10-05 19:40 | XMS_ITS | CCD ---
Author Organization [facility] Care Team Providers Care Syrup Mixer Name Role Phone PHYSICIAN, DEFAULT Unavailable Unavailable PHYSICIAN, DEFAULT Unavailable Unavailable HOUSE, DR FLYNN Attending Unavailable HOUSE, DR FLYNN Consulting Unavailable HOUSE, DR FLYNN Admitting Unavailable REQUEST, DR GARCIA LISTED Primary Care Unavaila ble Unavailable Primary Care Provider Unavailabl e ARTIS, PATI Attending Unavailable AUDREY, AMPARO Attending Unavailable ARTIS, PATI Attending Unavailable AUDREY, AMPARO Attending Unavailable ARTIS, PATI Attending Unavailable AUDREY, AMPARO Attending Unavailable ARTIS, PATI Attending Unavailable AUDREY, AMPARO Attending Unavailable AUDREY, AMPARO Attending Unavailable AUDREY, AMPARO Attending Unavailable Wilfrido, Claire Hubbard Admitting Unavailable Wilfrido, Claire Hubbard Attending Unavailable Wilfrido, Claire Hubbard Attending Unavailable HOUSEGEE Primary Care Physician WilfridoClaire collier Primary Care Physician Claire Anna Admitting Unavailable Wilfrido, Claire Hubbard Attending Unavailable Wilfrido, Claire Hubbard Attending Unavailable Allergies Allergy ClassificationReported Allergen(s)Allergy TypeDate of OnsetReaction(s) Facility (4 sources)Nitrofurantoin; Translations: [Macrobid]Drug Efhifbj65-02-2925 [facility] Repository (18 sources)Ciprofloxacin; Translations: [ciprofloxacin]Drug Xyubayh34-14-9009WE intolerance, Dream anxiety disorder (disorder)[facility] (15 sources)NitrofurantoinDrug Nwbsngn42-48-7935EF intoleranceUniversity Health [facility] Medical Center (2 sources)Ciprofloxacin; Translations: [Cipro][facility] (2 sources)NITROFURANTOIN, MACROCRYSTALS / Nitrofurantoin, Monohydrate; Translations: [nitrofurantoin]Drug AllergyNausea & vomitingMount [facility]. [facility] Medic[facility] Current Medications MedicationDrug Class(es)DatesSig (Normalized)Sig (Original)doxycycline hyclate 100 mg oral tablet (1 source)Tetracycline-class DrugStart: 12-22-2024 End: 63-17-2909xqbj 1 tablet by mouth every twelve hoursdoxycycline hyclate 100 mg Tab 100 mg = 1 tab(s), Oral, q12hr, X 7 day(s), # 14 tab(s), Refills(s) 0, Pharmacy: [facility], 169, cm, 12/22/24 16:23:00 EST, Height/Length Dosing, 73.8, kg, 12/22/24 16:23:00 EST, Weight Dosing Start Date: 12/22/24 Stop Date: 12/29/24 Status: OrderedvalACYclovir 500 mg oral tablet (7 sources)Herpesvirus Nucleoside Analog DNA Polymerase Inhibitor, Herpes Simplex Virus Nucleoside Analog DNA Polymerase Inhibitor, Herpes Zoster Virus Nucleoside Analog DNA Polymerase InhibitorStart: 13-05-7474xxfu 1 tablet by mouth in the morningvalACYclovir (Valtrex) 500 MG tablet Take 500 mg by mouth in the morning. 08/31/2024 ActiveStart: 12-10-2023 End: 59-69-1774slnd 1 tablet by mouth in the morningvalACYclovir (Valtrex) 500 MG tablet Indications: Third trimester ([facility]) Take 1 tablet(500 mg) by mouth in the morning. 30 tablet 5 12/10/2023 06/07/2024 Completed/Discontinued Medications MedicationDrug Class(es)DatesSig (Normalized)Sig (Original)cephalexin 500 mg oral capsule (6 sources)Cephalosporin AntibacterialStart: 01-14-2024 End: 98-35-8915jyvw 1 capsule by mouth once dailycephalexin (Keflex) 500 MG capsule Indications: Third trimester ([facility]) Take 1 capsule (500 mg) by mouth Daily 20 capsule 1 01/14/2024 02/23/2024 Expiredpolysaccharide iron complex 391 mg oral capsule (4 sources)Start: 11-19-2023 End: 94-37-0920jtsx 1 capsule by mouth in the morningiron polysaccharides (ProFe) 391.3 (180 Fe) MG capsule Indications: Low hemoglobin Take 1 capsule (3 91.3 mg) by mouth in the morning. 30 capsule 6 11/19/2023 06/16/2024 MV-Min-Fe Fum-FA-DHA ( 1 PO) (4 sources) End: 63-06-3626Fjamaqub MV-Min-Fe Fum-FA-DHA ( 1 PO) Take 1 each by mouth in the morning. 03/08/2024 DiscontinuedPrenatal MV-Min-Fe Fum-FA-DHA ( 1 PO) Take 1 each by mouth in the morning. 0 Active Problems Problem ClassificationProblemDateDocumented DateEpisodic/ChronicBacterial infection; unspecified site (2 sources)Chlamydial -33-9171BqcjbadxJjudkcxefwsyt symptoms and ill- defined conditions (4 sources)Poor stream of urine; Translations: [Urgent desire to urinate] 63-00-7429MmrmeutaIfhihblj; including migraine (2 sources)Mrtjrvco41-83-8948LnrsqgqNyrho complications of (2 sources)Multigravida of advanced maternal age; Translations: [Supervision of elderly multigravida, third trimester]82-35-4759ColgqystPgoef infections; including parasitic (2 sources)Infection by Dnvizlzurbh41-11-9371RmhasrdtKkiot and delivery including normal (2 sources)Third trimester ; Translations: [Encounter for supervision of normal , unspecified, third trimester]27-99-1769PrmavtdgBfnqrrytilt; intervertebral disc disorders; other back problems (2 sources)Rhedwmjr53-39-4629LjpxbzziRxajzpaeayil (2 sources)Finding of sensation of crpsusn38-97-3749Jpqsqbzrzjcc (1 source)Body mass index 20-24 - armfkg31-74-5278Eclvnjr tract infections (5 sources)Recurrent urinary tract infection; Translations: [Urinary tract infection, site not specified]82-05-3316PaxvkrcaUvnye infection (2 sources)Herpes -72-3959Jjoisjgx Results Test NameValueInterpretationReference RangeFacilityReminderson 04-25-2025 RemindersReminders From: Claire Rodriguez To: [facility] - Clinical; Sent: 04/25/2025 07:48:54 EDT Show up: 04/25/2025 07:49:00 EDT Subject: Ambulatory Reminder Due Date/Time: 04/26/2025 07:48:00 EDT urine culture was positive. continue antibiotic she was prescribed. is she feeling better? Results: Date Result Type Ind Result Name 04/20/2025 16:06 EDT MBO POS Urine Culture left VM to return our call, to relay below message From: July Rivas (B - Clinical) To: Claire Rodriguez; Sent: 04/25/2025 15:17:09 EDT Show up: 04/25/2025 15:17:00 EDT Subject: RE: Ambulatory Reminder Patient notified and verbalized understanding. Pt reports she is feeling a lot better.[facility] CampusRemindersReminders From: Claire Rodriguez To: [facility] - Clinical; Sent: 04/25/2025 07:48:54 EDT Show up: 04/25/2025 07:49:00 EDT Subject: Ambulatory Reminder Due Date/Time: 04/26/2025 07:48:00 EDT urine culture was positive. continue antibiotic she was prescribed. is she feeling better? Results: Date Result Type Ind Result Name 04/20/2025 16:06 EDT [facility] Urineon [id number] identified Cx Nom (U)Microbiology PROCEDURE: Urine Culture [R1] SOURCE: U CleanCatch BODY SITE: COLLECTED DATE/TIME: 04/20/2025 16:06 EDT RECEIVED DATE/TIME: 04/21/2025 19:04 EDT START DATE/TIME: 04/21/2025 19:05 EDT FREE TEXT SOURCE: Claire Rodriguez Jodi L FINAL REPORTS Final Report [] Verified Date/Time: 04/23/2025 09:39 EDT 75,000 cfu/ml Klebsiella pneumoniae <10,000 cfu/ml Mixed skin contaminants SUSCEPTIBILITY RESULTS LEGEND: S=Susceptible, N/R=Not Reported, Blank=Data not available, or drug not advisable or tested, I=Intermediate, ESBL=Extended spectrum beta-lactamase, R=Resistant, TFG=Thymidine-dependent strain, JUDITH=Beta-lactamase positive, PERRY=mcg/m;(mg/L), S*=Predicted susceptible interp, R*=Predicted resistant interp Klepne Antibiotic PERRY Dilutn PERRY Interp Ampicillin >16 R Ampicillin/ <=8/4 S Sulbactam Cefazolin <=2 S Cefepime <=2 S Ceftazidime/ <=8 S Avibactam Ceftriaxone <=1 S Cefuroxime <=4 S Ciprofloxacin <=0.25 S Ertapenem <=0.5 S Gentamicin <=2 S Levofloxacin <=0.5 S Meropenem <=1 S Nitrofurantoin <=32 S Piperacillin/ <=8 S Tazobactam Tetracycline <=4 S Tobramycin <=2 S Trimethoprim/ <=2/38 S Sulfa Performing Locations R1: This test was performed at: [facility], [address] [place] [address], [address] , , SekwujZjcdtqTrinity Health System East CampusComment on above:Performed By: #### [id number] #### [facility] [address] [place], [place] [address], [place] [address]Oplhjopsny Visit Summaryon 59-77-8370Keaixouanv Visit Summary Ambulatory Visit Summary NONI NELSON :1985 Visit Date:04/20/2025 Ambulatory Visit Instructions Your Diagnosis Urinary frequency Your Care Team Attending Physician - Claire Rodriguez Primary Care Physician - Claire Rodriguez Procedures Performed Cystourethroscopy with dilation of urethral stricture (02/02/2019). Discharge Vitals Temperature (Oral) 36.4 ???C Heart Rate (Peripheral) 68 Respiratory Rate 20 Blood Pressure 112/68 Height 169.0 cm Height 67 in Weight 69.8 kg Weight 153.882 lb BMI 24.44 Allergies Cipro (Nightmare) Macrobid (Nausea & vomiting) Problems Ongoing - Any problem that you are currently receiving treatment for. Back pain Chlamydia Feeling of incomplete bladder emptying Frequent UTI Herpes Migraine headache Trichomoniasis Urgency of urination Weak urinary stream Patient Survey You may receive a survey via text or e-mail asking about your office visit. Please share your experience with us by completing your survey. We appreciate your feedback and thank you for choosing us for your care. [facility] Medicine Office/Clinic Noteon [id number] Medicine Office/Clinic NoteFabarnstable county hospital Medicine Office/Clinic Note HPI Staff Noni is a 40 year old female presenting with Onset: started 4 days ago Symptoms: frequency, a few drops at a time, but she feels like her bladder is full, OTC used: cranberry tabs, Azo demanos Last UTI: December Hx of kidney stones: no UA in office documented in chart she woke up yesterday morning with flank pain on both sides History of Present Illness pt presents today for UTI symptoms Review of Systems PHQ Score Initial Depression Screen Score: 3 SCORE Detailed Depression Screen Score: 2 Total Depression Screen Score: 5 Physical Exam Vitals & Measurements T: 36.4 ???C(Oral) HR: 68(Peripheral) RR: 20 BP: 112/68 SpO2: 99% HT: 169.0 cm HT: 67 in WT: 153.882 lb WT: 69.8 kg BMI: 24.44 General: alert, no acute distress ENMT: oral mucosa moist, no pharyngeal erythema or exudate Cardiovascular: regular rate and rhythm, normal peripheral perfusion Respiratory: Lungs CTA, respirations non labored Extremities: no deformity, no trauma Neurological: oriented x 4, LOC appropriate for age, CN II-XII intact, motor strength equal & normal bilaterally, speech normal Assessment/Plan 1. Urinary tract infection (N39.0: Urinary tract infection, site not specified) will send in doxycycline. pt responded well to that last time. she states bactrim doesn't help and she is allergic to cipro and macrobid. urine sent for culture. pt to continue azo. rtc as needed 2. Urinary frequency (R35.0: Frequency of micturition) u/a positive. will send for culture Ordered: Urine Culture Urnls Dip Stick Auto w/o Microscopy POC 32236 3. Former smoker (Z87.891: Personal history of nicotine dependence) continue not smoking 4. BMI 24.0-24.9, adult (Z68.24: Body mass index [BMI] 24.0-24.9, adult) BMI education given Follow-up No qualifying data available Problem List/Past Medical History Ongoing Back pain BMI 24.0-24.9, adult Chlamydia Feeling of incomplete bladder emptying Frequent UTI Herpes Migraine headache Trichomoniasis Urgency of urination Urinary tract infection Weak urinary stream Historical No qualifying data Procedure/Surgical History Cystourethroscopy with dilation of urethral stricture (02/02/2019). Medications No active medications Allergies Cipro (Nightmare) Macrobid (Nausea & vomiting) Social History Alcohol Never., 12/22/2024 Substance Abuse Never., 12/22/2024 Tobacco Former smoker, quit more than 30 days ago Tobacco Use:., 04/20/2025 Family History Cancer: Grandparent. Diabetes mellitus type 2: Mother and Grandparent. Heart disease: Grandparent. Hypertension: Mother and Grandparent. Stroke: Grandparent. Immunizations Vaccine Date Status SARS-CoV-2 (COVID-19) Ad26 vaccine 03/30/2021 Recorded measles/mumps/rubella virus vaccine 02/01/1998 Recorded Lab Results Ambulatory Point of Care Results Bilirubin Urine Dipstick: Negative (04/20/25 16:03:00) Blood Urine Dipstick: 1+ Small (04/20/25 16:03:00) Glucose Urine Dipstick: Negative (04/20/25 16:03:00) Ketones Urine Dipstick: Negative (04/20/25 16:03:00) Leukocytes Urine Dipstick: 1+ Small (04/20/25 16:03:00) Nitrite Urine Dipstick: Positive (04/20/25 16:03:00) Protein Urine Dipstick: Trace (04/20/25 16:03:00) Specific [place] Urine Dipstick: 1.020 (04/20/25 16:03:00) Urine Appearance Urine Dipstick: Clear (04/20/25 16:03:00) Urine Color Urine Dipstick: Light yellow (04/20/25 16:03:00) Urobilinogen Urine Dipstick: Normal 0.2-1 EU/dl (04/20/25 16:03:00) pH Urine Dipstick: 7 (04/20/25 16:03:00)NormalGalion HospitalComment on above:Result Comment: Electronically Signed By: Claire Rodriguez\.br\Date and Time Signed: 04/20/25 16:18 EDTReminderson [id number] From: Claire Rodriguez To: [facility] - Clinical; Sent: 12/27/2024 08:28:01 EST Show up: 12/27/2024 08:28:00 EST Subject: Ambulatory Reminder Due Date/Time: 12/28/2024 08:27:00 EST Urine culture was positive for Klebsiella pneumonia. continue doxycycline. is she felling any better? Results: Date Result Type Ind Result Name 12/22/2024 16:36 EST MBO POS Urine Culture From: Yesi Parker M.A. ([facility] - Clinical) To: Claire Rodriguez; [facility] - Clinical; Sent: 12/27/2024 09:09:15 EST Show up: 12/27/2024 09:08:00 EST Subject: RE: Ambulatory Reminder left message to relay below message LVM for pt to return callNormalFisher Regan Medical CenterReminderson 12-27-2024 RemindersReminders From: Claire Rodriguez To: B - Clinical; Sent: 12/27/2024 08:28:01 EST Show up: 12/27/2024 08:28:00 EST Subject: Ambulatory Reminder Due Date/Time: 12/28/2024 08:27:00 EST Urine culture was positive for Klebsiella pneumonia. continue doxycycline. is she felling any better? Results: Date Result Type Ind Result Name 12/22/2024 16:36 EST MBO POS [facility]NoR[facility] Urineon [id number] identified Cx Nom (U)Microbiology PROCEDURE: Urine Culture [R1] SOURCE: U CleanCatch BODY SITE: COLLECTED DATE/TIME: 12/22/2024 16:36 EST RECEIVED DATE/TIME: 12/23/2024 19:20 EST START DATE/TIME: 12/23/2024 19:20 EST FREE TEXT SOURCE: Claire Rodriguez Jodi L FINAL REPORTS Final Report [] Verified Date/Time: 12/25/2024 09:18 EST 75,000 cfu/ml Klebsiella pneumoniae SUSCEPTIBILITY RESULTS LEGEND: S=Susceptible, N/R=Not Reported, Blank=Data not available, or drug not advisable or tested, I=Intermediate, ESBL=Extended spectrum beta-lactamase, R=Resistant, TFG=Thymidine-dependent strain, JUDITH=Beta-lactamase positive, PERRY=mcg/m;(mg/L), S*=Predicted susceptible interp, R*=Predicted resistant interp Klepne Antibiotic PERRY Dilutn PERRY Interp Ampicillin >16 R Ampicillin/ <=8/4 S Sulbactam Aztreonam <=4 S Cefazolin <=2 S Cefepime <=2 S Ceftazidime <=1 S Ceftazidime/ <=8 S Avibactam Ceftriaxone <=1 S Cefuroxime <=4 S Ciprofloxacin <=0.25 S Ertapenem <=0.5 S Gentamicin <=2 S Levofloxacin <=0.5 S Meropenem <=1 S Nitrofurantoin <=32 S Piperacillin/ <=8 S Tazobactam Tetracycline <=4 S Tobramycin <=2 S Trimethoprim/ <=2/38 S Sulfa Performing Locations R1: This test was performed at: [facility], [address] [place] [address], [facility] , , VjpbolXzhuwmTrinity Health System East CampusComment on above:Performed By: #### [id number] #### [facility] [address] [place] [address] Medicine Office/Clinic Noteon [id number] Medicine Office/Clinic NoteFabarnstable county hospital Medicine Office/Clinic Note HPI Staff Noni is a 39 year old female presenting to [facility] care Establish Care: History: Any previous diagnosis: History of seeing any specialist: When was your last doctors visit: Last provider: Dr heredia Any recent labs: none in over a year Health Maintenance UTD: Colonoscopy: no Mammogram: no Pelvic/Pap: 2023 normal, audrey Acute: Current issues/complaints: Dysuria: Onset: 1 year since Symptoms: weak flow, urge to urinate all the time, Frequency OTC used: Last UTI: Hx of kidney stones: Has been given Bactrim at least 3 times, cephalexin . Pt has seen Dr vivar in the past UA in office documented in chart History of Present Illness pt c/o uti symptoms. she has been to urology in the past. Review of Systems PHQ Score Initial Depression Screen Score: 2 SCORE Physical Exam Vitals & Measurements HR: 62(Peripheral) RR: 18 BP: 110/76 SpO2: 95% HT: 67 in HT: 169.0 cm WT: 73.80 kg WT: 162.701 lb BMI: 25.84 General: alert, no acute distress ENMT: oral mucosa moist, no pharyngeal erythema or exudate Cardiovascular: regular rate and rhythm, normal peripheral perfusion Respiratory: Lungs CTA, respirations non labored Extremities: no deformity, no trauma Neurological: oriented x 4, LOC appropriate for age, CN II-XII intact, motor strength equal & normal bilaterally, speech normal Assessment/Plan 1. Frequent UTI (N39.0: Urinary tract infection, site not specified) pt presents as a new patient c/o UTI symptoms. She said I go through cycles when i have babies. Shehas an 11 month old at home and she's been struggling with UTI's since that . will send urine for culture. she has taken bactrim and keflex recently. will start doxycycline. until we get u/aresults back. RTC as needed Ordered: doxycycline, 100 mg = 1 tab(s), Oral, q12hr, X 7 day(s), # 14 tab(s), Refills(s) 0, Pharmacy: [facility], 169, cm, 12/22/24 16:23:00 EST, Height/Length Dosing, 73.8, kg, 12/22/24 16:23:00 EST, Weight Dosing 2. Urgency of urination (R39.15: Urgency of urination) see above Ordered: doxycycline, 100 mg = 1 tab(s), Oral, q12hr, X 7 day(s), # 14 tab(s), Refills(s) 0, Pharmacy: [facility], 169, cm, 12/22/24 16:23:00 EST, Height/Length Dosing, 73.8, kg, 12/22/24 16:23:00 EST, Weight Dosing Urine Culture Urnls Dip Stick Auto w/o Microscopy POC 21096 3. Feeling of incomplete bladder emptying (R39.14: Feeling of incomplete bladder emptying) pt had urethra stretched in the past by urology and is not interested in referral at this time. Ordered: doxycycline, 100 mg = 1 tab(s), Oral, q12hr, X 7 day(s), # 14 tab(s), Refills(s) 0, Pharmacy: [facility], 169, cm, 12/22/24 16:23:00 EST, Height/Length Dosing, 73.8, kg, 12/22/24 16:23:00 EST, Weight Dosing 4. BMI 25.0-25.9,adult (Z68.25: Body mass index [BMI] 25.0-25.9, adult) BMI education given 5. Non-smoker (Z78.9: Other specified health status) continue not smoking Follow-up No qualifying data available Problem List/Past Medical History Ongoing Back pain Chlamydia Feeling of incomplete bladder emptying Frequent UTI Herpes Migraine headache Trichomoniasis Urgency of urination Weak urinary stream Historical No qualifying data Procedure/Surgical History Cystourethroscopy with dilation of urethral stricture (02/02/2019). Medications doxycycline hyclate 100 mg Tab, 100 mg= 1 tab(s), Oral, q12hr Allergies Cipro (Nightmare) Macrobid (Nausea & vomiting) Social History Alcohol Never., 12/22/2024 Substance Abuse Never., 12/22/2024 Tobacco Former smoker, quit more than 30 days ago Tobacco Use:., 12/22/2024 Family History Cancer: Grandparent. Diabetes mellitus type 2: Mother and Grandparent. Heart disease: Grandparent. Hypertension: Mother and Grandparent. Stroke: Grandparent. Lab Results Ambulatory Point of Care Results Bilirubin Urine Dipstick: Negative (12/22/24 16:49:00) Blood Urine Dipstick: 2+ Moderate (12/22/24 16:49:00) Glucose Urine Dipstick: Negative (12/22/24 16:49:00) Ketones Urine Dipstick: Negative (12/22/24 16:49:00) Leukocytes Urine Dipstick: 1+ Small (12/22/24 16:49:00) Nitrite Urine Dipstick: Negative (12/22/24 16:49:00) Protein Urine Dipstick: Negative (12/22/24 16:49:00) Specific [place] Urine Dipstick: 1.015 (12/22/24 16:49:00) Urine Appearance Urine Dipstick: Slightly cloudy (12/22/24 16:49:00) Urine Color Urine Dipstick: Light yellow (12/22/24 16:49:00) Urobilinogen Urine Dipstick: Normal 0.2-1 EU/dl (12/22/24 16:49:00) pH Urine Dipstick: 7 (12/22/24 16:49:00)[facility] CampusComment on above:Result Comment: Electronically Signed By: Claire Rodriguez.br\Date and Time Signed: 12/23/24 13:20 MARYANNE PAREDES HPV,AGE GDLNon [id number] GDLN ACOG TESTINGNote.NOMS HealthcareComment on above:TESTS RESULT FLAG UNITS REF RANGE LAB Clinician Provided Cytology Information Source.............Cervix;Endocervix No. of containers..01 ThinPrep Vial Age Algo CALLUMOG Naomi... 30-65 FLAG LEGEND: L-Low Normal,H-High Normal,LL-Alert Low,HH-Alert High <-Panic Low,>-Panic High,A-Abnormal,AA-Critical Abnormal Performed at: 01 =[facility] [address] [address] Bebe Floyd MD, HPV APTIMANegativeNegativeNOMS HealthcareComment on above:This nucleic acid amplification test detects fourteen high- risk HPV types (16,18,31,33,35,39,45,51,52,56,58,59,66,68) without differentiation. Performed at: =G - [facility], [place] [id number] Marketing Services Manager: Bebe Floyd MD, Phone: [phone] Performed at: WB - [facility], [place] [id number] Marketing Services Manager: Bebe Floyd MD, Phone: [phone] IGP, APTIMA HPV, RFX 16/18,45NoteAbnormal.NOMS HealthcareComment on above:TESTS RESULT FLAG UNITS REF RANGE LAB DIAGNOSIS: [A] 02 EPITHELIAL CELL ABNORMALITY. ATYPICAL SQUAMOUS CELLS OF UNDETERMINED SIGNIFICANCE (ASC-US). Recommendation: [A] 02 Suggest follow up as clinically appropriate. Specimen adequacy: 02 Satisfactory for evaluation. Endocervical and/or squamous metaplastic cells (endocervical component) are present. Performed by: 02 Judy Wooten, Information Scientist (ASCP) Electronically si... 02 Savannah Paredes MD, Pathologist . 02 Pathologist ICD10: 02 R87.610 Note: Note 02 The Pap smear is a screening test designed to aid in the detection of premalignant and malignant conditions of the uterine cervix. It is not a diagnostic procedure and should not be used as the sole means of detecting cervical cancer. Both false-positive and false-negative reports do occur. Test Methodology: Note 02 This liquid based ThinPrep(R) pap test was screened with the use of an image guided system. HPV Genotype Reflex Note 02 Criteria not met, HPV Genotype not performed. FLAG LEGEND: L-Low Normal,H-High Normal,LL-Alert Low,HH-Alert High <-Panic Low,>-Panic High,A-Abnormal,AA-Critical Abnormal Performed at: [address] [facility] [address] Bebe Floyd MD, Interpretation and review of laboratory resultsAbnormalNOMS Healthcare BRUSH-SPATULA CERVIX ENDOCERVIX CLINISYNCNOMS HealthcareNo Panel Informationon [id number] EPIDERMIDIS, HAEMOLYTICUS, LUGDUNENSIS, SAPROPHYTICUS ([id number] Healthcare STAPHYLOCOCCUS EPIDERMIDIS, HAEMOLYTICUS, LUGDUNENSIS, SAPROPHYTICUS (URINANot detectedNOMS HealthcareURINARY TRACT INFECTION (HTRX)on [id number] HealthcareACINETOBACTER BAUMANIINot detectedNOMS HealthcareCANDIDA ALBICANS, PARAPSILOSIS, [id number] HealthcareCANDIDA ALBICANS, PARAPSILOSIS, TROPICALISNot detectedNOMS HealthcareCANDIDA [id number] HealthcareCANDIDA GLABRATANot detectedNOMS HealthcareCANDIDA [id number] HealthcareCANDIDA KRUSEINot detectedNOMS HealthcareCITROBACTER [id number] HealthcareCITROBACTER FREUNDIINot detectedNOMS HealthcareENTEROBACTER AEROGENES, [id number] HealthcareENTEROBACTER AEROGENES, CLOACAENot detectedNOMS HealthcareENTEROCOCCUS FAECALIS, [id number] HealthcareENTEROCOCCUS FAECALIS, FAECIUMNot detectedNOMS HealthcareESCHERICHIA [id number] HealthcareESCHERICHIA COLINot detectedNOMS HealthcareInterpretation and review of laboratory results AbnormalNOMS HealthcareKLEBSIELLA PNEUMONIAE, GBSIGHN21.374AbnormalNOMS HealthcareKLEBSIELLA PNEUMONIAE, OXYTOCADetectedAbnormalNOMS Healthcare MORGANELLA [id number] HealthcareMORGANELLA MORGANIINot detectedNOMS HealthcarePROTEUS MIRABILIS, [id number] HealthcarePROTEUS MIRABILIS, VULGARIS Not detectedNOMS HealthcarePSEUDOMONAS [id number] HealthcarePSEUDOMONAS AERUGINOSANot detectedNOMS HealthcareSERRATIA [id number] HealthcareSERRATIA MARCESCENSNot detectedNOMS HealthcareSHV, [facility] [id number] HealthcareSHV, [facility] GROUPSDetectedAbnormalNOMS HealthcareSTAPHYLOCOCCUS AUREUS0 NOMS HealthcareSTAPHYLOCOCCUS AUREUSNot detectedNOMS HealthcareSTREPTOCOCCUS AGALACTIAE (GROUP B STREP)0NOMS HealthcareSTREPTOCOCCUS AGALACTIAE (GROUP B STREP)Not detectedNOMS HealthcareSTREPTOCOCCUS PYOGENES (GROUP A STREP)0NOMS HealthcareSTREPTOCOCCUS PYOGENES (GROUP A STREP)Not detectedNOMS HealthcareNOMS HealthcareUrinalysis macro (dipstick) panel (U)on 35-34-1475Lnhpxoziw, UA NegativeNegative - 4(70) +++ mg/dLNOMS HealthcareBlood, UAPositiveNegative - 50 Andrea/mcLNOMS HealthcareComment on above:traceClarity, UACloudyNOMS Healthcare Color, UALight YellowNOMS HealthcareGlucose, UANegativeNegative - 2000(110) ++++ mg/dLNOMS HealthcareInterpretation and review of laboratory resultsAbnormalNOMS HealthcareKetones, UANegativeNegative - 160(16) ++++ mg/dLNOMS Healthcare Leukocytes, UAModerateNegative - 500+++ Toan/mcLNOMS HealthcareNitrite, UA NegativeNegative - PositiveNOMS HealthcarepH, UA75 - 9NOMS HealthcareProtein, UA NegativeNegative - 2000(20) ++++ mg/dLNOMS HealthcareSpec Grav, UA1.0151 - 1.03 NOMS HealthcareUrobilinogen, UA0.20.2 - 12 mg/dLNOMS HealthcareNOMS HealthcareNo Panel InformationOrdered By: Pastora Hopper on 10-27-6913XVLOY Antigen (POC) [facility] HospitalQuick Strep (POC)[facility] HospitalUS OB BPP W NON-STRESSon 22-12-9288Ijc [place] [id number] Ultrasound Report Signed Patient: NONI NELSON MR#: [id number] : 1985 Acct:[id number] Age/Sex: 38 / F ADM Date: Loc: [facility] 257-[address]: Amparo Carbone D.O. Ordering Physician: Amparo Carbone D.O. Date of Service: 01/21/24 Procedure(s): US OB BPP w non-stress Accession Number(s): [id number] cc: Amparo Carbone D.O.; Physician,Non-Staff Leidy The [place] [phone] Patient Name: NONI NELSON MRN: TBH:[id number] date: 1985 Sex: F Assigned Patient Location: [facility] Current Patient Location: [facility] Accession/Order Number: [id number] Exam Date: 01/21/2024 13:18 Report Date: 01/21/2024 13:45 At the request of: AMPARO CARBONE Procedure: US OB BPP w non-stress EXAMINATION: US OB BPP w non-stress HISTORY: circumvallate placenta COMPARISON: No relevant comparison available. TECHNIQUE: Ultrasound biophysical profile was performed in the radiology department. FINDINGS: BREATHING MOVEMENTS: 2.0 GROSS BODY MOVEMENTS: 2.0 TONE: 2.0 QUALITATIVE AMNIOTIC FLUID VOLUME: 2.0 PRESENTATION: CEPALIC HEART RATE: 140.6 bpm H.B./min AMNIOTIC FLUID VOLUME: 10.9 cm cm GESTATIONAL AGE: 37 weeks 5 days CONCLUSION: Total biophysical profile score: 8.0 Electronically authenticated by: SOPHIA GONZALEZ Date: 01/21/2024 13:45 Dictated By: Sophia Gonzalez M.D. Signed By: 01/21/24 1348 DD/ 1345 TD/TT: Acid Conditioning Worker:JAQUIHRadiology, Radiologist, - 01/21/2024 The [place] [id number] Ultrasound Report Signed Patient: NONI NELSON MR#: [id number] : 1985 Acct:[id number] Age/Sex: 38 / F ADM Date: Loc: [facility] 257-[address]: Amparo Carbone D.O. Ordering Physician: Amparo Carbone D.O. Date of Service: 01/21/24 Procedure(s): US OB BPP w non-stress Accession Number(s): [id number] cc: Amparo Carbone D.O.; Physician,Non-Staff Leidy [place] [id number] Patient Name: NONI NELSON MRN: H:[id number] date: 1985 Sex: F Assigned Patient Location: [facility] Current Patient Location: [facility] Accession/Order Number: [id number] Exam Date: 01/21/2024 13:18 Report Date: 01/21/2024 13:45 At the request of: AMPARO CARBONE Procedure: US OB BPP w non-stress EXAMINATION: US OB BPP w non-stress HISTORY: circumvallate placenta COMPARISON: No relevant comparison available. TECHNIQUE: Ultrasound biophysical profile was performed in the radiology department. FINDINGS: BREATHING MOVEMENTS: 2.0 GROSS BODY MOVEMENTS: 2.0 TONE: 2.0 QUALITATIVE AMNIOTIC FLUID VOLUME: 2.0 PRESENTATION: CEPALIC HEART RATE: 140.6 bpm H.B./min AMNIOTIC FLUID VOLUME: 10.9 cm cm GESTATIONAL AGE: 37 weeks 5 days CONCLUSION: Total biophysical profile score: 8.0 Electronically authenticated by: SOPHIA GONZALEZ Date: 01/21/2024 13:45 Dictated By: Sophia Gonzalez M.D. Signed By: 01/21/24 1348 DD/ 1345 TD/TT: Acid Conditioning Worker: NOMOlga Lidia HealthcareRadiology Study observation (narrative)NOMS HealthcareUS OB BPP W NON-STRESSOrdered By: Radiologist Radiology on 90-69-5655QQTD Healthcare Work Phone: US OB BPP W NON-STRESSon [phone] [address] Ultrasound Report Signed Patient: NONI NELSON MR#: [id number] : 1985 Acct:[id number] Age/Sex: 38 / F ADM Date: 01/14/24 Loc: US Attending Dr: Amparo Carbone D.O. Ordering Physician: Amparo Carbone D.O. 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 BREATHING MOVEMENTS: 2.0 GROSS BODY MOVEMENTS: 2.0 TONE: 2.0 QUALITATIVE AMNIOTIC FLUID VOLUME: 2.0 PRESENTATION: CEPHALIC HEART RATE: 148.4 bpm bpm. AMNIOTIC FLUID VOLUME: 12.1 cm GESTATIONAL AGE: 36 weeks 5 days CONCLUSION: Total biophysical profile score 8.0. Electronically authenticated by: VAEH WHITTEN Date: 01/15/2024 07:18 Dictated By: Vahe Whitten M.D. Signed By: 01/15/24719 DD/ 7 TD/TT: Acid Conditioning Worker:JAQUIHRadiology, Radiologist, - 01/15/2024 [place] [address] Ultrasound Report Signed Patient: NONI NELSON MR#: [id number] : 1985 Acct:[id number] Age/Sex: 38 / F ADM Date: 01/14/24 Loc: US Attending Dr: Amparo Carbone D.O. Ordering Physician: Amparo Carbone D.O. 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 BREATHING MOVEMENTS: 2.0 GROSS BODY MOVEMENTS: 2.0 TONE: 2.0 QUALITATIVE AMNIOTIC FLUID VOLUME: 2.0 PRESENTATION: CEPHALIC HEART RATE: 148.4 bpm bpm. AMNIOTIC FLUID VOLUME: 12.1 cm GESTATIONAL AGE: 36 weeks 5 days CONCLUSION: Total biophysical profile score 8.0. Electronically authenticated by: VAHE WHITTEN Date: 01/15/2024 07:18 Dictated By: Vahe Whitten M.D. Signed By: 01/15/24719 DD/ 7 TD/TT: Acid Conditioning Worker: RASHIDA HealthcareRadiology Study observation (narrative)NOMS HealthcareUS OB BPP W NON-STRESSOrdered By: Radiologist Radiology on 38-87-8351[facility] Work Phone: US OB GROWTHon [phone] [address] Ultrasound Report Signed Patient: NONI NELSON MR#: [id number] : 1985 Acct:[id number] Age/Sex: 38 / F ADM Date: 01/14/24 Loc: US Attending Dr: Amparo Carbone D.O. Ordering Physician: Amparo Carbone D.O. Date of Service: 01/14/24 Procedure(s): US OB growth Accession Number(s): [id number] cc: Amparo Carbone D.O.; Physician,Non-Staff Leidy [place] [address] Patient Name: NONI NELSON MRN: [facility]:[id number] date: 1985 Sex: F Assigned Patient Location: [facility] Current Patient Location: US Accession/Order Number: [id number] Exam Date: 01/14/2024 19:04 Report Date: 01/15/2024 07:24 At the request of: AMPARO CARBONE Procedure: US OB growth EXAMINATION: US OB growth HISTORY: ANTEPARTUM PLACENTA CIRCUMVALLATA O43.119 COMPARISON: Ultrasound OB growth 12/24/2023 FINDINGS: Heart Rate: 148.4 bpm Number: 1.0 Position: CEPHALIC Amniotic Fluid Volume: 12.1 cm Maximum Vertical Pocket: 4.3 cm BIOMETRY: BPD: 8.9 cm cm; 35 weeks 6 days; 40% HC: 32.5 cmcm; 36 weeks 6 days ; 25% AC: 31.1 cm cm; 35 weeks 0 days; 17% FL: 6.8 cm cm; 35 weeks 1 days; 13% EFW: 2649.2 grams; 20% FL/AC: 22.0 FL/BPD: 77.1 HC/AC: 1.0 GESTATIONAL AGE: Age by EDC: 36 weeks 5 days KATEY by EDC: 02/06/2024 Age by US: 35 weeks 5 days KATEY by US: 02/13/2024 US/US OB growth IMPRESSION: 1. Single live intrauterine with growth detailed above. Electronically authenticated by: VAHE WHITTEN Date: 01/15/2024 07:24 Dictated By: Vahe Whitten M.D. Signed By: 01/15/24725 DD/ 3 TD/TT: Acid Conditioning Worker:JAQUIHRadiology, Radiologist, - 01/15/2024 [place] [address] Ultrasound Report Signed Patient: NONI NELSON MR#: [id number] : 1985 Acct:[id number] Age/Sex: 38 / F ADM Date: 01/14/24 Loc: US Attending Dr: Amparo Carbone D.O. Ordering Physician: Amparo Carbone D.O. Date of Service: 01/14/24 Procedure(s): US OB growth Accession Number(s): [id number] cc: Amparo Carbone D.O.; Physician,Non-Staff Leidy The [place] [address] Patient Name: NONI NELSON MRN: [facility]:[id number] date: 1985 Sex: F Assigned Patient Location: [facility] Current Patient Location: US Accession/Order Number: [id number] Exam Date: 01/14/2024 19:04 Report Date: 01/15/2024 07:24 At the request of: AMPARO CARBONE Procedure: US OB growth EXAMINATION: US OB growth HISTORY: ANTEPARTUM PLACENTA CIRCUMVALLATA O43.119 COMPARISON: Ultrasound OB growth 12/24/2023 FINDINGS: Heart Rate: 148.4 bpm Number: 1.0 Position: CEPHALIC Amniotic Fluid Volume: 12.1 cm Maximum Vertical Pocket: 4.3 cm BIOMETRY: BPD: 8.9 cm cm; 35 weeks 6 days; 40% HC: 32.5 cmcm; 36 weeks 6 days ; 25% AC: 31.1 cm cm; 35 weeks 0 days; 17% FL: 6.8 cm cm; 35 weeks 1 days; 13% EFW: 2649.2 grams; 20% FL/AC: 22.0 FL/BPD: 77.1 HC/AC: 1.0 GESTATIONAL AGE: Age by EDC: 36 weeks 5 days KATEY by EDC: 02/06/2024 Age by US: 35 weeks 5 days KATEY by US: 02/13/2024 US/US OB growth IMPRESSION: 1. Single live intrauterine with growth detailed above. Electronically authenticated by: VAHE WHITTEN Date: 01/15/2024 07:24 Dictated By: Vahe Whitten M.D. Signed By: 01/15/24725 DD/ 3 TD/TT: Acid Conditioning Worker: RASHIDA HealthcareRadiology Study observation (narrative)NOMOlga Lidia HealthcareUS OB GROWTHOrdered By: Radiologist Radiology on 14-22-2200[facility] Work Phone: US OB BPP W NON-STRESSon [phone] [address] Ultrasound Report Signed Patient: NONI NELSON MR#: [id number] : 1985 Acct:[id number] Age/Sex: 38 / F ADM Date: 01/07/24 Loc: US Attending Dr: Amparo Carbone D.O. Ordering Physician: Amparo Carbone D.O. 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 TECHNIQUE: Ultrasound biophysical profile was performed in the radiology department. BREATHING MOVEMENTS: 2.0 GROSS BODY MOVEMENTS: 2.0 TONE: 2.0 QUALITATIVE AMNIOTIC FLUID VOLUME: 2.0 PRESENTATION: CEPHALIC HEART RATE: 131.7 bpm bpm. AMNIOTIC FLUID VOLUME: 12.7 cm GESTATIONAL AGE: 35 weeks 5 days CONCLUSION: Total biophysical profile score 8.0. Electronically authenticated by: VAHE WHITTEN Date: 01/08/2024 07:17 Dictated By: Vahe Whitten M.D. Signed By: 01/08/24718 DD/ 6 TD/TT: Acid Conditioning Worker:ZULAYadiologkerri, Radiologist, - 01/08/2024 [place] [address] Ultrasound Report Signed Patient: NONI NELSON MR#: [id number] : 1985 Acct:[id number] Age/Sex: 38 / F ADM Date: 01/07/24 Loc: US Attending Dr: Amparo Carbone D.O. Ordering Physician: Amparo Carbone D.O. 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 TECHNIQUE: Ultrasound biophysical profile was performed in the radiology department. BREATHING MOVEMENTS: 2.0 GROSS BODY MOVEMENTS: 2.0 TONE: 2.0 QUALITATIVE AMNIOTIC FLUID VOLUME: 2.0 PRESENTATION: CEPHALIC HEART RATE: 131.7 bpm bpm. AMNIOTIC FLUID VOLUME: 12.7 cm GESTATIONAL AGE: 35 weeks 5 days CONCLUSION: Total biophysical profile score 8.0. Electronically authenticated by: VAHE WHITTEN Date: 01/08/2024 07:17 Dictated By: Vahe Whitten M.D. Signed By: 01/08/24718 DD/ 6 TD/TT: Acid Conditioning Worker: RASHIDA HealthcareRadiology Study observation (narrative)RASHIDA HealthcareUS OB BPP W NON-STRESSOrdered By: Radiologist Radiology on 22-27-8253[facility] Work Phone: US OB BPP W NON-STRESSon [phone] [address] Ultrasound Report Signed Patient: NONI NELSON MR#: [id number] : 1985 Acct:[id number] Age/Sex: 38 / F ADM Date: 12/31/23 Loc: US Attending Dr: Amparo Carbone D.O. Ordering Physician: Amparo Carbone D.O. 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 TECHNIQUE: Ultrasound biophysical profile was performed in the radiology department. non-reactive stress testing was performed by nursing staff in the birthing center. FINDINGS: BREATHING MOVEMENTS: 2.0 GROSS BODY MOVEMENTS: 2.0 TONE: 2.0 QUALITATIVE AMNIOTIC FLUID VOLUME: 2.0 PRESENTATION: CEPHALIC HEART RATE: 131.1 bpm H.B./min AMNIOTIC FLUID VOLUME: 10.3 cm cm GESTATIONAL AGE: 34 weeks 5 days CONCLUSION: Total biophysical profile score: 8.0 Electronically authenticated by: SOPHIA GONZALEZ Date: 01/01/2024 07:12 Dictated By: Sophia Gonzalez M.D. Signed By: 01/01/24713 DD/ 1 TD/TT: Acid Conditioning Worker:ZULAYadiologkerri, Radiologist, - 01/07/2024 [place] [address] Ultrasound Report Signed Patient: NONI NELSON MR#: [id number] : 1985 Acct:[id number] Age/Sex: 38 / F ADM Date: 12/31/23 Loc: US Attending Dr: Amparo Carbone D.O. Ordering Physician: Amparo Carbone D.O. 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 TECHNIQUE: Ultrasound biophysical profile was performed in the radiology department. non-reactive stress testing was performed by nursing staff in the birthing center. FINDINGS: BREATHING MOVEMENTS: 2.0 GROSS BODY MOVEMENTS: 2.0 TONE: 2.0 QUALITATIVE AMNIOTIC FLUID VOLUME: 2.0 PRESENTATION: CEPHALIC HEART RATE: 131.1 bpm H.B./min AMNIOTIC FLUID VOLUME: 10.3 cm cm GESTATIONAL AGE: 34 weeks 5 days CONCLUSION: Total biophysical profile score: 8.0 Electronically authenticated by: SOPHIA GONZALEZ Date: 01/01/2024 07:12 Dictated By: Sophia Gonzalez M.D. Signed By: 01/01/24713 DD/ 1 TD/TT: Acid Conditioning Worker: RASHIDA DennisonRadiology Study observation (narrative)RASHIDA DennisonUS OB BPP W NON-STRESSOrdered By: Radiologist Radiology on 02-30-7214[facility] Work Phone: US OB BPP W NON-STRESSon [phone] [address] Ultrasound Report Signed Patient: NONI NELSON MR#: [id number] : 1985 Acct:[id number] Age/Sex: 38 / F ADM Date: 12/24/23 Loc: US Attending Dr: Amparo Carbone D.O. Ordering Physician: Amparo Carbone D.O. 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 BREATHING MOVEMENTS: 2.0 GROSS BODY MOVEMENTS: 2.0 TONE: 2.0 QUALITATIVE AMNIOTIC FLUID VOLUME: 2.0 PRESENTATION: CEPHALIC HEART RATE: 139.9 bpm bpm. AMNIOTIC FLUID VOLUME: 13.4 cm GESTATIONAL AGE: 33 weeks 5 days CONCLUSION: Total biophysical profile score 8.0. Electronically authenticated by: VAHE WHITTEN Date: 12/25/2023 07:16 Dictated By: Vahe Whitten M.D. Signed By: 12/25/23718 DD/ 5 TD/TT: Acid Conditioning Worker:ZULAYadiologkerri, Radiologist, - 12/25/2023 [place] [address] Ultrasound Report Signed Patient: NONI NELSON MR#: [id number] : 1985 Acct:[id number] Age/Sex: 38 / F ADM Date: 12/24/23 Loc: US Attending Dr: Amparo Carbone D.O. Ordering Physician: Amparo Carbone D.O. 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 BREATHING MOVEMENTS: 2.0 GROSS BODY MOVEMENTS: 2.0 TONE: 2.0 QUALITATIVE AMNIOTIC FLUID VOLUME: 2.0 PRESENTATION: CEPHALIC HEART RATE: 139.9 bpm bpm. AMNIOTIC FLUID VOLUME: 13.4 cm GESTATIONAL AGE: 33 weeks 5 days CONCLUSION: Total biophysical profile score 8.0. Electronically authenticated by: VAHE WHITTEN Date: 12/25/2023 07:16 Dictated By: Vahe Whitten M.D. Signed By: 12/25/23718 DD/ 5 TD/TT: Acid Conditioning Worker: RASHIDA HealthcareRadiology Study observation (narrative)RASHIDA DennisonUS OB BPP W NON-STRESSOrdered By: Radiologist Radiology on 33-06-0673ZJNF [facility] Work Phone: US OB GROWTHon [phone] [address] Ultrasound Report Signed Patient: NONI NELSON MR#: [id number] : 1985 Acct:[id number] Age/Sex: 38 / F ADM Date: 12/24/23 Loc: NOMS Attending Dr: Amparo Carbone D.O. Ordering Physician: Amparo Carbone D.O. Date of Service: 12/24/23 Procedure(s): US OB growth Accession Number(s): [id number] cc: Amparo Carbone D.O.; Physician,Non-Staff M.Thao [place] [phone] Patient Name: NONI NELSON MRN: [facility]:[id number] date: 1985 Sex: F Assigned Patient Location: [facility] Current Patient Location: [facility] Accession/Order Number: [id number] Exam Date: 12/24/2023 13:08 Report Date: 12/24/2023 14:30 At the request of: AMPARO CARBONE Procedure: US OB growth EXAMINATION: US OB growth HISTORY: ANTEPARTUM PLACENTA CIRCUMVALLATA COMPARISON: Ultrasound OB growth 11/25/2023 FINDINGS: Heart Rate: 129.0 bpm Number: 1.0 Position: CEPHALIC Amniotic Fluid Volume: 13.0 cm Maximum Vertical Pocket: 5.0 cm BIOMETRY: BPD: 8.3 cm cm; 33 weeks 2 days; 33% HC: 30.0 cmcm; 33 weeks 2 days ; 9% AC: 28.3 cm cm; 32 weeks 3 days; 17% FL: 6.3 cm cm; 32 weeks 4 days; 14% EFW: 2007.7 grams; 15% FL/AC: 22.2 FL/BPD: 76.1 HC/AC: 1.1 GESTATIONAL AGE: Age by EDC: 33 weeks 5 days KATEY by EDC: 02/06/2024 Age by US: 32 weeks 6 days KATEY by US: 02/12/2024 US/US OB growth IMPRESSION: 1. Single live intrauterine with growth detailed above. Electronically authenticated by: VAHE WHITTEN Date: 12/24/2023 14:30 Dictated By: Vahe Whitten M.D. Signed By: 12/24/23 1432 DD/ 1430 TD/TT: Acid Conditioning Worker:TBHRadiology, Radiologist, MD - 01/07/2024 [place] [address] Ultrasound Report Signed Patient: NONI NELSON MR#: [id number] : 1985 Acct:[id number] Age/Sex: 38 / F ADM Date: 12/24/23 Loc: NOMS Attending Dr: Amparo Carbone D.O. Ordering Physician: Amparo Carbone D.O. Date of Service: 12/24/23 Procedure(s): US OB growth Accession Number(s): [id number] cc: Amparo Carbone D.O.; Physician,Non-Staff Leidy The [place] [phone] Patient Name: NONI NELSON MRN: [facility]:[id number] date: 1985 Sex: F Assigned Patient Location: [facility] Current Patient Location: [facility] Accession/Order Number: [id number] Exam Date: 12/24/2023 13:08 Report Date: 12/24/2023 14:30 At the request of: AMPARO CARBONE Procedure: US OB growth EXAMINATION: US OB growth HISTORY: ANTEPARTUM PLACENTA CIRCUMVALLATA COMPARISON: Ultrasound OB growth 11/25/2023 FINDINGS: Heart Rate: 129.0 bpm Number: 1.0 Position: CEPHALIC Amniotic Fluid Volume: 13.0 cm Maximum Vertical Pocket: 5.0 cm BIOMETRY: BPD: 8.3 cm cm; 33 weeks 2 days; 33% HC: 30.0 cmcm; 33 weeks 2 days ; 9% AC: 28.3 cm cm; 32 weeks 3 days; 17% FL: 6.3 cm cm; 32 weeks 4 days; 14% EFW: 2007.7 grams; 15% FL/AC: 22.2 FL/BPD: 76.1 HC/AC: 1.1 GESTATIONAL AGE: Age by EDC: 33 weeks 5 days KATEY by EDC: 02/06/2024 Age by US: 32 weeks 6 days KATEY by US: 02/12/2024 US/US OB growth IMPRESSION: 1. Single live intrauterine with growth detailed above. Electronically authenticated by: VAHE WHITTEN Date: 12/24/2023 14:30 Dictated By: Vahe Whitten M.D. Signed By: 12/24/23 143 DD/ 29 TD/TT: Acid Conditioning Worker: [facility] HealthcareRadiology Study observation (narrative)[facility] HealthcareUS OB GROWTHOrdered By: Radiologist Radiology on [id number] Health [facility] Work Phone: Urinalysis macro (dipstick) panel (U)on 12-10-2023 Bilirubin, UANegativeNegative - 4(70) +++ mg/dLNOMS HealthcareBlood, UAPositive Negative - 50 Andrea/mcLNOMS HealthcareClarity, UAClearNOMS HealthcareColor, UA YellowNOMS HealthcareGlucose, UANegativeNegative - 2000(110) ++++ mg/dLNOMS HealthcareInterpretation and review of laboratory resultsAbnormalNOWY Healthcare Ketones, UANegativeNegative - 160(16) ++++ mg/dLNOMS HealthcareLeukocytes, UA NegativeNegative - 500+++ Toan/mcLNOMS HealthcareNitrite, UANegativeNegative - PositiveNOMS HealthcarepH, UA5.55 - 9NOMS HealthcareProtein, UANegativeNegative - 2000(20) ++++ mg/dLNOMS HealthcareSpec Grav, UA1.0201 - 1.03N[facility] Healthcare Urobilinogen, UA1.00.2 - 12 mg/dLNOMS HealthcareNOMS HealthcareUS OB GROWTHon [id number] [id number] Ultrasound Report Signed Patient: NONI NELSON MR#: [id number] : 1985 Acct:[id number] Age/Sex: 38 / F ADM Date: 11/25/23 Loc: US Attending Dr: Amparo Carbone D.O. Ordering Physician: Amparo Carbone D.O. Date of Service: 11/25/23 Procedure(s): US OB growth Accession Number(s): [id number] cc: Amparo Carbone D.O.; Physician,Non-Staff [place] [address] Patient Name: NONI NELSON MRN: [id number] date: 1985 Sex: F Assigned Patient Location: US Current Patient Location: Accession/Order Number: [id number] Exam Date: 11/25/2023 13:50 Report Date: 11/25/2023 14:30 At the request of: AMPARO CARBONE Procedure: US OB growth EXAMINATION: US OB growth HISTORY: ANTEPARTUM PLACENTA CIRCUMVALLATA COMPARISON: No relevant comparison available. FINDINGS: Heart Rate: 157.0 bpm Amniotic Fluid Volume: 11.0 cm Number: 1.0 Position: Cephalic presentation, longitudinal lie Amniotic fluid volume: 11 cm Maximum Vertical Pocket: 3.9 cm cm 3.0 cm cm 1.8 cm cm 2.3 cm cm BIOMETRY: BPD: 7.5 cm cm; 30 weeks 0 days; , 50% HC: 27.7 cmcm; 30 weeks 2 days , 35% AC: 26.4 cm cm; 30 weeks 4 days, 73% FL: 5.7 cm cm; 30 weeks 0 days; 46.9 % % EFW: 1545.4 grams, 3 lbs. 6 oz., 64% FL/AC: 21.7 FL/BPD: 76.6 HC/AC: 1.1 GESTATIONAL AGE: Age by EDC: 29 weeks 4 days KATEY by EDC: 02/06/2024 Age by US: 30 weeks 2 days KATEY by US: 02/01/2024 US/US OB growth IMPRESSION: Normal interval growth Electronically authenticated by: SOPHIA GONZALEZ Date: 11/25/2023 14:30 Dictated By: Sophia Gonzalez M.D. Signed By: 11/25/23 1433 DD/ 1430 TD/TT: Acid Conditioning Worker:ZULAYadiologkerri, Radiologist, - 11/25/2023 [place] [address] Ultrasound Report Signed Patient: NONI NELSON MR#: [id number] : 1985 Acct:[id number] Age/Sex: 38 / F ADM Date: 11/25/23 Loc: US Attending Dr: Amparo Carbone D.O. Ordering Physician: Amparo Carbone D.O. Date of Service: 11/25/23 Procedure(s): US OB growth Accession Number(s): [id number] cc: Amparo Carbone D.O.; Physician,Non-Staff [place] [id number] Patient Name: NONI NELSON MRN: [id number] date: 1985 Sex: F Assigned Patient Location: US Current Patient Location: US Accession/Order Number: [id number] Exam Date: 11/25/2023 13:50 Report Date: 11/25/2023 14:30 At the request of: AMPARO CARBONE Procedure: US OB growth EXAMINATION: US OB growth HISTORY: ANTEPARTUM PLACENTA CIRCUMVALLATA COMPARISON: No relevant comparison available. FINDINGS: Heart Rate: 157.0 bpm Amniotic Fluid Volume: 11.0 cm Number: 1.0 Position: Cephalic presentation, longitudinal lie Amniotic fluid volume: 11 cm Maximum Vertical Pocket: 3.9 cm cm 3.0 cm cm 1.8 cm cm 2.3 cm cm BIOMETRY: BPD: 7.5 cm cm; 30 weeks 0 days; , 50% HC: 27.7 cmcm; 30 weeks 2 days , 35% AC: 26.4 cm cm; 30 weeks 4 days, 73% FL: 5.7 cm cm; 30 weeks 0 days; 46.9 % % EFW: 1545.4 grams, 3 lbs. 6 oz., 64% FL/AC: 21.7 FL/BPD: 76.6 HC/AC: 1.1 GESTATIONAL AGE: Age by EDC: 29 weeks 4 days KATEY by EDC: 02/06/2024 Age by US: 30 weeks 2 days KATEY by US: 02/01/2024 US/US OB growth IMPRESSION: Normal interval growth Electronically authenticated by: SOPHIA GONZALEZ Date: 11/25/2023 14:30 Dictated By: Sophia Gonzalez M.D. Signed By: 11/25/23 143 DD/ 29 TD/TT: Acid Conditioning Worker: [facility] HOSPITALOlga Lidia HealthcareRadiology Study observation (narrative)[facility] CenterUS OB GROWTHOrdered By: Radiologist Radiology on 30-36-4142QOSVUniversity Health [facility] Center Work Phone: cytology Cervical or vaginal smear or scraping studyon 30-63-3106VIAEUniversity Health Truman Medical CenterCBC AUTO DIFFon 91-51-8848YMSC #0.0 103/ulNormal 0.0-0.1The [facility] CenterComment on above:Performed By: #### CBC #### [facility] [address] [address] [address] Musa ChaconBasophils/100 WBC (Bld)0.9 %Normal0.2-2.0[facility] Comment on above:Performed By: #### CBC #### [facility] [address] [address] [address] Musa Holbrook #0.1 103/ulNormal0.0-0.7The [facility] SystemComment on above: Performed By: #### CBC #### [facility] [address] [address] [address] Musa Simpsonosinophils/100 WBC (Bld)1.8 %Normal0.9-7.0The [facility] Comment on above:Performed By: #### CBC #### [facility] [address] [address] [address] Musa Simpsonrythrocyte distribution width (RBC) [Ratio]12.8 %Mzublt54.0-15.0 The Farmville HospitalComment on above:Performed By: #### CBC #### [facility] [address] [place] [address] Dr. Musa Ortegaatocrit (Bld) [Volume fraction]39.4 %Zumwuk14.0-48.0The [facility] SystemComment on above:Performed By: #### CBC #### [facility] [address] [place] [address] Dr. Musa ChaconHemoglobin (Bld) [Mass/Vol]13.5 g/cETdpgbz02.0-16.0The [facility] SystemComment on above:Performed By: #### CBC #### [facility] [address] [place] [address] Dr. Musa Linn #0.01 10e3/ulNormal0.00-0.03The [facility] SystemComment on above:Performed By: #### CBC #### [facility] [address] [place] [address] Dr. Musa Linn %0.2 %Normal0.0-0.5The [facility] SystemComment on above: Performed By: #### CBC #### [facility] [address] [place] [address] Dr. Musa Barber #1.4 103/ulNormal1.2-3.8The [facility] SystemComment on above:Performed By: #### CBC #### [facility] [address] [place] [address] Dr. Musa Herreramphocytes/100 WBC (Bld)32.0 %Awched18.5-60.0The [facility] SystemComment on above:Performed By: #### CBC #### [facility] [address] [place] [address] Dr. Musa TorresUAL DIFF REQNONormalThe [facility] SystemComment on above: Performed By: #### CBC #### [facility] [address] [place] [address] Dr. Musa Kinney (RBC) [Entitic mass]30.1 miIalpnc05.7-34.0The [facility] SystemComment on above:Performed By: #### CBC #### [facility] [address] [address] [address] Musa AugustinHC (RBC) [Mass/Vol]34.3 g/zQCcrvrd15.9-35.2The [facility] SystemComment on above:Performed By: #### CBC #### [facility] [address] [place] [address] Dr. Musa AugustinV (RBC) [Entitic vol]87.8 iOSjqvkf08.0-99.0The [facility] SystemComment on above:Performed By: #### CBC #### [facility] [address] [place] [address] Dr. Musa Calzada #0.4 103/ulNormal0.3-0.8The [facility] SystemComment on above:Performed By: #### CBC #### [facility] [address] [place] [address] Dr. Musa Colbertocytes/100 WBC (Bld)8.0 %Normal1.7-12.0The [facility] Comment on above:Performed By: #### CBC #### [facility] [address] [place] [address] Dr. Musa Villasenor #2.6 103/ulNormal1.4-6.5The [facility] SystemComment on above:Performed By: #### CBC #### [facility] [address] [place] [address] Dr. Musa Sanchezutrophils/100 WBC (Bld)57.1 %Dapukf33.0-75.0The [facility] SystemComment on above:Performed By: #### CBC #### [facility] [address] [place] [address] Dr. Musa Trejolet mean volume (Bld) [Entitic vol]10.2 fLNormal9.5-13.5The [facility] SystemComment on above:Performed By: #### CBC #### [facility] [address] [place] [address] Dr. Musa WallT223 103/wnIscxzr119-461Ytk [facility] SystemComment on above: Performed By: #### CBC #### [facility] [address] [address] [address] Musa ChaconRBC4.49 106/ulNormal4.20-5.40The [facility] on above:Performed By: #### CBC #### [facility] [address] [place] [address] Dr. Musa ChaconWBC4.5 103/ulNormal4.0-11.0The [facility] Hospitalment on above: Performed By: #### CBC #### [facility] [address] [place] [address] Dr. Musa Glaser 14(COMP METB)on 31-97-8430Hotarzr [Mass/Vol]4.1 g/dLNormal 3.4-5.0The [facility] Hospitalment on above:Performed By: #### T4, CMP, TSH #### [facility] [address] [place] [address] Dr. Musa ChaconAlbumin/Globulin [Mass ratio]1.5 {ratio}NormalThe [facility] Hospitalment on above:Performed By: #### T4, CMP, TSH #### [facility] [address] [place] [address] Dr. Musa Nunez [Catalytic activity/Vol]51 U/REdisnf92-307Zbj [facility] on above:Performed By: #### T4, CMP, TSH #### [facility] [address] [place] [address] Dr. Musa Wasserman [Catalytic activity/Vol]17 U/DIebsog27-51Cuq [facility] on above:Performed By: #### T4, CMP, TSH #### [facility] [address] [place] [address] Dr. Musa Argueta gap [Moles/Vol]11.8 mmol/LNormalThe [facility] on above:Performed By: #### T4, CMP, TSH #### [facility] [address] [place] [address] Dr. Yilan ChangAST [Catalytic activity/Vol]14 U/LCritically anu70-43Xpt [facility] SystemComment on above:Performed By: #### T4, CMP, TSH #### [facility] [address] [address] [address] Musa ChaconBilirubin [Mass/Vol]0.8 mg/dLNormal0.2-1.0[facility] Comment on above:Performed By: #### T4, CMP, TSH #### [facility] [address] [place] [address] Dr. Musa ChaconCalcium [Mass/Vol]8.9 mg/dLNormal8.5-10.1The [facility] Comment on above:Performed By: #### T4, CMP, TSH #### [facility] [address] [place] [address] Dr. Musa ChaconChloride [Moles/Vol]105 mmol/WGyhwzi21-992Yzl [facility] Comment on above:Performed By: #### T4, CMP, TSH #### [facility] [address] [place] [address] Dr. Musa ChaconCO2 [Moles/Vol]27.4 mmol/ZEdvlkc71.0-32.0The [facility] Comment on above:Performed By: #### T4, CMP, TSH #### [facility] [address] [place] [address] Dr. Musa ChaconCreatinine [Mass/Vol]0.78 mg/dLNormal0.55-1.02The [facility] SystemComment on above:Performed By: #### T4, CMP, TSH #### [facility] [address] [place] [address] Dr. Musa SimpsonGFR-AF TAJIK>60Normal>=60The [facility] SystemComment on above:Performed By: #### T4, CMP, TSH #### [facility] [address] [place] [address] Dr. Musa SimpsonGFR-NON AF TAJIK>60Normal>=60The [facility] SystemComment on above:Performed By: #### T4, CMP, TSH #### [facility] [address] [address] [address] Musa ChaconGlobulin (S) [Mass/Vol]2.8 g/dLNormMemorial Health SystemComment on above:Performed By: #### T4, CMP, TSH #### [facility] [address] [address] [address] Musa ChaconGlucose [Mass/Vol]96 mg/xBPgzney04-015ZmsThe [facility] Comment on above:Performed By: #### T4, CMP, TSH #### [facility] [address] [address] [address] Musa ChaconPotassium [Moles/Vol]4.2 mmol/LNormal3.5-5.1The [facility] Comment on above:Performed By: #### T4, CMP, TSH #### [facility] [address] [address] [address] Musa ChaconProtein [Mass/Vol]6.9 g/dLNormal6.4-8.2[facility] Comment on above:Performed By: #### T4, CMP, TSH #### [facility] [address] [address] [address] Musa ChaconSodium [Moles/Vol]140 mmol/TDymlhw469-443ZxqThe [facility] Comment on above:Performed By: #### T4, CMP, TSH #### [facility] [address] [address] [address] Musa ChaconUrea nitrogen [Mass/Vol]10.0 mg/dLNormal7.0-18.0The [facility] SystemComment on above:Performed By: #### T4, CMP, TSH #### [facility] [address] [address] [address] Musa ChaconUrea nitrogen/Creatinine [Mass ratio]12.8 mg/mgNoSouthwest General Health CenterComment on above:Performed By: #### T4, CMP, TSH #### [facility] [address] [address] [address] Musa Martinez4on 46-95-5835Q1 [Mass/Vol]6.30 ug/dLNormal4.80-13.90The [facility] SystemComment on above:Performed By: #### T4, CMP, TSH #### [facility] [address] [place], [place] [address] Dr. Musa Vazquez 40-21-0565BKQ4.653 uIU/mLNormal0.358-3.740The [facility] SystemComment on above:Performed By: #### T4, CMP, TSH #### [facility] [address] [address] [address] Musa Chacon Vital Signs Date TimeVital SignValuePerforming ApgxsmzctPcwqcslb02-67-0210 15:32-0500Body goptvz83.48 kgCore Talenz DO Work Phone: [facility] CenterFqwjytrubg01-76-8387 15:32-0500Diastolic blood xixwlvdh13 mm[Hg][facility] Work Phone: [facility] CenterWcvbljaspw44-16-4598 15:32-0500Systolic blood tvurodyd417 mm[Hg][facility] Work Phone: [facility] CenterEtoftbnogv04-16-0369 09:58-0400Body xihkco702.64 cmGreen [facility]08-26-2024 09:58-0400Body mass index (BMI) [Ratio]24.7 kg/h3KvdnpaabhGreen Cross Hospital08-26-2024 09:58-0400Body pdyqazpqtnk57.1 [degF][facility]08-26-2024 09:58-0400Body jamsdp54.39 kgGreen [facility] Hospital08-26-2024 09:58-0400Diastolic blood mm[Hg][facility]08-26-2024 09:58-0400 Heart rate80 /[place]08-26-2024 09:58-0400 Respiratory rate18 /[place]08-26-2024 09:58-0400 SaO2% (BldA) [Mass fraction]97 %[facility]08-26-2024 09:58-0400Systolic blood lbrlepdf87 mm[Hg][facility] 12-10-2023 16:18-0500Body zvbtos51.31 kgPati FRANCO Work Phone: [facility] CenterAeawoxawxb13-14-0902 16:18-0500Diastolic blood yayzoguw36 mm[Hg]Pati FRANCO Work Phone: [facility] CenterVruuteqzun14-43-3733 16:18-0500Systolic blood mjsetzcz857 mm[Hg]Pati FRANCO Work Phone: [facility] Healthcare Encounters Encounter DateEncounter TypeCare ProviderFacilityStart: 28-29-2530tzhrwqyefgZnkz SchwabFacility:FT FM BellevueStart: 04-20-2025 End: 46-33-3931Fac Drop offJodi L Wilfrido [facility] Start: 04-20-2025 End: 67-40-3676ttwzdhlgkxGsit L SchwabFacility:FTMCStart: 12-22-2024 End: 32-12-7957Wju Drop offJodi L Wilfrido [facility] Start: 12-22-2024 End: 92-32-3277plkbjhpbppDgyw L SchwabFacility:FTMCStart: 09-27-2024 End: 00-33-8406Fqktpxe encounter procedureCorey Audrey DO Work Phone: NOWY HealthcareStart: 09-27-2024 End: 04-33-6823Syjypyrd preventive med est patient 18-39 yrsCorey Audrey DO Work Phone: noSH[facility] OBComment on above:Well woman exam with routine gynecological exam; Frequent UTIStart: 09-27-2024 End: 28-90-7286rnumwcsdanSDGZX FAZIONot AvailableStart: 09-27-2024 End: 64-55-3852Zrtbak flowsheetCorey Audrey DO Work Phone: [facility] OBStart: 09-27-2024 End: 84-04-9399Pqbmqd flowsheetCorey Audrey DO Work Phone: [facility] OBStart: 09-27-2024 End: 66-18-5006Eoykcpbzx Result EncounterCorey Audrey DO Work Phone: noms External Department UnsolicitedStart: 09-27-2024 End: 86-48-1180Teibwiac Result EncounterCorey Audrey DO Work Phone: NOHJ External Department UnsolicitedStart: 06-28-2024 End: 65-15-0188cuhfxzygrrBzjibiwqeWayne [facility]Care [facility] Work Phone: Start: 06-28-2024 End: 82-15-2974Giaoucu encounter procedureFormerly [facility] [place] Work Phone: Start: 03-08-2024 End: 36-17-0088wiqmcbmhfxUKHZF FAZIONot AvailableStart: 01-21-2024 End: 16-64-7221Qztjydnwy Result EncounterCorey Audrey DO Work Phone: noms External Department UnsolicitedStart: 01-21-2024 End: 56-63-0868Wqobqpuki Result EncounterCorey Audrey DO Work Phone: noms External Department UnsolicitedStart: 01-21-2024 End: 15-20-2151yypauqjcoeJHKMO FAZIONot AvailableStart: 01-15-2024 End: 94-89-9176Xvwdtapuh Result EncounterCorey Audrey DO Work Phone: noms External Department UnsolicitedStart: 01-15-2024 End: 09-52-0748Vzmuprcnh Result EncounterCorey Audrey DO Work Phone: NOQN External Department UnsolicitedStart: 01-14-2024 End: 05-02-6272vfpfixityyFFVLA FAZIONot AvailableStart: 01-08-2024 End: 84-13-8722onwurgzroiXFB RAMEYNot AvailableStart: 01-08-2024 End: 19-75-5342Fulxowzum Result EncounterCorey Audrey DO Work Phone: noms External Department UnsolicitedStart: 01-08-2024 End: 64-78-4777Jumrdboqj Result EncounterCorey Audrey DO Work Phone: noms External Department UnsolicitedStart: 01-01-2024 End: 78-80-7652Kqglwlvzi Result EncounterCorey Audrey DO Work Phone: NOIF External Department UnsolicitedStart: 01-01-2024 End: 76-65-4580Vtaqyzpof Result EncounterCorey Audrey DO Work Phone: noms External Department UnsolicitedStart: 12-25-2023 End: 51-68-3585Oqbpnjzqc Result EncounterCorey Audrey DO Work Phone: NOGS External Department UnsolicitedStart: 12-25-2023 End: 20-99-7602Tvmxgmndj Result EncounterCorey Audrey DO Work Phone: noms External Department UnsolicitedStart: 12-24-2023 End: 63-52-4042Kkqviygql Result EncounterCorey Audrey DO Work Phone: NOPW External Department UnsolicitedStart: 12-24-2023 End: 18-74-5597Kitzqhgwh Result EncounterCorey Audrey DO Work Phone: noms External Department UnsolicitedStart: 12-24-2023 End: 50-52-6421usjackpvciYTHLZ FAZIONot AvailableStart: 12-10-2023 End: 19-62-6257Eyedepnk flow Parag FRANCO Work Phone: NOAW BCP OBComment on above:Third trimester ; Multigravida of advanced maternal age in third trimesterStart: 12-10-2023 End: 48-71-4830nhktfzhghgSZM Lia AvailableStart: 11-25-2023 End: 61-03-4199shgyrsrrzdCTRRA FAZIONot AvailableStart: 11-25-2023 End: 73-75-5451Mqmwhktws Result EncounterCorey Audrey DO Work Phone: NOET External Department UnsolicitedStart: 11-25-2023 End: 73-57-4137Husrvbupr Result EncounterCorey Audrey DO Work Phone: NOOR External Department UnsolicitedStart: 11-05-2023 End: 51-54-6179ozdzinwlsqKHM RAMEYNot AvailableStart: 10-08-2023 End: 29-98-4593fjeuwnnbfsRTM RAMEYNot AvailableStart: 61-68-4405Dgxhedbrd for general adult medical examination without abnormal findings GEE MARYCoshocton [facility] HospitalStart: 10-02-2022 End: 56-38-6026ddojmckdgdHK GEE [facility] Hospitalcility:Q7Bblsv: 10-02-2022 End: 72-08-0268Qokwtgatj for general adult medical examination without abnormal findings GEE ANGORAFacility:N5Vefyh: 05-21-2017 End: 05-93-7275ZokivcazvpTBRSMVA PHYSICIANFacility:[facility] Procedures DateProcedureProcedure DetailPerforming ClinicianStart: 74-90-2237Qxoum dip stick/tablet rgnt non-auto w/o micrscpCorey Audrey DO Work Phone: Start: 97-47-7790BNBCBFS TRACT INFECTION (HTRX)Amparo Audrey DO Work Phone: Start: 34-89-7148LCJ,APTIMA HPV,AGE GDLNCorey Audrey DO Work Phone: Start: 86-79-6257FCNJJ Antigen (POC)Start: 06-28-2024 Quick Strep (POC)Start: 54-31-4772EI OB BPP W NON-STRESSCorey Audrey DO Work Phone: Start: 99-60-7733BB OB GROWTHCorey Audrey DO Work Phone: Start: 89-29-2869OD OB BPP W NON-STRESSCorey Audrey DO Work Phone: Start: 07-71-2349VP OB BPP W NON-STRESSCorey Audrey DO Work Phone: Start: 28-80-8820DS OB BPP W NON-STRESSCorey Audrey DO Work Phone: Start: 47-01-4336GV OB BPP W NON-STRESSCorey Audrey DO Work Phone: Start: 39-19-6293KB OB GROWTHCorey Audrey DO Work Phone: Start: 14-96-0061Tklns dip stick/tablet rgnt non-auto w/o micrscpAmy Artis FRANCO Work Phone: Start: 34-75-8035LO OB GROWTHCorey Audrey DO Work Phone: Start: 89-59-1701Prdg cerv/vag auto thin layer prep mnl screenCorey Audrey DO Work Phone: Start: 89-54-8520Osucejdvlftznrpca with dilation of urethral strictureClaire Anna Plan of Treatment DateCare ActivityDetailAuthorStart: 10-05-2025 End: 74-39-7933Rilvlei encounter procedureNOSHARP [facility] OBStart: 09-27-2024 End: 74-06-4513Mtdzbir encounter vyllkkiio92/25/2024 3:20 PM EST Office Visit [facility] [address] [place] [address] Amparo Carbone, DO [address] [place] [address] ArrivedNOSHARP [facility]UL[facility] OBComment on above:ArrivedStart: 12-24-2023 End: 13-94-1578Ilnxktf encounter wnseukwvj75/21/2024 1:40 PM EST Routine [facility] [address] [place] [address] Amparo Carbone, [address] [place] [address] [facility] OBStart: 12-24-2023 End: 91-76-6845Jqsdlmqabuey / ancillary services pyyagjglij12/21/2024 1:00 PM EST Ancillary Procedure [facility] [address] [place] [address] [facility] OBStart: 12-10-2023 End: 07-84-3097Fdgmvetbb testFetal nonstress test Procedures Routine Multigravida of advanced maternal age in third trimester Expected: 12/10/2023 (Approximate), Expires: 12/10/2024[facility] Work Phone: comment on above:Expected: 12/10/2023 (Approximate), Expires: 12/10/2024Start: 12-10-2023 End: 25-63-5810IL biophysical profile wo non stress testingUS biophysical profile wo non stress testing Imaging Routine Multigravida of advanced maternal age in third trimester Expected: 12/10/2023 (Approximate), Expires: 12/10/2024[facility] HealthcareComment on above:Expected: 12/10/2023 (Approximate), Expires: 12/10/2024acteria identified in Urine by CultureUrine culture Microbiology Routine Frequent UTI Ordered: 09/27/2024[facility] Comment on above:Ordered: 09/27/2024ytology Cervical or vaginal smear or scraping studyPap Smear Pathology and Cytology Routine Well woman exam with routine gynecological exam Ordered: 09/27/2024[facility] Work Phone: comment on above:Ordered: 09/27/2024Human papilloma virus DNA [Presence] in Unspecified specimen by Probe with amplificationHPV DNA probe, amplified Microbiology Routine Well woman exam with routine gynecological exam Ordered: 09/27/2024[facility] HealthcareComment on above:Ordered: 09/27/2024 Immunizations Immunization DateImmunizationNotesCare BjrimpesUhypoagb89-26-7331WCDT-YlL-0 (COVID-19) Ad26 vaccine, recombinantJodi Wilfrido [phone]-XetmcParma Community General Hospital 94-71-7676petnosm, mumps and rubella virus vaccineJodi Wilfrido [phone]-IjxndParma Community General Hospital Payers DatePayer CategoryPayerPolicy [id number] Health [id number] [id number] 2.16.840.1.313448.3.57[id number] 2.16840.1.375695.3.57[id number] 2.16.840.1.028857.3.57[id number] 2.16.840.1.587341.3.57[id number] 2.16.840.1.412820.3.57[id number] 2.16.840.1.561817.3.57[id number] 2.16.840.1.261145.3.57[id number] 2.16.840.1.994057.3.57[id number] 2.16.840.1.476685.3.57[id number] 2.16.840.1.750405.3.57[id number] 2.16.840.1.037494.3.57[id number] 2.16.840.1.479309.3.57[id number] 2.16.840.1.741384.3.57[id number] 2.16.840.1.520246.3.57[id number] 2.16.840.1.963717.3.57[id number] Social History DateTypeDetailFacilityTobacco smoking status NHISTobacco smoking consumption unknownNOWY HealthcareStart: 68-72-7993CtwypzgrmDCCY HealthcareStart: 1985 Sex Assigned At [facility] HealthcareStart: 52-05-2331Gkjigs identity Identifies as female gender (finding)[facility] HealthcareStart: 70-76-2675Yngycb orientationHeterosexual (finding)[facility] HealthcareStart: 37-03-3541Hzzuxmd smoking status NHISNever smoked tobacco (finding)[facility] Start: 12-22-2024 End: 66-24-6762Uufusne smoking statusEx-smoker (finding)[facility] Start: 78-84-6281XhjYycpuw (finding)[facility]art: 08-65-4147McsKrrotbLQKF Healthcare Evaluation + Plan note 04-20-2025 Note Date & YqljExwrGaeibeso44-16-0217 Evaluation + Plan note Diagnostic Tests Pending * Urine Culture 04/20/[address] [facility] Evaluation + Plan note 12-22-2024 Note Date & [id number] Evaluation + Plan note Diagnostic Tests Pending * Urine Culture 12/22/[address] [facility] History of Present illness Narrative 09-27-2024 Note Date & [id number] History of Present illness Narrative* Saba Wen, SHIP/REC/DOC CONTROL - 09/27/2024 3:20 PM EST Reason for Appointment: Patient ID: Noni Nelson is a 39 y.o. female who presents for Gynecologic Exam Patient presents today for Annual Exam. MEDICATIONS Current Outpatient Medications Medication Instructions cephalexin (KEFLEX) 500 mg, Oral, Once valACYclovir (VALTREX) 500 mg, Every morning ALLERGIES [...] CURETTAGE OF UTERUS 2004 OVARIAN CYST REMOVAL REVIEW OF SYSTEMS Review of Systems: Review of Systems Constitutional: Negative. HENT: Negative. Eyes: Negative. Respiratory: Negative. Cardiovascular: Negative. Gastrointestinal: Negative. Genitourinary: Negative. Musculoskeletal: Negative. Skin: Negative. Neurological: Negative. All other systems reviewed and are negative. Hematological: Negative. Endocrine: Negative. Allergic/Immunologic: Negative. OBJECTIVE Objective: Physical Exam Constitutional: Appearance: Normal appearance. She is well-developed. Genitourinary: Vulva normal. Breasts: Breasts are soft. Right: Normal. Left: Normal. Cardiovascular: Rate and Rhythm: Normal rate and regular rhythm. Pulmonary: Effort: Pulmonary effort is normal. Breath sounds: Normal breath sounds. Abdominal: General: Bowel sounds are normal. There is no distension. Palpations: Abdomen is soft. Tenderness: There is no abdominal tenderness. There is no guarding or rebound. Musculoskeletal: General: No swelling. Normal range of motion. Right lower leg: No edema. Left lower leg: No edema. Neurological: Mental Status: She is alert and oriented to person, place, and time. Skin: General: Skin is warm and dry. Psychiatric: Mood and Affect: Mood normal. Behavior: Behavior normal. Vitals and nursing note reviewed. Exam conducted with a closing agent present. Vitals: There is no height or weight on file to calculate BMI. BP: 116/72 Patient's last menstrual period was 09/03/2024 (approximate). ASSESSMENT & PLAN ICD-10-CM 1. Well woman exam with routine gynecological exam Z01.419 Pap Smear HPV DNA probe, amplified Annual Exam: Patient presents today for an annual exam. Patient states she is doing well and has no complaints. Pap was obtained without difficulty. If patients results show UTI Bactrim DS can be prescribed. Orders Placed This Encounter Procedures HPV DNA probe, amplified Follow Up: Patient is to return in one year for annual unless needed otherwise. Documented by Saba Wen LPN on behalf of: Amparo Carbone DO [facility] History of Present illness Narrative 12-10-2023 Note Date & [id number] History of Present illness Narrative* SALVADOR Fernandes - 12/10/2023 3:50 PM EST Reason for Appointment: Patient ID: Noni Nelson [...] behalf of: SALVADOR Fernandes documented in this encounterN[facility] Evaluation note Note Date & TypeNoteFacilityEvaluation note* Diagnosis Third trimester state, incidental Multigravida of advanced maternal age in third trimester documented in this encounter [facility] Evaluation note Note Date & TypeNoteFacilityEvaluation noteNo assessment information available [facility] Work Phone: Evaluation note Note Date & TypeNoteFacilityEvaluation note* Diagnosis Well woman exam with routine gynecological exam Routine gynecological examination Frequent UTI Urinary tract infection, site not specified documented in this encounter [facility] Healthcare Hospital course Narrative Note Date & TypeNoteFacilityHospital course Narrative No data available for this section [facility] Hospital Discharge instructions Note Date & TypeNoteFacilityHospital Discharge instructions No data available for this section [facility] Progress note Note Date & TypeNoteFacilityProgress note No data available for this section [facility] Summary Purpose Family History Relationship Condition Age at Onset Recorded Date/T saadia mother Hypertension Unknown Diabetes mellitusUnknownHypothyroidismUnknown Advance Directives Advance Directive Response Recorded Date/ Time Advance Directives No June 28, 2024 9:54am Chief Complaint and Reason for Visit Chief Complaint Sore throat, ear ach e Additional Source Comments INFORMATION SOURCE (unrecogn ized section and content) DATE CREATED AUTHOR 04/29/2018 [facility] DATE CREATED AUTHOR AUTHOR'S ORGANIZ ATION 10/05/2022 [facility] DATE CREATED AUTHOR AUTHOR'S ORGANIZ ATION 09/30/2024 [facility] DATE CREATED AUTHOR AUTHOR'S ORGANIZ ATION 12/24/2024 [facility] DATE CREATED AUTHOR AUTHOR'S ORGANIZ ATION 12/28/2024 [facility] DATE CREATED AUTHOR AUTHOR'S ORGANIZ ATION 04/22/2025 [facility] DATE CREATED AUTHOR AUTHOR'S ORGANIZ ATION 04/25/2025 [facility] DATE CREATED AUTHOR AUTHOR'S ORGANIZ ATION 04/28/2025 [facility] Reason for Visit (unrecogniz ed section and content) ReasonCommentsRoutine VisitReasonCommentsGynecologic Exam Care Teams (unrecognized sec tion and content) Team Status: Active Member Role Status Dates PHYSICIAN NO FAMILY Primary Care Provider Active Team Status: Inactive Member Role Status Dates Pastora Hopper APRN Attending Provider Active Start: June 28, 2024 End: June 28H[facility] Care ProviderActiveStart: June 28, 2024 End: June 28, 2024 Goals (unrecognized section and content) Goals may be documented in a n alternate section No data available for this section No data available for this section FOR RECORDS PERTAINING TO PATIENTS WHO [...] BE BASED ON THE PRIMARY CLINICAL RECORDS. [facility] [employer] [facility]. provides no warranty or guarantee of the accuracy or completeness of information in this document.
--- OUTSIDE RECORDS SUMMARY | 2025-10-05 19:41 | XMS_ITS | Clinical Summary ---
Author Organization [facility] tem Address [id number] [address] [place] [address] Care Team Providers Care Production Artist Name Role Phone Unavailable Primary Care Provider Unavailabl e Allergies Active AllergyReactionsCriticalityNoted VjvcJtchmnteJjprbzznmlomq02/31/2023 Nitrofurantoin Monohyd/M-Cryst09/02/2023 Medications MedicationSigDispense QuantityRefillsLast FilledStart DateEnd DateStatus PNV 83-sjni-nlnqggzxorvg-dha 29 mg iron-1 mg -350 mg comb pack,tablet DR,capsule DR Take 1 tablet by mouth in the morning.Active Social History Tobacco UseTypesPacks/DayYears UsedDateSmoking Tobacco: NeverSmokeless Tobacco: Never Tobacco Cessation:Counseling Given: Not Answered Alcohol UseStandard Drinks/WeekCommentsNot Currently0 (1 standard drink = 0.6 oz pure alcohol)ChildcareAnswerDate BdkztiigUzmqpgftdEatodpz42/12/2019Employment AnswerDate ViknqulhWxpmgrggjzTsdszgt35/12/2019Hunger ScreeningAnswerDate RecordedWithin the past 12 months we worried whether our food would run out before we got money to buy more.Never True09/30/2023Within the past 12 months the food we bought just didn't last and we didn't have money to get more.Never True09/30/2023CommentsNoSex and Gender InformationValueDate RecordedSex Assigned at BirthNot on fileLegal VrrMlxqga56/06/2015 11:29 AM EDTGender IdentityNot on fileSexual OrientationNot on file Last Filed Vital Signs Vital SignReadingTime TakenCommentsBlood Pressure--Pulse--Temperature-- Respiratory Rate--Oxygen Saturation--Inhaled Oxygen Concentration--Uhpacg52.4 kg (144 lb 3.2 oz)09/30/2023 1:36 PM ESTHeight--Body Mass Index-- Plan of Treatment Health MaintenanceDue DateLast DoneCommentsDepression Tzyuhgzpc60/04/1998Adult BMI Plgnjyins73/04/2004DTaP,Tdap and Td Vaccines (1 - Tdap)2005Pap Smear 2007Tobacco Vczhwiugz33/28/37782711/30/2022Influenza Djfufdd0207/04/2025 Medical Devices Not on file Insurance
--- OUTSIDE RECORDS SUMMARY | 2025-10-05 19:41 | XMS_ITS | Encounter Summary ---
Author Organization [facility] Address [address] [place] [address] Care Team Providers Care Hotel Guest Service Agent Name Role Phone Unavailable Primary Care Provider Unavailabl e Encounter Details DateTypeDepartmentCare Team (Latest Contact Info)Uyilckzgdvw16/02/2025Travel Social History Tobacco UseTypesPacks/DayYears UsedDateSmoking Tobacco: Never Assessed CommentsNoSex and Gender InformationValueDate RecordedSex Assigned at Eddzlc3106/23/2023 8:20 PM EDTLegal IkgKssewy04/15/2023 11:47 PM EDTGender RglraexwHzpjty30/21/2023 8:20 PM EDTSexual QeeqwseocrsWndgfmjd13/21/2023 8:20 PM EDTdocumented as of this encounter Plan of Treatment Not on file documented as of this encounter Visit Diagnoses Not on filedocumented in this encounter
--- OUTSIDE RECORDS SUMMARY | 2025-10-05 19:41 | XMS_ITS | Encounter Summary ---
Author Organization [facility] Address [address] [place] [address] Care Team Providers Care Errand Runner Name Role Phone Unavailable Primary Care Provider Unavailabl e Encounter Details DateTypeDepartmentCare Team (Latest Contact Info)Qjqptviyplx56/03/2025amboo flowsheet [facility] [address] [id number] Matthieu Carbone DO [address] Froilan Batista, [facility] Social History Tobacco UseTypesPacks/DayYears UsedDateSmoking Tobacco: Never Assessed CommentsNoSex and Gender InformationValueDate RecordedSex Assigned at Qqacio9606/23/2023 8:20 PM EDTLegal KrvObosqe02/15/2023 11:47 PM EDTGender TytnagobGnnxli71/21/2023 8:20 PM EDTSexual JxfwwswuhthUalckuge40/21/2023 8:20 PM EDTdocumented as of this encounter Plan of Treatment Not on file documented as of this encounter Visit Diagnoses Not on filedocumented in this encounter
--- OUTSIDE RECORDS SUMMARY | 2025-10-05 19:41 | XMS_ITS | Clinical Summary ---
Author Organization [facility] Address [address] [place] [address] Care Team Providers Care Factory Laborer Name Role Phone Unavailable Primary Care Provider Unavailabl e Allergies Active AllergyReactionsCriticalityNoted DateCommentsCiprofloxacinGI intolerance High07/17/2023 Other Reaction(s): Nightmare NitrofurantoinGI bllpxzjnvan59/14/2023 Other Reaction(s): Nausea & vomiting Other Reaction(s): Vomiting Medications MedicationSigDispense QuantityRefillsLast FilledStart DateEnd DateStatus valACYclovir (Valtrex) 500 MG tablet Take 500 mg by mouth in the morning.4Active doxycycline (Vibramycin) 100 MG capsule Indications:Urinary tract infection without hematuria, site unspecifiedTake 1 capsule (100 mg) by mouth in the morning and 1 capsule (100 mg) before bedtime. Do all this for 7 days. Take with at least 8 ounces (large glass) of water, do not lie down for 30 minutes after. 14 capsule 5Active cephalexin (Keflex) 500 MG capsule Take 500 mg by mouth 1 time10/05/2025Discontinued(Therapy completed) Encounters DateTypeDepartmentCare KddwLwrisbathqt02/03/2025 4:00 PM ESTOffice Visit [facility] [address] [address] Matthieu Carbone, DO Well woman exam with routine gynecological exam; Urinary tract infection without hematuria, site ysclpyhsmcc27/03/2025amboo flowsheet [facility] [address] [place] [address] Matthieu Carbone DO 10/04/2025Travelfrom Last 3 Months Family History Medical HistoryRelationNameCommentsRheum arthritisFatherDiabetesMaternal GrandmotherDiabetesMotherThyroid diseaseMotherDiabetesMother's SisterCancer Paternal GrandfatherCancerPaternal GrandmotherDiabetesSisterRelationNameStatus CommentsFatherMaternal GrandmotherMotherMother's SisterPaternal Grandfather Paternal GrandmotherSister Social History Tobacco UseTypesPacks/DayYears UsedDateSmoking Tobacco: Never Assessed CommentsNoSex and Gender InformationValueDate RecordedSex Assigned at Dcqbfb5806/23/2023 8:20 PM EDTLegal SleAkvydn78/15/2023 11:47 PM EDTGender TgdlqlbrNicxot23/21/2023 8:20 PM EDTSexual BlrjugpjjctXqdopjhx41/21/2023 8:20 PM EDT Last Filed Vital Signs Vital SignReadingTime TakenCommentsBlood Thugcsfy225/7010/05/2025 4:02 PM EST Pulse--Temperature--Respiratory Rate--Oxygen Saturation--Inhaled Oxygen Concentration--Zmcluz92.9 kg (143 lb)10/05/2025 4:02 PM ESTHeight--Body Mass Index-- Plan of Treatment Health MaintenanceDue DateLast DoneCommentsCOVID-19 Vaccine ( season) Influenza Vaccine (#1)2025ervical Cancer Screening 09/27/2029HPV/Fgeyfb1309/27/2029Pap Smear, 09/11/2023 Pneumococcal Vaccine: Pediatrics (0 to 5 Years) and At-Risk Patients (6 to 64 Years)Aged OutNo longer eligible based on patient's age to complete this topic Procedures Procedure NamePriorityDate/TimeAssociated DiagnosisCommentsPOCT URINALYSIS HOPCJERINdqmqya76/03/2025 4:08 PM EST Urinary tract infection without hematuria, site unspecified PAP QYNAVBmapouy94/25/2024 12:00 AM ESTfrom Last 3 Months or Most Recently Relevant to Health Maintenance Results * (ABNORMAL) POCT urinalysis dipstick manually [...] / LateralityCollection Method / VolumeCollection Time Received DvqxOhwyw11/03/2025 4:08 PM EST Narrative Authorizing ProviderResult TypeResult StatusCorey Raf DOPOINT OF CARE TEST ENTER/EDIT ORDERABLESFinal Result * Pap Smear (09/27/2024 12:00 AM EST)Specimen (Source)Anatomical Location / LateralityCollection Method / VolumeCollection TimeReceived TimeSwabCervical swab / Unknown Narrative Authorizing ProviderResult TypeResult StatusCorey Raf DOLAB CYTOLOGY ORDERABLESFinal ResultPerforming OrganizationAddressCity/State/ZIP CodePhone Number EXTERNAL LAB from Last 3 Months or Most Recently Relevant to Health Maintenance Insurance [address] [place] [phone]
== END 2025-10-05 19:37 | disposition home or self-care (01) ==
LOC: LAB 19:36
PROVIDERS: Visit Provider Obstetrics & Gynecology
DX: Z01.419 Encounter for gynecological examination (general) (routine) without abnormal findings (principal)
CPT/HCPCS: 87624; 88175